=== PATIENT | female | born 1980 | race Caucasian/White ===

== ENCOUNTER 2017-12-06 16:09 | Emergency (ER) | payer MEDICARE, SELFPAY ==
--- NOTE | 2017-12-06 17:34 | XR_ITS ---
XR chest 2V HISTORY: ITS.REASON: COUGH/SOA ORDERING PHYSICIAN: Moisés Mckeon PATIENT AGE: 37 years COMPARISON: 05/30/2013 FINDINGS: The cardiomediastinal silhouette and pulmonary vascularity are within normal limits. The lungs are clear without infiltrates, suspicious nodules, or pleural effusions. No acute bony abnormalities. IMPRESSION: Negative chest, no acute finding
[2017-12-06 17:37] VITALS: BP 143/80; PULSE 116; RESP 20; TEMP 36.6; O2SAT 98; BMI 42.9
--- NOTE | 2017-12-06 18:35 | HMH.EDUTC ---
[facility] [place] Disposition Clinical Impression: Acute bronchitis Qualifiers: Bronchitis organism: unspecified organism Qualified Code(s): J20.9 - Acute bronchitis, unspecified Disposition: Home, Self-Care Condition on Discharge: Good Instructions: DI for Acute Bronchitis Additional Instructions: * STOP SMOKING!!!! * Monitor Temp. Follow up if fever, aches, chills develop * humidifier/vaporizer/hot steamy shower * Rescue Inhaler every 4-6 hours as needed like we discussed. Should help open airways and improve cough, wheezing, shortness of breath. * Mucinex during the day for your cough and cough suppressant only at night. Be sure to drink lots of water. Insurance may not cover a prescription of mucinex. Might be cheaper to get 400mg tablets and take 2 tablets morning, midday and evening all with lots of water. * Start steroid tomorrow. Helps with inflammation therefore, cough and wheezing. Follow directions on package. Rvwd side effects. Pt reports they have taken them before. Prescriptions: guaiFENesin [Mucinex 600mg tablet] 600 mg PO BID #14 tab.er.12h predniSONE [Prednisone 20mg Tab] 20 mg PO BID #10 tab Referrals: Pablo Delgado MD [Primary Care Provider] - (Follow up IMMEDIATELY for new or worsening symptoms AND in 2 days for repeat lung exam. Call them tomorrow and schedule follow up appointment. 911 for difficulty breathing.) Time of Disposition: 20:02 Medical Decision Making Vital Signs: 12/06/17 17:37 12/06/17 19:14 Temperature 98 F Temperature Source Temporal Artery Scan Pulse Rate 113 H Pulse Rate [Right Radial] 116 H Respiratory Rate 20 Blood Pressure [Right Arm] 143/80 Blood Pressure Mean [Right Arm] 101 02 Sat by Pulse Oximetry 98 Oxygen Delivery Method Room Air - Lab Data Lab results reviewed: Yes: I reviewed the patient's lab results. Lab Results 12/06/17 17:34: Strep Scn [facility] Negative 12/06/17 18:38: Influenza Type A Ag Negative, Influenza Type B Ag Negative Orders (Tests/Meds): ED MEDICATIONS Discontinued Medications Generic Name Dose Route Start Last Admin Trade Name Freq PRN Reason Stop Dose Admin Albuterol/Ipratropium 3 ml 12/06/17 18:41 02/21/18 19:12 Duoneb 3ml Neb IH 12/06/17 18:42 3 ml ONCE ONE Administration Methylprednisolone Sodium Succinate 125 mg 12/06/17 18:41 12/06/17 18:53 Solu-Medrol 125mg/2ml Vial IM 12/06/17 18:42 125 mg ONCE ONE Administration ORDERS Category Date Time Status Strep Screen Confirmation Stat Micro 12/06/17 17:34 Received - Radiology Data #1 Image(s): Chest Image Reviewed: Yes I have reviewed radiologist's interpretation Preliminary Findings: Normal/NAD - Torres Inquiry Pt receiving controlled substance: No - Reevaluation(s) Time: 19:55 Reevaluation #1: pt coughing less since neb and steroid. Reports I am already feeling better . RHonchi and wheezing much improved and only minimal at end expiration now. Declines need for cough suppressant at night. Agrees to follow up with PCP in 2 days or for new or worsening symptoms. [facility] [place] HPI - General Stated complaint: sob Time Seen by Provider: 12/06/17 18:35 Mode of Arrival: Family Vehicle Source of Information: Patient Limitations: No Limitations Description of Symptoms (Recalled from Triage Doc. by RN): pt c/o soa, cough, congestion. HEENT Symptoms (Recalled from RN notes): Yes (congestion) Resp Symptoms (Recalled from RN notes): Yes (cough,soa) Skin Symptoms (Recalled from RN notes): No MS Symptoms (Recalled from RN notes): No Functional Status (Recalled from RN notes): na - History of Present Illness Provider Complaint: c/o nonprod cough, SOA, nasal congestion, sore throat for 2-3 days. Hx of bronchial asthma . Uses albuterol inhaler PRN but not typically daily. Using BID right now. Helps but wears off. Son with similar symptoms but not this bad . Denies fever, aches, wheezing. Hx of schizophrenia. Denies hallucinations
--- NOTE | 2017-12-06 18:41 | ED_ITS ---
[facility] [place] Disposition Clinical Impression: Acute bronchitis Qualifiers: Bronchitis organism: unspecified organism Qualified Code(s): J20.9 - Acute bronchitis, unspecified Disposition: Home, Self-Care Condition on Discharge: Good Instructions: DI for Acute Bronchitis Additional Instructions: * STOP SMOKING!!!! * Monitor Temp. Follow up if fever, aches, chills develop * humidifier/vaporizer/hot steamy shower * Rescue Inhaler every 4-6 hours as needed like we discussed. Should help open airways and improve cough, wheezing, shortness of breath. * Mucinex during the day for your cough and cough suppressant only at night. Be sure to drink lots of water. Insurance may not cover a prescription of mucinex. Might be cheaper to get 400mg tablets and take 2 tablets morning, midday and evening all with lots of water. * Start steroid tomorrow. Helps with inflammation therefore, cough and wheezing. Follow directions on package. Rvwd side effects. Pt reports they have taken them before. Prescriptions: guaiFENesin [Mucinex 600mg tablet] 600 mg PO BID #14 tab.er.12h predniSONE [Prednisone 20mg Tab] 20 mg PO BID #10 tab Referrals: Pablo Delgado MD [Primary Care Provider] - (Follow up IMMEDIATELY for new or worsening symptoms AND in 2 days for repeat lung exam. Call them tomorrow and schedule follow up appointment. 911 for difficulty breathing.) Time of Disposition: 20:02 Medical Decision Making Vital Signs: 12/06/17 17:37 12/06/17 19:14 Temperature 98 F Temperature Source Temporal Artery Scan Pulse Rate 113 H Pulse Rate [Right Radial] 116 H Respiratory Rate 20 Blood Pressure [Right Arm] 143/80 Blood Pressure Mean [Right Arm] 101 02 Sat by Pulse Oximetry 98 Oxygen Delivery Method Room Air - Lab Data Lab results reviewed: Yes: I reviewed the patient's lab results. Lab Results 12/06/17 17:34: Strep Scn Rapid [facility] Negative 12/06/17 18:38: Influenza Type A Ag Negative, Influenza Type B Ag Negative Orders (Tests/Meds): ED MEDICATIONS Discontinued Medications Generic Name Dose Route Start Last Admin Trade Name Freq PRN Reason Stop Dose Admin Albuterol/Ipratropium 3 ml 12/06/17 18:41 02/21/18 19:12 Duoneb 3ml Neb IH 12/06/17 18:42 3 ml ONCE ONE Administration Methylprednisolone Sodium Succinate 125 mg 12/06/17 18:41 12/06/17 18:53 Solu-Medrol 125mg/2ml Vial IM 12/06/17 18:42 125 mg ONCE ONE Administration ORDERS Category Date Time Status Strep Screen Confirmation Stat Micro 12/06/17 17:34 Received - Radiology Data #1 Image(s): Chest Image Reviewed: Yes I have reviewed radiologist's interpretation Preliminary Findings: Normal/NAD - Torres Inquiry Pt receiving controlled substance: No - Reevaluation(s) Time: 19:55 Reevaluation #1: pt coughing less since neb and steroid. Reports I am already feeling better . RHonchi and wheezing much improved and only minimal at end expiration now. Declines need for cough suppressant at night. Agrees to follow up with PCP in 2 days or for new or worsening symptoms. [facility] [place] HPI - General Stated complaint: sob Time Seen by Provider: 12/06/17 18:35 Mode of Arrival: Family Vehicle Source of Information: Patient Limitations: No Limitations Description of Symptoms (Recalled from Triage Doc. by RN): pt c/o soa, cough,
[2017-12-06 19:14] VITALS: PULSE 107; PULSE 113
[2017-12-06 19:48] LABS: UTC Influenza A Antigen Negative (Negative); UTC Influenza B Antigen Negative (Negative)
[2017-12-06 19:49] LABS: UTC Strep Screen (Rapid) Negative (Negative)
[2017-12-06 20:04] VITALS: BP 136/77; PULSE 65; RESP 20; TEMP 36.9; O2SAT 99
== END 2017-12-06 20:05 | disposition home or self-care (01) ==
PROVIDERS: Emergency Provider Nurse Practitioner Family; Family Provider Emergency Medicine; PCP Emergency Medicine
DX: J20.9 Acute bronchitis, unspecified (principal); Z88.6 Allergy status to analgesic agent; F17.210 Nicotine dependence, cigarettes, uncomplicated; F20.9 Schizophrenia, unspecified
CPT/HCPCS: G0463; 71046; 87804; 87880; 96372; 99202

== ENCOUNTER → 2017-12-18 14:31 | Outpatient (CLI) | payer MEDICARE, SELFPAY ==
[2017-12-19 14:44] LABS: Free T4 (Free Thyroxine) 0.86 ng/dl (0.76-1.46); Thyroid Stimulating Hormone 3.84 uIU/ml (0.358-3.740)
== END ==
PROVIDERS: PCP Emergency Medicine; Visit Provider Emergency Medicine
DX: R53.83 Other fatigue (principal); R01.1 Cardiac murmur, unspecified
CPT/HCPCS: 84439; 84443; 93225; 93226

== ENCOUNTER → 2018-03-30 15:24 | Outpatient (CLI) | payer MEDICARE, SELFPAY ==
--- NOTE | 2018-03-30 15:27 | CT_ITS ---
CT hip LT wo con HISTORY: Persistent left hip pain, cyst on left hip ITS.REASON: Cystic lesion ORDERING PHYSICIAN: Pablo Delgado MD PATIENT AGE: 38 years COMPARISON: 06/09/2017 FINDINGS: No fracture or dislocation is evident. There is very slight decrease in the superior joint space with minimal osteophyte formation along the femoral head consistent with mild osteoarthritic change. There is a well-circumscribed cystic lesion involving the junction of the right femoral head and neck inferiorly and posteriorly. This measures approximately 7 mm. This is well-circumscribed and has benign features compatible with a fibrous cortical defect or subchondral cyst/small geode. No soft tissue mass or aggressive appearing bony lytic lesion. Minimal degenerative changes are present at the sacroiliac joint on the left. IMPRESSION: 1. 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 Benign-appearing 7 mm cortical cystic lesion of the junction of left femoral head and neck which may represent a fibrous cortical defect or small subarticular cyst.
== END ==
PROVIDERS: Family Provider Emergency Medicine; PCP Emergency Medicine; Visit Provider Emergency Medicine
DX: M25.552 Pain in left hip (principal)
CPT/HCPCS: 73700

== ENCOUNTER → 2018-04-25 09:36 | Outpatient (CLI) | payer MEDICARE, MEDICAID, SELFPAY ==
--- NOTE | 2018-04-25 09:37 | MM_ITS ---
MM Dig screening mamm BI w/CAD CAD Screening COMPARISON: Digital mammograms with CAD 02/13/2013 INDICATION: There is no personal or family history of breast cancer TECHNIQUE: Standard CC and MLO images were obtained. R2 CAD reviewed. FINDINGS: The breasts are composed primarily of fat with minimal scattered fibroglandular densities throughout each breast. There is a mole marker right breast. There are couple benign-appearing calcifications right breast. There is a small asymmetric nodular density just deep to the nipple right breast with benign features but was not deftly seen on the previous mammogram. Recommend the patient return for spot compression views and ultrasound for better evaluation. IMPRESSION: Fibrofatty parenchyma with asymmetric density right breast BI-RADS Category: 0 Need Additional Imaging Evaluation RECOMMENDED FOLLOW-UP: IMM - IMMEDIATE FOLLOW-UP RECOMMENDED (A letter has been sent to the patient regarding results of the study.)
--- NOTE | 2018-04-25 09:37 | US_ITS ---
US transvaginal HISTORY: Pelvic pain, dysfunctional uterine bleeding ITS.REASON: DUB ORDERING PHYSICIAN: Dylan Beckett MD PATIENT AGE: 38 years Comparison: None FINDINGS: Uterus measures 9.4 x 4.2 x 5.8 cm. Combined endometrial thickness is 11 mm. Nabothian cysts are present measuring up to 8 mm. The ovaries were not able to be visualized. Minimal cul-de-sac fluid evident. IMPRESSION: 1. Endometrial thickness upper limits of normal. 2. Ovaries are not visualized.
== END ==
PROVIDERS: Family Provider Emergency Medicine; PCP Emergency Medicine; Visit Provider Obstetrics & Gynecology
DX: Z12.31 Encounter for screening mammogram for malignant neoplasm of breast (principal); N93.8 Other specified abnormal uterine and vaginal bleeding
CPT/HCPCS: 76830; 77067

== ENCOUNTER → 2018-05-02 13:28 | Outpatient (CLI) | payer MEDICARE, MEDICAID, SELFPAY | PROVIDERS: Family Provider Emergency Medicine; PCP Emergency Medicine; Visit Provider Emergency Medicine | DX: M54.9 Dorsalgia, unspecified (principal) ==

== ENCOUNTER → 2018-05-15 13:36 | Outpatient (CLI) | payer MEDICARE, MEDICAID, SELFPAY ==
--- NOTE | 2018-05-15 14:42 | MM_ITS ---
MM Dig mamm DX unilat RT CAD, US breast RT complete INDICATION: Follow-up abnormal mammogram ORDERING PHYSICIAN: Dylan Beckett MD PATIENT AGE: 38 years COMPARISON: 04/25/2018, 02/13/2013 TECHNIQUE: Probable resolving views performed with right breast ultrasound FINDINGS: Right Mammogram: There is a dilated duct in the retroareolar region extending laterally. There is a nodular density in the lateral aspect of the right breast corresponding to the asymmetric density on the mammogram. This measures 8 mm and is best seen on the rolled view and ML view. In addition, there is a bilobular density in the subareolar region at 6 mm. Right breast ultrasound: The dilated duct is noted extending towards the 9:00 region. There is some isoechoic echogenicity in the 9:00 region of the duct possibly due to debris. A granuloma is an additional consideration. MRI suggested for further evaluation. A small cluster of cysts also noted in the subareolar region IMPRESSION: No ductal dilatation in the right subareolar region extending laterally with debris or nodule within the proximal aspect of the duct which may account for the nodular density noted on the mammogram. MRI of the breast suggested for further evaluation for new ductal dilatation BI-RADS Category: 0 Need Additional Imaging Evaluation RECOMMENDED FOLLOW-UP: IMM - IMMEDIATE FOLLOW-UP RECOMMENDED Recommend MRI of the breast for further evaluation for workup of new singular ductal dilatation with possible lesion in the proximal aspect of the duct (A letter has been sent to the patient regarding results of the study.)
== END ==
PROVIDERS: Family Provider Emergency Medicine; PCP Emergency Medicine; Visit Provider Obstetrics & Gynecology
DX: R92.8 Other abnormal and inconclusive findings on diagnostic imaging of breast (principal)
CPT/HCPCS: 76641; 77065

== ENCOUNTER → 2018-05-25 13:15 | Outpatient (CLI) | payer MEDICARE, MEDICAID, SELFPAY ==
[2018-05-25 13:29] LABS: Basophils # 0.2 K/mm3 (0-0.2); Eosinophils # 0.3 K/mm3 (0.0-0.4); Eosinophils % 1.9 % (0.1-12.0); Hemoglobin 13.3 g/dL (12.2-16.2); Lymphocytes % 31.7 K/mm3 (10-50); Mean Corpuscular HGB Conc 32.5 g/dL (31.8-35.4); Mean Corpuscular Hemoglobin 29.3 pg (27.0-31.2); Mean Corpuscular Volume 89.9 fl (81-99); Mean Platelet Volume 8.7 fl (7.4-10.4); Monocytes # 0.6 K/mm3 (0.1-1.0); Monocytes % 3.7 % (1.7-9.3); Neutrophils # 9.8 K/mm3 (1.8-7.8); Neutrophils % 61.7 % (37.0-80.0); Platelet Count 241 K/mm3 (142-424); Red Blood Count 4.56 M/mm3 (4.20-5.40); Red Cell Distribution Width 14.7 % (11.5-17.5); White Blood Count 15.8 K/mm3 (4.8-10.8)
[2018-05-25 13:55] LABS: MANUAL DIFFERENTIAL MANUAL DIFFERENTIAL (MANUAL DIFF)
[2018-05-25 15:33] LABS: Eosinophils % 4 % (0-3); Lymphocytes % 32 % (10-50); Monocytes % 8 % (2-9); Neutrophils % 55 % (42-76); Platelet Estimate Normal; RBC Morphology Normal; Total Cells Counted 100
== END ==
PROVIDERS: Family Provider Emergency Medicine; PCP Emergency Medicine; Visit Provider Obstetrics & Gynecology
DX: Z01.419 Encounter for gynecological examination (general) (routine) without abnormal findings (principal); R60.0 Localized edema
CPT/HCPCS: 36415; 84443; 85007; 85025

== ENCOUNTER → 2018-06-13 14:52 | Outpatient (CLI) | payer MEDICARE, MEDICAID, SELFPAY ==
--- NOTE | 2018-06-13 14:53 | MR_ITS ---
MR lumbar spine wo con, MR 3-d myelogram/MRCP HISTORY: PT states low back pain X 3 Years or longer. Bilateral hip pain, legs numbness and tingling. ITS.REASON: back pain ORDERING PHYSICIAN: Pablo Delgado MD PATIENT AGE: 38 years Comparison: 06/09/17 TECHNIQUE: Standard multiplanar multiecho sequences are performed without contrast. 3-D MIP and myelographic images are also rendered and reviewed FINDINGS: There is normal alignment. The spinal cord ends at the L1 level. No canal stenosis. T11-L4 has an unremarkable appearance. L4-5: There is a mild concentric bulging disc eccentric towards the left with small broad-based left foraminal and lateral disc protrusion causing mild left foraminal narrowing. Facet and ligamentum flavum hypertrophic changes are present with bilateral lateral recess narrowing left greater than right with some mild impingement upon the left L5 nerve root from the lateral recess narrowing. In addition, there is an ovoid so intensity within the anterior and inferior aspect of the foramen on the right at L4-L5 measuring approximately 9 x 4 mm. This is in inferior to the exiting L4 nerve root is could be due to small disc extrusion or a disc osteophyte complex contiguous with the endplate. L5-S1 shows some mild facet and ligamentum flavum hypertrophy. Incidental note is made of a 2.7 x 2.6 cm rounded isointense T1 and slightly hyperintense T2 lesion medial to the inferior aspect of the left kidney. Etiology is indeterminate. Suggest CT scan without and with contrast for further evaluation IMPRESSION: 1. Mild concentric bulging disc eccentric towards the left at L4-L5 with small broad-based left foraminal and lateral disc protrusion causing mild left foraminal narrowing. Facet and ligamentum flavum hypertrophic changes are present with bilateral lateral recess narrowing left greater than right with some mild impingement upon the left L5 nerve root from the lateral recess narrowing. In addition, there is an ovoid isointensity within the anterior and inferior aspect of the foramen on the right at L4-L5 measuring approximately 9 x 4 mm. This is in inferior to the exiting L4 nerve root is could be due to small disc extrusion or a disc osteophyte complex contiguous with the endplate and may be causing some and upon the exiting L4 nerve root 2. 2.7 cm mass in the left para-aortic region medial to the inferior pole left kidney. Recommend CT of the kidneys without and with contrast for further evaluation
== END ==
PROVIDERS: Family Provider Emergency Medicine; PCP Emergency Medicine; Visit Provider Emergency Medicine
DX: M54.9 Dorsalgia, unspecified (principal)
CPT/HCPCS: 72148; 76376

== ENCOUNTER → 2018-07-18 08:59 | Outpatient (CLI) | payer MEDICARE, MEDICAID, SELFPAY ==
--- NOTE | 2018-07-18 09:06 | CT_ITS ---
CT abdomen pelvis wo/w con CLINICAL INDICATION: Follow-up left renal mass seen on recent MRI of the lumbar spine ITS.REASON: left kidney mass ORDERING PHYSICIAN: BARON Tapia PATIENT AGE: 38 years COMPARISON: None TECHNIQUE: Axial images obtained without and with contrast. Multiplanar Sagittal and coronal reformats. All CT scans at the facility use one or more dose reduction, viz: automated exposure control, ma/kV adjustment per patient size (including targeted exams where dose is matched to indication, i.e. head), or iterative reconstruction technique. PROCEDURE: Oral Contrast: None IV Contrast: 75 mL [id number]. FINDINGS: There is a well-circumscribed 2.8 x 3.1 x 2.9 cm solid-appearing soft tissue mass in the retroperitoneum on the left. There is mostly uniform density isodense to muscle on the unenhanced images showing some contrast enhancement with fairly rapid washout. This abuts the medial and superior aspect of the left kidney. The left renal artery extends to the medial margin of this lesion. It is uncertain with the renal artery passes through the lesion or drapes around the lesion. This does appear to be separate from the left adrenal gland. No other significant anomalies are evident. The liver, spleen, adrenal glands, right kidney, and pancreas have an unremarkable appearance. There is a mild amount retained colonic feces. There is a tiny umbilical hernia containing fat. No pelvic mass or abnormal fluid collection. There are bilateral tubal occlusion device is present. There is a small left ovarian cyst at 14 mm. No acute bony anomalies are evident. IMPRESSION: Well-circumscribed 3 cm left retroperitoneal mass as described above along the superior medial aspect of the left kidney and inferior to the left adrenal gland. The left renal artery appears to lead into this lesion. This therefore creates concern for percutaneous biopsy. This could represent an exophytic renal cell carcinoma. Other considerations would include a ganglioneuroma, paraganglioma, schwannoma/neurofibroma or lymphangioma. Pheochromocytoma felt to be less likely. Does the patient have any old CTs at another institution for comparison. Consider urology consult. If percutaneous biopsy is contemplated then CT renal angiogram should be performed.
--- NOTE | 2018-07-18 09:31 | HMH.ITSHM ---
SEE PRIOR LIST
== END ==
PROVIDERS: Family Provider Emergency Medicine; PCP Emergency Medicine; Visit Provider Physician Assistant
DX: N28.89 Other specified disorders of kidney and ureter (principal)
CPT/HCPCS: 74170; Q9967

== ENCOUNTER 2018-08-22 08:21 | Inpatient (IN) ==
--- NOTE | 2018-08-22 08:26 | Emergency Department Note ---
ED Disposition Clinical Impression: Abdominal pain, lower Leukocytosis Qualifiers: Leukocytosis type: unspecified Qualified Code(s): D72.829 - Elevated white blood cell count, unspecified Disposition: Still a Patient Condition on Discharge: Fair Referrals: Provider,Referral, [Primary Care Provider] - - Critical Care Critical Care Time: No Attestation: On , the high probability of a clinically significant, sudden or life threatening deterioration of the following system(s) required my full and direct attention, intervention and personal management. The time I documented below is in addition to time spent performing reported procedures but includes the following listed in this critical care notation. Medical Decision Making - Torres Inquiry Pt receiving controlled substance: Yes Torres was queried for this patient: Yes Reference #:: [id number] Risks and benefits of using a controlled substance: were not discussed with pt by me Comment: 2 rxs for Tylenol #3, last on 04/13/18, 60 tabs Vital Signs: 08/22/18 08:21 08/22/18 08:32 08/22/18 08:51 Temperature 98.6 F 98.6 F Temperature Source Oral Oral Pulse Rate [Right Brachial] 120 H 120 H 112 H Respiratory Rate 18 18 20 Blood Pressure [Right Arm] 170/132 H 170/132 H 165/100 H Blood Pressure Mean [Right Arm] 144 144 121 Blood Pressure Source [Right Arm] Automatic Cuff Automatic Cuff Automatic Cuff Blood Pressure Position [Right Arm] Sitting Sitting Sitting 02 Sat by Pulse Oximetry 97 97 96 Oxygen Delivery Method Room Air Room Air Room Air 08/22/18 09:24 08/22/18 09:34 08/22/18 11:11 Temperature Temperature Source Pulse Rate [Right Brachial] 114 H 107 H 108 H Respiratory Rate 19 19 Blood Pressure [Right Arm] 156/114 H 200/101 H 140/106 H Blood Pressure Mean [Right Arm] 128 134 117 Blood Pressure Source [Right Arm] Manual Cuff/ Auscultation Automatic Cuff Blood Pressure Position [Right Arm] Supine Sitting 02 Sat by Pulse Oximetry 96 96 95 Oxygen Delivery Method 08/22/18 11:41 Temperature Temperature Source Pulse Rate [Right Brachial] 58 L Respiratory Rate 20 Blood Pressure [Right Arm] 155/79 H Blood Pressure Mean [Right Arm] 104 Blood Pressure Source [Right Arm] Automatic Cuff Blood Pressure Position [Right Arm] Sitting 02 Sat by Pulse Oximetry 95 Oxygen Delivery Method Room Air - Lab Data Lab Results 08/22/18 08:30: WBC 19.1 H, RBC 4.91, Hgb 14.9, Hct 46.0, MCV 93.8, MCH 30.4, MCHC 32.4, RDW 15.3, Plt Count 252, MPV 8.3, Neut % (Auto) 61.0, Lymph % (Auto) 31.1, [place] % (Auto) 4.5, Eos % (Auto) 2.0, Baso % (Auto) 1.5, Neut # (Auto) 11.6 H, Lymph # (Auto) 5.9 H, [place] # (Auto) 0.9, Eos # (Auto) 0.4, Baso # (Auto) 0.3 H, Total Counted 100, Neutrophils % (Manual) 65, Lymphocytes % (Manual) 22, Atypical Lymphs % 6.0, Monocytes % (Manual) 4, Eosinophils % (Manual) 3, Platelet Estimate Normal, RBC Morphology Normal 08/22/18 08:30: Sodium 138, Potassium 4.6, Chloride 100, Carbon Dioxide 26, Anion Gap 16.6 H, BUN 23 H, Creatinine 1.22 H, Estimated Creat Clear 48, Estimated GFR 49 L, Est GFR ( Amer) 59, Glucose 126 H, Calcium 9.3, Total Bilirubin 0.3, AST 20, ALT 40, Alkaline Phosphatase 115, Total Protein 8.1, Albumin 3.6, Globulin 4.5 H, Albumin/Globulin Ratio 0.8 L, Lipase 193 08/22/18 08:38: Urine Color Yellow, Urine Appearance Sl cloudy, Urine pH 6.5, Ur Specific [place] 1.025, Urine Protein 2+, Urine Glucose (UA) Negative, Urine Ketones Negative, Urine Blood Trace-i, Urine Nitrate Negative, Urine Bilirubin Negative, Urine Urobilinogen 0.2, Ur Leukocyte Esterase Negative, Urine RBC Occasional, Urine WBC 3-5, Ur Squamous Epith Cells 20-50, Urine Bacteria 1+, Urine Mucus Trace 08/22/18 08:38: Urine HCG, Qual Negative Result diagrams: 08/22/18 08:30 08/22/18 08:30 Orders (Tests/Meds): ED MEDICATIONS Discontinued Medications Generic Name Dose Route Start Last Admin Trade Name Freq PRN Reason Stop Dose Admin Iopamidol 75 ml 08/22/18 09:09 08/22/18 09:10 [id number]; 75ml Vial IV 08/22/18 09:10 75 ml ONCE ONE Administration Protocol Morphine Sulfate 4 mg 08/22/18 08:41 08/22/18 08:53 Morphine 4mg/Ml Syringe IV 08/22/18 08:42 4 mg ONCE ONE Administration Ondansetron HCl 4 mg 08/22/18 08:41 08/22/18 08:53 Zofran 4mg/2ml Vial IV 08/22/18 08:42 4 mg ONCE ONE Administration Sodium Chloride 1,000 ml 08/22/18 08:41 08/22/18 08:53 Sod Chlor 0.9% 1000ml Bag IV 08/22/18 08:42 1,000 ml BOLUS ONE Administration Sodium Chloride 10 ml 08/22/18 09:09 08/22/18 09:10 Rad-Saline Flush 10ml Syringe IV 08/22/18 09:10 10 ml ONCE ONE Administration - CT Data CT Scan: Abdomen, Pelvis Time Received: 09:[address] Reviewed: Yes: I discussed the CT results w/the radiologist Findings Narrative: Small amount of inflammation around the small bowel. Small amount of fluid anterior to the uterus. Findings nonspecific. No diverticulitis. IMPRESSION: 1. There are noncalcified nodules in the left lung base. These are nonspecific. One cannot exclude the possibility of metastasis especially in a patient with a left retroperitoneal mass. 2. 3.3 cm left retroperitoneal mass as previously described not significant change from 07/18/2018. Neoplasm is considered. 3. There is a small amount of fluid anterior to the uterus with some minimal infiltration of the peritoneal fat in this region suggesting underlying inflammation. Etiology of this is however uncertain. This is immediately adjacent to small bowel and colon however negative widely structures show any significant bowel wall thickening. No convincing evidence of diverticulitis. There are some mildly prominent small bowel loops in the lower abdomen/upper pelvic region. Enteritis is a consideration. Dictated By: Timur Thompson MD Signed By: <Electronically signed by Timur Thompson MD in [place]> 08/22/18 1005 - US Data US Images: Pelvis ED US Reviewed: Yes: I have viewed radiologist's interpretation Findings Narrative: IMPRESSION: Limited exam with mild thickening of the endometrium with a small amount of cul-de-sac fluid. No evidence of ovarian torsion. Hyperechogenicity noted in the fundus of the uterus possibly related to the Essure device versus a small amount of gas. Dictated By: Timur Thompson MD Signed By: <Electronically signed by Timur Thompson MD in [place]> 08/22/18 1138 - Physician Consults Physician Consulted: Danny Time: 09:58 Reason -: Pt condition Comment/Response: agrees with pelvic u/s. if no cause for pain found, surgical consult, admit for observation. 12:00 PM - Dr. Delgado present, discussed U/S results. Additional Consult: Gen Time: 12:16 Reason -: Surgical Eval/Care Comment/Response: will consult - Reevaluation(s) Time: 09:47 Reevaluation #1: States currently pain-free. Blood pressure elevated, did not take her lisinopril this morning. General Adult HPI - General Chief complaint: Abdominal Pain Stated complaint: Abd/Back Pain Time Seen by Provider: 08/22/18 08:30 - History of Present Illness HPI narrative: Woke up with severe abdominal pain and low back pain this morning. No prior sim ilar pains. Locates the pain is diffuse, but says it is mostly in the suprapubic/pelvic area and feels like labor pain contractions. Feels distended. No nausea, vomiting, fever, diarrhea, constipation. Last menstrual period about 2 weeks ago. No vaginal discharge. She is not sexually active. Last intercourse 8 months ago. Has only had sex once in 6 years. States that she has been told she has an enlarged uterus by her gold nib grinder, Dr. Beckett, but it has not yet been investigated. 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 Scheduled for surgery on 08/30/18. Urologist Dr. Rapp. PCP Dr. Delgado. - Related Data Home Medications Medication Instructions Recorded Confirmed Budesonide/Formoterol Fumarate 2 puff INHALATION BID 08/22/18 08/22/18 [Symbicort 160-4.5 Mcg Inhaler] Cyclobenzaprine HCl 10 mg PO BID 08/22/18 08/22/18 [Cyclobenzaprine 10mg Tab] Lisinopril/Hydrochlorothiazide 1 tab PO DAILY 08/22/18 08/22/18 [Lisinopril-Hctz 10-12.5 mg Tab] Mupirocin [Centany] 1 applic TOPICAL BID 08/22/18 08/22/18 hydroCHLOROthiazide 12.5 mg PO .QOD 08/22/18 08/22/18 [Hydrochlorothiazide 12.5mg Tab] Previous Rx's Medication Instructions Recorded albuterol sulfate HFA 90 2 puff INHALATION Q4-6H PRN 30 04/19/18 mcg/actuation aerosol inhaler Days #6.7 g aripiprazole 10 mg tablet 10 mg PO QDAY #90 tab 08/16/18 levothyroxine 25 mcg tablet 25 mcg PO DAILY #90 tab 08/16/18 Allergies Allergy/AdvReac Type Severity Reaction Status Date / Time ibuprofen [IBUPROFEN] Allergy Unknown I-HIVES Verified 07/24/18 09:20 naproxen [NAPROXEN] Allergy Unknown I-HIVES Verified 07/24/18 09:20 [facility] History I have reviewed the patient's past medical history: Yes Medical History: Reports:: Hypertension Denies:: Cancer, Diabetes Mellitus Type 1, Diabetes Mellitus Type 2, MRSA Other Medical History: Reports: Other Other Surgeries: Yes: Appendectomy, , Tubal Ligation, Other Amputation: No Fractures: No Comment: 1985- Appy (open). 1996- Primary . 2002- Repeat . 2008-Repeat . 2009- Essure - Social History Smoking Status: Current every day smoker Tobacco Type: cigarettes # Packs/Day (cigarettes): 1 Alcohol Intake: never Substance Use Type: denies use Family Hx:: Cancer ROS Obtained: Yes All systems reviewed & no additional complaints - Constitutional Constitutional: Denies fever(s) - Cardiovascular Cardiovascular: Denies chest pain - Respiratory Respiratory: No cough, No dyspnea - Gastrointestinal Gastrointestingal: Reports: abdominal pain. Denies: constipation, diarrhea, nausea, vomiting - Genitourinary Female Genitourinary: Denies abnormal vaginal bleeding, Denies difficulty voiding, Denies dysuria - Musculoskeletal Musculoskeletal: Reports back pain - Neurologic Neurologic: Denies numbness, Denies weakness Physical Exam - General General appearance: alert, in no apparent distress - Head Head exam: atraumatic, normocephalic, normal inspection - Eye Eye exam: Present: normal appearance, PERRL, EOMI - ENT ENT exam: Present: mucous membranes moist - Neck Neck exam: Present: normal inspection, trachea midline - Chest Chest inspection: Present: normal inspection, symmetric chest wall rise - Respiratory Respiratory exam: Present: normal lung sounds bilaterally. Absent: respiratory distress - Cardiovascular Cardiovascular exam: Present: normal rhythm, tachycardia. Absent: JVD - Abdominal Exam Abdominal exam: Present: soft, tenderness, normal bowel sounds. Absent: distention, guarding Abdominal tenderness: Present: diffuse (but most tender in suprapubic area, not lateralized) - Extremities Exam Extremities exam: Present: normal inspection, full ROM, normal capillary refill - Back Exam Back exam: Present: normal inspection. Absent: tenderness Comment: Chronic hyperpigmentation lower back - Neurological Exam Neurological exam: Present: alert, oriented X3 - Psychiatric Psychiatric exam: Present: anxious - Skin Skin exam: Present: warm, dry, intact, normal color Trauma Alert The Trauma Alert Section documentation for [id number] Zena Rizzo was populated with data that defaulted in from the tank riveter in the Trauma Alert Triage Assessment on f_Reg Service Date] to provide within this report, the status of the patient on arrival to the ED during the Trauma Alert.
[2018-08-22 08:42] LABS: Microscopic, Urine URINE MICROSCOPIC (MICROSCOPIC)
[2018-08-22 08:45] LABS: Appearance,Urine SL CLOUDY (Clear); Bilirubin,Urine Negative (Negative); Blood, Urine TRACE-I (Negative); Color,Urine YELLOW (Yellow); Glucose,Urine (UA) Negative (Negative); Ketones,Urine Negative (Negative); Leukocyte Esterase,Urine Negative (Negative); PH,Urine 6.5 (5.0-8.5); Protein,Urine 2+ (Negative); Specific Gravity, Urine 1.025 (1.005-1.030); Urobilinogen,Urine 0.2 EU/dl (0.2)
[2018-08-22 08:49] LABS: Basophils # 0.3 K/mm3 (0-0.2); Basophils % 1.5 % (0.1-2.0); Eosinophils # 0.4 K/mm3 (0.0-0.4); Hemoglobin 14.9 g/dL (12.2-16.2); Lymphocytes # 5.9 K/mm3 (0.7-4.5); Lymphocytes % 31.1 % (10-50); Mean Corpuscular HGB Conc 32.4 g/dL (31.8-35.4); Mean Corpuscular Hemoglobin 30.4 pg (27.0-31.2); Mean Corpuscular Volume 93.8 fl (81-99); Mean Platelet Volume 8.3 fl (7.4-10.4); Monocytes # 0.9 K/mm3 (0.1-1.0); Monocytes % 4.5 % (1.7-9.3); Neutrophils # 11.6 K/mm3 (1.8-7.8); Platelet Count 252 K/mm3 (142-424); Red Blood Count 4.91 M/mm3 (4.20-5.40); Red Cell Distribution Width 15.3 % (11.5-17.5); White Blood Count 19.1 K/mm3 (4.8-10.8)
[2018-08-22 08:57] LABS: Albumin Level 3.6 gm/dL (3.4-5.0); Albumin/Globulin Ratio 0.8 (1.1-1.8); Anion Gap 16.6 mEq/L (5-15); Bilirubin,Total 0.3 mg/dL (0.2-1.0); Calcium 9.3 mg/dL (8.5-10.1); Globulin 4.5 gm/dl (1.3-3.2); Potassium 4.6 mmoL/L (3.5-5.1); Total Protein,Serum 8.1 gm/dL (6.4-8.2)
[2018-08-22 08:57] LABS: Bacteria,Urine 1+ /lpf; Mucus,Urine Trace /lpf; RBC,Urine Occasional #/hpf (0-3); Squamous Epithelial Cell,Urine 20-50 #/hpf (0-5)
[2018-08-22 09:10] LABS: Eosinophils % 3 % (0-3); Lymphocytes % 22 % (10-50); Monocytes % 4 % (2-9); Neutrophils % 65 % (42-76); Total Cells Counted 100
[2018-08-22 09:11] LABS: RBC Morphology Normal
--- NOTE | 2018-08-22 13:52 | Consult Report ---
*Admission Date: 08/22/18 *Chief complaint: Abdominal pain *History of present illness: Patient is a 38-year-old female. She had been having some low back pain and had an MRI done as an outpatient which revealed a left renal hilar mass. She had been seen by Dr. Rapp and he is planning robotic laparoscopic surgery next week. She had been in her usual state of health and awoke this morning with severe suprapubic and generalized lower abdominal and pelvic pain. She describes this as severe and it "doubled me over". She was in her usual state of health the evening before. She denies any nausea or vomiting. Denies any area. She presented to the emergency department where she was seen and evaluate d. She had a CT scan performed with intravenous contrast which revealed this retroperitoneal mass as previously noted. She also had some nonspecific minor fluid in the pelvis. Minimal prominent bowel loops consistent with possible enteritis. Transvaginal ultrasound was also obtained. She had a white blood cell count of 19,000. She was admitted for inpatient management and surgical consultation was obtained. Patient states that her symptoms have significantly improved and virtually resolved at this time. Review of Systems - Constitutional Denies anorexia - Eyes Denies blind spots - ENT Denies abnormal hearing - *Cardiovascular Denies chest pain - *Gastrointestinal Reports abdominal pain, Reports bloating, Denies change in bowel habits, Denies loose stools - *Genitourinary Denies abnormal periods - *Musculoskeletal Denies abnormal walking - *Neurologic Denies numbness, Denies weakness [facility] History Medical History: Reports:: Hypertension Denies:: Cancer, Diabetes Mellitus Type 1, Diabetes Mellitus Type 2, MRSA Other Medical History: Reports: Thyroid Disease, Other Other Surgeries: Yes: Appendectomy, , Tubal Ligation, Other Amputation: No Fractures: No - *Social History Educational Level: Attended High School Smoking Status: Current every day smoker Tobacco Type: cigarettes # Packs/Day (cigarettes): 1 Alcohol Intake: former Substance Use Type: denies use Occupational Status: disabled Housing: apartment Household Members: children - Psychiatric History Expresses thoughts of harming self/others: None Suicide Plan Description: No Plan *Family Hx:: Cancer Meds Home Medications Medication Instructions Recorded Confirmed Type Budesonide/Formoterol Fumarate 2 puff INHALATION BID 08/22/18 08/22/18 History [Symbicort 160-4.5 Mcg Inhaler] Cyclobenzaprine HCl 10 mg PO BID 08/22/18 08/22/18 History [Cyclobenzaprine 10mg Tab] Lisinopril/Hydrochlorothiazide 1 tab PO DAILY 08/22/18 08/22/18 History [Lisinopril-Hctz 10-12.5 mg Tab] Mupirocin [Centany] 1 applic TOPICAL BID 08/22/18 08/22/18 History hydroCHLOROthiazide 12.5 mg PO DAILY 08/22/18 08/22/18 History [Hydrochlorothiazide 12.5mg Tab] Allergies Allergy/AdvReac Type Severity Reaction Status Date / Time ibuprofen [IBUPROFEN] Allergy Unknown I-HIVES Verified 07/24/18 09:20 naproxen [NAPROXEN] Allergy Unknown I-HIVES Verified 07/24/18 09:20 Exam Vital signs and Labs for Last 24 Hours: Temp Pulse Resp BP Pulse Ox 99.1 F 122 H 18 148/83 H 96 08/22/18 12:57 08/22/18 13:12 08/22/18 13:12 08/22/18 12:57 08/22/18 13:12 Laboratory Results - last 24 hr 08/22/18 08:30: WBC 19.1 H, RBC 4.91, Hgb 14.9, Hct 46.0, MCV 93.8, MCH 30.4, MCHC 32.4, RDW 15.3, Plt Count 252, MPV 8.3, Neut % (Auto) 61.0, Lymph % (Auto) 31.1, [place] % (Auto) 4.5, Eos % (Auto) 2.0, Baso % (Auto) 1.5, Neut # (Auto) 11.6 H, Lymph # (Auto) 5.9 H, [place] # (Auto) 0.9, Eos # (Auto) 0.4, Baso # (Auto) 0.3 H, Total Counted 100, Neutrophils % (Manual) 65, Lymphocytes % (Manual) 22, Atypical Lymphs % 6.0, Monocytes % (Manual) 4, Eosinophils % (Manual) 3, Plate let Estimate Normal, RBC Morphology Normal 08/22/18 08:30: Sodium 138, Potassium 4.6, Chloride 100, Carbon Dioxide 26, Anion Gap 16.6 H, BUN 23 H, Creatinine 1.22 H, Estimated Creat Clear 48, Estimated GFR 49 L, Est GFR ( Amer) 59, Glucose 126 H, Calcium 9.3, Total Bilirubin 0.3, AST 20, ALT 40, Alkaline Phosphatase 115, Total Protein 8.1, A lbumin 3.6, Globulin 4.5 H, Albumin/Globulin Ratio 0.8 L, Lipase 193 08/22/18 08:38: Urine Color Yellow, Urine Appearance Sl cloudy, Urine pH 6.5, Ur Specific [place] 1.025, Urine Protein 2+, Urine Glucose (UA) Negative, Urine Ketones Negative, Urine Blood Trace-i, Urine Nitrate Negative, Urine Bilirubin Negative, Urine Urobilinogen 0.2, Ur Leukocyte Esterase Negative, Urine RBC Occasional, Urine WBC 3-5, Ur Squamous Epith Cells 20-50, Urine Bacteria 1+, Urine Mucus Trace 08/22/18 08:38: Urine HCG, Qual Negative I & O for Last 24 hours: Intake & Output 08/20/18 08/21/18 08/22/18 08/23/18 11:59 11:59 11:59 11:59 Weight 280 lb 238 lb 4 oz - Constitutional no acute distress - *Routine HEENT Exam Head: Present: normocephalic - *Routine Respiratory Exam Present: CTA bilaterally - *Routine Cardiovascular Exam Present: RRR - *Routine Abdominal Exam Present: soft Comments: She has minimal subjective tenderness in the lower abdomen somewhat more towards the right lower quadrant. Results - Labs 08/22/18 08:30 08/22/18 08:30 Laboratory Results - last 24 hr 08/22/18 08:30: WBC 19.1 H, RBC 4.91, Hgb 14.9, Hct 46.0, MCV 93.8, MCH 30.4, MCHC 32.4, RDW 15.3, Plt Count 252, MPV 8.3, Neut % (Auto) 61.0, Lymph % (Auto) 31.1, [place] % (Auto) 4.5, Eos % (Auto) 2.0, Baso % (Auto) 1.5, Neut # (Auto) 11.6 H, Lymph # (Auto) 5.9 H, [place] # (Auto) 0.9, Eos # (Auto) 0.4, Baso # (Auto) 0.3 H, Total Counted 100, Neutrophils % (Manual) 65, Lymphocytes % (Manual) 22, Atypical Lymphs % 6.0, Monocytes % (Manual) 4, Eosinophils % (Manual) 3, Platelet Estimate Normal, RBC Morphology Normal 08/22/18 08:30: Sodium 138, Potassium 4.6, Chloride 100, Carbon Dioxide 26, Anion Gap 16.6 H, BUN 23 H, Creatinine 1.22 H, Estimated Creat Clear 48, Estimated GFR 49 L, Est GFR ( Amer) 59, Glucose 126 H, Calcium 9.3, Total Bilirubin 0.3, AST 20, ALT 40, Alkaline Phosphatase 115, Total Protein 8.1, Albumin 3.6, Globulin 4.5 H, Albumin/Globulin Ratio 0.8 L, Lipase 193 08/22/18 08:38: Urine Color Yellow, Urine Appearance Sl cloudy, Urine pH 6.5, Ur Specific [place] 1.025, Urine Protein 2+, Urine Glucose (UA) Negative, Urine Ketones Negative, Urine Blood Trace-i, Urine Nitrate Negative, Urine Bilirubin Negative, Urine Urobilinogen 0.2, Ur Leukocyte Esterase Negative, Urine RBC Occasional, Urine WBC 3-5, Ur Squamous Epith Cells 20-50, Urine Bacteria 1+, Urine Mucus Trace 08/22/18 08:38: Urine HCG, Qual Negative Assessment and Plan - Assessment and plan all Dx Assessment and Plan for all problems:: Patient presented with abdominal pain and was noted to have leukocytosis. Etiology unclear. His symptoms have already improved. At this point plan for expectant medical management. I will go ahead and start her on a limited diet.
--- NOTE | 2018-08-22 14:29 | Pharmacy Consult Notes ---
[facility] Pharmacy VTE Monitoring - Patient Demographics Admission date: 08/22/18 Report Date: 08/22/18 Time: 14:29 Allergies/Adverse Reactions: Patient Allergies ibuprofen [IBUPROFEN] Allergy (Unknown, Verified 07/24/18 09:20) I-HIVES naproxen [NAPROXEN] Allergy (Unknown, Verified 07/24/18 09:20) I-HIVES Height: 1.63 m Weight: 108.068 kg Patient Problems: Current Active Problems (Last Updated 12/19/17 @ 16:44 by BARON Danielle) Abdominal pain, lower (Acute) Leukocytosis (Acute) - VTE Risk Labs: VTE Related Lab Results Hgb 14.9 g/dL (12.2-16.2) 08/22/18 08:30 Hct 46.0 % (37.0-47.0) 08/22/18 08:30 Plt Count 252 K/mm3 (142-424) 08/22/18 08:30 BUN 23 mg/dL (7-18) H 08/22/18 08:30 Creatinine 1.22 mg/dL (0.55-1.02) H 08/22/18 08:30 Estimated Creat Clear 48 mL/min (0-300) 08/22/18 08:30 Was VTE Risk Assessment Performed: Yes VTE Score: 1 VTE Risk Level: Very Low Risk Clinical Trial Participant: No - Prophylaxis VTE Prophylaxis Ordered?: Yes Types of VTE Prophylaxis: TEDS Knee High Location of Applied Device: Bilateral Lower Extremeties
--- NOTE | 2018-08-22 20:56 | History & Physical Report ---
*Admission Date: 08/22/18 *Chief complaint: abd pain *History of present illness: this wf had severe abd pain and presented to ed for eval -charles up with severe abdominal pain and low back pain this morning. No prior similar pains. Locates the pain is diffuse, but says it is mostly in the suprapubic/pelvic area and feels like labor pain contractions. Feels distended. No nausea, vomiting, fever, diarrhea, constipation. Last menstrual period about 2 weeks ago. No vaginal discharge. She is not sexually active. Last intercourse 8 months ago. Has only had sex once in 6 years. States that she has been told she has an enlarged uterus by her forest pathology professor, Dr. Beckett, but it has not yet been investigated. 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 Scheduled for surgery on 08/30/18. Urologist Dr. Rapp. [facility] History I have reviewed the patient's past medical history: Yes Medical History: Reports:: Hypertension Denies:: Cancer, Diabetes Mellitus Type 1, Diabetes Mellitus Type 2, MRSA Other Medical History: Reports: Thyroid Disease, Other Other Surgeries: Yes: Appendectomy, , Tubal Ligation, Other Amputation: No Fractures: No - *Social History Educational Level: Attended High School Smoking Status: Current every day smoker Tobacco Type: cigarettes # Packs/Day (cigarettes): 1 Alcohol Intake: former Substance Use Type: denies use Occupational Status: disabled Housing: apartment Household Members: children - Psychiatric History Expresses thoughts of harming self/others: None Suicide Plan Description: No Plan *Family Hx:: Cancer Review of Systems - Review of Systems Review of systems:: pertinent systems reviewed and negative unless documented below - Constitutional Denies fever(s) - Eyes Denies change in vision - ENT Denies sore throat - *Cardiovascular Denies chest pain - *Respiratory Denies cough - *Gastrointestinal Reports abdominal pain, Reports nausea, Reports vomiting - *Genitourinary Reports pelvic pain, Denies blood in urine - *Musculoskeletal Denies joint pain - Integumentary/Breasts Denies rash - *Neurologic Denies abnormal walking, Denies abnormal hearing, Denies numbness, Denies weakness - Psychiatric Denies anxiety Meds Home Medications Medication Instructions Recorded Confirmed Type Budesonide/Formoterol Fumarate 2 puff INHALATION BID 08/22/18 08/22/18 History [Symbicort 160-4.5 Mcg Inhaler] Cyclobenzaprine HCl 10 mg PO BID 08/22/18 08/22/18 History [Cyclobenzaprine 10mg Tab] Lisinopril/Hydrochlorothiazide 1 tab PO DAILY 08/22/18 08/22/18 History [Lisinopril-Hctz 10-12.5 mg Tab] Mupirocin [Centany] 1 applic TOPICAL BID 08/22/18 08/22/18 History hydroCHLOROthiazide 12.5 mg PO DAILY 08/22/18 08/22/18 History [Hydrochlorothiazide 12.5mg Tab] Allergies Allergy/AdvReac Type Severity Reaction Status Date / Time ibuprofen [IBUPROFEN] Allergy Unknown I-HIVES Verified 07/24/18 09:20 naproxen [NAPROXEN] Allergy Unknown I-HIVES Verified 07/24/18 09:20 Exam Vital signs and Labs for Last 24 Hours: Temp Pulse Resp BP Pulse Ox 98.0 F 102 H 19 140/88 96 08/22/18 20:00 08/22/18 20:00 08/22/18 20:00 08/22/18 20:00 08/22/18 20:00 Laboratory Results - last 24 hr 08/22/18 08:30: WBC 19.1 H, RBC 4.91, Hgb 14.9, Hct 46.0, MCV 93.8, MCH 30.4, MCHC 32.4, RDW 15.3, Plt Count 252, MPV 8.3, Neut % (Auto) 61.0, Lymph % (Auto) 31.1, [place] % (Auto) 4.5, Eos % (Auto) 2.0, Baso % (Auto) 1.5, Neut # (Auto) 11.6 H, Lymph # (Auto) 5.9 H, [place] # (Auto) 0.9, Eos # (Auto) 0.4, Baso # (Auto) 0.3 H, Total Counted 100, Neutrophils % (Manual) 65, Lymphocytes % (Manual) 22, Atypical Lymphs % 6.0, Monocytes % (Manual) 4, Eosinophils % (Manual) 3, Platelet Estimate Normal, RBC Morphology Normal 08/22/18 08:30: Sodium 138, Potassium 4.6, Chloride 100, Carbon Dioxide 26, Anion Gap 16.6 H, BUN 23 H, Creatinine 1.22 H, Estimated Creat Clear 48, Estimated GFR 49 L, Est GFR ( Amer) 59, Glucose 126 H, Calcium 9.3, Total Bilirubin 0.3, AST 20, ALT 40, Alkaline Phosphatase 115, Total Protein 8.1, Albumin 3.6, Globulin 4.5 H, Albumin/Globulin Ratio 0.8 L, Lipase 193 08/22/18 08:38: Urine Color Yellow, Urine Appearance Sl cloudy, Urine pH 6.5, Ur Specific [place] 1.025, Urine Protein 2+, Urine Glucose (UA) Negative, Urine Ketones Negative, Urine Blood Trace-i, Urine Nitrate Negative, Urine Bilirubin Negative, Urine Urobilinogen 0.2, Ur Leukocyte Esterase Negative, Urine RBC Occasional, Urine WBC 3-5, Ur Squamous Epith Cells 20-50, Urine Bacteria 1+, Urine Mucus Trace 08/22/18 08:38: Urine HCG, Qual Negative I & O for Last 24 hours: Intake & Output 08/20/18 08/21/18 08/22/18 08/23/18 11:59 11:59 11:59 11:59 Intake Total 1360 / 1360 Output Total 1360 / 1360 Balance 0 / 0 Weight 280 lb 238 lb 4 oz - Constitutional no acute distress, obese - *Routine HEENT Exam Head: Present: normocephalic Eye: Present: EOMI, PERRL ENT: Present: mucous membranes dry - *Routine Neck Exam Present: supple - *Routine Respiratory Exam Present: CTA bilaterally - *Routine Cardiovascular Exam Present: RRR. Absent: murmur - *Routine Abdominal Exam Present: soft, tenderness - *Routine Extremities Exam Present: full ROM - Routine Back/Spine/Pelvis Exam Back/Spine: Absent: CVA tenderness - *Routine Skin Exam Present: intact - *Routine Neurological Exam Present: alert, oriented X3, CN II-XII intact - Routine Psychiatric Exam Present: normal affect Assessment and Plan (1) Obesity Current visit: Yes Status: Acute Qualifiers: Obesity type: due to excess calories Obesity classification: adult class 3 (BMI >= 40) Serious obesity comorbidity presence: unspecified whether serious comorbidity present Body mass index: BMI 40.0-44.9 Qualified Code(s): E66.01 - Morbid (severe) obesity due to excess calories; Z68.41 - Body mass index (BMI) 40.0-44.9, adult Category: Medical Code(s): E66.9 - Obesity, unspecified (2) Abdominal pain, lower Current visit: Yes Status: Acute Category: Medical Code(s): R10.30 - Lower abdominal pain, unspecified (3) Hypothyroidism Current visit: No Status: Acute Category: Medical Code(s): E03.9 - Hypothyroidism, unspecified (4) Mass of left kidney Current visit: No Status: Acute Category: Medical Code(s): N28.89 - Other specified disorders of kidney and ureter
[2018-08-23 06:19] LABS: Basophils # 0.2 K/mm3 (0-0.2); Basophils % 1.2 % (0.1-2.0); Eosinophils # 0.4 K/mm3 (0.0-0.4); Eosinophils % 2.6 % (0.1-12.0); Hematocrit 44.5 % (37.0-47.0); Hemoglobin 14.2 g/dL (12.2-16.2); Lymphocytes # 4.4 K/mm3 (0.7-4.5); Lymphocytes % 31.6 % (10-50); Mean Corpuscular Hemoglobin 29.9 pg (27.0-31.2); Mean Corpuscular Volume 93.5 fl (81-99); Mean Platelet Volume 7.9 fl (7.4-10.4); Monocytes # 0.7 K/mm3 (0.1-1.0); Monocytes % 4.8 % (1.7-9.3); Neutrophils # 8.4 K/mm3 (1.8-7.8); Neutrophils % 59.8 % (37.0-80.0); Platelet Count 234 K/mm3 (142-424); Red Blood Count 4.76 M/mm3 (4.20-5.40); Red Cell Distribution Width 15.2 % (11.5-17.5); White Blood Count 14.1 K/mm3 (4.8-10.8)
--- NOTE | 2018-08-23 07:38 | Progress Note ---
Subjective Patient reports: feels better Narrative: Patient states she feels better. Pain has resolved. Tolerating full liquid diet without nausea. States she does feel a bit bloated. Exam Vital signs and Labs for Last 24 Hours: Temp Pulse Resp BP Pulse Ox 98.1 F 99 H 21 173/81 H 97 08/23/18 04:00 08/23/18 04:00 08/23/18 04:00 08/23/18 04:00 08/23/18 04:00 Laboratory Results - last 24 hr 08/22/18 08:30: WBC 19.1 H, RBC 4.91, Hgb 14.9, Hct 46.0, MCV 93.8, MCH 30.4, MCHC 32.4, RDW 15.3, Plt Count 252, MPV 8.3, Neut % (Auto) 61.0, Lymph % (Auto) 31.1, [place] % (Auto) 4.5, Eos % (Auto) 2.0, Baso % (Auto) 1.5, Neut # (Auto) 11.6 H, Lymph # (Auto) 5.9 H, [place] # (Auto) 0.9, Eos # (Auto) 0.4, Baso # (Auto) 0.3 H, Total Counted 100, Neutrophils % (Manual) 65, Lymphocytes % (Manual) 22, Atypical Lymphs % 6.0, Monocytes % (Manual) 4, Eosinophils % (Manual) 3, Platelet Estimate Normal, RBC Morphology Normal 08/22/18 08:30: Sodium 138, Potassium 4.6, Chloride 100, Carbon Dioxide 26, Anion Gap 16.6 H, BUN 23 H, Creatinine 1.22 H, Estimated Creat Clear 48, Estimated GFR 49 L, Est GFR ( Amer) 59, Glucose 126 H, Calcium 9.3, Total Bilirubin 0.3, AST 20, ALT 40, Alkaline Phosphatase 115, Total Protein 8.1, Albumin 3.6, Globulin 4.5 H, Albumin/Globulin Ratio 0.8 L, Lipase 193 08/22/18 08:38: Urine Color Yellow, Urine Appearance Sl cloudy, Urine pH 6.5, Ur Specific [place] 1.025, Urine Protein 2+, Urine Glucose (UA) Negative, Urine Ketones Negative, Urine Blood Trace-i, Urine Nitrate Negative, Urine Bilirubin Negative, Urine Urobilinogen 0.2, Ur Leukocyte Esterase Negative, Urine RBC Occasional, Urine WBC 3-5, Ur Squamous Epith Cells 20-50, Urine Bacteria 1+, Urine Mucus Trace 08/22/18 08:38: Urine HCG, Qual Negative 08/22/18 23:05: ESR 49 H 08/22/18 23:05: C-Reactive Protein 0.8 08/23/18 05:50: WBC 14.1 H D, RBC 4.76, Hgb 14.2, Hct 44.5, MCV 93.5, MCH 29.9, MCHC 32.0, RDW 15.2, Plt Count 234, MPV 7.9, Neut % (Auto) 59.8, Lymph % (Auto) 31.6, [place] % (Auto) 4.8, Eos % (Auto) 2.6, Baso % (Auto) 1.2, Neut # (Auto) 8.4 H, Lymph # (Auto) 4.4, [place] # (Auto) 0.7, Eos # (Auto) 0.4, Baso # (Auto) 0.2 I & O for Last 24 hours: Intake & Output 08/20/18 08/21/18 08/22/18 08/23/18 11:59 11:59 11:59 11:59 Intake Total 2010 Output Total 2059 Balance -49 / -49 Weight 280 lb 238 lb 4 oz - Constitutional Comments: Sitting up eating full liquid breakfast no acute distress. - *Routine Abdominal Exam Present: soft. Absent: tenderness Progress Note: A&P (1) Obesity Status: Acute Current Visit: Yes (2) Abdominal pain, lower Status: Acute Current Visit: Yes (3) Hypothyroidism Status: Acute Current Visit: No (4) Mass of left kidney Status: Acute Current Visit: No Assessment and Plan for All Diagnoses:: No additional surgical recommendations at this time.
[2018-08-23 15:49] VITALS: BP 140/75
--- NOTE | 2018-08-23 16:24 | Consult Report ---
*Admission Date: 08/22/18 *History of present illness: 38 yo presented to ed with abdl pain. she has a known kidney mass and is schedu led for resection at [facility] in [place] next week. here she had ct of chest done demonstrating multiple left sided pulmonary nodules. at least 6 noncalcified. these are nonspecific and measure from 7 to 9 mm. pt denies current chest pain. she is anxious to go home today. [facility] History Medical History: Reports:: Hypertension Denies:: Cancer, Diabetes Mellitus Type 1, Diabetes Mellitus Type 2, MRSA Other Medical History: Reports: Thyroid Disease, Other Other Surgeries: Yes: Appendectomy, , Tubal Ligation, Other Amputation: No Fractures: No - *Social History Educational Level: Attended High School Smoking Status: Current every day smoker Tobacco Type: cigarettes # Packs/Day (cigarettes): 1 Alcohol Intake: former Substance Use Type: denies use Occupational Status: disabled Housing: apartment Household Members: children - Psychiatric History Expresses thoughts of harming self/others: None Suicide Plan Description: No Plan *Family Hx:: Cancer Review of Systems - *Gastrointestinal Reports abdominal pain - *Neurologic Denies abnormal walking, Denies abnormal hearing, Denies numbness, Denies weakness Meds Home Medications Medication Instructions Recorded Confirmed Type Budesonide/Formoterol Fumarate 2 puff INHALATION BID 08/22/18 08/22/18 History [Symbicort 160-4.5 Mcg Inhaler] Cyclobenzaprine HCl 10 mg PO BID 08/22/18 08/22/18 History [Cyclobenzaprine 10mg Tab] Lisinopril/Hydrochlorothiazide 1 tab PO DAILY 08/22/18 08/22/18 History [Lisinopril-Hctz 10-12.5 mg Tab] Mupirocin [Centany] 1 applic TOPICAL BID 08/22/18 08/22/18 History hydroCHLOROthiazide 12.5 mg PO DAILY 08/22/18 08/22/18 History [Hydrochlorothiazide 12.5mg Tab] Allergies Allergy/AdvReac Type Severity Reaction Status Date / Time ibuprofen [IBUPROFEN] Allergy Unknown I-HIVES Verified 07/24/18 09:20 naproxen [NAPROXEN] Allergy Unknown I-HIVES Verified 07/24/18 09:20 Exam Vital signs and Labs for Last 24 Hours: Temp Pulse Resp BP Pulse Ox 98.4 F 95 H 17 140/75 99 08/23/18 15:48 08/23/18 15:48 08/23/18 15:48 08/23/18 15:48 08/23/18 15:48 Laboratory Results - last 24 hr 08/22/18 23:05: ESR 49 H 08/22/18 23:05: C-Reactive Protein 0.8 08/23/18 05:50: WBC 14.1 H D, RBC 4.76, Hgb 14.2, Hct 44.5, MCV 93.5, MCH 29.9, MCHC 32.0, RDW 15.2, Plt Count 234, MPV 7.9, Neut % (Auto) 59.8, Lymph % (Auto) 31.6, [place] % (Auto) 4.8, Eos % (Auto) 2.6, Baso % (Auto) 1.2, Neut # (Auto) 8.4 H, Lymph # (Auto) 4.4, [place] # (Auto) 0.7, Eos # (Auto) 0.4, Baso # (Auto) 0.2 I & O for Last 24 hours: Intake & Output 08/21/18 08/22/18 08/23/18 08/24/18 11:59 11:59 11:59 11:59 Intake Total 2971 / 2971 240 / 240 Output Total 2960 / 2960 500 / 500 Balance -260 / -260 Weight 280 lb 238 lb 4 oz Internal Medicine - CN: Reslt - Labs CBC & Chem 7: 08/23/18 05:50 08/22/18 08:30 Labs: Short CBC 08/23/18 Range/Units 05:50 WBC 14.1 H D (4.8-10.8) K/mm3 Hgb 14.2 (12.2-16.2) g/dL Hct 44.5 (37.0-47.0) % Plt Count 234 (142-424) K/mm3 Assessment and Plan (1) Obesity Current visit: Yes Status: Acute Qualifiers: Obesity type: due to excess calories Obesity classification: adult class 3 (BMI >= 40) Serious obesity comorbidity presence: unspecified whether serious comorbidity present Body mass index: BMI 40.0-44.9 Qualified Code(s): E66.01 - Morbid (severe) obesity due to excess calories; Z68.41 - Body mass index (BMI) 40.0-44.9, adult Category: Medical Code(s): E66.9 - Obesity, unspecified (2) Abdominal pain, lower Current visit: Yes Status: Acute Category: Medical Code(s): R10.30 - Lower abdominal pain, unspecified (3) Hypothyroidism Current visit: No Status: Acute Category: Medical Code(s): E03.9 - Hypothyroidism, unspecified (4) Mass of left kidney Current visit: No Status: Acute Category: Medical Code(s): N28.89 - Other specified disorders of kidney and ureter (5) Pulmonary nodules Current visit: Yes Status: Acute Category: Medical Code(s): R91.8 - Other nonspecific abnormal finding of lung field (6) Pulmonary nodules Current visit: Yes Status: Acute Category: Medical Code(s): R91.8 - Other nonspecific abnormal finding of lung field - Assessment and plan all Dx Assessment and Plan for all problems:: pt with kidney mass with plans for resection next week. pt with ct scan with multiple noncalcified small pulmonary nodules that are nonspecific. of course metastatic disease is a consideration however these nodules are too small to biopsy. I recommend to proceed with planned resection of kidney mass and to monitor these pulmonary nodules considering short term interval f/up with repeat scan in 3 months. d/w pt. thank you for referral. please call with questions. Latia Jacobo MD
--- NOTE | 2018-08-23 17:10 | Discharge Summary ---
General - General Admission date:: 08/22/18 Discharge date: 08/23/18 HPI HPI: this wf had severe abd pain and presented to ed for eval -charles up with severe abdominal pain and low back pain this morning. No prior similar pains. Locates the pain is diffuse, but says it is mostly in the suprapubic/pelvic area and feels like labor pain contractions. Feels distended. No nausea, vomiting, fever, diarrhea, constipation. Last menstrual period about 2 weeks ago. No vaginal discharge. She is not sexually active. Last intercourse 8 months ago. Has only had sex once in 6 years. States that she has been told she has an enlarged uterus by her counselor at law, Dr. Beckett, but it has not yet been investigated. 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 Scheduled for surgery on 08/30/18. Urologist Dr. Rapp. Hospital Course Hospital Course: ct chest:IMPRESSION: 1. There are multiple left-sided pulmonary nodules. At least 6 noncalcified nodules are present on the left. These are nonspecific. Metastatic disease is a consideration. 2. Reticulonodular pattern of the mid and upper lung zones with centrilobular emphysema. This could be infectious or inflammatory. The interstitium is prominent. Metastatic disease is an additional consideration. Follow-up is suggested. ct abd pelvis:IMPRESSION: 1. There are noncalcified nodules in the left lung base. These are nonspecific. One cannot exclude the possibility of metastasis especially in a patient with a left retroperitoneal mass. 2. 3.3 cm left retroperitoneal mass as previously described not significant change from 07/18/2018. Neoplasm is considered. 3. There is a small amount of fluid anterior to the uterus with some minimal infiltration of the peritoneal fat in this region suggesting underlying inflammation. Etiology of this is however uncertain. This is immediately adjacent to small bowel and colon however negative widely structures show any significant bowel wall thickening. No convincing evidence of diverticulitis. There are some mildly prominent small bowel loops in the lower abdomen/upper pelvic region. Enteritis is a consideration. xi consult discussed ct with dr teresa ray home follow up in office in 1 week continue isela with teresa Objective Vital signs: Temp Pulse Resp BP Pulse Ox 98.4 F 95 H 17 140/75 99 08/23/18 15:48 08/23/18 15:48 08/23/18 15:48 08/23/18 15:48 08/23/18 15:48 no acute distress - *Routine HEENT Exam Head: Present: normocephalic Eye: Present: PERRL ENT: Present: mucous membranes moist - *Routine Cardiovascular Exam Present: RRR - *Routine Abdominal Exam Present: soft - *Routine Extremities Exam Present: full ROM - *Routine Skin Exam Present: intact - *Routine Neurological Exam Present: alert, oriented X3 - Routine Psychiatric Exam Present: normal affect Results Labs on day of discharge: Labs from last 24 hours 08/23/18 08/22/18 08/22/18 05:50 23:05 23:05 WBC 14.1 H D RBC 4.76 Hgb 14.2 Hct 44.5 MCV 93.5 MCH 29.9 MCHC 32.0 RDW 15.2 Plt Count 234 MPV 7.9 Neut % (Auto) 59.8 Lymph % (Auto) 31.6 [place] % (Auto) 4.8 Eos % (Auto) 2.6 Baso % (Auto) 1.2 Neut # (Auto) 8.4 H Lymph # (Auto) 4.4 [place] # (Auto) 0.7 Eos # (Auto) 0.4 Baso # (Auto) 0.2 ESR 49 H C-Reactive Protein 0.8 - Additional Comments rounded with petra all orders per petra DS: Diagnosis - Discharge Diagnosis (1) Obesity Status: Acute (2) Abdominal pain, lower Status: Acute (3) Hypothyroidism Status: Acute (4) Mass of left kidney Status: Acute (5) Pulmonary nodules Status: Acute (6) Pulmonary nodules Status: Acute Discharge Plan - Patient Discharge Instructions ACTIVITY: Continue current activity DIET: continue same diet Patient Instructions: DI for Leukocytosis - Follow up Plan Follow up with: Pablo Delgado MD [Staff Physician] - 1 week Disposition: Home, Self-[facility] Medications: Home Medications Medication Instructions Recorded Confirmed Type Budesonide/Formoterol Fumarate 2 puff INHALATION BID 08/22/18 08/22/18 History [Symbicort 160-4.5 Mcg Inhaler] Cyclobenzaprine HCl 10 mg PO BID 08/22/18 08/22/18 History [Cyclobenzaprine 10mg Tab] Lisinopril/Hydrochlorothiazide 1 tab PO DAILY 08/22/18 08/22/18 History [Lisinopril-Hctz 10-12.5 mg Tab] Mupirocin [Centany] 1 applic TOPICAL BID 08/22/18 08/22/18 History hydroCHLOROthiazide 12.5 mg PO DAILY 08/22/18 08/22/18 History [Hydrochlorothiazide 12.5mg Tab] Prescriptions/Medication Reconciliation: Continue albuterol sulfate HFA 90 mcg/actuation aerosol inhaler 2 puff INHALATION Q4- 6H PRN 30 Days #6.7 g PRN Reason: shortness of breath or wheezing aripiprazole 10 mg tablet 10 mg PO QDAY #90 tab levothyroxine 25 mcg tablet 25 mcg PO DAILY #90 tab Mupirocin [Centany] 1 applic TOPICAL BID Lisinopril/Hydrochlorothiazide [Lisinopril-Hctz 10-12.5 mg Tab] 1 tab PO DAILY hydroCHLOROthiazide [Hydrochlorothiazide 12.5mg Tab] 12.5 mg PO DAILY Budesonide/Formoterol Fumarate [Symbicort 160-4.5 Mcg Inhaler] 2 puff INHALATION BID Cyclobenzaprine HCl [Cyclobenzaprine 10mg Tab] 10 mg PO BID
== END 2018-08-23 18:24 | disposition home or self-care (01) ==
LOC: ER 08:21 → 2ND 12:14
PROVIDERS: ADMIT Emergency Medicine; ATTEND Emergency Medicine
CPT/HCPCS: 36415; 71250; 74177; 76830; 80053; 81001; 81025; 83690; 85007; 85025; 85651; 86140; 96365; 96375; 99285; J2405; Q9967

== ENCOUNTER → 2018-10-02 15:19 | Outpatient (CLI) | payer MEDICARE, MEDICAID, SELFPAY ==
--- NOTE | 2018-10-02 15:23 | XR_ITS ---
XR chest 2V HISTORY: Cough. Recent pneumonia. ITS.REASON: Paraganglioma ORDERING PHYSICIAN: Jewel Rapp MD PATIENT AGE: 38 years Technique: PA and lateral chest COMPARISON: CT chest 08/23/2018. FINDINGS: There is coarsening of lung markings throughout most evident towards the lung bases reflecting reflecting chronic interstitial fibrotic changes seen on recent CT. Hyperexpansion is seen at the upper lung carl. Overlying breast density accentuates basilar lung markings.. Subtle hazy increased density throughout the right lung base although this may chronic changes associated with the overlapping breast density, I would raise possibility of subtle early wispy infiltrate at the right base with overall pattern.. Particularly just above the right hemidiaphragm.. The heart is normal in size. The hilar regions appear normal. Chest wall mediastinum unremarkable. The scattered bilateral pulmonary nodular densities reported on recent CT chest not easily identified. On close inspection the May C1 projected over the anterior third rib periphery the lung. There may also be a questionable nodular density projected over the anterior fifth rib. These nodules would be best followed CT. IMPRESSION-------- Underlying chronic lung changes along with overlying breast density,-accentuation markings toward the bases. However on close inspection, with question a subtle superimposed minimal wispy infiltrate at the right lower lobe on today's study. Just above the hemidiaphragm. Correlation required
== END ==
PROVIDERS: PCP Emergency Medicine; Visit Provider Urology
DX: D44.7 Neoplasm of uncertain behavior of aortic body and other paraganglia (principal)
CPT/HCPCS: 71046

== ENCOUNTER → 2018-10-03 19:10 | Outpatient (CLI) | payer MEDICARE, SELFPAY | PROVIDERS: Visit Provider Urology | DX: D44.7 Neoplasm of uncertain behavior of aortic body and other paraganglia (principal) ==

== ENCOUNTER → 2019-07-15 11:00 | Outpatient (CLI) | payer MEDICARE, MEDICAID, SELFPAY ==
[2019-07-19 07:43] LABS: VMA, Urine 2.9 mg/L (Undefined); VMA, Urine, 24hr 3.2 mg/24 hr (0.0-7.5)
[2019-07-20 00:07] LABS: Metanephrine, Ur 112 ug/L (Undefined); Normetanephrine, Ur 514 ug/L (Undefined)
[2019-07-20 12:26] LABS: Metanephrine, U,24hr 123 ug/24 hr (45-290); Normetanephr.,U,24h 565 ug/24 hr (82-500)
== END ==
PROVIDERS: Visit Provider Urology
DX: N95.1 Menopausal and female climacteric states (principal)
CPT/HCPCS: 83835; 84585

== ENCOUNTER → 2019-07-25 08:28 | Outpatient (CLI) | payer MEDICARE, SELFPAY ==
--- NOTE | 2019-07-25 08:41 | CT_ITS ---
PROCEDURE: CT ABDOMEN PELVIS W CON CLINICAL HISTORY: kidney mass Follow-up renal mass the the COMPARISON: ABDPELWW CT abdomen pelvis wo/w con from 07/18/[address] abdomen pelvis w con from 08/22/2018 TECHNIQUE: 75 mL Optiray 350 Axial images obtained with sagittal and coronal reformats. All CT scans at the facility use one or more dose reduction, viz: automated exposure control, ma/kV adjustment per patient size (including targeted exams where dose is matched to indication, i.e. head), or iterative reconstruction technique. FINDINGS: There are scattered noncalcified pulmonary nodules once again noted in the left lung base the largest at approximately 9 mm not significantly changed. There is some patchy density in the lingula. The liver, spleen, adrenal glands, pancreas, and kidneys have an unremarkable appearance. Previously noted left retroperitoneal mass is no longer apparent. There remains some minimal residual soft tissue density medial to the left renal hilum and may be due to partial volume averaging from the adrenal gland and overlying vasculature. No intestinal obstruction or free air. There is a small left paraumbilical abdominal wall hernia which contains fat. There is a 2.7 cm right ovarian cyst. Bilateral Essure devices are present. No acute bony anomaly. IMPRESSION: 1. Status post removal of the left retroperitoneal mass. There is some minimal soft tissue density medial to the left hilum but may be related to partial volume averaging artifact from the adrenal gland and overlying vessels. Continued follow-up suggested. 2. No change in the left basilar pulmonary nodules. 3. Small left paraumbilical hernia containing fat Dictated by: Timur Thompson MD 07/26/2019 06:53 Electronically signed by Timur Thompson MD in [facility] 07/26/2019 06:53
[2019-07-25 08:52] LABS: Basophils # 0.1 K/mm3 (0-0.2); Eosinophils # 0.2 K/mm3 (0.0-0.4); Hematocrit 42.1 % (37.0-47.0); Lymphocytes # 3.5 K/mm3 (0.7-4.5); Lymphocytes % 31.3 % (10-50); Mean Corpuscular HGB Conc 30.9 g/dL (31.8-35.4); Mean Corpuscular Volume 96.9 fl (81-99); Monocytes # 0.7 K/mm3 (0.1-1.0); Neutrophils # 6.7 K/mm3 (1.8-7.8); Neutrophils % 59.7 % (37.0-80.0); Platelet Count 233 K/mm3 (142-424); Red Blood Count 4.35 M/mm3 (4.20-5.40); White Blood Count 11.2 K/mm3 (4.8-10.8)
[2019-07-25 09:08] LABS: Alanine Aminotransferase 34 U/L (12-78); Albumin Level 3.4 gm/dL (3.4-5.0); Albumin/Globulin Ratio 0.9 (1.1-1.8); Alkaline Phosphatase 109 U/L (46-116); Anion Gap 14.2 mEq/L (5-15); Aspartate Amino Transferase 17 U/L (15-37); Bilirubin,Total 0.5 mg/dL (0.2-1.0); Blood Urea Nitrogen 12 mg/dL (7-18); Calcium 8.4 mg/dL (8.5-10.1); Carbon Dioxide 25 mmol/L (21.0-32.0); Chloride 105 mmol/L (98-107); Chol/HDL Ratio 3.9 (1-3.5); Cholesterol 134 mg/dL (140-200); Creatinine,Serum 1.05 mg/dL (0.55-1.02); Estimated Glomerular Filt Rate 58 ml/min (>60); GFR (African American) 70 ML/MIN (>60); Globulin 3.6 gm/dl (1.3-3.2); Glucose 93 mg/dL (74-106); HDL Cholesterol 34 mg/dL (29-89); LDL Cholesterol 66 mg/dL (0-130); Potassium 4.2 mmoL/L (3.5-5.1); Sodium 140 mmol/L (136-145); Triglycerides 171 mg/dL (30-200); VLDL Cholesterol 34 mg/dL (0-40)
[2019-07-26 17:05] LABS: Vitamin D 25 Hydroxy 41.4 ng/mL (30.0-100.0)
== END ==
PROVIDERS: PCP Emergency Medicine; Visit Provider Emergency Medicine
DX: E03.9 Hypothyroidism, unspecified (principal); E66.9 Obesity, unspecified; R53.83 Other fatigue; D44.7 Neoplasm of uncertain behavior of aortic body and other paraganglia; R19.00 Intra-abdominal and pelvic swelling, mass and lump, unspecified site
CPT/HCPCS: 36415; 74177; 80053; 80061; 82652; 84436; 84443; 85025; Q9967

== ENCOUNTER → 2019-08-06 17:48 | Outpatient (CLI) | payer MEDICARE, SELFPAY ==
--- NOTE | 2019-08-06 17:58 | MM_ITS ---
PROCEDURE: MM DIG SCREENING MAMM BI W/CAD CLINICAL INDICATION: screening There is no personal or family history of breast cancer COMPARISON: MM MAMMO DIGITAL DIAGNOSTIC W CAD BILAT from 02/13/2013 [facility] MM Dig screening mamm BI w/CAD from 04/25/2018 [facility] MM Dig mamm DX unilat RT CAD from 05/15/2018 TECHNIQUE: Standard CC and MLO images were obtained. R2 CAD reviewed. FINDINGS: Breasts are composed primarily of fat with scattered fibroglandular densities in each breast. There is a mole marker right breast. There are couple of benign-appearing calcifications in the right breast. There is no suspicious lesion in either breast and no suspicious microcalcifications. IMPRESSION: Fatty type breast parenchyma with no suspicious lesions seen BI-RAD Category: 2 Benign Finding(s) FOLLOW-UP: 1YR 1 Year Follow-up (A letter has been sent to the patient regarding results of the study.) Dictated by: Dr. Eduardo Mcgovern MD 08/09/2019 15:[address] Eduardo Mcgovern MD in [facility] 08/09/2019 15:39
== END ==
PROVIDERS: PCP Emergency Medicine; Visit Provider Obstetrics & Gynecology
DX: Z12.31 Encounter for screening mammogram for malignant neoplasm of breast (principal)
CPT/HCPCS: 77067

== ENCOUNTER → 2019-11-06 14:07 | Outpatient (CLI) | payer MEDICARE, MEDICAID, SELFPAY ==
[2019-11-06 14:28] LABS: Basophils # 0.2 K/mm3 (0-0.2); Basophils % 1.4 % (0.1-2.0); Eosinophils # 0.3 K/mm3 (0.0-0.4); Eosinophils % 2.2 % (0.1-12.0); Hematocrit 46.5 % (37.0-47.0); Hemoglobin 15.2 g/dL (12.2-16.2); Lymphocytes # 3.6 K/mm3 (0.7-4.5); Lymphocytes % 30.4 % (10-50); Mean Corpuscular HGB Conc 32.7 g/dL (31.8-35.4); Mean Corpuscular Hemoglobin 31.2 pg (27.0-31.2); Mean Corpuscular Volume 95.2 fl (81-99); Mean Platelet Volume 9.6 fl (7.4-10.4); Monocytes # 0.8 K/mm3 (0.1-1.0); Monocytes % 6.3 % (1.7-9.3); Neutrophils # 7.2 K/mm3 (1.8-7.8); Neutrophils % 59.8 % (37.0-80.0); Platelet Count 235 K/mm3 (142-424); Red Blood Count 4.88 M/mm3 (4.20-5.40); Red Cell Distribution Width 14.5 % (11.5-17.5)
[2019-11-06 15:00] LABS: Alanine Aminotransferase 32 U/L (12-78); Albumin Level 3.8 gm/dL (3.4-5.0); Albumin/Globulin Ratio 1.1 (1.1-1.8); Alkaline Phosphatase 125 U/L (46-116); Anion Gap 16.1 mEq/L (5-15); Aspartate Amino Transferase 20 U/L (15-37); Bilirubin,Total 0.5 mg/dL (0.2-1.0); Blood Urea Nitrogen 16 mg/dL (7-18); Calcium 9.2 mg/dL (8.5-10.1); Carbon Dioxide 25 mmol/L (21.0-32.0); Chloride 106 mmol/L (98-107); Creatinine,Serum 1.14 mg/dL (0.55-1.02); Estimated Glomerular Filt Rate 53 ml/min (>60); GFR (African American) 64 ML/MIN (>60); Globulin 3.4 gm/dl (1.3-3.2); Glucose 54 mg/dL (74-106); Potassium 4.1 mmoL/L (3.5-5.1); Sodium 143 mmol/L (136-145); Total Protein,Serum 7.2 gm/dL (6.4-8.2)
[2019-11-07 09:43] LABS: Hep A Ab, IgM Negative (Negative); Hep A Ab, Total Negative (Negative); Hep B Core Ab, Total Negative (Negative)
[2019-11-07 12:35] LABS: HIV Screen 4th Generation wRfx Non Reactive (Non Reactive); Hep B Surface Ab, Qual Non Reactive (.)
== END ==
PROVIDERS: Visit Provider Emergency Medicine
DX: B19.20 Unspecified viral hepatitis C without hepatic coma (principal); R10.30 Lower abdominal pain, unspecified; Z11.4 Encounter for screening for human immunodeficiency virus [HIV]
CPT/HCPCS: 80053; 85025; 86703; 86704; 86706; 86708; 87522; G0432

== ENCOUNTER → 2019-11-18 13:31 | Outpatient (CLI) | payer MEDICARE, MEDICAID, SELFPAY ==
[2019-11-22 23:33] LABS: Hepatitis C Genotype 2b (.)
== END ==
PROVIDERS: Visit Provider Emergency Medicine
DX: B17.10 Acute hepatitis C without hepatic coma
CPT/HCPCS: 36415; 87522

== ENCOUNTER → 2019-11-28 11:51 | Outpatient (CLI) | payer MEDICARE, MEDICAID, SELFPAY ==
[2019-11-28 12:35] LABS: INR 0.97 (0.9-1.1); Prothrombin Time 10.1 seconds (9.4-11.8)
== END ==
PROVIDERS: Visit Provider Emergency Medicine
DX: B19.20 Unspecified viral hepatitis C without hepatic coma (principal)
CPT/HCPCS: 36415; 85610

== ENCOUNTER → 2019-12-03 14:02 | Outpatient (POV) | payer MEDICARE, MEDICAID, SELFPAY | PROVIDERS: PCP Dermatology; Visit Provider Dermatology | DX: Z00.00 Encounter for general adult medical examination without abnormal findings (principal) ==

== ENCOUNTER → 2019-12-09 08:40 | Outpatient (CLI) | payer MEDICARE, MEDICAID, SELFPAY ==
[2019-12-09 09:02] LABS: Basophils # 0.1 K/mm3 (0-0.2); Basophils % 0.7 % (0.1-2.0); Eosinophils # 0.2 K/mm3 (0.0-0.4); Eosinophils % 1.8 % (0.1-12.0); Hematocrit 43.9 % (37.0-47.0); Hemoglobin 14.5 g/dL (12.2-16.2); Lymphocytes # 3.5 K/mm3 (0.7-4.5); Lymphocytes % 32.6 % (10-50); Mean Corpuscular HGB Conc 32.9 g/dL (31.8-35.4); Mean Corpuscular Hemoglobin 31.6 pg (27.0-31.2); Mean Platelet Volume 8.5 fl (7.4-10.4); Monocytes # 0.5 K/mm3 (0.1-1.0); Neutrophils # 6.4 K/mm3 (1.8-7.8); Neutrophils % 59.9 % (37.0-80.0); Platelet Count 215 K/mm3 (142-424); Red Blood Count 4.58 M/mm3 (4.20-5.40); Red Cell Distribution Width 14.4 % (11.5-17.5); White Blood Count 10.6 K/mm3 (4.8-10.8)
[2019-12-09 10:11] LABS: Alanine Aminotransferase 23 U/L (12-78); Albumin Level 4.2 g/dl (3.5-5.0); Albumin/Globulin Ratio 1.5 (1.1-1.8); Alkaline Phosphatase 93 U/L (38-126); Anion Gap 11.8 mEq/L (5-15); Aspartate Amino Transferase 23 U/L (14-36); Bilirubin,Total 0.4 mg/dl (0.2-1.3); Blood Urea Nitrogen 14 mg/dl (7-17); Calcium 9.6 mg/dl (8.4-10.2); Carbon Dioxide 27 mmol/L (22.0-30.0); Chloride 104 mmol/L (98-107); Estimated Glomerular Filt Rate 55 ml/min (>60); GFR (African American) 66 ML/MIN (>60); Globulin 2.8 g/dL (1.3-3.2); Glucose 87 mg/dl (74-100); Potassium 4.8 mmoL/L (3.5-5.1); Sodium 138 mmol/L (136-145)
[2019-12-13 19:17] LABS: Miscellaneous Test SEE LABCORP REPORT
[2019-12-16 19:35] LABS: Metanephrine, Ur 67 ug/L (Undefined); Normetanephrine, Ur 162 ug/L (Undefined)
[2019-12-17 11:28] LABS: Metanephrine, U,24hr 121 ug/24 hr (45-290); Normetanephr.,U,24h 292 ug/24 hr (82-500)
== END ==
PROVIDERS: Visit Provider Internal Medicine Medical Oncology
DX: D44.7 Neoplasm of uncertain behavior of aortic body and other paraganglia (principal)
CPT/HCPCS: 80053; 83835; 85025

== ENCOUNTER → 2019-12-25 09:13 | Outpatient (CLI) | payer MEDICARE, MEDICAID, SELFPAY ==
--- NOTE | 2019-12-25 09:25 | CT_ITS ---
PROCEDURE: CT CHEST W CON CLINCAL INDICATION: PARAGANGLIOMA,ELEVATED VMA COMPARISON: CHESTWO CT chest wo con from 08/23/2018 CT ABDOMEN PELVIS W CON from 12/25/2019 TECHNIQUE: IV Contrast: 75ml Optiray 350 Axial images obtained with sagittal and coronal reformats. All CT scans at the facility use one or more dose reduction, viz: automated exposure control, ma/kV adjustment per patient size (including targeted exams where dose is matched to indication, i.e. head), or iterative reconstruction technique. FINDINGS: HEART AND MEDIASTINAL STRUCTURES: No mediastinal or hilar mass or adenopathy. LUNGS AND PLEURAL SPACES: There is diffuse prominence of the interstitium with multiple small reticular opacities. There are scattered noncalcified pulmonary nodules including a 5 mm nodule in the right lower lobe image 47 series 4 not readily apparent on the previous exam. A fissural nodules present on the right inferiorly similar to the previous exam at 5 x 2 mm. There are stable nodules in the left lung base situated along the hemidiaphragm measuring 8 and 6 mm. There are several small nodules in the left lower lobe which appear stable measuring up to 7 mm stable left upper lobe nodules present at 7 mm. No effusions or infiltrates are evident. There are centrilobular emphysematous changes BONY STRUCTURES: No acute bony abnormalities apparent. UPPER ABDOMEN: See abdomen report ADDITIONAL FINDINGS: No other significant abnormalities. IMPRESSION: 1. There are multiple noncalcified bilateral pulmonary nodules most of which are stable. One new nodule is present in the right lower lobe at 5 mm. These nodules are nonspecific and could be inflammatory/infectious or neoplastic. No mediastinal or hilar adenopathy 2. Prominence of the interstitium with reticulonodular pattern and centrilobular emphysema similar to the previous exam Dictated by: Timur Thompson MD 12/26/2019 06:29 Electronically signed by Timur Thompson MD in [place] 12/26/2019 06:29
--- NOTE | 2019-12-25 09:25 | CT_ITS ---
PROCEDURE: CT ABDOMEN PELVIS W CON CLINICAL INDICATION: PARAGANGLIOMA,ELEVATED VMA Palpable knot at the umbilical area COMPARISON: ABDPELWW CT abdomen pelvis wo/w con from 07/18/[address] abdomen pelvis w con from 08/22/2018 CT ABDOMEN PELVIS W CON from 07/25/2019 TECHNIQUE: IV Contrast: 75ML OPTIRAY 350 Oral Contrast 450ml Redicat Axial images obtained with sagittal and coronal reformats. All CT scans at the facility use one or more dose reduction, viz: automated exposure control, ma/kV adjustment per patient size (including targeted exams where dose is matched to indication, i.e. head), or iterative reconstruction technique. FINDINGS: The liver, spleen, adrenal glands, pancreas, and kidneys have an unremarkable appearance. No evidence of recurrence retroperitoneal mass. There is some minimal nodularity medial to the left kidney and inferior to the adrenal gland but not significantly changed. There is a circular appearing soft tissue density along the inferior aspect of the fundus of the gallbladder. This is nonspecific and measures approximately 11 mm and does not appear significantly changed.. This does not appear calcified. No intestinal obstruction or free air. There is a mild amount of retained colonic feces. No evidence of appendicitis or diverticulitis. Bilateral Essure devices are present. The uterus is somewhat canted toward the right. There is a left para ventral hernia of the abdominal wall containing fat just below the level of the umbilicus. Small umbilical hernia containing fat also noted. The No acute bony anomalies IMPRESSION: 1. No evidence of recurrent retroperitoneal mass. There is some minimal nodularity medial to the left kidney not significantly changed. 2. 11 mm nodular soft tissue lesion of the gallbladder having a circular appearance. This is nonspecific. Paraganglioma of the gallbladder is a consideration although extremely rare. Consider ultrasound for further evaluation. Dictated by: Timur Thompson MD 12/26/2019 06:51 Electronically signed by Timur Thompson MD in [place] 12/26/2019 06:51
== END ==
PROVIDERS: PCP Dermatology; Visit Provider Internal Medicine Medical Oncology
DX: D44.7 Neoplasm of uncertain behavior of aortic body and other paraganglia (principal)
CPT/HCPCS: 71260; 74177; Q9967

== ENCOUNTER → 2019-12-27 08:42 | Outpatient (CLI) | payer MEDICARE, MEDICAID, SELFPAY ==
--- NOTE | 2019-12-27 08:47 | US_ITS ---
PROCEDURE: US ABDOMEN LIMITED CLINICAL INDICATION: PARAGANGLIOMA Gallbladder mass COMPARISON: ABDPELWW CT abdomen pelvis wo/w con from 07/18/2018 FINDINGS: PANCREAS: Unremarkable. No obvious mass or abnormal fluid collection. No ductal dilatation LIVER: No focal liver lesions demonstrated. Homogeneous echogenicity. No intrahepatic biliary ductal dilatation evident. There is appropriate direction of blood flow within a non dilated portal vein RIGHT KIDNEY: Unremarkable. Normal size and echogenicity. No hydronephrosis GALLBLADDER: There is focal thickening at the fundus of the gallbladder with a circular appearance. This corresponds to the CT abnormality. There is decreased echogenicity centrally. The peripheral ring-like area is isoechoic to soft tissue. 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 This does not shadow does not appear to represent a stone. Focal gallbladder wall thickening from underlying inflammation is also consideration. IMPRESSION: Focal thickening of the wall of the fundus of the gallbladder. This area measures approximately 2 x 2 cm and has a ring-like appearance with decreased echogenicity centrally. A neoplastic process is a consideration. 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 This could affect the gallbladder as well, although extremely rare. Focal chronic inflammatory changes are also consideration.. Dictated by: Timur Thompson MD 12/27/2019 09:37 Electronically signed by Timur Thompson MD in [place] 12/27/2019 09:37
== END ==
PROVIDERS: PCP Emergency Medicine; Visit Provider Internal Medicine Medical Oncology
DX: D35.02 Benign neoplasm of left adrenal gland (principal)
CPT/HCPCS: 76705

== ENCOUNTER → 2020-03-02 08:54 | Outpatient (CLI) | payer MEDICARE, MEDICAID, SELFPAY ==
[2020-03-02 09:37] LABS: Basophils # 0.1 K/mm3 (0-0.2); Basophils % 0.9 % (0.1-2.0); Eosinophils # 0.2 K/mm3 (0.0-0.4); Eosinophils % 1.8 % (0.1-12.0); Hematocrit 39.5 % (37.0-47.0); Lymphocytes # 3.7 K/mm3 (0.7-4.5); Lymphocytes % 33.9 % (10-50); Mean Corpuscular Hemoglobin 30.9 pg (27.0-31.2); Mean Corpuscular Volume 93.5 fl (81-99); Mean Platelet Volume 7.7 fl (7.4-10.4); Monocytes # 0.6 K/mm3 (0.1-1.0); Monocytes % 5.8 % (1.7-9.3); Neutrophils # 6.3 K/mm3 (1.8-7.8); Neutrophils % 57.6 % (37.0-80.0); Platelet Count 248 K/mm3 (142-424); Red Blood Count 4.22 M/mm3 (4.20-5.40); Red Cell Distribution Width 14.5 % (11.5-17.5)
[2020-03-02 11:07] LABS: HCG Qualitative, Serum Negative (Negative)
[2020-03-02 11:10] LABS: Alanine Aminotransferase 23 U/L (12-78); Albumin/Globulin Ratio 1.5 (1.1-1.8); Alkaline Phosphatase 74 U/L (38-126); Anion Gap 9.9 mEq/L (5-15); Aspartate Amino Transferase 21 U/L (14-36); Bilirubin,Total 0.1 mg/dl (0.2-1.3); Blood Urea Nitrogen 16 mg/dl (7-17); Calcium 9.5 mg/dl (8.4-10.2); Carbon Dioxide 26 mmol/L (22.0-30.0); Chloride 104 mmol/L (98-107); Estimated Glomerular Filt Rate 55 ml/min (>60); GFR (African American) 66 ML/MIN (>60); Globulin 2.7 g/dL (1.3-3.2); Glucose 127 mg/dl (74-100); Potassium 3.9 mmoL/L (3.5-5.1); Sodium 136 mmol/L (136-145); Total Protein,Serum 6.7 g/dl (6.3-8.2)
[2020-03-04 11:01] LABS: Covid-19 Nasal PCR Sendout Lex NOT DETECTED
== END ==
PROVIDERS: Visit Provider Surgery
DX: K82.8 Other specified diseases of gallbladder (principal); Z01.818 Encounter for other preprocedural examination
CPT/HCPCS: 36415; 80053; 84703; 85025; U0004

== ENCOUNTER 2020-03-04 07:48 | Day surgery (SDC) | payer MEDICARE, MEDICAID, SELFPAY ==
[2020-03-03 11:29] VITALS: BMI 41.8
[2020-03-04] VITALS (17 sets, daily range): BP systolic 100–120; BP diastolic 55–77; PULSE 80–105; RESP 13–20; TEMP 36.1–43; O2SAT 92–100
--- NOTE | 2020-03-04 08:28 | HMH.ANESCL ---
[facility] Anesthesia Checklist - Patient Identification Patient Identification: Arm Band, Verbal (Name & ) - Structural Data Admitted From: Home Planned Operative Procedure/s: Laparoscopic cholecystectomy Consent for Planned Operative Procedure(s) Verified: Yes Verified Documents: Surgical Consent, History and Physical - NPO Status Verified Time NPO: 21:00 - Chart Verification Results Verified: CBC, BMP, HCG - Additional verifications Patient : No Anesthesia Reactions: No Hx Blood Transfusions: No Blood Transfusion Reaction: No - Airway Assessment C-Spine Mobility Assessed: Yes TMJ Mobility Assessed: Yes Dentition: Poor Dentition - Neurological Assessment Level of Consciousness: Awake, Alert, Appropriate, Follows Commands Hx Seizures: Yes Numbness or tingling in extremities: No - Anesthesia Plan Anesthesia Risk discussed: Yes Anesthesia Plan: Verified ASA Class: III Anesthesia Type: General [facility] History I have reviewed the patient's past medical history: Yes Medical History: Reports:: Asthma, Hepatitis (Hep C-untreated), Hypertension, Pulmonary Embolism, Seizures Denies:: Cancer, Diabetes Mellitus Type 1, Diabetes Mellitus Type 2, Internal Pacemaker, MRSA *Have you ever received a pneumonia vaccine?: No *Have you received a flu vaccine this season?: No Other Medical History: Reports: Hypothyroidism, Liver Disease, Other. Denies: Blood Transfusion Reaction Comment:: Adrenal mass, morbid obesity, schizoaffective disorder Anesthesia experience/problems:: none Other Surgeries: Yes: Appendectomy, (c/s x3), Tubal Ligation, Other. No: Pacemaker Amputation: No Fractures: No - *Social History Educational Level: Attended High School Smoking Status: Current every day smoker Tobacco Type: cigarettes # Packs/Day (cigarettes): 1 Alcohol Intake: never Alcohol Intake Frequency:: other Substance Use Type: heroin, former substance user *Occupational Status:: disabled Housing: house Household Members: children *Travel in the last 8 weeks: None Family Hx:: Unable to obtain
--- NOTE | 2020-03-04 09:58 | SUR.OPER ---
0950-family updated at this time
--- NOTE | 2020-03-04 10:51 | HMH.OPNOTE ---
Date of procedure: 03/04/20 Pre-op Diagnosis:: Gallbladder disease/gallbladder lesion Post-op Diagnosis:: Same with trocar site hernia Procedure performed:: 1. Laparoscopic cholecystectomy 2. Primary repair of infraumbilical trocar site hernia Surgeon:: Julian Blevins MD XRAY TECH:: Chris Myers Anesthesia: GETA Estimated blood loss (mL): 50 Clinical Note:: Patient is a 39-year-old female referred by Dr. Latia Jacobo for possible cholecystectomy. Patient has reported history of hepatitis C, schizoaffective disorder, and asthma. 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 Jewel Rapp. She has been followed by oncology. She underwent routine imaging which revealed abnormality of the gallbladder. This was followed by ultrasound which reveals a thickened area of the gallbladder consistent with mass. Patient does state that she has symptoms consistent with reflux disease. She also has abdominal bloating. Operative findings:: She had a somewhat distended gallbladder. There were some omental adhesions to the gallbladder. She was noted to have what appeared to be trocar site hernia from her infraumbilical trocar site incision. This contained some omentum Operative note:: Patient was taken to the operating room. She was given preoperative intravenous antibiotic. In the operating room she was placed in a supine position. General anesthesia was induced via endotracheal tube. Abdomen was prepped and draped in the standard surgical fashion. Patient had a prior laparoscopy scar and appreciable distance of several centimeters inferior to the umbilicus. Therefore subumbilical incision was made several centimeters above his previous laparoscopy scar. While performing abdominal wall lift Veress needle was inserted and CO2 pneumoperitoneum was achieved to 15 mmHg. 11 mm optical trocar was inserted at the umbilicus. Intraperitoneal contents were visualized. She was positioned in reverse Trendelenburg left side down. A couple 5 mm trochars were inserted in the right upper abdomen and a 10 mm trocar was inserted in the epigastrium. Gallbladder was identified and grasped and retracted anteriorly and superiorly over the dome of the liver. She had omental adhesions to the gallbladder which were taken down using blunt dissection. Infundibulum/Vizcarra's pouch of the gallbladder was retracted anterior laterally. Blunt dissection was carried out the neck of the gallbladder bluntly incising the visceral peritoneum. The cystic structures including cystic duct and cystic artery were clearly identified. Cystic duct was isolated and multiply clipped and then divided. Cystic artery was coagulated with DOMENIC ultrasonic robotic juanita and divided. The gallbladder was dissected free from the liver in a retrograde fashion using DOMENIC ultrasonic robotic juanita. Gallbladder was placed within an Endo Catch retrieval device and removed from the peritoneal cavity via the umbilical trocar site. Upon removal of the gallbladder at the umbilical trocar site laparoscopic visualization revealed a trocar site hernia immediately inferior to the trocar which contained omentum. Irrigation and suctioning was performed at the gallbladder fossa and perihepatic space. Trochars were removed as CO2 pneumoperitoneum was evacuated. Plan was made for primary closure of this trocar site hernia along with the fascia at the subumbilical trocar site. This required ultimately some extension of the skin incision. Dissection was carried out ultimately dissecting free the peritoneum of the hernia sac to relatively healthy fascia and the omentum was freed. There was initially some minor oozing from the muscle wall. To reduce the omentum this required removal of a portion of the omentum by sequentially clamping it dividing and ligating it with Vicryl ties. The debrided peritoneum was sent off as hernia sac. The fascial defect which incorpora
--- NOTE | 2020-03-04 11:00 | HMH.ANESI ---
[facility] Anesthesia Record Part I Intake, IV Amount: 800 Estimated blood loss (mL): 10 Urine output (mL): 0 Blood Products used (#): none Blood Pressure: 109/67 SaO2: 92 Pulse Rate: 92 Respiratory Rate: 20 Temperature: 97.6 F Patient is:: Drowsy, Stable Stable to PACU at:: 10:56
--- NOTE | 2020-03-04 12:40 | P.PN_ITS ---
[facility] Anesthesia Record Part II Discharge Time: 11:26 Destination: Surgical Day Care (OP Surgery) PACU nurse assessment reviewed?: Yes Patient Condition:: Good Anesthesia Complications:: None Swallowing reflex intact?: Yes Cyanosis?: No Blood Pressure: 114/69 Pulse Rate: 80 Temperature: 97.0 F Mental Status: Alert & Oriented Pain level:: 3 Nausea and/or vomitting:: None Intake, IV Amount: 20
== END 2020-03-04 12:40 | disposition home or self-care (01) ==
LOC: OR 07:51
PROVIDERS: PCP Emergency Medicine; Visit Provider Surgery
PROC: 0FT44ZZ Resection of Gallbladder, Percutaneous Endoscopic Approach (ICD-10-PCS; CPT 47562; principal; 2020-03-04 09:30)
DX: K82.9 Disease of gallbladder, unspecified (principal); K43.2 Incisional hernia without obstruction or gangrene; J45.909 Unspecified asthma, uncomplicated; B19.20 Unspecified viral hepatitis C without hepatic coma; F25.9 Schizoaffective disorder, unspecified; Z79.899 Other long term (current) drug therapy; Z72.0 Tobacco use; E03.9 Hypothyroidism, unspecified; Z88.8 Allergy status to other drugs, medicaments and biological substances; Z79.51 Long term (current) use of inhaled steroids; Z86.018 Personal history of other benign neoplasm
CPT/HCPCS: 47562; 49652; 88302; 88304; 96374; 99281; J2405; J2710

== ENCOUNTER 2020-03-04 17:00 | Emergency (ER) | payer MEDICARE, MEDICAID, SELFPAY ==
[2020-03-04 17:18] VITALS: BP 134/71; PULSE 96; RESP 18; TEMP 36.6; O2SAT 98; BMI 41.8
--- NOTE | 2020-03-04 17:31 | HMH.EDANIB ---
ED Disposition Clinical Impression: Postoperative bleeding from incision Disposition: Home, Self-Care Condition on Discharge: Good Instructions: DI for Laceration Repair Referrals: Pablo Delgado MD [Primary Care Provider] - - Critical Care Critical Care Time: No Attestation: On 03/04/20, the high probability of a clinically significant, sudden or life threatening deterioration of the following system(s) required my full and direct attention, intervention and personal management. The time I documented below is in addition to time spent performing reported procedures but includes the following listed in this critical care notation. Medical Decision Making - Medical Records Medical records reviewed: Yes: I reviewed the patient's medical records. - Torres Inquiry Pt receiving controlled substance: No Vital Signs: 03/04/20 17:18 Temperature 98 F Temperature Source Oral Pulse Rate [Left Radial] 96 H Respiratory Rate 18 Blood Pressure [Right Arm] 134/71 Blood Pressure Mean [Right Arm] 92 Blood Pressure Position [Right Arm] Sitting 02 Sat by Pulse Oximetry 98 Oxygen Delivery Method Room Air - Lab Data Lab results reviewed: Yes: I reviewed the patient's lab results. Orders (Tests/Meds): ED MEDICATIONS Discontinued Medications Generic Name Dose Route Start Last Admin Trade Name Freq PRN Reason Stop Dose Admin Oxycodone/Acetaminophen 1 each 03/04/20 17:27 Percocet 10mg/325mg Tablet PO 03/04/20 17:28 ONCE ONE Medical Decision Narrative: Spoke to the general surgeon Dr. Martinez and he agreed that changing the pad on the umbilicus would be appropriate and obviously if this continues for the next couple of days to be re-seen by Dr. Blevins. Animal Bite HPI - General Chief Complaint: Wound/Laceration Stated Complaint: Surg, Bleeding Time Seen by Provider: 03/04/20 17:31 Mode of Arrival: Ambulatory Source of Information: Patient Limitations: No Limitations Description of Symptoms (Recalled from ER Triage Doc. by RN): to ed per pvt car pt states she had abd surgery today and when she went home umbilical wound started bleeding. pt states she called office and told to come to ed for eval - History of Present Illness HPI narrative: 39-year-old female had a lap corrie done earlier today by Dr. Blevins and she is having some bleeding through the umbilicus and had to change a pad presently here in the ED she is not bleeding and she is not complaining of any excessive pain. Otherwise no other complaints. - Related Data Home Medications Medication Instructions Recorded Confirmed ARIPiprazole [Aripiprazole 10mg See Rx Instructions .ROUTE .COMPLEX 03/03/20 03/04/20 Tablet] Albuterol Sulfate [Ventolin HFA] See Rx Instructions .ROUTE .COMPLEX 03/03/20 03/04/20 Cyclobenzaprine HCl See Rx Instructions .ROUTE .COMPLEX 03/03/20 03/04/20 [Cyclobenzaprine 10mg Tab] Lisinopril/Hydrochlorothiazide See Rx Instructions .ROUTE .COMPLEX 03/03/20 03/04/20 [Lisinopril-Hctz 10-12.5 mg Tab] Nicotine [Nicotine Patch 1 patch TRANSDERMAL DAILY 03/03/20 03/04/20 21mg/24hrs] Phentermine HCl 37.5 mg PO DAILY 03/03/20 03/04/20 Vilazodone HCl [Viibryd] 20 mg PO DAILY 03/03/20 03/04/20 clindamycin HCL [Cleocin HCl] 300 mg PO TID 03/03/20 03/04/20 clonazePAM [Clonazepam] 0.5 mg PO BID 03/03/20 03/04/20 hydroCHLOROthiazide See Rx Instructions .ROUTE .COMPLEX 03/03/20 03/04/20 [Hydrochlorothiazide] Previous Rx's Medication Instructions Recorded budesonide-formoterol HFA 160 2 puff INHALATION BID #10.2 g 01/13/20 mcg-4.5 mcg/actuation aerosol inhaler levothyroxine 25 mcg tablet 25 mcg PO DAILY #90 tab 01/13/20 Allergies Allergy/AdvReac Type Severity Reaction Status Date / Time ibuprofen [IBUPROFEN] Allergy Unknown I-HIVES Verified 03/04/20 08:01 naproxen [NAPROXEN] Allergy Unknown I-HIVES Verified 03/04/20 08:01 [facility] History - Hepatitis A Screen Drug use history?: No H
[2020-03-04 17:37] VITALS: BP 134/71; PULSE 96; RESP 18; TEMP 36.6; O2SAT 98
== END 2020-03-04 17:47 | disposition home or self-care (01) ==
PROVIDERS: Emergency Provider Family Medicine; PCP Emergency Medicine
DX: K91.840 Postprocedural hemorrhage of a digestive system organ or structure following a digestive system procedure (principal); I10 Essential (primary) hypertension; E03.9 Hypothyroidism, unspecified; R56.9 Unspecified convulsions; F17.210 Nicotine dependence, cigarettes, uncomplicated; Z79.899 Other long term (current) drug therapy
CPT/HCPCS: 99281

== ENCOUNTER → 2020-03-23 09:25 | Outpatient (CLI) | payer MEDICARE, MEDICAID, SELFPAY ==
[2020-03-23 10:35] LABS: Prothrombin Time 10.3 seconds (9.4-11.8)
[2020-03-23 11:38] LABS: Chloride 106 mmol/L (98-107); Potassium 4.1 mmoL/L (3.5-5.1); Sodium 139 mmol/L (136-145)
[2020-03-23 11:41] LABS: Alanine Aminotransferase 29 U/L (12-78); Albumin Level 4.1 g/dl (3.5-5.0); Albumin/Globulin Ratio 1.6 (1.1-1.8); Alkaline Phosphatase 93 U/L (38-126); Anion Gap 10.1 mEq/L (5-15); Aspartate Amino Transferase 23 U/L (14-36); Bilirubin,Total 0.5 mg/dl (0.2-1.3); Blood Urea Nitrogen 14 mg/dl (7-17); Calcium 9.3 mg/dl (8.4-10.2); Carbon Dioxide 27 mmol/L (22.0-30.0); Estimated Glomerular Filt Rate 55 ml/min (>60); GFR (African American) 66 ML/MIN (>60); Globulin 2.6 g/dL (1.3-3.2); Glucose 100 mg/dl (74-100); Total Protein,Serum 6.7 g/dl (6.3-8.2)
[2020-03-23 15:59] LABS: Basophils # 0.2 K/mm3 (0-0.2); Basophils % 1.7 % (0.1-2.0); Eosinophils # 0.3 K/mm3 (0.0-0.4); Eosinophils % 3.7 % (0.1-12.0); Hematocrit 41.7 % (37.0-47.0); Hemoglobin 13.7 g/dL (12.2-16.2); Lymphocytes % 32.4 % (10-50); Mean Corpuscular Hemoglobin 32.5 pg (27.0-31.2); Mean Corpuscular Volume 98.7 fl (81-99); Mean Platelet Volume 8.8 fl (7.4-10.4); Monocytes # 0.5 K/mm3 (0.1-1.0); Monocytes % 5.2 % (1.7-9.3); Neutrophils # 5.3 K/mm3 (1.8-7.8); Neutrophils % 57.1 % (37.0-80.0); Platelet Count 270 K/mm3 (142-424); Red Blood Count 4.22 M/mm3 (4.20-5.40); Red Cell Distribution Width 14.4 % (11.5-17.5); White Blood Count 9.3 K/mm3 (4.8-10.8)
[2020-04-03 15:10] LABS: HCV Genotype Charge YES; Hepatitis C Genotype 2b (.)
== END ==
PROVIDERS: Visit Provider Emergency Medicine
DX: B19.20 Unspecified viral hepatitis C without hepatic coma (principal); R10.30 Lower abdominal pain, unspecified
CPT/HCPCS: 36415; 80053; 85025; 85610; 87522; 87902

== ENCOUNTER → 2020-03-30 08:48 | Outpatient (CLI) | payer MEDICARE, MEDICAID, SELFPAY ==
--- NOTE | 2020-03-30 09:06 | CT_ITS ---
PROCEDURE: CT CHEST WO/W CON CLINCAL INDICATION: 6 MONTH F/U Follow-up paraganglioma COMPARISON: CT ABDOMEN PELVIS W CON from 12/25/2019 CT CHEST W CON from 12/25/2019 TECHNIQUE: IV Contrast: 75ml Optiray 350 Axial images obtained with sagittal and coronal reformats. All CT scans at the facility use one or more dose reduction, viz: automated exposure control, ma/kV adjustment per patient size (including targeted exams where dose is matched to indication, i.e. head), or iterative reconstruction technique. FINDINGS: HEART AND MEDIASTINAL STRUCTURES: Unremarkable. LUNGS AND PLEURAL SPACES: COPD with diffuse prominence of the interstitium is once again noted with mild diffuse reticular opacities. There are scattered small bilateral pulmonary nodular opacities that were previously described and do not appear significantly changed.. No new nodules apparent.. No effusions. No lobar consolidation. There is mild bronchial thickening. BONY STRUCTURES: No acute bony abnormalities apparent. UPPER ABDOMEN: Interval cholecystectomy ADDITIONAL FINDINGS: No other significant abnormalities. IMPRESSION: 1. Overall stable CT appearance of the chest. 2. No change COPD with chronic interstitial lung disease and multiple bilateral pulmonary nodules. Recommend 9 month follow-up to confirm 1 year stability Dictated by: Timur Thompson MD 03/31/2020 10:24 Electronically signed by Timur Thompson MD in [place] 03/31/2020 10:24
== END ==
PROVIDERS: PCP Emergency Medicine; Visit Provider Internal Medicine Medical Oncology
DX: D35.02 Benign neoplasm of left adrenal gland (principal)
CPT/HCPCS: 71270; Q9967

== ENCOUNTER → 2020-04-06 08:55 | Outpatient (CLI) | payer MEDICARE, MEDICAID, SELFPAY ==
[2020-04-06 09:29] LABS: Basophils # 0.1 K/mm3 (0-0.2); Basophils % 0.8 % (0.1-2.0); Eosinophils # 0.3 K/mm3 (0.0-0.4); Eosinophils % 2.4 % (0.1-12.0); Hematocrit 39.4 % (37.0-47.0); Hemoglobin 13.5 g/dL (12.2-16.2); Lymphocytes # 3.6 K/mm3 (0.7-4.5); Lymphocytes % 27.6 % (10-50); Mean Corpuscular HGB Conc 34.4 g/dL (31.8-35.4); Mean Corpuscular Volume 95.9 fl (81-99); Mean Platelet Volume 7.8 fl (7.4-10.4); Monocytes # 0.8 K/mm3 (0.1-1.0); Monocytes % 6.3 % (1.7-9.3); Neutrophils # 8.1 K/mm3 (1.8-7.8); Neutrophils % 62.8 % (37.0-80.0); Platelet Count 182 K/mm3 (142-424); Red Blood Count 4.11 M/mm3 (4.20-5.40); Red Cell Distribution Width 14.2 % (11.5-17.5); White Blood Count 12.9 K/mm3 (4.8-10.8)
[2020-04-06 10:37] LABS: INR 0.95 (0.9-1.1); Prothrombin Time 9.8 seconds (9.4-11.8)
[2020-04-06 10:38] LABS: Chloride 104 mmol/L (98-107); Sodium 135 mmol/L (136-145)
[2020-04-06 10:39] LABS: Potassium 3.9 mmoL/L (3.5-5.1)
[2020-04-06 10:41] LABS: Alanine Aminotransferase 28 U/L (12-78); Albumin Level 3.6 g/dl (3.5-5.0); Albumin/Globulin Ratio 1.3 (1.1-1.8); Alkaline Phosphatase 83 U/L (38-126); Anion Gap 10.9 mEq/L (5-15); Aspartate Amino Transferase 21 U/L (14-36); Bilirubin,Total 0.7 mg/dl (0.2-1.3); Blood Urea Nitrogen 9 mg/dl (7-17); Carbon Dioxide 24 mmol/L (22.0-30.0); Estimated Glomerular Filt Rate 69 ml/min (>60); GFR (African American) 83 ML/MIN (>60); Globulin 2.7 g/dL (1.3-3.2); Total Protein,Serum 6.3 g/dl (6.3-8.2)
[2020-04-06 10:42] LABS: Calcium 8.6 mg/dl (8.4-10.2); Glucose 80 mg/dl (74-100)
== END ==
PROVIDERS: Visit Provider Emergency Medicine
DX: B19.20 Unspecified viral hepatitis C without hepatic coma (principal); R10.30 Lower abdominal pain, unspecified
CPT/HCPCS: 36415; 80053; 85025; 85610; 87522; 87902

== ENCOUNTER → 2020-04-20 10:27 | Outpatient (CLI) | payer MEDICARE, MEDICAID, SELFPAY ==
[2020-04-21 08:51] LABS: Basophils # 0.1 K/mm3 (0-0.2); Eosinophils # 0.2 K/mm3 (0.0-0.4); Eosinophils % 1.6 % (0.1-12.0); Hemoglobin 14.7 g/dL (12.2-16.2); Lymphocytes # 3.2 K/mm3 (0.7-4.5); Lymphocytes % 28.5 % (10-50); Mean Corpuscular HGB Conc 33.5 g/dL (31.8-35.4); Mean Corpuscular Hemoglobin 32.9 pg (27.0-31.2); Mean Corpuscular Volume 98.3 fl (81-99); Mean Platelet Volume 9.4 fl (7.4-10.4); Monocytes # 0.6 K/mm3 (0.1-1.0); Monocytes % 5.5 % (1.7-9.3); Neutrophils # 7.1 K/mm3 (1.8-7.8); Neutrophils % 63.5 % (37.0-80.0); Platelet Count 255 K/mm3 (142-424); Red Blood Count 4.47 M/mm3 (4.20-5.40); Red Cell Distribution Width 14.4 % (11.5-17.5); White Blood Count 11.2 K/mm3 (4.8-10.8)
[2020-04-21 10:01] LABS: T4 (Thyroxine) 7.7 ug/dl (5.53-11.0)
[2020-04-21 10:14] LABS: Thyroid Stimulating Hormone 2.18 uIU/mL (0.465-4.68)
== END ==
PROVIDERS: Visit Provider Family Medicine
DX: B18.2 Chronic viral hepatitis C (principal); R53.83 Other fatigue; R60.0 Localized edema
CPT/HCPCS: 84436; 84443; 85025

== ENCOUNTER → 2020-06-15 11:37 | Outpatient (CLI) | payer MEDICARE, MEDICAID, SELFPAY ==
[2020-06-15 12:03] LABS: Basophils # 0.1 K/mm3 (0-0.2); Basophils % 0.8 % (0.1-2.0); Eosinophils # 0.2 K/mm3 (0.0-0.4); Eosinophils % 1.8 % (0.1-12.0); Hematocrit 41.5 % (37.0-47.0); Hemoglobin 14.2 g/dL (12.2-16.2); Lymphocytes # 3.5 K/mm3 (0.7-4.5); Lymphocytes % 34.4 % (10-50); Mean Corpuscular HGB Conc 34.2 g/dL (31.8-35.4); Mean Corpuscular Hemoglobin 32.5 pg (27.0-31.2); Mean Platelet Volume 8.2 fl (7.4-10.4); Monocytes # 0.5 K/mm3 (0.1-1.0); Monocytes % 4.6 % (1.7-9.3); Neutrophils % 58.5 % (37.0-80.0); Platelet Count 237 K/mm3 (142-424); Red Blood Count 4.37 M/mm3 (4.20-5.40); Red Cell Distribution Width 14.1 % (11.5-17.5); White Blood Count 10.2 K/mm3 (4.8-10.8)
[2020-06-15 12:47] LABS: Alanine Aminotransferase 18 U/L (12-78); Albumin Level 4.1 g/dl (3.5-5.0); Albumin/Globulin Ratio 1.6 (1.1-1.8); Alkaline Phosphatase 82 U/L (38-126); Anion Gap 11.6 mEq/L (5-15); Aspartate Amino Transferase 21 U/L (14-36); Bilirubin,Total 0.3 mg/dl (0.2-1.3); Blood Urea Nitrogen 19 mg/dl (7-17); Calcium 9.6 mg/dl (8.4-10.2); Carbon Dioxide 28 mmol/L (22.0-30.0); Chloride 103 mmol/L (98-107); Estimated Glomerular Filt Rate 69 ml/min (>60); GFR (African American) 83 ML/MIN (>60); Globulin 2.6 g/dL (1.3-3.2); Glucose 94 mg/dl (74-100); Potassium 4.6 mmoL/L (3.5-5.1); Sodium 138 mmol/L (136-145); Total Protein,Serum 6.7 g/dl (6.3-8.2)
[2020-06-15 13:34] LABS: INR 1.01 (0.9-1.1); Prothrombin Time 10.4 seconds (9.4-11.8)
== END ==
PROVIDERS: Visit Provider Emergency Medicine
DX: B19.20 Unspecified viral hepatitis C without hepatic coma (principal); R10.30 Lower abdominal pain, unspecified
CPT/HCPCS: 36415; 80053; 85025; 85610; 87522

== ENCOUNTER → 2020-06-25 11:20 | Outpatient (CLI) | payer MEDICARE, MEDICAID, SELFPAY ==
--- NOTE | 2020-06-25 11:24 | CT_ITS ---
PROCEDURE: CT CHEST WO/W CON CLINCAL INDICATION: CA OF ADRENAL GLAND, follow-up pulmonary nodules F/u...hx of adrenal gland ca...tumor removed 2017 COMPARISON: CT CHESTWO CT chest wo con from 08/23/[address] CHEST W CON from 12/25/[address] CHEST WO/W CON from 03/30/2020 TECHNIQUE: IV Contrast: 75ml Optiray 350 Axial images obtained with sagittal and coronal reformats. All CT scans at the facility use one or more dose reduction, viz: automated exposure control, ma/kV adjustment per patient size (including targeted exams where dose is matched to indication, i.e. head), or iterative reconstruction technique. FINDINGS: HEART AND MEDIASTINAL STRUCTURES: Unremarkable. LUNGS AND PLEURAL SPACES: Changes of COPD/centrilobular emphysema with prominence of the interstitium and diffuse reticular nodular pattern. There are multiple small pulmonary nodules once again noted most of which are stable compared to the previous exam. The largest of these nodules is in the left lower lobe measuring approximately 10 mm.. There is a 5 mm nodule in the right lower lobe image number 46 slightly more prominent and a 4 mm nodule in the right upper lobe image 21 also slightly more prominent. The increasing prominence could be related to slice orientation. Continued follow-up is suggested. No effusions or infiltrates. No acute bony findings. BONY STRUCTURES: No acute bony abnormalities apparent. UPPER ABDOMEN: Please see abdomen report ADDITIONAL FINDINGS: No other significant abnormalities. IMPRESSION: 1. Reticular nodular pattern of the lungs with centrilobular emphysema and COPD once again noted. 2. Multiple noncalcified pulmonary nodules most of which are unchanged. These could be inflammatory or neoplastic. Two nodules appear slightly more prominent in the right upper and right lower lobe but could be due to slice orientation artifact. Continued follow-up suggested. Dictated by: Timur Thompson MD 06/26/2020 08:19 Timur Thompson MD in [place] 06/26/2020 08:19
--- NOTE | 2020-06-25 11:24 | CT_ITS ---
PROCEDURE: CT ABDOMEN PELVIS WO/W CON CLINICAL INDICATION: CA OF ADRENAL GLAND f/u...hx of adrenal gland ca...tumor removed 2017 COMPARISON: CT ABDPELWW CT abdomen pelvis wo/w con from 07/18/[address] abdomen pelvis w con from 08/22/[address] ABDOMEN PELVIS W CON from 12/25/2019 TECHNIQUE: IV Contrast: 75ML OPTIRAY 350 Oral Contrast None Axial images obtained with sagittal and coronal reformats. All CT scans at the facility use one or more dose reduction, viz: automated exposure control, ma/kV adjustment per patient size (including targeted exams where dose is matched to indication, i.e. head), or iterative reconstruction technique. FINDINGS: LOWER THORAX: There are 2 nodules in the left lung base which are stable the largest measuring 10 mm. ABDOMEN & PELVIS: There has been an interval cholecystectomy. The liver, spleen, adrenal glands, and kidneys have an unremarkable appearance. No retroperitoneal mass is evident. Minimal nodularity noted medial to the left kidney overall not significantly changed. No intestinal obstruction or free air. There is a small umbilical hernia which contains fat. Bilateral Essure devices are present. No pelvic mass or abnormal fluid collection. No acute bony anomalies. IMPRESSION: 1. No evidence of recurrence retroperitoneal mass. 2. Status post interval cholecystectomy. Dictated by: Timur Thompson MD 06/26/2020 08:07 Timur Thompson MD in [place] 06/26/2020 08:07
== END ==
PROVIDERS: PCP Emergency Medicine; Visit Provider Internal Medicine Medical Oncology
DX: D49.7 Neoplasm of unspecified behavior of endocrine glands and other parts of nervous system (principal)
CPT/HCPCS: 71270; 74178; Q9967

== ENCOUNTER → 2020-08-06 09:46 | Outpatient (CLI) | payer MEDICARE, MEDICAID, SELFPAY ==
--- NOTE | 2020-08-06 09:46 | MM_ITS ---
PROCEDURE: MM DIG SCREENING MAMM BI W/CAD Digital Breast Tomosynthesis Included CLINICAL INDICATION: screening There is no personal or family history of breast cancer. COMPARISON: MG SCBI MM Dig screening mamm BI w/CAD from 04/25/2018 MG DXRT MM Dig mamm DX unilat RT CAD from 05/15/2018 MG MM DIG SCREENING MAMM BI W/CAD from 08/06/2019 TECHNIQUE: Standard CC and MLO images and 3D Tomosynthesis was obtained. R2 CAD reviewed. FINDINGS: Breasts are composed primarily of fat with scattered fibroglandular densities seen throughout both breasts. There are few benign-appearing microcalcifications in the subareolar regions of both breasts. There is a mole marker upper inner quadrant right breast. There is no suspicious lesion and no suspicious microcalcifications. IMPRESSION: Fibrofatty parenchyma with no suspicious lesions seen BI-RAD Category: 2 Benign Finding(s) FOLLOW-UP: 1YR 1 Year Follow-up (A letter has been sent to the patient regarding results of the study.) Dictated by: Dr. Eduardo Mcgovern MD 08/09/2020 17:23 Dr. Eduardo Mcgovern MD in [place] 08/09/2020 17:23
== END ==
PROVIDERS: PCP Emergency Medicine; Visit Provider Emergency Medicine
DX: Z12.31 Encounter for screening mammogram for malignant neoplasm of breast (principal)
CPT/HCPCS: 77063; 77067

== ENCOUNTER → 2020-09-01 08:22 | Outpatient (CLI) | payer MEDICARE, MEDICAID, SELFPAY ==
--- NOTE | 2020-09-01 08:34 | CT_ITS ---
PROCEDURE: CT ABDOMEN PELVIS W CON CLINICAL INDICATION: hx of adrenal cancer follow up, no current symptoms redicat, 75ml iso 370 prior 06/25/20 COMPARISON: CT ABDPELWW CT abdomen pelvis wo/w con from 07/18/[address] ABDOMEN PELVIS W CON from 12/25/[address] ABDOMEN PELVIS WO/W CON from 06/25/2020 TECHNIQUE: IV Contrast: 75ML Isovue 370 Oral Contrast None Axial images obtained with sagittal and coronal reformats. All CT scans at the facility use one or more dose reduction, viz: automated exposure control, ma/kV adjustment per patient size (including targeted exams where dose is matched to indication, i.e. head), or iterative reconstruction technique. FINDINGS: The liver has an unremarkable appearance. There has been a prior cholecystectomy. The spleen is unremarkable. No adrenal mass. There is a small nodule medial to the left adrenal gland which is unchanged. There are few small retroperitoneal lymph nodes which appear stable. No dominant adenopathy is evident. The kidneys have an unremarkable appearance. The pancreas appears unremarkable. No intestinal obstruction or free air. There is a tiny umbilical hernia which contains fat. There has been a prior appendectomy. Bilateral Essure devices are present. There is a small diverticulum along the splenic flexure region of the colon. No evidence of diverticulitis. There is mild lumbar curvature convex left. IMPRESSION: 1. Overall stable CT appearance of the abdomen and pelvis. 2. Small nodes adjacent to the left adrenal gland similar compared to the previous exam. No obvious recurrence retroperitoneal mass evident. Dictated by: Timur Thompson MD 09/02/2020 13:26 Timur Thompson MD in [facility] 09/02/2020 13:26
--- NOTE | 2020-09-01 08:34 | CT_ITS ---
PROCEDURE: CT CHEST W CON CLINCAL INDICATION: NEOPLASM OF ADRENAL GLANDS hx of adrenal cancer follow up, no current symptoms redicat, 75ml iso 370 prior 06/25/20 COMPARISON: CT CT CHEST WO/W CON from 03/30/[address] CHEST WO/W CON from 06/25/2020 TECHNIQUE: IV Contrast: 75ml Isovue 370 Axial images obtained with sagittal and coronal reformats. All CT scans at the facility use one or more dose reduction, viz: automated exposure control, ma/kV adjustment per patient size (including targeted exams where dose is matched to indication, i.e. head), or iterative reconstruction technique. FINDINGS: HEART AND MEDIASTINAL STRUCTURES: No mediastinal or hilar mass or adenopathy. LUNGS AND PLEURAL SPACES: There is diffuse reticular nodular pattern of the lungs with multiple small nodular opacities apparent. This is more prominent in the upper lobes with sparing of the lung bases. There are 2 noncalcified nodules in the left lower lobe along the hemidiaphragm the largest of which is 9 mm. This is not significantly changed from the previous exam. Additional noncalcified nodules are present in the left lower lobe posteriorly and laterally not significantly changed. No effusions or infiltrates. BONY STRUCTURES: No acute bony abnormalities apparent. UPPER ABDOMEN: See abdomen report ADDITIONAL FINDINGS: No other significant abnormalities. IMPRESSION: Overall stable CT appearance of the chest. Numerous noncalcified pulmonary nodules are present which are stable. There is diffuse reticulonodular pattern in the upper lung carl which is stable. Dictated by: Timur Thompson MD 09/02/2020 13:19 Timur Thompson MD in [facility] 09/02/2020 13:19
[2020-09-01 10:31] LABS: Basophils # 0.1 K/mm3 (0-0.2); Basophils % 0.9 % (0.1-2.0); Eosinophils # 0.2 K/mm3 (0.0-0.4); Eosinophils % 1.7 % (0.1-12.0); Hematocrit 43.4 % (37.0-47.0); Hemoglobin 14.8 g/dL (12.2-16.2); Lymphocytes # 3.1 K/mm3 (0.7-4.5); Lymphocytes % 26.9 % (10-50); Mean Corpuscular HGB Conc 34.2 g/dL (31.8-35.4); Mean Corpuscular Hemoglobin 32.8 pg (27.0-31.2); Mean Corpuscular Volume 96.1 fl (81-99); Mean Platelet Volume 7.9 fl (7.4-10.4); Monocytes # 0.7 K/mm3 (0.1-1.0); Monocytes % 5.6 % (1.7-9.3); Neutrophils # 7.5 K/mm3 (1.8-7.8); Neutrophils % 64.9 % (37.0-80.0); Platelet Count 227 K/mm3 (142-424); Red Blood Count 4.52 M/mm3 (4.20-5.40); Red Cell Distribution Width 14.3 % (11.5-17.5); White Blood Count 11.5 K/mm3 (4.8-10.8)
[2020-09-01 11:36] LABS: Alanine Aminotransferase 17 U/L (12-78); Albumin Level 4.1 g/dl (3.5-5.0); Albumin/Globulin Ratio 1.5 (1.1-1.8); Alkaline Phosphatase 105 U/L (38-126); Anion Gap 12.4 mEq/L (5-15); Aspartate Amino Transferase 19 U/L (14-36); Bilirubin,Total 0.8 mg/dl (0.2-1.3); Blood Urea Nitrogen 16 mg/dl (7-17); Calcium 9.9 mg/dl (8.4-10.2); Carbon Dioxide 27 mmol/L (22.0-30.0); Chloride 104 mmol/L (98-107); Estimated Glomerular Filt Rate 61 ml/min (>60); GFR (African American) 74 ML/MIN (>60); Globulin 2.7 g/dL (1.3-3.2); Glucose 83 mg/dl (74-100); Potassium 4.4 mmoL/L (3.5-5.1); Sodium 139 mmol/L (136-145); Total Protein,Serum 6.8 g/dl (6.3-8.2)
== END ==
PROVIDERS: PCP Emergency Medicine; Visit Provider Internal Medicine Medical Oncology
DX: D49.7 Neoplasm of unspecified behavior of endocrine glands and other parts of nervous system (principal); C74.10 Malignant neoplasm of medulla of unspecified adrenal gland
CPT/HCPCS: 36415; 71260; 74177; 80053; 85025; Q9967

== ENCOUNTER → 2020-09-03 08:55 | Outpatient (CLI) | payer MEDICARE, MEDICAID, SELFPAY ==
[2020-09-14 18:08] LABS: Metanephrine, Ur 80 ug/L (Undefined); Normetanephr.,U,24h 634 ug/24 hr (131-612); Normetanephrine, Ur 264 ug/L (Undefined)
[2020-09-15 11:09] LABS: Metanephrine, U,24hr 192 ug/24 hr (36-209)
== END ==
PROVIDERS: Visit Provider Internal Medicine Medical Oncology
DX: D49.7 Neoplasm of unspecified behavior of endocrine glands and other parts of nervous system (principal); C74.10 Malignant neoplasm of medulla of unspecified adrenal gland
CPT/HCPCS: 83835

== ENCOUNTER → 2020-09-07 09:24 | Outpatient (CLI) | payer MEDICARE, MEDICAID, SELFPAY ==
[2020-09-07 10:35] LABS: Basophils # 0.1 K/mm3 (0-0.2); Basophils % 0.6 % (0.1-2.0); Eosinophils # 0.2 K/mm3 (0.0-0.4); Eosinophils % 1.7 % (0.1-12.0); Hematocrit 45.1 % (37.0-47.0); Lymphocytes # 3.2 K/mm3 (0.7-4.5); Lymphocytes % 27.5 % (10-50); Mean Corpuscular HGB Conc 35.5 g/dL (31.8-35.4); Mean Corpuscular Hemoglobin 34.7 pg (27.0-31.2); Mean Corpuscular Volume 97.7 fl (81-99); Mean Platelet Volume 8.5 fl (7.4-10.4); Monocytes # 0.7 K/mm3 (0.1-1.0); Monocytes % 5.8 % (1.7-9.3); Neutrophils # 7.4 K/mm3 (1.8-7.8); Neutrophils % 64.4 % (37.0-80.0); Platelet Count 228 K/mm3 (142-424); Red Blood Count 4.62 M/mm3 (4.20-5.40); Red Cell Distribution Width 13.5 % (11.5-17.5); White Blood Count 11.5 K/mm3 (4.8-10.8)
[2020-09-07 11:17] LABS: Alanine Aminotransferase 21 U/L (12-78); Albumin Level 4.6 g/dl (3.5-5.0); Albumin/Globulin Ratio 1.6 (1.1-1.8); Alkaline Phosphatase 123 U/L (38-126); Anion Gap 13.3 mEq/L (5-15); Aspartate Amino Transferase 22 U/L (14-36); Bilirubin,Total 0.7 mg/dl (0.2-1.3); Blood Urea Nitrogen 15 mg/dl (7-17); Carbon Dioxide 27 mmol/L (22.0-30.0); Chloride 102 mmol/L (98-107); Estimated Glomerular Filt Rate 69 ml/min (>60); GFR (African American) 83 ML/MIN (>60); Globulin 2.9 g/dL (1.3-3.2); Glucose 84 mg/dl (74-100); Potassium 4.3 mmoL/L (3.5-5.1); Sodium 138 mmol/L (136-145); Total Protein,Serum 7.5 g/dl (6.3-8.2)
[2020-09-07 11:28] LABS: INR 0.98 (0.9-1.1); Prothrombin Time 10.9 seconds (9.4-11.8)
[2020-09-07 11:35] LABS: T4 (Thyroxine) 7.6 ug/dl (5.53-11.0)
[2020-09-07 11:48] LABS: Thyroid Stimulating Hormone 1.27 uIU/mL (0.465-4.68)
[2020-09-07 12:06] LABS: Vitamin B12 847 pg/mL (239-931)
[2020-09-08 11:06] LABS: FSH 5.8 mIU/mL (.); LH 6.5 mIU/mL (.)
[2020-09-13 08:56] LABS: Estrogen 488 pg/mL (.)
== END ==
PROVIDERS: Visit Provider Emergency Medicine
DX: R23.2 Flushing (principal); R53.83 Other fatigue; R60.0 Localized edema; B19.20 Unspecified viral hepatitis C without hepatic coma; R10.30 Lower abdominal pain, unspecified
CPT/HCPCS: 36415; 80053; 82607; 82672; 83001; 83002; 84436; 84443; 85025; 85610; 87522

== ENCOUNTER → 2020-10-07 17:05 | Outpatient (CLI) | payer MEDICARE, MEDICAID, SELFPAY ==
[2020-10-07 17:57] LABS: Anion Gap 11.3 mEq/L (5-15); Blood Urea Nitrogen 14 mg/dl (7-17); Calcium 9.9 mg/dl (8.4-10.2); Carbon Dioxide 27 mmol/L (22.0-30.0); Chloride 104 mmol/L (98-107); Estimated Glomerular Filt Rate 61 ml/min (>60); GFR (African American) 74 ML/MIN (>60); Glucose 91 mg/dl (74-100); Potassium 4.3 mmoL/L (3.5-5.1); Sodium 138 mmol/L (136-145)
== END ==
PROVIDERS: Visit Provider Nurse Practitioner Family
DX: R60.0 Localized edema (principal)
CPT/HCPCS: 80048

== ENCOUNTER → 2020-11-06 12:56 | Outpatient (CLI) | payer MEDICARE, SELFPAY ==
--- NOTE | 2020-11-06 13:02 | XR_ITS ---
PROCEDURE: XR CERVICAL SPINE 3V CLINICAL INDICATION: numbness in fingers COMPARISON: No exams were available for comparison FINDINGS: No fracture or dislocation. No lytic or blastic change. There is normal mineralization. There is normal alignment. There is slight reversal of the cervical lordosis with mild degenerative disc disease at C4-C5 with 2-3 mm anterolisthesis of C4. Other findings:No cervical ribs IMPRESSION: Mild degenerative disc disease C4-C5 with minimal anterolisthesis of C4 and mild reversal of the cervical lordosis which could be due to patient positioning or muscle spasm Dictated by: Timur Thompson MD 11/06/2020 13:40 Timur Thompson MD in [facility] 11/06/2020 13:40
--- NOTE | 2020-11-06 13:02 | XR_ITS ---
PROCEDURE: XR WRIST RT MIN 3V CLINICAL INDICATION: RT wrist pain COMPARISON: No exams were available for comparison FINDINGS: No fracture or dislocation. No lytic or blastic change. There is normal mineralization. The joint spaces are well-preserved. No significant degenerative/arthritic changes. No erosive changes evident. Other findings:There is an old 5th metacarpal fracture distally IMPRESSION: No acute findings. Dictated by: Timur Thompson MD 11/06/2020 13:39 Timur Thompson MD in [facility] 11/06/2020 13:39
--- NOTE | 2020-11-06 13:02 | XR_ITS ---
PROCEDURE: XR WRIST LT MIN 3V CLINICAL INDICATION: LT wrist pain COMPARISON: No exams were available for comparison FINDINGS: No fracture or dislocation. No lytic or blastic change. There is normal mineralization. The joint spaces are well-preserved. No significant degenerative/arthritic changes. No erosive changes evident. Other findings:None. IMPRESSION: No acute findings. Dictated by: Timur Thompson MD 11/06/2020 13:38 Timur Thompson MD in [facility] 11/06/2020 13:38
== END ==
PROVIDERS: PCP Emergency Medicine; Visit Provider Orthopaedic Surgery
DX: R20.0 Anesthesia of skin (principal); G56.00 Carpal tunnel syndrome, unspecified upper limb; M25.531 Pain in right wrist; M25.532 Pain in left wrist
CPT/HCPCS: 72040; 73110

== ENCOUNTER 2021-02-24 19:21 | Emergency (ER) | payer MEDICARE, MEDICAID, SELFPAY ==
--- NOTE | 2021-02-24 19:52 | XR_ITS ---
PROCEDURE INFORMATION: Exam: XR Left Hand Exam date and time: 02/24/21 07:52 PM Age: 40 years old Clinical indication: Hand; Left; Patient HX: Pain around pinky, no known injury, popping feeling TECHNIQUE: Imaging protocol: XR Left hand. Views: 3 or more views. COMPARISON: CR XR WRIST LT MIN 3V 11/06/20 01:11 PM FINDINGS: Bones/joints: Normal. Soft tissues: Normal. IMPRESSION: No acute findings.
[2021-02-24 19:57] VITALS: BP 133/76; PULSE 79; RESP 20; TEMP 37.1; O2SAT 99; BMI 42.4
[2021-02-24 20:02] VITALS: BP 133/70; PULSE 79; RESP 20; TEMP 37.1; O2SAT 99
--- NOTE | 2021-02-24 20:13 | HMH.EDUTC ---
[facility] [place] Clinical Impression: De Quervain's tenosynovitis, left Disposition: Home, Self-Care Condition on Discharge: Good Instructions: De Quervain Tenosynovitis Additional Instructions: Rest the extremity, Elevate the extremity as tolerated while you are resting. Take ibuprofen for pain. I sent in a prescription to your pharmacy. Wear the splint that we put on you. Follow up with Dr. Arora (orthopedics). I put in a referral but you need to call her office and schedule an appointment. Follow up with your regular doctor. GO TO THE ER FOR ANY WORSENING SYMPTOMS Referrals: aPblo Delgado MD [Primary Care Provider] - Tina Arora MD [Physician] - Time of Disposition: 20:25 Medical Decision Making - Medical Records Medical records reviewed: No: I reviewed the patient's medical records. - Torres Inquiry Pt receiving controlled substance: No Vital Signs: 02/24/21 19:57 02/24/21 20:02 Temperature 98.8 F 98.8 F Temperature Source Oral Pulse Rate 79 Pulse Rate [Left] 79 Respiratory Rate 20 20 Blood Pressure 133/70 Blood Pressure [Right Arm] 133/76 Blood Pressure Mean [Right Arm] 95 02 Sat by Pulse Oximetry 99 [facility] [place] - General Stated complaint: Left hand pain Time Seen by Provider: 02/24/21 20:17 Mode of Arrival: Ambulatory Source of Information: Patient Limitations: No Limitations Description of Symptoms (Recalled from Triage Doc. by RN): Left hand pain x 5 days HEENT Symptoms (Recalled from RN notes): No Resp Symptoms (Recalled from RN notes): No Skin Symptoms (Recalled from RN notes): No MS Symptoms (Recalled from RN notes): Yes Functional Status (Recalled from RN notes): wnl - History of Present Illness Provider Complaint: She states that she has left hand pain and her 4th and 5th finger sometimes catches when she bends them. She denies any injury. - Related Data Previous Rx's Medication Instructions Recorded albuterol sulfate 90 mcg/actuation See Rx Instructions .ROUTE 07/28/20 aerosol inhaler .COMPLEX #8.5 g bupropion HCl 75 mg tablet 75 mg PO DAILY #90 tab 07/29/20 levothyroxine 25 mcg tablet See Rx Instructions .ROUTE 10/11/20 .COMPLEX #90 tab hydrochlorothiazide 12.5 mg capsule See Rx Instructions .ROUTE 10/12/20 .COMPLEX #90 cap lisinopril 10 See Rx Instructions .ROUTE 10/12/20 mg-hydrochlorothiazide 12.5 mg .COMPLEX #90 tablet tablet budesonide-formoterol HFA 160 See Rx Instructions .ROUTE 11/04/20 mcg-4.5 mcg/actuation aerosol .COMPLEX #10.2 g inhaler cyclobenzaprine 10 mg tablet See Rx Instructions .ROUTE 12/21/20 .COMPLEX #60 tab phentermine 37.5 mg capsule 37.5 mg PO DAILY #30 cap 02/05/21 aripiprazole 10 mg tablet 10 mg PO DAILY #30 tab 02/17/21 vilazodone 10 mg tablet 10 mg PO DAILY #30 tab 02/17/21 Allergies Allergy/AdvReac Type Severity Reaction Status Date / Time ibuprofen [IBUPROFEN] Allergy Unknown I-HIVES Verified 02/24/21 20:02 naproxen [NAPROXEN] Allergy Unknown I-HIVES Verified 02/24/21 20:02 - Worker's Comp Is this a Worker's Comp case?: No [facility] History - Hepatitis A Screen Drug use history?: No High risk sexual behaviors?: No History of sexually transmitted infection?: No Currently employed?: No Childcare worker?: No Do you have indoor plumbing?: Yes Do you have electricity?: Yes Attestation statement:: This patient has been screened for Hepatitis A risk factors. I have reviewed the patient's past medical history: Yes Medical History: Reports:: Asthma, Hepatitis, Hypertension, Pulmonary Embolism, Seizures Denies:: Cancer, Diabetes Mellitus Type 1, Diabetes Mellitus Type 2, Internal Pacemaker, MRSA Other Medical History: Reports: Hypothyroidism, Liver Disease, Thyroid Disease, Other. Denies: Blood Transfusion Reaction Comment: Adrenal mass, morbid obesity, schizoaffective disorder Other Surgeries: Yes: Appendectomy, Cholecystectomy, , Diagnostic Lap, Hernia Repair, Tubal Ligation,
== END 2021-02-24 20:33 | disposition home or self-care (01) ==
PROVIDERS: Emergency Provider Nurse Practitioner Family; PCP Emergency Medicine
DX: M65.4 Radial styloid tenosynovitis [de Quervain] (principal); I10 Essential (primary) hypertension; E03.9 Hypothyroidism, unspecified; J45.909 Unspecified asthma, uncomplicated; Z79.899 Other long term (current) drug therapy
CPT/HCPCS: 29125; G0463; 73130; 99203

== ENCOUNTER → 2021-03-22 10:49 | Outpatient (CLI) | payer MEDICARE, MEDICAID, SELFPAY ==
--- NOTE | 2021-03-22 10:56 | CT_ITS ---
PROCEDURE: CT ABDOMEN PELVIS W CON CLINICAL INDICATION: ANEMIA Follow up Hx of adrenal cancer Prior on pacs COMPARISON: CT CT ABDOMEN PELVIS W CON from 09/01/[address] CHEST W CON from 03/22/2021 TECHNIQUE: IV Contrast: 75ML Isovue 370 Oral Contrast None Axial images obtained with sagittal and coronal reformats. All CT scans at the facility use one or more dose reduction, viz: automated exposure control, ma/kV adjustment per patient size (including targeted exams where dose is matched to indication, i.e. head), or iterative reconstruction technique. FINDINGS: There has been a prior cholecystectomy. The liver, spleen, pancreas, and adrenal glands have an unremarkable appearance. There are few small opacities just adjacent to the left adrenal gland may be due to small nodes or vessels not significantly changed. No renal mass or perinephric fluid collection. No intestinal obstruction or free air. Bilateral Essure devices are present. No obvious pelvic mass or abnormal fluid collection. No acute bony finding. There is an old right 10th rib fracture posteriorly. IMPRESSION: Stable CT appearance of the abdomen and pelvis with no convincing evidence of recurrence adrenal neoplasm or metastatic disease. Dictated by: Timur Thompson MD 03/23/2021 08:58 Timur Thompson MD in [facility] 03/23/2021 08:58
--- NOTE | 2021-03-22 10:56 | CT_ITS ---
PROCEDURE: CT CHEST W CON CLINCAL INDICATION: ANEMIA Follow up Hx of adrenal cancer Prior on pacs COMPARISON: CT CT CHEST WO/W CON from 03/30/[address] CHEST W CON from 09/01/2020 TECHNIQUE: IV Contrast: 75ml Isovue 370 Axial images obtained with sagittal and coronal reformats. All CT scans at the facility use one or more dose reduction, viz: automated exposure control, ma/kV adjustment per patient size (including targeted exams where dose is matched to indication, i.e. head), or iterative reconstruction technique. FINDINGS: HEART AND MEDIASTINAL STRUCTURES: No mediastinal or hilar mass or adenopathy. LUNGS AND PLEURAL SPACES: Reticular nodular pattern once again noted in the upper lung carl. There is a new area atelectasis versus patchy infiltrate along the right minor fissure. There is a stable subpleural nodular opacity in the left upper lobe at 8 mm. There are numerous small nodular opacities in the left lower lobe the largest at 9 mm. Many of these contain calcium. No new nodules are identified. There are stable reticular opacities in the upper lobes. No effusions or infiltrates. BONY STRUCTURES: No acute bony abnormalities apparent. UPPER ABDOMEN: Please see abdomen report ADDITIONAL FINDINGS: No other significant abnormalities. IMPRESSION: Stable CT appearance of the chest. No change in the reticular nodular pattern in the upper lobes. No change in the numerous pulmonary nodules. No new nodules apparent. Dictated by: Timur Thompson MD 03/23/2021 08:51 Timur Thompson MD in [facility] 03/23/2021 08:51
== END ==
PROVIDERS: PCP Emergency Medicine; Visit Provider Internal Medicine Medical Oncology
DX: C74.10 Malignant neoplasm of medulla of unspecified adrenal gland (principal); D35.00 Benign neoplasm of unspecified adrenal gland
CPT/HCPCS: 71260; 74177; Q9967

== ENCOUNTER 2021-03-30 16:05 | Emergency (ER) | payer MEDICARE, MEDICAID, SELFPAY ==
[2021-03-30 16:08] VITALS: BP 131/74; PULSE 103; RESP 19; TEMP 36.8; O2SAT 96; BMI 25.7
--- NOTE | 2021-03-30 16:27 | XR_ITS ---
PROCEDURE: XR HAND RT MIN 3V CLINICAL INDICATION: pain COMPARISON: CR HANDR3 HAND-RT 3 VIEWS from 05/26/2013 CR XR HAND LT MIN 3V from 02/24/2021 FINDINGS: There is mild soft tissue swelling. No acute fracture or dislocation. Joint spaces are normal. IMPRESSION: Mild soft tissue swelling with no definite acute fracture or dislocation. Dictated by: Maurice Escobar MD 03/30/2021 16:50 Maurice Escobar MD in [facility] 03/30/2021 16:50
[2021-03-30 16:30] VITALS: BP 131/74; PULSE 103; RESP 19; TEMP 36.8; O2SAT 96
--- NOTE | 2021-03-30 16:43 | HMH.EDUTC ---
[facility] – [place] Clinical Impression: De Quervain's tenosynovitis, left Disposition: Home, Self-Care Condition on Discharge: Good Instructions: DI for De Quervain's Tenosynovitis Additional Instructions: Rest the extremity, Wear the rashad elastic splint, Elevate the extremity as tolerated while you are resting. Follow up with Dr. Snow (orthopedics). I put in a referral but you need to call his office and schedule an appointment. Follow up with your regular doctor. GO TO THE ER FOR ANY WORSENING SYMPTOMS Referrals: Pablo Delgado MD [Primary Care Provider] - Babak Snow MD [Staff Physician] - Time of Disposition: 16:56 Medical Decision Making - Medical Records Medical records reviewed: No: I reviewed the patient's medical records. - Torres Inquiry Pt receiving controlled substance: No Vital Signs: 03/30/21 16:08 03/30/21 16:30 Temperature 98.2 F 98.2 F Temperature Source Oral Pulse Rate 103 H Pulse Rate [Left] 103 H Respiratory Rate 19 19 Blood Pressure 131/74 Blood Pressure [Right Arm] 131/74 Blood Pressure Mean [Right Arm] 93 02 Sat by Pulse Oximetry 96 - Radiology Data #1 Image(s): Hand Image Reviewed: Yes I reviewed the patient's radiology image, Yes I have reviewed radiologist's interpretation Preliminary Findings: No Fracture Seen PROCEDURE: XR HAND RT MIN 3V CLINICAL INDICATION: pain COMPARISON: CR HANDR3 HAND-RT 3 VIEWS from 05/26/2013 CR XR HAND LT MIN 3V from 02/24/2021 FINDINGS: There is mild soft tissue swelling. No acute fracture or dislocation. Joint spaces are normal. IMPRESSION: Mild soft tissue swelling with no definite acute fracture or dislocation. Dictated by: Maurice Escobar MD 03/30/2021 16:50 Maurice Escobar MD in [facility] 03/30/2021 16:50 [facility] [place] HPI - General Stated complaint: Left wrist pain Time Seen by Provider: 03/30/21 16:15 Mode of Arrival: Ambulatory Source of Information: Patient Limitations: No Limitations Description of Symptoms (Recalled from Triage Doc. by RN): Pt c/o left hand pain HEENT Symptoms (Recalled from RN notes): No Resp Symptoms (Recalled from RN notes): No Skin Symptoms (Recalled from RN notes): No MS Symptoms (Recalled from RN notes): No Functional Status (Recalled from RN notes): WNL - History of Present Illness Provider Complaint: She states that she is back with left hand pain and her 5th finger on her that hand has been catching. She has to manually get it to move again with her other hand. She has not followed up with orthopedics since her last visit here. - Related Data Previous Rx's Medication Instructions Recorded albuterol sulfate 90 mcg/actuation See Rx Instructions .ROUTE 07/28/20 aerosol inhaler .COMPLEX #8.5 g bupropion HCl 75 mg tablet 75 mg PO DAILY #90 tab 07/29/20 hydrochlorothiazide 12.5 mg capsule See Rx Instructions .ROUTE 10/12/20 .COMPLEX #90 cap lisinopril 10 See Rx Instructions .ROUTE 10/12/20 mg-hydrochlorothiazide 12.5 mg .COMPLEX #90 tablet tablet budesonide-formoterol HFA 160 See Rx Instructions .ROUTE 11/04/20 mcg-4.5 mcg/actuation aerosol .COMPLEX #10.2 g inhaler cyclobenzaprine 10 mg tablet See Rx Instructions .ROUTE 12/21/20 .COMPLEX #60 tab aripiprazole 10 mg tablet 10 mg PO DAILY #30 tab 02/17/21 vilazodone 10 mg tablet 10 mg PO DAILY #30 tab 02/17/21 levothyroxine 25 mcg tablet See Rx Instructions .ROUTE 03/05/21 .COMPLEX #90 tab Allergies Allergy/AdvReac Type Severity Reaction Status Date / Time ibuprofen [IBUPROFEN] Allergy Unknown Hives Verified 03/30/21 16:26 naproxen [NAPROXEN] Allergy Unknown Rash Verified 03/30/21 16:26 - Worker's Comp Is this a Worker's Comp case?: No [facility] History - Hepatitis A Screen Drug use history?: No High risk sexual behaviors?: No History of sexually transmitted infection?: No Currently employed?: No Childcare worker?: No Do you have indoor plumbing?: Yes Do
== END 2021-03-30 17:03 | disposition home or self-care (01) ==
PROVIDERS: Emergency Provider Nurse Practitioner Family; PCP Emergency Medicine
DX: M65.4 Radial styloid tenosynovitis [de Quervain] (principal); I10 Essential (primary) hypertension; E03.9 Hypothyroidism, unspecified
CPT/HCPCS: 29125; G0463; 73130; 99203

== ENCOUNTER 2021-04-04 21:01 | Emergency (ER) | payer MEDICARE, MEDICAID, SELFPAY ==
[2021-04-04 21:21] VITALS: BP 145/70; PULSE 111; RESP 16; TEMP 36.9; O2SAT 98; BMI 42.9
--- NOTE | 2021-04-04 22:10 | HMH.EDEYEP ---
ED Disposition Clinical Impression: Conjunctivitis Qualifiers: Conjunctivitis type: acute Acute conjunctivitis type: unspecified Laterality: right Qualified Code(s): H10.31 - Unspecified acute conjunctivitis, right eye Disposition: Home, Self-Care Condition on Discharge: Good Referrals: Pablo Delgado MD [Primary Care Provider] - - Critical Care Critical Care Time: No Attestation: On 04/04/21, the high probability of a clinically significant, sudden or life threatening deterioration of the following system(s) required my full and direct attention, intervention and personal management. The time I documented below is in addition to time spent performing reported procedures but includes the following listed in this critical care notation. Medical Decision Making - Medical Records Medical records reviewed: Yes: I reviewed the patient's medical records. - Torres Inquiry Pt receiving controlled substance: No Vital Signs: 04/04/21 21:21 Temperature 98.4 F Temperature Source Oral Pulse Rate [Left] 111 H Respiratory Rate 16 Blood Pressure [Left Arm] 145/70 H Blood Pressure Mean [Left Arm] 95 Blood Pressure Source [Left Arm] Automatic Cuff Blood Pressure Position [Left Arm] Sitting 02 Sat by Pulse Oximetry 98 Eye Problem HPI - General Chief complaint: Eye Problems Stated complaint: red/irritated R eye Time Seen by Provider: 04/04/21 22:05 Mode of Arrival: Ambulatory Source of Information: Patient Limitations: No Limitations Description of Symptoms (Recalled from ER Triage Doc. by RN): right eye hurting since this am. C/o causing headache - History of Present Illness HPI Narrative: This is a 41-year-old female who presents with right eye redness that began this afternoon. Pain is described as burning and constant. No significant discharge. She denies any trauma or injury to the eye. She has had no upper respiratory symptoms or any fever. No sick contacts with similar symptoms. Symptoms are moderate intensity without modifying measure. - Related Data Previous Rx's Medication Instructions Recorded albuterol sulfate 90 mcg/actuation See Rx Instructions .ROUTE 07/28/20 aerosol inhaler .COMPLEX #8.5 g hydrochlorothiazide 12.5 mg capsule See Rx Instructions .ROUTE 10/12/20 .COMPLEX #90 cap lisinopril 10 See Rx Instructions .ROUTE 10/12/20 mg-hydrochlorothiazide 12.5 mg .COMPLEX #90 tablet tablet budesonide-formoterol HFA 160 See Rx Instructions .ROUTE 11/04/20 mcg-4.5 mcg/actuation aerosol .COMPLEX #10.2 g inhaler cyclobenzaprine 10 mg tablet See Rx Instructions .ROUTE 12/21/20 .COMPLEX #60 tab aripiprazole 10 mg tablet 10 mg PO DAILY #30 tab 02/17/21 vilazodone 10 mg tablet 10 mg PO DAILY #30 tab 02/17/21 levothyroxine 25 mcg tablet See Rx Instructions .ROUTE 03/05/21 .COMPLEX #90 tab Allergies Allergy/AdvReac Type Severity Reaction Status Date / Time ibuprofen [IBUPROFEN] Allergy Unknown Hives Verified 03/30/21 16:26 naproxen [NAPROXEN] Allergy Unknown Rash Verified 03/30/21 16:26 [facility] History - Hepatitis A Screen Drug use history?: No High risk sexual behaviors?: No History of sexually transmitted infection?: No Currently employed?: No Childcare worker?: No Do you have indoor plumbing?: Yes Do you have electricity?: Yes Attestation statement:: This patient has been screened for Hepatitis A risk factors. I have reviewed the patient's past medical history: Yes Medical History: Reports:: Asthma, Hepatitis, Hypertension, Pulmonary Embolism, Seizures Denies:: Cancer, Diabetes Mellitus Type 1, Diabetes Mellitus Type 2, Internal Pacemaker, MRSA Other Medical History: Reports: Hypothyroidism, Liver Disease, Thyroid Disease, Other. Denies: Blood Transfusion Reaction Comment: Adrenal mass, morbid obesity, schizoaffective disorder Other Surgeries: Yes: Appendectomy, Cholecystectomy, , Diagnostic Lap, Hernia Repair, Tubal Ligation, Other. No: Pacemaker A
[2021-04-04 22:15] VITALS: BP 140/78; PULSE 80; RESP 20; TEMP 36.6; O2SAT 98
== END 2021-04-04 22:20 | disposition home or self-care (01) ==
PROVIDERS: Emergency Provider Emergency Medicine; PCP Emergency Medicine
DX: H10.31 Unspecified acute conjunctivitis, right eye (principal); I10 Essential (primary) hypertension; J45.909 Unspecified asthma, uncomplicated; E03.9 Hypothyroidism, unspecified; Z79.899 Other long term (current) drug therapy
CPT/HCPCS: 99281

== ENCOUNTER 2021-04-13 17:25 | Emergency (ER) | payer MEDICARE, MEDICAID, SELFPAY ==
[2021-04-13 17:35] VITALS: BP 148/86; PULSE 115; RESP 16; O2SAT 97; BMI 42.9
[2021-04-13 18:18] LABS: Basophils # 0.1 K/mm3 (0-0.2); Basophils % 0.8 % (0.1-2.0); Eosinophils # 0.2 K/mm3 (0.0-0.4); Eosinophils % 1.4 % (0.1-12.0); Hematocrit 40.1 % (37.0-47.0); Hemoglobin 13.9 g/dL (12.2-16.2); Lymphocytes # 3.7 K/mm3 (0.7-4.5); Lymphocytes % 24.1 % (10-50); Mean Corpuscular HGB Conc 34.7 g/dL (31.8-35.4); Mean Corpuscular Hemoglobin 32.1 pg (27.0-31.2); Mean Corpuscular Volume 92.7 fl (81-99); Monocytes # 0.7 K/mm3 (0.1-1.0); Monocytes % 4.5 % (1.7-9.3); Neutrophils # 10.7 K/mm3 (1.8-7.8); Neutrophils % 69.1 % (37.0-80.0); Platelet Count 204 K/mm3 (142-424); Red Blood Count 4.32 M/mm3 (4.20-5.40); Red Cell Distribution Width 14.3 % (11.5-17.5); White Blood Count 15.5 K/mm3 (4.8-10.8)
[2021-04-13 18:27] LABS: Chloride 108 mmol/L (98-107); Sodium 139 mmol/L (136-145)
[2021-04-13 18:29] LABS: Blood Urea Nitrogen 17 mg/dl (7-17); Creatinine Clearance Estimated 63 mL/min (50-200); Estimated Glomerular Filt Rate 61 ml/min (>60); GFR (African American) 73 ML/MIN (>60); MANUAL DIFFERENTIAL MANUAL DIFFERENTIAL (MANUAL DIFF)
[2021-04-13 18:30] LABS: Alanine Aminotransferase 17 U/L (12-78); Albumin Level 4.4 g/dl (3.5-5.0); Albumin/Globulin Ratio 1.4 (1.1-1.8); Alkaline Phosphatase 110 U/L (38-126); Aspartate Amino Transferase 22 U/L (14-36); Bilirubin,Total 0.7 mg/dl (0.2-1.3); Calcium 9.3 mg/dl (8.4-10.2); Carbon Dioxide 22 mmol/L (22.0-30.0); Globulin 3.2 g/dL (1.3-3.2); Glucose 98 mg/dl (74-100); Total Protein,Serum 7.6 g/dl (6.3-8.2)
[2021-04-13 18:42] VITALS: BP 141/84; O2SAT 96
--- NOTE | 2021-04-13 18:46 | HMH.EDGENADL ---
ED Disposition Clinical Impression: Gastroenteritis Chronic back pain Qualifiers: Back pain location: low back pain Back pain laterality: bilateral Sciatica presence: without sciatica Qualified Code(s): M54.5 - Low back pain; G89.29 - Other chronic pain Disposition: Home, Self-Care Condition on Discharge: Good Instructions: DI for Low Back Pain, DI for Vomiting -- Adult, DI for Diarrhea and Traveler's Diarrhea -- Adult Additional Instructions: Follow-up with your primary care provider, call tomorrow to make appointment. Turn to the emergency department if symptoms worsening. Zofran as needed for nausea and vomiting. Outpatient diarrhea panel and stool for occult blood. Prescriptions: Ondansetron [Zofran 4mg ODT] 4 mg PO TIDP PRN #10 tab.rapdis PRN Reason: Nausea And Vomiting Transmission Status: Pending to [facility] Referrals: Pabol Delgado MD [Primary Care Provider] - - Critical Care Critical Care Time: No Attestation: On 04/13/21, the high probability of a clinically significant, sudden or life threatening deterioration of the following system(s) required my full and direct attention, intervention and personal management. The time I documented below is in addition to time spent performing reported procedures but includes the following listed in this critical care notation. Medical Decision Making - Torres Inquiry Pt receiving controlled substance: No Vital Signs: 04/13/21 17:35 04/13/21 18:42 04/13/21 18:58 Temperature 98.5 F Temperature Source Oral Oral Pulse Rate 76 Pulse Rate [Right] 115 H Respiratory Rate 16 18 Blood Pressure 141/84 H 132/91 H Blood Pressure [Right Arm] 148/86 H Blood Pressure Mean [Right Arm] 106 Blood Pressure Source Automatic Cuff Blood Pressure Position Sitting Blood Pressure Position [Right Arm] Sitting 02 Sat by Pulse Oximetry 97 96 98 Oxygen Delivery Method Room Air Room Air - Lab Data Lab Results 04/13/21 18:00: WBC 15.5 H, RBC 4.32, Hgb 13.9, Hct 40.1, MCV 92.7, MCH 32.1 H, MCHC 34.7, RDW 14.3, Plt Count 204, MPV 8.0, Neut % (Auto) 69.1, Lymph % (Auto) 24.1, [facility] % (Auto) 4.5, Eos % (Auto) 1.4, Baso % (Auto) 0.8, Neut # (Auto) 10.7 H, Lymph # (Auto) 3.7, [facility] # (Auto) 0.7, Eos # (Auto) 0.2, Baso # (Auto) 0.1, Total Counted 100, Neutrophils % (Manual) 68, Lymphocytes % (Manual) 28, Eosinophils % (Manual) 2, Basophils % (Manual) 2.0 H, Platelet Estimate Normal, Stomatocytes 1+ 04/13/21 18:00: Sodium 139, Potassium 4.0, Chloride 108 H, Carbon Dioxide 22, Anion Gap 13.0, BUN 17, Creatinine 1.00, Estimated Creat Clear 63, Estimated GFR 61, Est GFR ( Amer) 73, Glucose 98, Calcium 9.3, Total Bilirubin 0.7, AST 22, ALT 17, Alkaline Phosphatase 110, Total Protein 7.6, Albumin 4.4, Globulin 3.2, Albumin/Globulin Ratio 1.4 04/13/21 18:00: ESR 23 H 04/13/21 18:00: C-Reactive Protein 3.5 04/13/21 18:00: Lipase 402 H Result diagrams: 04/13/21 18:00 04/13/21 18:00 Orders (Tests/Meds): ED MEDICATIONS Discontinued Medications Generic Name Dose Route Start Last Admin Trade Name Trinity PRN Reason Stop Dose Admin Iopamidol 75 ml 04/13/21 19:23 04/13/21 19:24 Iopamidol-370 (76%);100ml Bottle IV 04/13/21 19:24 75 ml ONCE ONE Administration Sodium Chloride 100 ml 04/13/21 19:23 04/13/21 19:24 Rad-Sodium Chloride 0.9% 250ml Bag IV 04/13/21 19:24 100 ml ONCE ONE Administration ORDERS Category Date Time Status Diarrhea 6-11 Panel, Cdiff PCR Stat Lab 04/13/21 18:58 Ordered Occult Blood,Stool Stat Lab 04/13/21 18:59 Ordered - CT Data CT Scan: Abdomen, Pelvis Time Received: 20:[address] Reviewed: Yes: I have viewed the radiologist's interpretation Findings Narrative: PROCEDURE INFORMATION: Exam: CT Abdomen And Pelvis With Contrast Exam date and time: 04/13/2021 6:56 PM Age: 41 years old Clinical indication: Patient HX: Abdominal pain & swelling, diarrhea; Additional info: Abdominal p
--- NOTE | 2021-04-13 18:56 | CT_ITS ---
PROCEDURE INFORMATION: Exam: CT Abdomen And Pelvis With Contrast Exam date and time: 04/13/2021 6:56 PM Age: 41 years old Clinical indication: Patient HX: Abdominal pain & swelling, diarrhea; Additional info: Abdominal pain, blood in stool TECHNIQUE: Imaging protocol: Computed tomography of the abdomen and pelvis with contrast. Radiation optimization: All CT scans at this facility use at least one of these dose optimization techniques: automated exposure control; mA and/or kV adjustment per patient size (includes targeted exams where dose is matched to clinical indication); or iterative reconstruction. Contrast material: ISOVUE; Contrast volume: 75 ml; Contrast route: IV; COMPARISON: CT ABDOMEN PELVIS W CON 03/22/2021 11:06 AM FINDINGS: Liver: Normal. No mass. Gallbladder and bile ducts: Cholecystectomy. Pancreas: Normal. No ductal dilation. Spleen: Normal. No splenomegaly. Adrenal glands: Normal. No mass. Kidneys and ureters: Normal. No hydronephrosis. Stomach and bowel: Ascending colon, transverse colon wall thickening which could reflect chronic colitis. No small bowel obstruction. Appendix: No evidence of appendicitis. Intraperitoneal space: Unremarkable. No free air. No significant fluid collection. Vasculature: Unremarkable. No abdominal aortic aneurysm. Lymph nodes: Unremarkable. No enlarged lymph nodes. Urinary bladder: Unremarkable as visualized. Reproductive: Unremarkable as visualized. Bones/joints: Unremarkable. No acute fracture. Soft tissues: Unremarkable. IMPRESSION: No acute findings.
[2021-04-13 18:58] VITALS: BP 132/91; PULSE 76; RESP 18; TEMP 36.9; O2SAT 98
[2021-04-13 19:15] LABS: C-Reactive Protein 3.5 mg/L (0-4)
[2021-04-13 19:34] LABS: Lipase 402 U/L (23-300)
[2021-04-13 19:44] LABS: Erythrocyte Sedimentation Rate 23 mm/hr (0-20)
[2021-04-13 20:05] LABS: Eosinophils % 2 % (0-3); Lymphocytes % 28 % (10-50); Neutrophils % 68 % (42-76); Platelet Estimate Normal; Stomatocytes 1+; Total Cells Counted 100
[2021-04-13 20:33] VITALS: BP 121/73; PULSE 71; RESP 18; TEMP 36.9; O2SAT 98
== END 2021-04-13 20:35 | disposition home or self-care (01) ==
PROVIDERS: Emergency Provider Emergency Medicine; PCP Emergency Medicine
DX: K52.9 Noninfective gastroenteritis and colitis, unspecified (principal); M54.5 Low back pain; I10 Essential (primary) hypertension; E03.9 Hypothyroidism, unspecified; Z79.899 Other long term (current) drug therapy
CPT/HCPCS: 74177; 80053; 83690; 85007; 85025; 85651; 86140; 99282; Q9967

== ENCOUNTER → 2021-04-14 06:29 | Outpatient (CLI) | payer MEDICARE, MEDICAID, SELFPAY ==
[2021-04-14 08:16] LABS: Adenovirus F 40/41, stool Not Detected (NotDetected); Astrovirus Not Detected (NotDetected); Campylobacter Not Detected (NotDetected); Clostridium Difficile A/B, PCR Not Detected (NotDetected); Cryptosporidium Not Detected (NotDetected); Cyclospora Cayetanesis Not Detected (NotDetected); Entamoeba histolytica Not Detected (NotDetected); Enteroaggregative E coli Not Detected (NotDetected); Enteropathogenic E coli Not Detected (NotDetected); Enterotoxigenic E coli Not Detected (NotDetected); Giardia lamblia Not Detected (NotDetected); Norovirus Not Detected (NotDetected); Plesimonas Shigalloides, PCR Not Detected (NotDetected); Rotavirus A Not Detected (NotDetected); Salmonella, PCR Not Detected (NotDetected); Sapovirus Not Detected (NotDetected); Shiga-like toxin E coli Not Detected (NotDetected); Shigella Enterovasive E coli Not Detected (NotDetected); Vibrio Cholerae Not Detected (NotDetected); Vibrio, PCR Not Detected (NotDetected); Yersinia Entercolitica, PCR Not Detected (NotDetected)
== END ==
PROVIDERS: PCP Emergency Medicine; Visit Provider Emergency Medicine
DX: R19.7 Diarrhea, unspecified (principal)
CPT/HCPCS: 87506

== ENCOUNTER → 2021-06-03 08:08 | Outpatient (CLI) | payer MEDICARE, SELFPAY ==
[2021-06-03 09:24] LABS: Basophils # 0.2 K/mm3 (0-0.2); Basophils % 1.5 % (0.1-2.0); Eosinophils # 0.3 K/mm3 (0.0-0.4); Eosinophils % 2.2 % (0.1-12.0); Hematocrit 42.1 % (37.0-47.0); Hemoglobin 14.2 g/dL (12.2-16.2); Mean Corpuscular HGB Conc 33.7 g/dL (31.8-35.4); Mean Platelet Volume 10.6 fl (7.4-10.4); Monocytes % 7.1 % (1.7-9.3); Neutrophils # 8.3 K/mm3 (1.8-7.8); Neutrophils % 60.2 % (37.0-80.0); Platelet Count 242 K/mm3 (142-424); Red Blood Count 4.43 M/mm3 (4.20-5.40); Red Cell Distribution Width 14.5 % (11.5-17.5); White Blood Count 13.8 K/mm3 (4.8-10.8)
[2021-06-03 10:15] LABS: Alanine Aminotransferase 20 U/L (12-78); Albumin Level 4.2 g/dl (3.5-5.0); Albumin/Globulin Ratio 1.5 (1.1-1.8); Alkaline Phosphatase 113 U/L (38-126); Anion Gap 12.6 mEq/L (5-15); Aspartate Amino Transferase 20 U/L (14-36); Bilirubin,Total 0.4 mg/dl (0.2-1.3); Blood Urea Nitrogen 13 mg/dl (7-17); Calcium 9.4 mg/dl (8.4-10.2); Carbon Dioxide 24 mmol/L (22.0-30.0); Chloride 106 mmol/L (98-107); Chol/HDL Ratio 5.6 (1-3.5); Cholesterol 186 mg/dl (140-200); Estimated Glomerular Filt Rate 61 ml/min (>60); GFR (African American) 73 ML/MIN (>60); Globulin 2.8 g/dL (1.3-3.2); Glucose 96 mg/dl (74-100); HDL Cholesterol 33 mg/dl (40-60); Potassium 4.6 mmoL/L (3.5-5.1); Sodium 138 mmol/L (136-145); Triglycerides 374 mg/dl (30-150); VLDL Cholesterol 75 mg/dL (0-40)
[2021-06-03 10:26] LABS: Direct LDL Cholesterol 99.65 mg/dL (100-129)
[2021-06-03 10:31] LABS: Free T4 (Free Thyroxine) 1.34 ng/dl (0.78-2.19)
[2021-06-03 10:32] LABS: 25-OH Vitamin D, Total 32.4 ng/mL (30-100)
[2021-06-03 10:46] LABS: Thyroid Stimulating Hormone 1.07 uIU/mL (0.465-4.68)
[2021-06-04 09:32] LABS: Hep A Ab, IgM Negative (Negative); Hepatitis B Core Antibody IgM Negative (Negative); Hepatitis B Surface Antigen Negative (Negative); Hepatitis C Antibody >11.0 s/co ratio (0.0-0.9)
== END ==
PROVIDERS: Visit Provider Emergency Medicine
DX: E66.9 Obesity, unspecified (principal); R10.30 Lower abdominal pain, unspecified; R60.0 Localized edema; E55.9 Vitamin D deficiency, unspecified
CPT/HCPCS: 80053; 80061; 80074; 82306; 84439; 84443; 85025; 87522

== ENCOUNTER 2021-06-06 08:43 | Emergency (ER) | payer MEDICARE, SELFPAY ==
[2021-06-06 08:45] VITALS: BP 131/77; PULSE 137; RESP 18; TEMP 37.4; O2SAT 96; BMI 44.6
--- NOTE | 2021-06-06 08:55 | XR_ITS ---
PROCEDURE INFORMATION: Exam: XR Chest Exam date and time: 06/06/2021 8:55 AM Age: 41 years old Clinical indication: Cough TECHNIQUE: Imaging protocol: XR of the chest. Views: 1 view. COMPARISON: CT CHEST W CON 03/22/2021 11:06 AM FINDINGS: Lungs: Hyperinflation , interstitial prominence, chronic granulomatous disease. Pleural spaces: No pleural effusion. Heart/Mediastinum: Normal configuration of the heart. Bones/joints: Mild degenerative change. IMPRESSION: Hyperinflation , interstitial prominence, chronic granulomatous disease.
[2021-06-06 09:19] LABS: Basophils # 0.1 K/mm3 (0-0.2); Basophils % 1.6 % (0.1-2.0); Eosinophils # 0.1 K/mm3 (0.0-0.4); Eosinophils % 0.7 % (0.1-12.0); Hematocrit 38.3 % (37.0-47.0); Hemoglobin 13.3 g/dL (12.2-16.2); Lymphocytes % 12.7 % (10-50); Mean Corpuscular HGB Conc 34.7 g/dL (31.8-35.4); Mean Corpuscular Hemoglobin 32.8 pg (27.0-31.2); Mean Corpuscular Volume 94.6 fl (81-99); Mean Platelet Volume 8.6 fl (7.4-10.4); Monocytes # 0.6 K/mm3 (0.1-1.0); Monocytes % 8.3 % (1.7-9.3); Neutrophils # 5.8 K/mm3 (1.8-7.8); Neutrophils % 76.7 % (37.0-80.0); Platelet Count 171 K/mm3 (142-424); Red Blood Count 4.05 M/mm3 (4.20-5.40); White Blood Count 7.5 K/mm3 (4.8-10.8)
[2021-06-06 09:23] LABS: Chloride 102 mmol/L (98-107); Sodium 135 mmol/L (136-145)
[2021-06-06 09:24] LABS: Potassium 3.6 mmoL/L (3.5-5.1)
[2021-06-06 09:26] LABS: Alanine Aminotransferase 33 U/L (12-78); Alkaline Phosphatase 99 U/L (38-126); Aspartate Amino Transferase 32 U/L (14-36); Bilirubin,Total 0.4 mg/dl (0.2-1.3); Blood Urea Nitrogen 13 mg/dl (7-17); Creatinine Clearance Estimated 52 mL/min (50-200); Estimated Glomerular Filt Rate 49 ml/min (>60); GFR (African American) 59 ML/MIN (>60)
[2021-06-06 09:27] LABS: Albumin/Globulin Ratio 1.4 (1.1-1.8); Anion Gap 13.6 mEq/L (5-15); Calcium 9.1 mg/dl (8.4-10.2); Carbon Dioxide 23 mmol/L (22.0-30.0); Globulin 2.9 g/dL (1.3-3.2); Glucose 140 mg/dl (74-100); Total Protein,Serum 6.9 g/dl (6.3-8.2)
--- NOTE | 2021-06-06 09:40 | HMH.EDGENADL ---
ED Disposition Clinical Impression: Migraine Qualifiers: Migraine type: without aura Status migrainosus presence: without status migrainosus Intractability: not intractable Qualified Code(s): G43.009 - Migraine without aura, not intractable, without status migrainosus URI (upper respiratory infection) Qualifiers: URI type: unspecified viral URI Qualified Code(s): J06.9 - Acute upper respiratory infection, unspecified Disposition: Home, Self-Care Condition on Discharge: Good Instructions: Migraine -- Adult Referrals: Pablo Delgado MD [Primary Care Provider] - - Critical Care Critical Care Time: No Attestation: On 06/06/21, the high probability of a clinically significant, sudden or life threatening deterioration of the following system(s) required my full and direct attention, intervention and personal management. The time I documented below is in addition to time spent performing reported procedures but includes the following listed in this critical care notation. Medical Decision Making - Medical Records Medical records reviewed: Yes: I reviewed the patient's medical records. - Torres Inquiry Pt receiving controlled substance: No Vital Signs: 06/06/21 08:45 Temperature 99.4 F Temperature Source Oral Pulse Rate [Left Radial] 137 H Respiratory Rate 18 Blood Pressure [Right Arm] 131/77 Blood Pressure Mean [Right Arm] 95 Blood Pressure Source [Right Arm] Automatic Cuff Blood Pressure Position [Right Arm] Sitting 02 Sat by Pulse Oximetry 96 Oxygen Delivery Method Room Air - Lab Data Lab Results 06/06/21 09:05: WBC 7.5, RBC 4.05 L, Hgb 13.3, Hct 38.3, MCV 94.6, MCH 32.8 H, MCHC 34.7, RDW 14.0, Plt Count 171 D, MPV 8.6, Neut % (Auto) 76.7, Lymph % (Auto) 12.7, [place] % (Auto) 8.3, Eos % (Auto) 0.7, Baso % (Auto) 1.6, Neut # (Auto) 5.8, Lymph # (Auto) 1.0, [place] # (Auto) 0.6, Eos # (Auto) 0.1, Baso # (Auto) 0.1 06/06/21 09:05: Sodium 135 L, Potassium 3.6, Chloride 102, Carbon Dioxide 23, Anion Gap 13.6, BUN 13, Creatinine 1.20 H, Estimated Creat Clear 52, Estimated GFR 49 L, Est GFR ( Amer) 59, Glucose 140 H, Calcium 9.1, Total Bilirubin 0.4, AST 32, ALT 33, Alkaline Phosphatase 99, Total Protein 6.9, Albumin 4.0, Globulin 2.9, Albumin/Globulin Ratio 1.4 Result diagrams: 06/06/21 09:05 06/06/21 09:05 Orders (Tests/Meds): ED MEDICATIONS Discontinued Medications Generic Name Dose Route Start Last Admin Trade Name Trinity PRN Reason Stop Dose Admin Acetaminophen 500 mg 06/06/21 08:56 06/06/21 09:17 Acetaminophen 500mg Tab PO 06/06/21 08:57 500 mg ONCE ONE Administration Diphenhydramine HCl 25 mg 06/06/21 08:56 06/06/21 09:20 Diphenhydramine 50mg/Ml Vial IV 06/06/21 08:57 25 mg ONCE ONE Administration Sodium Chloride 1,000 mls @ 999 mls/hr 06/06/21 09:00 06/06/21 09:16 Sod Chlor 0.9% 1000ml Bag IV 06/06/21 10:00 999 mls/hr .[id number] SHAYNE Administration - Radiology Data #1 Image(s): Chest Image Reviewed: Yes I reviewed the patient's radiology results, Yes I reviewed the patient's radiology image, Yes I have reviewed radiologist's interpretation IMPRESSION: Hyperinflation , interstitial prominence, chronic granulomatous disease. - Reevaluation(s) Time: 10:11 Reevaluation #1: On reevaluation, the patient is feeling much better. Blood work unremarkable. Patient's symptoms have improved. Repeat neurologic exam is normal. Patient to follow-up with PCP. Strict return precautions. Verbalized understanding. Medical Decision Narrative: 41-year-old female presented to the emergency department with some cough and headache. Patient symptoms consistent with bronchitis. Patient has normal neurologic exam. Work-up initiated. General Adult HPI - General Chief complaint: Headache Stated complaint: cough, dizzy, headache Time Seen by Provider: 06/06/21 08:45 Mode of Arrival: Ambulatory Limitations: No Limitations Description of Symptoms (Re
[2021-06-06 10:07] VITALS: BP 121/71; PULSE 121; O2SAT 95
[2021-06-06 10:15] VITALS: BP 121/71; PULSE 101; RESP 18; TEMP 36.8; O2SAT 97
== END 2021-06-06 10:29 | disposition home or self-care (01) ==
PROVIDERS: Emergency Provider Emergency Medicine; PCP Emergency Medicine
DX: G43.009 Migraine without aura, not intractable, without status migrainosus (principal); J06.9 Acute upper respiratory infection, unspecified; J45.909 Unspecified asthma, uncomplicated; I10 Essential (primary) hypertension; F17.210 Nicotine dependence, cigarettes, uncomplicated; Z79.899 Other long term (current) drug therapy
CPT/HCPCS: 71045; 80053; 85025; 96365; 99282

== ENCOUNTER 2021-06-09 15:50 | Emergency (ER) | payer MEDICARE, SELFPAY ==
[2021-06-09 17:20] VITALS: BP 139/89; PULSE 125; RESP 18; TEMP 36.9; O2SAT 95; BMI 44.6
--- NOTE | 2021-06-09 17:27 | HMH.EDUTC ---
[place] Disposition Clinical Impression: Encounter for laboratory testing for COVID-19 virus Disposition: Home, Self-Care Condition on Discharge: Good Instructions: DI for COVID-19 (Suspected or Confirmed ), Coronavirus Disease 2019, Preventing the Spread of Coronavirus Discharge Instructions Additional Instructions: *Monitor Temp, Over the counter Motrin or Tylenol as directed/as needed Tylenol every 4 hours and Motrin every 6 hours (as long as your family doctor has told you that you can take it) for fever or pain. and straight to ER if unable to lower temp less than 101.0 after medication given Follow up IMMEDIATELY for new or worsening symptoms or no Noticeable improvement over the next 48-72 hours. 911 for difficulty breathing or swallowing You were tested for today for COVID19 your test result should be back in the next 24-48 hours, you may call to the [facility] to see if your test results are back in the next 48 hours [phone] [facility] hours are 9am-9pm You was given a handout with instructions for Self Quarantine and Self isolation for while you wait on test results and what to do if they are positive If you are positive the Health Dept will be contacting you also Make sure to take your Vitamins Vit. C Vit D and Zinc if you can take them Referrals: Pablo Delgado MD [Primary Care Provider] - As needed Forms: Work/School Release Time of Disposition: 17:28 Medical Decision Making - Torres Inquiry Pt receiving controlled substance: No Torres was queried for this patient: No Vital Signs: 06/09/21 17:20 06/09/21 17:35 Temperature 98.4 F 98.2 F Temperature Source Oral Pulse Rate 124 H Pulse Rate [Left] 125 H Respiratory Rate 18 18 Blood Pressure 0/0 L Blood Pressure [Right Arm] 139/89 Blood Pressure Mean [Right Arm] 105 02 Sat by Pulse Oximetry 95 Orders (Tests/Meds): ORDERS Category Date Time Status Covid-19 Nasal PCR ([facility]) Routine Lab 06/09/21 17:10 Received Medical Decision Narrative: Patient states that she is anxious about the COVID test and the results [place] HPI - General Stated complaint: covid test Time Seen by Provider: 06/09/21 17:27 Mode of Arrival: Ambulatory Source of Information: Patient Limitations: No Limitations Description of Symptoms (Recalled from Triage Doc. by RN): pt is asymptomatic and unsure about exposure. she wants a covid test. HEENT Symptoms (Recalled from RN notes): No Resp Symptoms (Recalled from RN notes): No Skin Symptoms (Recalled from RN notes): No MS Symptoms (Recalled from RN notes): No Functional Status (Recalled from RN notes): na - History of Present Illness Provider Complaint: Patient state that she has been feeling a little achy States that she wants to get tested for COVID States that she is unsure if she has been around anyone with COVID or not - Related Data Previous Rx's Medication Instructions Recorded albuterol sulfate 90 mcg/actuation See Rx Instructions .ROUTE 07/28/20 aerosol inhaler .COMPLEX #8.5 g hydrochlorothiazide 12.5 mg capsule See Rx Instructions .ROUTE 10/12/20 .COMPLEX #90 cap lisinopril 10 See Rx Instructions .ROUTE 10/12/20 mg-hydrochlorothiazide 12.5 mg .COMPLEX #90 tablet tablet aripiprazole 10 mg tablet 10 mg PO DAILY #30 tab 02/17/21 vilazodone 10 mg tablet 10 mg PO DAILY #30 tab 02/17/21 levothyroxine 25 mcg tablet See Rx Instructions .ROUTE 03/05/21 .COMPLEX #90 tab budesonide-formoterol HFA 160 See Rx Instructions .ROUTE 04/26/21 mcg-4.5 mcg/actuation aerosol .COMPLEX #10.2 g inhaler cyclobenzaprine 10 mg tablet See Rx Instructions .ROUTE 04/26/21 .COMPLEX #60 tab gabapentin 300 mg capsule 300 mg PO TID #90 cap 06/02/21 hydrocodone 5 mg-acetaminophen 325 1 tab PO BID PRN #60 tab 06/02/21 mg tablet Allergies Allergy/AdvReac Type Severity Reaction Status Date / Time ibuprofen [IBUPROFEN] Allergy Unknown Hives Verified 06/02/21 15:30 naproxen [NAPROXEN] Allergy Unknown Rash Verified
--- NOTE | 2021-06-09 17:30 | PC.NURSE ---
pt appears very anxious. pt states she was very nervous for the covid swab and still is. HR is 125 BPM
[2021-06-09 17:35] VITALS: BP 0/0; PULSE 124; RESP 18; TEMP 36.8
== END 2021-06-09 17:34 | disposition home or self-care (01) ==
PROVIDERS: Emergency Provider Nurse Practitioner; PCP Emergency Medicine
DX: Z20.822 Contact with and (suspected) exposure to COVID-19 (principal); J45.909 Unspecified asthma, uncomplicated; E03.9 Hypothyroidism, unspecified; I10 Essential (primary) hypertension; F17.210 Nicotine dependence, cigarettes, uncomplicated
CPT/HCPCS: G0463; 99202; U0003

== ENCOUNTER → 2021-06-30 17:56 | Outpatient (CLI) | payer MEDICARE, MEDICAID, SELFPAY ==
[2021-06-30 21:21] LABS: Amphetamine/Metha Screen,Urine Negative ng/ml (<1000); Barbiturates Screen,Urine Negative ng/ml (<200)
[2021-06-30 21:22] LABS: Benzodiazepines Screen,Urine Negative ng/ml (<200); Cannabinoid Screen,Urine Negative ng/ml (<50)
[2021-06-30 21:24] LABS: Cocaine Screen,Urine Negative ng/ml (<300); Methadone Screen,Urine Negative ng/ml (<300)
[2021-06-30 21:25] LABS: Opiate Screen,Urine Negative ng/ml (<300)
[2021-06-30 21:26] LABS: Phencyclidine Screen,Urine Negative ng/ml (<25)
== END ==
PROVIDERS: Visit Provider Emergency Medicine
DX: M51.36 Other intervertebral disc degeneration, lumbar region (principal)
CPT/HCPCS: 80305

== ENCOUNTER 2021-07-08 17:31 | Emergency (ER) | payer MEDICARE, MEDICAID, SELFPAY ==
[2021-07-08 17:36] VITALS: BP 136/90; PULSE 82; RESP 18; TEMP 36.8; O2SAT 100; BMI 45.6
--- NOTE | 2021-07-08 17:44 | XR_ITS ---
PROCEDURE INFORMATION: Exam: XR Right Knee Exam date and time: 07/08/2021 5:44 PM Age: 41 years old Clinical indication: Knee; Patient HX: Fall, right patella pain TECHNIQUE: Imaging protocol: XR Right knee. Views: 3 views. COMPARISON: No relevant prior studies available. FINDINGS: Bones/joints: No fracture. No malalignment. Soft tissues: Normal. IMPRESSION: No acute findings.
--- NOTE | 2021-07-08 18:09 | HMH.EDUTC ---
[facility] Disposition Clinical Impression: Knee contusion Qualifiers: Encounter type: initial encounter Laterality: right Qualified Code(s): S80.01XA - Contusion of right knee, initial encounter Disposition: Home, Self-Care Condition on Discharge: Good Instructions: Contusion, DI for Knee Sprain, How To Perform RICE (Rest, Ice, Compress, Elevate) Additional Instructions: *weight bearing as tolerated *RICE, Rest the extremity, Ice 15-20 minutes 3-4 times daily, Compress- wear the evert wrap as discussed as much as possible to help reduce swelling and pain, Elevate the extremity when at rest *Evert wrap is for support and help control swelling, use it except in the shower. Be sure that is not to tight but not to loose either *Elevate when resting *Ibuprofen every 6-8 hours as needed for pain an inflammation. If need something more can take Tylenol in between doses of Ibuprofen to help Immediately follow up with your family doctor for new or worsening of symptoms, or no noticeable improvement over the next 3-5 days Referrals: Pablo Delgado MD [Primary Care Provider] - As needed Time of Disposition: 18:27 Medical Decision Making - Torres Inquiry Pt receiving controlled substance: No Torres was queried for this patient: No Vital Signs: 07/08/21 17:36 Temperature 98.3 F Temperature Source Oral Pulse Rate [Left] 82 Respiratory Rate 18 Blood Pressure [Right Arm] 136/90 Blood Pressure Mean [Right Arm] 105 02 Sat by Pulse Oximetry 100 - Radiology Data #1 Image(s): Knee Image Reviewed: Yes I reviewed the patient's radiology image, Yes I have reviewed radiologist's interpretation Preliminary Findings: No Fracture Seen IMPRESSION: No acute findings. [facility] HPI - General Stated complaint: ao 07/08@1600 INJURED r KNEE Time Seen by Provider: 07/08/21 18:09 Mode of Arrival: Ambulatory Source of Information: Patient Limitations: No Limitations Description of Symptoms (Recalled from Triage Doc. by RN): pt fell injuring her R knee HEENT Symptoms (Recalled from RN notes): No Resp Symptoms (Recalled from RN notes): No Skin Symptoms (Recalled from RN notes): No MS Symptoms (Recalled from RN notes): Yes (R knee pain) Functional Status (Recalled from RN notes): na - History of Present Illness Provider Complaint: Patient states that she was helping someone jump off a car when she slipped and fell and landed on her knees States that since then she has bruising and swelling to her right knee and hurts when she walks on it - Related Data Previous Rx's Medication Instructions Recorded albuterol sulfate 90 mcg/actuation See Rx Instructions .ROUTE 07/28/20 aerosol inhaler .COMPLEX #8.5 g hydrochlorothiazide 12.5 mg capsule See Rx Instructions .ROUTE 10/12/20 .COMPLEX #90 cap lisinopril 10 See Rx Instructions .ROUTE 10/12/20 mg-hydrochlorothiazide 12.5 mg .COMPLEX #90 tablet tablet budesonide-formoterol HFA 160 See Rx Instructions .ROUTE 04/26/21 mcg-4.5 mcg/actuation aerosol .COMPLEX #10.2 g inhaler cyclobenzaprine 10 mg tablet See Rx Instructions .ROUTE 04/26/21 .COMPLEX #60 tab aripiprazole 10 mg tablet 10 mg PO DAILY #30 tab 06/11/21 vilazodone 10 mg tablet 10 mg PO DAILY #30 tab 06/11/21 gabapentin 300 mg capsule 300 mg PO TID #90 cap 06/30/21 hydrocodone 5 mg-acetaminophen 325 1 tab PO BID PRN #60 tab 06/30/21 mg tablet levothyroxine 25 mcg tablet See Rx Instructions .ROUTE 07/05/21 .COMPLEX #90 tab Allergies Allergy/AdvReac Type Severity Reaction Status Date / Time ibuprofen [IBUPROFEN] Allergy Unknown Hives Verified 06/30/21 14:22 naproxen [NAPROXEN] Allergy Unknown Rash Verified 06/30/21 14:22 - Worker's Comp Is this a Worker's Comp case?: No [facility] History - Hepatitis A Screen Drug use history?: No High risk sexual behaviors?: No History of sexually transmitted infection?: No Currently employed?: No Childcare worker?: No Do you have indoor plumbing?: Yes Do you have electricity?: Yes
[2021-07-08 18:40] VITALS: BP 136/90; PULSE 82; RESP 18; TEMP 36.8
== END 2021-07-08 18:40 | disposition home or self-care (01) ==
PROVIDERS: Emergency Provider Nurse Practitioner; PCP Emergency Medicine
DX: S80.01XA Contusion of right knee, initial encounter (principal); W17.89XA Other fall from one level to another, initial encounter
CPT/HCPCS: 73562; 99202; G0463

== ENCOUNTER 2021-07-10 09:28 | Emergency (ER) | payer MEDICARE, MEDICAID, SELFPAY ==
[2021-07-10 09:40] VITALS: BP 133/86; PULSE 110; RESP 20; TEMP 36.6; O2SAT 100; BMI 45.6
--- NOTE | 2021-07-10 10:12 | HMH.EDUTC ---
[facility] Disposition Clinical Impression: Tonsillitis, Thrush Disposition: Home, Self-Care Condition on Discharge: Good Instructions: DI for Thrush Prescriptions: Nystatin [Nystatin Susp 500,000 Units/5mL Udc] 10 ml PO Q6HP 10 Days #400 ml Transmission Status: Pending to [facility] Azithromycin [Z-Keyur 250mg Tab] 250 mg PO DIRECTED #6 tab Transmission Status: Pending to [facility] Referrals: Pablo Delgado MD [Primary Care Provider] - Time of Disposition: 10:21 Medical Decision Making - Torres Inquiry Pt receiving controlled substance: No Vital Signs: 07/10/21 09:40 Temperature 97.9 F Temperature Source Oral Pulse Rate [Left Brachial] 110 H Respiratory Rate 20 Blood Pressure [Left Arm] 133/86 Blood Pressure Mean [Left Arm] 101 Blood Pressure Source [Left Arm] Automatic Cuff Blood Pressure Position [Left Arm] Sitting 02 Sat by Pulse Oximetry 100 Oxygen Delivery Method Room Air - Lab Data Lab results reviewed: Yes: I reviewed the patient's lab results. [facility] HPI - General Stated complaint: sore throat Time Seen by Provider: 07/10/21 10:12 Mode of Arrival: Ambulatory Source of Information: Patient Limitations: No Limitations Description of Symptoms (Recalled from Triage Doc. by RN): PATIENT C/O SORE THROAT THAT STARTED YESTERDAY HEENT Symptoms (Recalled from RN notes): Yes Resp Symptoms (Recalled from RN notes): No Skin Symptoms (Recalled from RN notes): No MS Symptoms (Recalled from RN notes): No Functional Status (Recalled from RN notes): WNL - History of Present Illness Provider Complaint: Patient has had sore throat X 1 day. No fever. Had first COVID vaccine yesterday, but throat hurt prior to that. No ear pain, congestion, cough. No nausea, vomiting, diarrhea. No loss of taste or smell. No known exposure to COVID19. No rash. She recently got dentures and gums are sore. Throat hurts to swallow, feels swollen. Onset (ago): day(s) (1) Relieving factors: none Exacerbating factors: none Associated symptoms: denies other symptoms Treatments prior to arrival: none - Related Data Previous Rx's Medication Instructions Recorded albuterol sulfate 90 mcg/actuation See Rx Instructions .ROUTE 07/28/20 aerosol inhaler .COMPLEX #8.5 g hydrochlorothiazide 12.5 mg capsule See Rx Instructions .ROUTE 10/12/20 .COMPLEX #90 cap lisinopril 10 See Rx Instructions .ROUTE 10/12/20 mg-hydrochlorothiazide 12.5 mg .COMPLEX #90 tablet tablet budesonide-formoterol HFA 160 See Rx Instructions .ROUTE 04/26/21 mcg-4.5 mcg/actuation aerosol .COMPLEX #10.2 g inhaler cyclobenzaprine 10 mg tablet See Rx Instructions .ROUTE 04/26/21 .COMPLEX #60 tab aripiprazole 10 mg tablet 10 mg PO DAILY #30 tab 06/11/21 vilazodone 10 mg tablet 10 mg PO DAILY #30 tab 06/11/21 gabapentin 300 mg capsule 300 mg PO TID #90 cap 06/30/21 hydrocodone 5 mg-acetaminophen 325 1 tab PO BID PRN #60 tab 06/30/21 mg tablet levothyroxine 25 mcg tablet See Rx Instructions .ROUTE 07/05/21 .COMPLEX #90 tab Azithromycin [Z-Keyur 250mg Tab] 250 mg PO DIRECTED #6 tab 07/10/21 Nystatin [Nystatin Susp 500,000 10 ml PO Q6HP 10 Days #400 ml 07/10/21 Units/5mL Udc] Allergies Allergy/AdvReac Type Severity Reaction Status Date / Time ibuprofen [IBUPROFEN] Allergy Unknown Hives Verified 06/30/21 14:22 naproxen [NAPROXEN] Allergy Unknown Rash Verified 06/30/21 14:22 - Worker's Comp Is this a Worker's Comp case?: No [facility] History - Hepatitis A Screen Drug use history?: No High risk sexual behaviors?: No History of sexually transmitted infection?: No Currently employed?: No Childcare worker?: No Do you have indoor plumbing?: Yes Do you have electricity?: Yes Attestation statement:: This patient has been screened for Hepatitis A risk factors. I have reviewed the patient's past medical history: Yes Medical History: Reports:: Asthma, Hepatitis, Hypertension, Pulmonary Embolism, Seizures Denies:
[2021-07-10 10:18] LABS: UTC Strep Screen (Rapid) Positive (Negative)
[2021-07-10 10:23] VITALS: BP 133/86; PULSE 110; RESP 20; TEMP 36.6; O2SAT 100
== END 2021-07-10 10:27 | disposition home or self-care (01) ==
PROVIDERS: Emergency Provider Physician Assistant; PCP Emergency Medicine
DX: J02.0 Streptococcal pharyngitis (principal); B37.0 Candidal stomatitis; J45.909 Unspecified asthma, uncomplicated; I10 Essential (primary) hypertension; E03.9 Hypothyroidism, unspecified; F17.210 Nicotine dependence, cigarettes, uncomplicated
CPT/HCPCS: G0463; 87880; 99202

== ENCOUNTER → 2021-08-03 15:43 | Outpatient (CLI) | payer MEDICARE, MEDICAID, SELFPAY ==
--- NOTE | 2021-08-03 15:43 | MM_ITS ---
PROCEDURE: MM DIG SCREENING MAMM BI W/CAD Digital Breast Tomosynthesis Included CLINICAL INDICATION: screening There is no personal or family history of breast cancer. COMPARISON: MG DXRT MM Dig mamm DX unilat RT CAD from 05/15/2018 MG MM DIG SCREENING MAMM BI W/CAD from 08/06/2019 MG MM DIG SCREENING MAMM BI W/CAD from 08/06/2020 TECHNIQUE: Standard CC and MLO images and 3D Tomosynthesis was obtained. R2 CAD reviewed. FINDINGS: The breasts are composed primarily of fat with minimal scattered fibroglandular densities in each breast. There are no CAD markings. There are few scattered benign-appearing microcalcifications in each breast. There is a mole marker right breast. There is a possible new nodular density upper-outer quadrant left breast and recommend the patient return for spot compression views and ultrasound for additional evaluation. There are no suspicious microcalcifications. IMPRESSION: Fibrofatty parenchyma with possible new density left breast BI-RAD Category: 0 Need Additional Imaging Evaluation FOLLOW-UP: IMM Immediate Follow-up Recommended (A letter has been sent to the patient regarding results of the study.) Dictated by: Dr. Eduardo Mcgovern MD 08/10/2021 13:40 Dr. Eduardo Mcgovern MD in [place] 08/10/2021 13:40
== END ==
PROVIDERS: PCP Emergency Medicine; Visit Provider Emergency Medicine
DX: Z12.31 Encounter for screening mammogram for malignant neoplasm of breast (principal)
CPT/HCPCS: 77063; 77067

== ENCOUNTER → 2021-08-25 17:33 | Outpatient (CLI) | payer MEDICARE, MEDICAID, SELFPAY ==
[2021-08-25 19:44] LABS: Barbiturates Screen,Urine Negative ng/ml (<200)
[2021-08-25 19:45] LABS: Amphetamine/Metha Screen,Urine Negative ng/ml (<1000)
[2021-08-25 19:46] LABS: Benzodiazepines Screen,Urine Negative ng/ml (<200)
[2021-08-25 19:47] LABS: Cannabinoid Screen,Urine Negative ng/ml (<50); Cocaine Screen,Urine Negative ng/ml (<300)
[2021-08-25 19:48] LABS: Methadone Screen,Urine Negative ng/ml (<300)
[2021-08-25 19:49] LABS: Opiate Screen,Urine Positive ng/ml (<300); Phencyclidine Screen,Urine Negative ng/ml (<25)
== END ==
PROVIDERS: Visit Provider Emergency Medicine
DX: M25.78 Osteophyte, vertebrae (principal); M51.36 Other intervertebral disc degeneration, lumbar region; Z79.899 Other long term (current) drug therapy
CPT/HCPCS: 80305

== ENCOUNTER 2021-09-05 10:41 | Emergency (ER) | payer MEDICARE, MEDICAID, SELFPAY ==
[2021-09-05 11:05] VITALS: BP 129/90; PULSE 94; RESP 16; TEMP 36.7; O2SAT 98; BMI 43.7
--- NOTE | 2021-09-05 11:05 | XR_ITS ---
PROCEDURE INFORMATION: Exam: XR Left Foot Exam date and time: 09/05/2021 11:05 AM Age: 41 years old Clinical indication: Pain; Foot; Left TECHNIQUE: Imaging protocol: XR Left foot. Views: 3 or more views. COMPARISON: CR XR ANKLE LT MIN 3V 09/05/2021 12:28 PM FINDINGS: Bones/joints: Hallux valgus deformity of the great toe. There is no evidence of acute fracture.There is no evidence of malalignment or dislocation. Soft tissues: Normal. IMPRESSION: There is no evidence of acute fracture.There is no evidence of malalignment or dislocation.
--- NOTE | 2021-09-05 11:05 | XR_ITS ---
PROCEDURE INFORMATION: Exam: XR Lumbosacral Spine Exam date and time: 09/05/2021 11:05 AM Age: 41 years old Clinical indication: Low back pain TECHNIQUE: Imaging protocol: XR of the lumbosacral spine. Views: 2 or 3 views. COMPARISON: SPLUMBWO MR lumbar spine wo con 06/13/2018 2:59 PM FINDINGS: Bones/joints: There is no evidence of acute fracture.There is no evidence of malalignment or dislocation. Intervertebral disc spaces are maintained. Soft tissues: Unremarkable. Intraperitoneal space: Surgical clips in the right upper quadrant IMPRESSION: 1. There is no evidence of acute fracture.There is no evidence of malalignment or dislocation. 2. Intervertebral disc spaces are maintained.
--- NOTE | 2021-09-05 11:05 | XR_ITS ---
PROCEDURE INFORMATION: Exam: XR Left Ankle Exam date and time: 09/05/2021 11:05 AM Age: 41 years old Clinical indication: Pain; Ankle; Left TECHNIQUE: Imaging protocol: XR Left ankle. Views: 3 or more views. COMPARISON: No relevant prior studies available. FINDINGS: Bones/joints: There is no evidence of acute fracture.There is no evidence of malalignment or dislocation. Soft tissues: Bimalleolar soft tissue swelling IMPRESSION: There is no evidence of acute fracture.There is no evidence of malalignment or dislocation.
[2021-09-05 11:50] LABS: Apearance,Urine Cloudy (Clear); Color,Urine Dark Yellow (Yellow)
[2021-09-05 11:51] LABS: Glucose,Urine (UA) Negative (Negative); Ketones,Urine Negative (Negative); PH,Urine 5.5 (5.0-8.5); Protein,Urine Negative (Negative)
[2021-09-05 11:52] LABS: Bilirubin,Urine Negative (Negative); Blood, Urine Negative (Negative); UTC Leukocyte Esterase,Urine Negative (Negative); UTC Nitrate,Urine Negative (Negative); Urobilinogen,Urine 0.2 EU/dl (0.2)
--- NOTE | 2021-09-05 13:18 | HMH.EDUTC ---
[facility] [place] Clinical Impression: Left foot pain Low back pain Qualifiers: Chronicity: unspecified Back pain laterality: left Sciatica presence: without sciatica Qualified Code(s): M54.50 - Low back pain, unspecified Heel spur Qualifiers: Laterality: left Qualified Code(s): M77.32 - Calcaneal spur, left foot Disposition: Home, Self-Care Condition on Discharge: Good Instructions: DI for Low Back Pain, DI for Foot Pain Additional Instructions: Go home and rest. It would be best if you rested for the next couple of days too. No heavy lifting. No twisting. Take the oral medications as directed. The muscle relaxer (cyclobenzaprine--Flexeril) will make you drowsy, so don't drive or operate heavy machinery after taking it. Follow up with your regular doctor. GO TO THE ER FOR ANY WORSENING SYMPTOMS OR CONCERN, ESPECIALLY BOWEL OR BLADDER ISSUES, SADDLE AREA NUMBNESS, FEVER, ETC Prescriptions: Cyclobenzaprine HCl [Cyclobenzaprine 10mg Tab] 10 mg PO BIDP PRN #20 tab PRN Reason: Muscle Spasm Transmission Status: Received by [facility] methylPREDNISolone [Medrol] 4 mg PO DIRECTED 6 Days #21 packet Transmission Status: Received by [facility] Referrals: Pablo Delgado MD [Primary Care Provider] - Mignon Ramirez DPM [Staff Physician] - Forms: Work/School Release Time of Disposition: 13:36 Medical Decision Making - Medical Records Medical records reviewed: No: I reviewed the patient's medical records. - Torres Inquiry Pt receiving controlled substance: No Vital Signs: 09/05/21 11:05 09/05/21 13:45 Temperature 98.0 F 98.0 F Temperature Source Oral Oral Pulse Rate 91 H Pulse Rate [Right Brachial] 94 H Respiratory Rate 16 18 Blood Pressure 129/90 Blood Pressure [Right Arm] 129/90 Blood Pressure Mean [Right Arm] 103 Blood Pressure Source [Right Arm] Automatic Cuff Blood Pressure Position [Right Arm] Sitting 02 Sat by Pulse Oximetry 98 Oxygen Delivery Method Room Air Room Air - Lab Data Lab Results 09/05/21 11:49: Urine Color Dark yellow, Urine Appearance Cloudy, Urine pH 5.5, Ur Specific [place] 1.020, Urine Protein Negative, Urine Glucose (UA) Negative, Urine Ketones Negative, Urine Blood Negative, Urine Nitrate Negative, Urine Bilirubin Negative, Urine Urobilinogen 0.2, Ur Leukocyte Esterase Negative [facility] [place] - General Stated complaint: back and lt foot pain Time Seen by Provider: 09/05/21 13:18 Mode of Arrival: Ambulatory Source of Information: Patient Limitations: No Limitations Description of Symptoms (Recalled from Triage Doc. by RN): back pain. heel pain. left foot pain HEENT Symptoms (Recalled from RN notes): No Resp Symptoms (Recalled from RN notes): No Skin Symptoms (Recalled from RN notes): No MS Symptoms (Recalled from RN notes): Yes Functional Status (Recalled from RN notes): yes - History of Present Illness Provider Complaint: She c/o left foot and ankle pain that has been ongoing for the past couple of weeks. She denies any injury. She states that she is on her feet a lot and her foot hurts worse after she has worked a shift. She also has been having low back pain for the past several days. She denies any injury to her back too. Her back pain has been a on and off thing for a while now . She denies any radiation of her back pain and she does not think that her foot pain is related to her back pain. - Related Data Previous Rx's Medication Instructions Recorded albuterol sulfate 90 mcg/actuation See Rx Instructions .ROUTE 07/28/20 aerosol inhaler .COMPLEX #8.5 g hydrochlorothiazide 12.5 mg capsule See Rx Instructions .ROUTE 10/12/20 .COMPLEX #90 cap lisinopril 10 See Rx Instructions .ROUTE 10/12/20 mg-hydrochlorothiazide 12.5 mg .COMPLEX #90 tablet tablet budesonide-formoterol HFA 160 See Rx Instructions .ROUTE 04/26/21 mcg-4.5 mcg/actuation aerosol .COMPLEX #10.2 g inhaler cyclobenzaprine 10 mg tablet See Rx Ins
[2021-09-05 13:45] VITALS: BP 129/90; PULSE 91; RESP 18; TEMP 36.7; O2SAT 98
== END 2021-09-05 13:45 | disposition home or self-care (01) ==
PROVIDERS: Emergency Provider Nurse Practitioner Family; PCP Emergency Medicine
DX: M77.32 Calcaneal spur, left foot (principal); M54.50 Low back pain, unspecified; I10 Essential (primary) hypertension; J45.909 Unspecified asthma, uncomplicated; E03.9 Hypothyroidism, unspecified; F20.9 Schizophrenia, unspecified; F17.210 Nicotine dependence, cigarettes, uncomplicated; E66.01 Morbid (severe) obesity due to excess calories; Z68.41 Body mass index [BMI] 40.0-44.9, adult
CPT/HCPCS: G0463; 72100; 73610; 73630; 81003; 99202

== ENCOUNTER → 2021-09-20 14:32 | Outpatient (CLI) | payer MEDICARE, MEDICAID, SELFPAY ==
[2021-09-20 16:36] LABS: Amphetamine/Metha Screen,Urine Negative ng/ml (<1000)
[2021-09-20 16:37] LABS: Barbiturates Screen,Urine Negative ng/ml (<200)
[2021-09-20 16:39] LABS: Benzodiazepines Screen,Urine Negative ng/ml (<200); Cannabinoid Screen,Urine Negative ng/ml (<50)
[2021-09-20 16:40] LABS: Cocaine Screen,Urine Negative ng/ml (<300)
[2021-09-20 16:41] LABS: Methadone Screen,Urine Negative ng/ml (<300); Opiate Screen,Urine Positive ng/ml (<300)
[2021-09-20 16:42] LABS: Phencyclidine Screen,Urine Negative ng/ml (<25)
== END ==
PROVIDERS: Visit Provider Emergency Medicine
DX: M25.78 Osteophyte, vertebrae (principal); M51.36 Other intervertebral disc degeneration, lumbar region
CPT/HCPCS: 80305

== ENCOUNTER → 2021-09-24 08:51 | Outpatient (CLI) | payer MEDICARE, MEDICAID, SELFPAY ==
--- NOTE | 2021-09-24 08:55 | CT_ITS ---
PROCEDURE INFORMATION: Exam: CT Chest With Contrast; Diagnostic Exam date and time: 09/24/2021 8:55 AM Age: 41 years old Clinical indication: Condition or disease; Other: H/o adrenal CA; Prior surgery; Additional info: HX of lt adrenal CA. Tumer removed 3 years ago. F/u. PT does C/O left flank pain TECHNIQUE: Imaging protocol: Diagnostic computed tomography of the chest with contrast. Radiation optimization: All CT scans at this facility use at least one of these dose optimization techniques: automated exposure control; mA and/or kV adjustment per patient size (includes targeted exams where dose is matched to clinical indication); or iterative reconstruction. Contrast material: ISOVUE; Contrast volume: 75 ml; Contrast route: IV; COMPARISON: CT CHEST W CON 03/22/2021 11:06 AM FINDINGS: Lungs: Stable reticulonodular pattern in the upper lung zones. Stable size and appearance of nodules in the left upper and lower lobes. Largest again measures 1 cm at the left base. No new nodule identified. No focal consolidation. Pleural spaces: Unremarkable. No pneumothorax. No pleural effusion. Heart: Unremarkable. No cardiomegaly. No pericardial effusion. Aorta: Unremarkable. No aortic aneurysm. Lymph nodes: Unremarkable. No enlarged lymph nodes. Bones/joints: Unremarkable. No acute fracture. Soft tissues: Unremarkable. IMPRESSION: 1. Stable reticulonodular pattern in the upper lung zones. 2. Stable size and appearance of nodules in the left upper and lower lobes. Largest again measures 1 cm at the left base. No new nodule identified.
--- NOTE | 2021-09-24 08:55 | CT_ITS ---
PROCEDURE INFORMATION: Exam: CT Abdomen And Pelvis With Contrast Exam date and time: 09/24/2021 8:55 AM Age: 41 years old Clinical indication: Abdominal pain; Prior surgery; Additional info: HX of lt adrenal CA. Tumer removed 3 years ago. F/u. PT does C/O left flank pain TECHNIQUE: Imaging protocol: Computed tomography of the abdomen and pelvis with contrast. Radiation optimization: All CT scans at this facility use at least one of these dose optimization techniques: automated exposure control; mA and/or kV adjustment per patient size (includes targeted exams where dose is matched to clinical indication); or iterative reconstruction. Contrast material: ISOVUE; Contrast volume: 75 ml; Contrast route: IV; COMPARISON: CT ABDOMEN PELVIS W CON 04/13/2021 7:16 PM FINDINGS: Lungs: Left pulmonary nodules as detailed on CT chest report same day. Liver: Normal. No mass. Gallbladder and bile ducts: Previous cholecystectomy. Pancreas: Normal. No ductal dilation. Spleen: Normal. No splenomegaly. Adrenal glands: Adrenal glands normal in size and configuration. No nodule identified. Kidneys and ureters: Normal. No hydronephrosis. Stomach and bowel: Unremarkable. No obstruction. No mucosal thickening. Appendix: No evidence of appendicitis. Intraperitoneal space: Unremarkable. No free air. No significant fluid collection. Vasculature: Unremarkable. No abdominal aortic aneurysm. Lymph nodes: Unremarkable. No enlarged lymph nodes. Urinary bladder: Unremarkable as visualized. Reproductive: Right ovarian cyst measures 2.8 x 3.2 cm. Recommend follow-up as indicated. Bones/joints: Unremarkable. No acute fracture. Soft tissues: Unremarkable. IMPRESSION: 1. Adrenal glands normal in size and configuration. No nodule identified. 2. Right ovarian cyst measures 2.8 x 3.2 cm. Recommend follow-up as indicated.
== END ==
PROVIDERS: PCP Emergency Medicine; Visit Provider Internal Medicine Medical Oncology
DX: C74.02 Malignant neoplasm of cortex of left adrenal gland (principal)
CPT/HCPCS: 71260; 74177; Q9967

== ENCOUNTER → 2021-10-05 15:05 | Outpatient (CLI) | payer MEDICARE, MEDICAID, SELFPAY ==
--- NOTE | 2021-10-05 15:05 | MR_ITS ---
PROCEDURE: MR LUMBAR SPINE WO CON CLINICAL INDICATION: back pain COMPARISON: MR SPLUMBWO MR lumbar spine wo con from 06/13/2018 TECHNIQUE: Standard multiplanar multiecho sequences are performed without contrast. 3-D MIP and myelographic images are also rendered and reviewed FINDINGS: There is normal alignment. Spinal cord ends the L1-L2 level. T11-T12: Type 2 endplate changes along the inferior aspect of T11 on the left. T12-L1: Unremarkable. L1-L2: Unremarkable. L2-L3: Unremarkable. L3-L4: Mild facet and ligamentum hypertrophic change with mild bilateral lateral recess narrowing. L4-5: Previously noted area isointensity at the right inferior foraminal region is less apparent. There is mild concentric bulging disc slightly eccentric toward the left with left-sided foraminal narrowing not significantly changed. Facet and ligamentum hypertrophy noted with bilateral lateral recess and foraminal narrowing. L5-S1: Mild facet and ligamentum hypertrophic change. No extruded herniated disc apparent. Previously noted left-sided retroperitoneal mass is not identified. IMPRESSION: 1. L3-L4: Mild facet and ligamentum hypertrophic change with mild bilateral lateral recess narrowing. 2. L4-5: Previously noted area isointensity at the right inferior foraminal region is less apparent. There is mild concentric bulging disc slightly eccentric toward the left with left-sided foraminal narrowing not significantly changed. Facet and ligamentum hypertrophy noted with bilateral lateral recess and foraminal narrowing. 3. L5-S1: Mild facet and ligamentum hypertrophic change. Dictated by: Timur Thompson MD 10/06/2021 10:24 Timur Thompson MD in [place] 10/06/2021 10:24
== END ==
PROVIDERS: PCP Emergency Medicine; Visit Provider Emergency Medicine
DX: M54.16 Radiculopathy, lumbar region (principal)
CPT/HCPCS: 72148; 76376

== ENCOUNTER → 2021-11-15 15:06 | Outpatient (POV) | payer MEDICARE, MEDICAID, SELFPAY ==
--- NOTE | 2021-11-15 15:25 | HMH.PMCON ---
Assessment and Plan (1) Chronic back pain Status: Acute Category: Medical Code(s): M54.9 - Dorsalgia, unspecified; G89.29 - Other chronic pain - Assessment and plan all Dx Assessment and Plan for all problems:: Patient has been having chronic back pain for a long time now. Patient is currently being managed with Auberry 5 mg 3 times a day that is prescribed by Dr. Delgado. I discussed with the patient that our clinic specializes in interventional pain management and we rarely prescribe narcotics. We mainly focused on injective therapy, ablation, nerve blocks, pain pumps, and spinal cord stimulators. At the moment, patient is not interested in getting injective therapy and will have to rethink about us managing her pain. Patient is welcome to call our clinic for follow-up. At the moment, we will see this patient as needed. Patient has been instructed to contact the clinic with any concerns before the next appointment. Dr. Rubalcava has reviewed this note and agrees with this plan of care. This note was dictated using voice recognition software and make contain errors or omissions. HPI - Data of Consult Patient: new to practice Consult date: 11/15/21 Requesting Physician: Bebe Bauer APRN - Consult Narrative Reason for consult: low back pain History of present illness: Ms. Rizzo is a 41 year old female who presents today as a new patient. Patient is referred by Dr. Delgado for worsening back pain. Patient says that she has had back pain for a long time now. Patient denies any recent trauma to the past. She says that she has radicular pain to bilateral lower extremities. Patient also says that she gets neck and mid back pain. Her mid back pain radiates through her left side from time to time which causes her burning sensations. Patient denies any loss of bowel or bladder functions. Currently, patient is taking Auberry 5 mg 3 times a day that is prescribed by Dr. Delgado. I discussed with the patient that our clinic mainly focuses on interventional pain management which means that we specializes in injective therapy, stimulators, and pain pumps. She said that she is not fond of needles and will have to think about having us manage her pain. She rates her pain today as 8/10. CC: Bebe Bauer APRN [facility] History I have reviewed the patient's past medical history: Yes Medical History: Reports:: Asthma, Hepatitis, Hypertension, Pulmonary Embolism, Seizures Denies:: Cancer, Diabetes Mellitus Type 1, Diabetes Mellitus Type 2, Internal Pacemaker, MRSA *Have you ever received a pneumonia vaccine?: No *Have you received a flu vaccine this season?: No Other Medical History: Reports: Hypothyroidism, Liver Disease, Thyroid Disease, Other. Denies: Blood Transfusion Reaction Other Surgeries: Yes: Appendectomy, Cholecystectomy, , Diagnostic Lap, Hernia Repair, Tubal Ligation, Other. No: Pacemaker Amputation: No Fractures: No - *Social History Smoking Status: Current every day smoker Tobacco Type: cigarettes # Packs/Day (cigarettes): 1 Alcohol Intake: never Alcohol Intake Frequency:: other Substance Use Type: heroin, former substance user *Occupational Status:: other Housing: house Household Members: children *Travel in the last 8 weeks: [facility] the [facility] Family Hx:: Cancer Review of Systems - Review of Systems Review of Systems General: No recent weight changes, no fever, no sleep disturbances Respiratory: No cough, no shortness of air, no recurring pulmonary infections Cardiovascular/peripheral vascular: No chest pain, no palpitations, no edema, no shortness of breath Gastrointestinal: No new onset incontinence, normal bowel movements reported Genitourinary: No new onset incontinence Musculoskeletal: Back pain Psychiatric: [Normal mood/affect] Neurological: [Denies weakness in extremities], [denies balance issues] Meds Home Medications Medication Instructions Recorded Confirmed Type
[2021-11-15 15:30] VITALS: BP 145/80; PULSE 115; RESP 18; O2SAT 100; BMI 37.8
== END ==
PROVIDERS: Visit Provider Clinical Nurse Specialist Family Health
DX: M54.9 Dorsalgia, unspecified (principal); G89.29 Other chronic pain
CPT/HCPCS: 99202; G0463

== ENCOUNTER 2021-12-26 07:39 | Emergency (ER) | payer MEDICARE, MEDICAID, SELFPAY ==
[2021-12-26 07:40] VITALS: BP 135/84; PULSE 103; RESP 18; TEMP 36.6; O2SAT 98; BMI 42.9
--- NOTE | 2021-12-26 07:45 | PC.NURSE ---
pt in room, vital signs obtained, nurse is bedside. Call light given to patient.
--- NOTE | 2021-12-26 07:51 | XR_ITS ---
PROCEDURE INFORMATION: Exam: XR Chest Exam date and time: 12/26/2021 7:51 AM Age: 41 years old Clinical indication: Pain; Chest pressure TECHNIQUE: Imaging protocol: XR of the chest. Views: 2 views. COMPARISON: CT CHEST W CON 09/24/2021 9:29 AM FINDINGS: Lungs: Unremarkable. No consolidation. Pleural spaces: Unremarkable. No pleural effusion. No pneumothorax. Heart/Mediastinum: Unremarkable. No cardiomegaly. Bones/joints: Unremarkable. IMPRESSION: No acute findings.
--- NOTE | 2021-12-26 08:14 | HMH.EDGENADL ---
ED Disposition Clinical Impression: Back pain Qualifiers: Chronicity: acute Back pain laterality: right Sciatica presence: without sciatica Disposition: Home, Self-Care Condition on Discharge: Good Instructions: DI for Acute Pain -- Adult Prescriptions: Lidocaine [Lidocaine 5% patch] 1 patch TP Q12H PRN #3 patch PRN Reason: back pain Transmission Status: Pending to [facility] Referrals: Pablo Delgado MD [Primary Care Provider] - - Critical Care Critical Care Time: No Attestation: On 12/26/21, the high probability of a clinically significant, sudden or life threatening deterioration of the following system(s) required my full and direct attention, intervention and personal management. The time I documented below is in addition to time spent performing reported procedures but includes the following listed in this critical care notation. Medical Decision Making - Torres Inquiry Pt receiving controlled substance: No Vital Signs: 12/26/21 07:40 12/26/21 08:57 12/26/21 09:00 Temperature 97.8 F Temperature Source Oral Pulse Rate 82 82 Pulse Rate [Radial] 103 H Respiratory Rate 18 22 16 Blood Pressure 131/81 124/85 Blood Pressure [Right Arm] 135/84 Blood Pressure Mean [Right Arm] 101 Blood Pressure Position [Right Arm] Sitting 02 Sat by Pulse Oximetry 98 100 100 Oxygen Delivery Method Room Air Room Air Room Air - Lab Data Lab Results 12/26/21 08:15: WBC 12.1 H, RBC 4.67, Hgb 15.0, Hct 45.1, MCV 96.5, MCH 32.1 H, MCHC 33.3, RDW 14.7, Plt Count 118 L, MPV 9.7, Neut % (Auto) 64.0, Lymph % (Auto) 26.9, [place] % (Auto) 5.2, Eos % (Auto) 2.6, Baso % (Auto) 1.4, Neut # (Auto) 7.7, Lymph # (Auto) 3.2, [place] # (Auto) 0.6, Eos # (Auto) 0.3, Baso # (Auto) 0.2 12/26/21 08:15: D-Dimer 0.59 H 12/26/21 08:15: Sodium 140, Potassium 4.0, Chloride 106, Carbon Dioxide 27, Anion Gap 11.0, BUN 10, Creatinine 0.80, Estimated Creat Clear 78, Estimated GFR 78, Est GFR ( Amer) 95, Glucose 77, Calcium 9.2, Total Bilirubin 0.5, AST 24, ALT 20, Alkaline Phosphatase 103, Total Protein 7.3, Albumin 4.4, Globulin 2.9, Albumin/Globulin Ratio 1.5 12/26/21 08:15: Serum HCG, Qual Negative Result diagrams: 12/26/21 08:15 12/26/21 08:15 Orders (Tests/Meds): ED MEDICATIONS Discontinued Medications Generic Name Dose Route Start Last Admin Trade Name Trinity PRN Reason Stop Dose Admin Acetaminophen 1,000 mg 12/26/21 08:19 12/26/21 08:48 Acetaminophen 500mg Tab PO 12/26/21 08:20 1,000 mg ONCE ONE Administration Ketorolac Tromethamine 15 mg 12/26/21 08:19 12/26/21 08:53 Ketorolac 30mg/Ml Vial IV 12/26/21 08:20 Not Given ONCE ONE Lidocaine 1 each 12/26/21 09:29 12/26/21 09:31 Lidocaine 5% Transdermal Patch TP 12/26/21 09:30 1 each ONCE ONE Administration Medical Decision Narrative: 41 yo female presents for right upper back pain that was noted to start shortly after a coughing fit and has been persistent for 3 days. she is hds, nad, well appearing, on room air, afebrile. tachycardic 103 bpm on initial vitals however largely within normal range hr during ed course on serial reassessments, and on ekg which showed nsr without acute ischemic changes. no signs of dvt, hx of hormone use or hx vte, recent surgery, recent immobilization, only one episode of tachycardia in ed with largely normal rate hr and no hypoxia, and no reported soa or chest pain and with back pain specifically started after coughing fit, so less likely acute pe but still on differential. patient without back pain red flags such as ivdu, older age, immunosuppression, recent trauma, incontinence or neurological deficits or symptoms, steroid use, fever. on differential dx is muscular strain, pneumonia, acute pe, myalgia from viral illness, bony lesion, ptx. patient with cbc, cmp, test not acutely actionable. d dimer 0.59, which per years criteria, makes risk of symptomatic acute pe in this case less like
--- NOTE | 2021-12-26 08:19 | XR_ITS ---
PROCEDURE INFORMATION: Exam: XR Right Scapula Exam date and time: 12/26/2021 8:19 AM Age: 41 years old Clinical indication: Pain; Other: Upper back and scapula area; Additional info: Right upper back pain behind scapula x 3 days TECHNIQUE: Imaging protocol: XR Right scapula, complete. COMPARISON: CR XR CHEST 2V 12/26/2021 7:49 AM FINDINGS: Bones/joints: Normal. No evidence of an acute fracture or dislocation. Soft tissues: Normal. IMPRESSION: No acute findings.
[2021-12-26 08:29] LABS: Basophils # 0.2 K/mm3 (0-0.2); Basophils % 1.4 % (0.1-2.0); Eosinophils # 0.3 K/mm3 (0.0-0.4); Eosinophils % 2.6 % (0.1-12.0); Hematocrit 45.1 % (37.0-47.0); Lymphocytes # 3.2 K/mm3 (0.7-4.5); Lymphocytes % 26.9 % (10-50); Mean Corpuscular HGB Conc 33.3 g/dL (31.8-35.4); Mean Corpuscular Hemoglobin 32.1 pg (27.0-31.2); Mean Corpuscular Volume 96.5 fl (81-99); Mean Platelet Volume 9.7 fl (7.4-10.4); Monocytes # 0.6 K/mm3 (0.1-1.0); Monocytes % 5.2 % (1.7-9.3); Neutrophils # 7.7 K/mm3 (1.8-7.8); Platelet Count 118 K/mm3 (142-424); Red Blood Count 4.67 M/mm3 (4.20-5.40); Red Cell Distribution Width 14.7 % (11.5-17.5); White Blood Count 12.1 K/mm3 (4.8-10.8)
--- NOTE | 2021-12-26 08:31 | PC.NURSE ---
pt over to radiology
--- NOTE | 2021-12-26 08:34 | PC.NURSE ---
Patient back from radiology.
[2021-12-26 08:36] LABS: Alanine Aminotransferase 20 U/L (12-78); Albumin Level 4.4 g/dl (3.5-5.0); Albumin/Globulin Ratio 1.5 (1.1-1.8); Alkaline Phosphatase 103 U/L (38-126); Aspartate Amino Transferase 24 U/L (14-36); Bilirubin,Total 0.5 mg/dl (0.2-1.3); Blood Urea Nitrogen 10 mg/dl (7-17); Calcium 9.2 mg/dl (8.4-10.2); Carbon Dioxide 27 mmol/L (22.0-30.0); Chloride 106 mmol/L (98-107); Creatinine Clearance Estimated 78 mL/min (50-200); Estimated Glomerular Filt Rate 78 ml/min (>60); GFR (African American) 95 ML/MIN (>60); Globulin 2.9 g/dL (1.3-3.2); Glucose 77 mg/dl (74-100); Sodium 140 mmol/L (136-145); Total Protein,Serum 7.3 g/dl (6.3-8.2)
--- NOTE | 2021-12-26 08:38 | ECG_ITS ---
APPROVED REPORT Exam: Resting ECG HR:83 bpm ECG Measurements Heart Rate 83 AXES ID 190 P 71 QRSd 85 QRS 101 QT 334 T 47 QTc 373 Conclusion SINUS RHYTHM RIGHT AXIS DEVIATION [QRS AXIS > 100] LOW QRS VOLTAGE IN PRECORDIAL LEADS [QRS DEFLECTION < 1.0 mV IN CHEST LEADS] ABNORMAL ECG UNCONFIRMED REPORT Electronically signed by : Chris Abebe MD 12/26/2021 13:46:25
[2021-12-26 08:41] LABS: D-Dimer 0.59 ug/mL (0.0-0.5)
--- NOTE | 2021-12-26 08:41 | PC.NURSE ---
EKG Done and given to DR. Rico. Patient hooked up to cardiac monitoring and vital signs. Call Light was given to patient. Offered warm blanket but patient refused. Nothing needed at this time.
[2021-12-26 08:46] LABS: HCG Qualitative, Serum Negative (Negative)
--- NOTE | 2021-12-26 08:46 | PC.NURSE ---
REVIEWED PT'S ALLERGIES WITH MD. HE IS AWARE OF ALLERGIES, STATES PT HAS HAD IT BEFORE WITH NO COMPLICATIONS
--- NOTE | 2021-12-26 08:51 | PC.NURSE ---
PT STATES I THINK I'VE HAD TORADOL BEFORE PT UNSURE. PT STATES IBUPROFEN AND NAPROXEN CAUSES HER FACE TO SWELL. REVIEWED TORADOL IS IN THE SAME FAMILY PT REFUSED TORADOL
[2021-12-26 08:57] VITALS: BP 131/81; PULSE 82; RESP 22; O2SAT 100
[2021-12-26 09:00] VITALS: BP 124/85; PULSE 82; RESP 16; O2SAT 100
--- NOTE | 2021-12-26 09:22 | PC.NURSE ---
Pt in room
[2021-12-26 09:48] VITALS: BP 143/74; PULSE 78; RESP 16; TEMP 36.6; O2SAT 98
== END 2021-12-26 09:50 | disposition home or self-care (01) ==
PROVIDERS: Emergency Provider Student in an Organized Health Care Education/Training Program; PCP Emergency Medicine
DX: M54.6 Pain in thoracic spine (principal); J45.909 Unspecified asthma, uncomplicated; I10 Essential (primary) hypertension; F20.9 Schizophrenia, unspecified; F17.210 Nicotine dependence, cigarettes, uncomplicated; E66.01 Morbid (severe) obesity due to excess calories; Z68.41 Body mass index [BMI] 40.0-44.9, adult; Z79.899 Other long term (current) drug therapy
CPT/HCPCS: 71046; 73010; 80053; 84703; 85025; 85378; 93005; 99284

== ENCOUNTER → 2022-01-05 18:29 | Outpatient (CLI) | payer MEDICARE, MEDICAID, SELFPAY ==
[2022-01-05 14:20] LABS: Amphetamine/Metha Screen,Urine Negative ng/ml (<1000); Benzodiazepines Screen,Urine Negative ng/ml (<200)
[2022-01-05 14:21] LABS: Cannabinoid Screen,Urine Negative ng/ml (<50)
[2022-01-05 14:22] LABS: Barbiturates Screen,Urine Negative ng/ml (<200); Cocaine Screen,Urine Negative ng/ml (<300)
[2022-01-05 14:23] LABS: Methadone Screen,Urine Negative ng/ml (<300); Opiate Screen,Urine Negative ng/ml (<300)
[2022-01-05 14:25] LABS: Phencyclidine Screen,Urine Negative ng/ml (<25)
== END ==
PROVIDERS: Visit Provider Emergency Medicine
DX: M25.78 Osteophyte, vertebrae (principal); M51.36 Other intervertebral disc degeneration, lumbar region
CPT/HCPCS: 80305

== ENCOUNTER 2022-01-21 08:59 | Emergency (ER) | payer MEDICARE, MEDICAID, SELFPAY ==
[2022-01-21 09:14] VITALS: BP 133/70; PULSE 89; RESP 16; TEMP 36.6; O2SAT 99; BMI 42.4
--- NOTE | 2022-01-21 09:19 | HMH.EDUTC ---
[facility] [place] Disposition Clinical Impression: Otitis media Qualifiers: Otitis media type: unspecified Laterality: right Qualified Code(s): H66.91 - Otitis media, unspecified, right ear Disposition: Home, Self-Care Condition on Discharge: Good Instructions: Sore Throat, Middle Ear Infection, Cefdinir Additional Instructions: *Monitor Temp, Over the counter Motrin or Tylenol as directed/as needed Tylenol every 4 hours and Motrin every 6 hours (as long as your family doctor has told you that you can take it) for fever or pain. and straight to ER if unable to lower temp less than 101.0 after medication given *Warm salt water gargles may help to soothe the throat and help with irritation on tongue and gums Peroxil mouth wash may help also *Throat Lozenges *Warm fluids like tea with honey may help to soothe the throat *Sleep elevated *Humidifier/Vaporizer Your throat swab was sent for culture. Those results are typically sent to your primary care. Be sure to follow up in 2-3 days with your family doctor/primary care physician if no improvement so they can review those result and treat if necessary. If you don?t have a primary care doctor, I recommend you get one but in the mean time, you will have to return to a walk in clinic Follow up IMMEDIATELY for new or worsening symptoms or no Noticeable improvement over the next 48-72 hours. 911 for difficulty breathing or swallowing Prescriptions: Cefdinir [Omnicef 300mg Capsule] 300 mg PO BID #20 cap Transmission Status: Received by [facility] Referrals: Pablo Delgado MD [Primary Care Provider] - As needed Time of Disposition: 10:15 Medical Decision Making - Torres Inquiry Pt receiving controlled substance: No Torres was queried for this patient: No Vital Signs: 01/21/22 09:14 01/21/22 10:36 Temperature 98 F 98 F Temperature Source Oral Pulse Rate 89 Pulse Rate [Left] 89 Respiratory Rate 16 16 Blood Pressure 133/70 Blood Pressure [Right Arm] 133/70 Blood Pressure Mean [Right Arm] 91 02 Sat by Pulse Oximetry 99 - Lab Data Lab Results 01/21/22 09:15: Group A Strep Rapid Negative Orders (Tests/Meds): ED MEDICATIONS Discontinued Medications Generic Name Dose Route Start Last Admin Trade Name Freq PRN Reason Stop Dose Admin Methylprednisolone Sodium Succinate 125 mg 01/21/22 10:12 01/21/22 10:20 Methylprednisolone Sod Succ 125mg Vial IM 01/21/22 10:13 125 mg ONCE ONE Administration ORDERS Category Date Time Status Strep Screen Confirmation Stat Micro 01/21/22 09:15 Received [facility] [place] HPI - General Stated complaint: swollen tongue, sore knot on neck, ear pain Time Seen by Provider: 01/21/22 09:19 Mode of Arrival: Ambulatory Source of Information: Patient Limitations: No Limitations Description of Symptoms (Recalled from Triage Doc. by RN): pt c/o swelling in her tongue that started yesterday. pt also c/o a sore throat and bilateral ear aches x6 mo. HEENT Symptoms (Recalled from RN notes): Yes Resp Symptoms (Recalled from RN notes): No Skin Symptoms (Recalled from RN notes): No MS Symptoms (Recalled from RN notes): No Functional Status (Recalled from RN notes): wnl - History of Present Illness Provider Complaint: Patient states that she has been trying to quit smoking and trying lots of food and stuff she doesnt normally eat State she has been having sore throat and pain in both ears on and off for about 6mths States that yesterday her tongue felt swollen and then it went down and now feels irritated and scratched States that this morning she came in to get checked out - Related Data Previous Rx's Medication Instructions Recorded lisinopril 10 See Rx Instructions .ROUTE 10/12/20 mg-hydrochlorothiazide 12.5 mg .COMPLEX #90 tablet tablet levothyroxine 25 mcg tablet See Rx Instructions .ROUTE 07/05/21 .COMPLEX #90 tab lidocaine 5 % topical patch 1 patch TOPICAL DAILY #30 each 09/20/21 albuterol sulfate
[2022-01-21 10:06] LABS: Strep Scrn Group A (Rapid) Negative (Negative)
[2022-01-21 10:36] VITALS: BP 133/70; PULSE 89; RESP 16; TEMP 36.6
== END 2022-01-21 10:37 | disposition home or self-care (01) ==
PROVIDERS: Emergency Provider Nurse Practitioner; PCP Emergency Medicine
DX: H66.91 Otitis media, unspecified, right ear (principal); I10 Essential (primary) hypertension; E03.9 Hypothyroidism, unspecified; J45.909 Unspecified asthma, uncomplicated; F17.210 Nicotine dependence, cigarettes, uncomplicated; Z79.899 Other long term (current) drug therapy
CPT/HCPCS: 87430; 96372; 99212; G0463

== ENCOUNTER 2022-01-21 23:35 | Emergency (ER) | payer MEDICARE, MEDICAID, SELFPAY ==
[2022-01-21 23:37] VITALS: BP 144/87; PULSE 109; RESP 18; TEMP 37.1; O2SAT 98; BMI 42.4
--- NOTE | 2022-01-21 23:43 | HMH.EDGENADL ---
ED Disposition Clinical Impression: Benign skin lesion of cheek Disposition: Home, Self-Care Condition on Discharge: Good Referrals: Pablo Delgado MD [Primary Care Provider] - - Critical Care Critical Care Time: No Attestation: On , the high probability of a clinically significant, sudden or life threatening deterioration of the following system(s) required my full and direct attention, intervention and personal management. The time I documented below is in addition to time spent performing reported procedures but includes the following listed in this critical care notation. Medical Decision Making - Medical Records Medical records reviewed: Yes: I reviewed the patient's medical records. - Torres Inquiry Pt receiving controlled substance: No Vital Signs: 01/21/22 23:37 Temperature 98.8 F Temperature Source Oral Pulse Rate [Right] 109 H Respiratory Rate 18 Blood Pressure [Right Arm] 144/87 H Blood Pressure Mean [Right Arm] 106 02 Sat by Pulse Oximetry 98 Medical Decision Narrative: She is a 41-year-old female presenting with a chief complaint of 2 lesions on her left cheek. On initial exam, she is hemodynamically stable and nontoxic-appearing. Physical exam reveals 2 small approximately 2 mm hemorrhagic blisters, likely due to trauma secondary to cheek/tongue biting. Given that symptoms have been ongoing for only 1 day without other infectious symptoms or B symptoms, patient was counseled that her symptoms are likely due to malignancy. She was counseled to prevent further trauma to her cheek to be conscious of tongue/cheek biting. Patient felt reassured and was discharged in stable condition. She was advised to follow-up with her primary care physician if she has further concerns. General Adult HPI - General Stated complaint: Spot on inside left jaw Time Seen by Provider: 01/21/22 23:40 - History of Present Illness HPI narrative: Zena is a 41yo female with past medical history significant for hypertension and hypothyroidism is presenting for chief complaint of lesion on her left cheek that she noticed today. Patient denies fever, upper respiratory symptoms, shortness of breath, chest pain or other. Lesions are small and dark in appearance. Patient is concerned about throat cancer given that her sister of head and neck cancer 10 years ago. She denies any B symptoms. - Related Data Previous Rx's Medication Instructions Recorded lisinopril 10 See Rx Instructions .ROUTE 10/12/20 mg-hydrochlorothiazide 12.5 mg .COMPLEX #90 tablet tablet levothyroxine 25 mcg tablet See Rx Instructions .ROUTE 07/05/21 .COMPLEX #90 tab lidocaine 5 % topical patch 1 patch TOPICAL DAILY #30 each 09/20/21 albuterol sulfate 90 mcg/actuation See Rx Instructions .ROUTE 12/24/21 aerosol inhaler .COMPLEX #8.5 g budesonide-formoterol HFA 160 See Rx Instructions .ROUTE 12/24/21 mcg-4.5 mcg/actuation aerosol .COMPLEX #10.2 g inhaler Lidocaine [Lidocaine 5% patch] 1 patch TP Q12H PRN #3 patch 12/26/21 gabapentin 400 mg capsule 400 mg PO TID #90 cap 01/05/22 hydrocodone 5 mg-acetaminophen 325 1 tab PO TID PRN #90 tab 01/05/22 mg tablet nicotine 21 mg/24 hr daily 1 patch TRANSDERMA Q24H #28 each 01/06/22 transdermal patch diclofenac sodium 1 % topical gel 4 g TOPICAL QID 30 Days #100 g 01/10/22 methylprednisolone 4 mg tablets in 4 mg PO PER PKG DIR #21 tab 01/10/22 a dose pack hydrochlorothiazide 12.5 mg capsule 12.5 mg PO Q OTHER DAY #90 cap 01/13/22 aripiprazole 10 mg tablet 10 mg PO DAILY #30 tab 01/18/22 vilazodone 10 mg tablet 10 mg PO DAILY #30 tab 01/18/22 Cefdinir [Omnicef 300mg Capsule] 300 mg PO BID #20 cap 01/21/22 Allergies Allergy/AdvReac Type Severity Reaction Status Date / Time ibuprofen [IBUPROFEN] Allergy Unknown Hives Verified 01/21/22 09:18 naproxen [NAPROXEN] Allergy Unknown Rash Verified 01/21/22 09:18 [facility] History - Hepatitis A Screen Attestation statement:: This
[2022-01-22 00:34] VITALS: BP 144/87; PULSE 98; RESP 14; TEMP 37.1; O2SAT 98
== END 2022-01-22 00:47 | disposition home or self-care (01) ==
PROVIDERS: Emergency Provider Emergency Medicine; PCP Emergency Medicine
DX: D37.09 Neoplasm of uncertain behavior of other specified sites of the oral cavity (principal); I10 Essential (primary) hypertension; E03.9 Hypothyroidism, unspecified; F17.210 Nicotine dependence, cigarettes, uncomplicated; Z80.0 Family history of malignant neoplasm of digestive organs
CPT/HCPCS: 99282

== ENCOUNTER 2022-02-10 09:17 | Emergency (ER) | payer MEDICARE, MEDICAID, SELFPAY ==
[2022-02-10 09:34] VITALS: BP 168/81; PULSE 90; RESP 18; TEMP 36.9; O2SAT 100; BMI 41.1
[2022-02-10 09:50] LABS: UTC Influenza A Antigen Negative (Negative)
[2022-02-10 09:51] LABS: UTC Influenza B Antigen Negative (Negative)
--- NOTE | 2022-02-10 10:24 | HMH.EDUTC ---
[facility] [place] Disposition Clinical Impression: Anxiousness Disposition: Home, Self-Care Condition on Discharge: Good Instructions: DI for Anxiety -- Adult Additional Instructions: Drink plenty of fluids. Take the medications as directed. Follow up with your regular doctor. GO TO THE ER FOR ANY WORSENING SYMPTOMS Prescriptions: hydrOXYzine pamoate [Vistaril] 25 mg PO Q6HP PRN #20 cap PRN Reason: Anxiety Transmission Status: Received by [facility] Referrals: Pablo Delgado MD [Primary Care Provider] - Time of Disposition: 10:28 Medical Decision Making - Medical Records Medical records reviewed: No: I reviewed the patient's medical records. - Torres Inquiry Pt receiving controlled substance: No Vital Signs: 02/10/22 09:34 02/10/22 10:49 Temperature 98.4 F 98.4 F Temperature Source Oral Pulse Rate 90 Pulse Rate [Left] 90 Respiratory Rate 18 18 Blood Pressure 168/81 H Blood Pressure [Right Arm] 168/81 H Blood Pressure Mean [Right Arm] 110 02 Sat by Pulse Oximetry 100 - Lab Data Lab Results 02/10/22 09:39: Influenza Type A Ag Negative, Influenza Type B Ag Negative [facility] [place] HPI - General Stated complaint: fatigue, nervous Time Seen by Provider: 02/10/22 09:35 Mode of Arrival: Ambulatory Source of Information: Patient Limitations: No Limitations Description of Symptoms (Recalled from Triage Doc. by RN): pt states that she started using a nicotine patch and she has felt nervous since then. HEENT Symptoms (Recalled from RN notes): No Resp Symptoms (Recalled from RN notes): Yes Skin Symptoms (Recalled from RN notes): No MS Symptoms (Recalled from RN notes): No Functional Status (Recalled from RN notes): wnl - History of Present Illness Provider Complaint: pt states that she started using a nicotine patch. after she placed the third patch she noticed that she began feeling nervous, having chills, shaking, nausea and just not feeling well. patch was removed in office this am. - Related Data Previous Rx's Medication Instructions Recorded lisinopril 10 See Rx Instructions .ROUTE 10/12/20 mg-hydrochlorothiazide 12.5 mg .COMPLEX #90 tablet tablet lidocaine 5 % topical patch 1 patch TOPICAL DAILY #30 each 09/20/21 albuterol sulfate 90 mcg/actuation See Rx Instructions .ROUTE 12/24/21 aerosol inhaler .COMPLEX #8.5 g budesonide-formoterol HFA 160 See Rx Instructions .ROUTE 12/24/21 mcg-4.5 mcg/actuation aerosol .COMPLEX #10.2 g inhaler Lidocaine [Lidocaine 5% patch] 1 patch TP Q12H PRN #3 patch 12/26/21 gabapentin 400 mg capsule 400 mg PO TID #90 cap 01/05/22 hydrocodone 5 mg-acetaminophen 325 1 tab PO TID PRN #90 tab 01/05/22 mg tablet nicotine 21 mg/24 hr daily 1 patch TRANSDERMA Q24H #28 each 01/06/22 transdermal patch diclofenac sodium 1 % topical gel 4 g TOPICAL QID 30 Days #100 g 01/10/22 hydrochlorothiazide 12.5 mg capsule 12.5 mg PO Q OTHER DAY #90 cap 01/13/22 Cefdinir [Omnicef 300mg Capsule] 300 mg PO BID #20 cap 01/21/22 levothyroxine 25 mcg tablet See Rx Instructions .ROUTE 01/24/22 .COMPLEX #90 tab aripiprazole 10 mg tablet 10 mg PO DAILY #30 tab 01/25/22 vilazodone 10 mg tablet 10 mg PO DAILY #30 tab 01/25/22 hydrOXYzine pamoate [Vistaril] 25 mg PO Q6HP PRN #20 cap 02/10/22 Allergies Allergy/AdvReac Type Severity Reaction Status Date / Time ibuprofen [IBUPROFEN] Allergy Unknown Hives Verified 02/10/22 09:41 naproxen [NAPROXEN] Allergy Unknown Rash Verified 02/10/22 09:41 - Worker's Comp Is this a Worker's Comp case?: No Is this an [facility] Worker's Comp?: No Is this a [place] Worker's Comp?: No H History - Hepatitis A Screen Attestation statement:: This patient has been screened for Hepatitis A risk factors. I have reviewed the patient's past medical history: Yes Medical History: Reports:: Asthma, Hepatitis, Hypertension, Pulmonary Embolism, Seizures Denies:: Cancer, Diabetes Mellitus Type 1, Diabetes Mellitus Type 2, Internal P
[2022-02-10 10:49] VITALS: BP 168/81; PULSE 90; RESP 18; TEMP 36.9
== END 2022-02-10 10:50 | disposition home or self-care (01) ==
PROVIDERS: Emergency Provider Nurse Practitioner Family; PCP Emergency Medicine
DX: F41.9 Anxiety disorder, unspecified (principal); R53.82 Chronic fatigue, unspecified; I10 Essential (primary) hypertension; E03.9 Hypothyroidism, unspecified; G40.909 Epilepsy, unspecified, not intractable, without status epilepticus; J45.909 Unspecified asthma, uncomplicated; E27.9 Disorder of adrenal gland, unspecified; E66.01 Morbid (severe) obesity due to excess calories; F20.9 Schizophrenia, unspecified; F17.210 Nicotine dependence, cigarettes, uncomplicated; Z79.52 Long term (current) use of systemic steroids; Z79.51 Long term (current) use of inhaled steroids; Z79.899 Other long term (current) drug therapy; Z88.6 Allergy status to analgesic agent; Z88.8 Allergy status to other drugs, medicaments and biological substances; Z68.41 Body mass index [BMI] 40.0-44.9, adult; Z86.711 Personal history of pulmonary embolism
CPT/HCPCS: 87804; 99213; G0463

== ENCOUNTER → 2022-02-18 10:31 | Outpatient (CLI) | payer MEDICARE, MEDICAID, SELFPAY | PROVIDERS: PCP Emergency Medicine; Visit Provider Emergency Medicine | DX: J02.9 Acute pharyngitis, unspecified (principal) | CPT/HCPCS: 87070 ==

== ENCOUNTER → 2022-04-26 13:01 | Outpatient (CLI) | payer MEDICARE, MEDICAID, SELFPAY ==
--- NOTE | 2022-04-26 13:07 | US_ITS ---
FINAL REPORT CLINICAL HISTORY: pelvic pain FINDINGS: Pelvic Ultrasound Technique: Transvaginal and transabdominal sonographic images of the pelvis were obtained. Findings: The uterus measures 8.8 x 5.1 x 4.2 cm. There is a 3.7 x 2.6 cm uterine fibroid. The endometrium measures 7 mm. The right ovary is not identified. The left ovary measures up to 3.9 cm. There is a 2.6 x 1.7 cm hypoechoic area in the left ovary that could represent a mass versus complex cyst. There is no significant free fluid. IMPRESSION: 2.6 cm solid mass versus complex cyst in the left ovary. 3.7 cm uterine fibroid. Right ovary not visualized. Reviewed, Interpreted and Dictated by Gael Ascencio MD Transcribed by Wayne Mccartney Authenticated and [facility]
== END ==
PROVIDERS: PCP Emergency Medicine; Visit Provider Obstetrics & Gynecology
DX: R10.2 Pelvic and perineal pain (principal)
CPT/HCPCS: 76830

== ENCOUNTER → 2022-05-03 06:36 | Outpatient (CLI) | payer MEDICARE, MEDICAID, SELFPAY ==
[2022-05-02 19:20] LABS: Amphetamine/Metha Screen,Urine Negative ng/ml (<1000)
[2022-05-02 19:21] LABS: Barbiturates Screen,Urine Negative ng/ml (<200)
[2022-05-02 19:22] LABS: Benzodiazepines Screen,Urine Negative ng/ml (<200); Cannabinoid Screen,Urine Negative ng/ml (<50)
[2022-05-02 19:23] LABS: Cocaine Screen,Urine Negative ng/ml (<300)
[2022-05-02 19:24] LABS: Methadone Screen,Urine Negative ng/ml (<300); Opiate Screen,Urine Positive ng/ml (<300)
[2022-05-02 19:25] LABS: Phencyclidine Screen,Urine Negative ng/ml (<25)
== END ==
PROVIDERS: PCP Family Medicine; Visit Provider Family Medicine
DX: M25.78 Osteophyte, vertebrae (principal); M51.36 Other intervertebral disc degeneration, lumbar region
CPT/HCPCS: 80305

== ENCOUNTER → 2022-05-04 09:56 | Outpatient (CLI) | payer MEDICARE, MEDICAID, SELFPAY ==
--- NOTE | 2022-05-04 10:02 | XR_ITS ---
FINAL REPORT CLINICAL HISTORY: pain at base of right thumb, no trauma FINDINGS: RIGHT HAND Three views demonstrate no acute fracture. There is no dislocation. There is a chronic fracture of the distal 5th metacarpal. There are mild degenerative changes at the 1st CMC joint. The soft tissues are unremarkable. IMPRESSION: Mild degenerative change of the 1st CMC joint. Reviewed, Interpreted and Dictated by Julian Rico III, MD Transcribed by Kandis García Authenticated and [facility]
== END ==
PROVIDERS: PCP Family Medicine; Visit Provider Family Medicine
DX: M25.541 Pain in joints of right hand; R22.31 Localized swelling, mass and lump, right upper limb
CPT/HCPCS: 73130

== ENCOUNTER → 2022-05-11 08:43 | Outpatient (CLI) | payer MEDICARE, MEDICAID, SELFPAY ==
[2022-05-11 09:48] LABS: Basophils # 0.1 K/mm3 (0-0.2); Basophils % 1.4 % (0.1-2.0); Eosinophils # 0.2 K/mm3 (0.0-0.4); Eosinophils % 1.7 % (0.1-12.0); Hematocrit 38.7 % (37.0-47.0); Hemoglobin 12.8 g/dL (12.2-16.2); Lymphocytes % 29.2 % (10-50); Mean Corpuscular Hemoglobin 32.1 pg (27.0-31.2); Mean Corpuscular Volume 97.2 fl (81-99); Mean Platelet Volume 8.5 fl (7.4-10.4); Monocytes # 0.7 K/mm3 (0.1-1.0); Monocytes % 6.4 % (1.7-9.3); Neutrophils # 6.2 K/mm3 (1.8-7.8); Neutrophils % 61.4 % (37.0-80.0); Platelet Count 212 K/mm3 (142-424); Red Blood Count 3.98 M/mm3 (4.20-5.40); Red Cell Distribution Width 13.6 % (11.5-17.5); White Blood Count 10.2 K/mm3 (4.8-10.8)
[2022-05-11 09:59] LABS: Alanine Aminotransferase 24 U/L (12-78); Albumin Level 3.8 g/dl (3.5-5.0); Albumin/Globulin Ratio 1.5 (1.1-1.8); Alkaline Phosphatase 109 U/L (38-126); Anion Gap 8.1 mEq/L (5-15); Aspartate Amino Transferase 19 U/L (14-36); Bilirubin,Total < 0.1 mg/dl (0.2-1.3); Blood Urea Nitrogen 13 mg/dl (7-17); Calcium 9.3 mg/dl (8.4-10.2); Carbon Dioxide 31 mmol/L (22.0-30.0); Chloride 105 mmol/L (98-107); Chol/HDL Ratio 4.4 (1-3.5); Cholesterol 146 mg/dl (140-200); Estimated Glomerular Filt Rate 60 ml/min (>60); GFR (African American) 73 ML/MIN (>60); Globulin 2.6 g/dL (1.3-3.2); Glucose 82 mg/dl (74-100); HDL Cholesterol 33 mg/dl (40-60); Potassium 4.1 mmoL/L (3.5-5.1); Sodium 140 mmol/L (136-145); Total Protein,Serum 6.4 g/dl (6.3-8.2); Triglycerides 146 mg/dl (30-150); VLDL Cholesterol 29 mg/dL (0-40)
[2022-05-11 10:10] LABS: Direct LDL Cholesterol 84.18 mg/dL (100-129)
[2022-05-11 10:14] LABS: 25-OH Vitamin D, Total 52.7 ng/mL (30-100); Free T4 (Free Thyroxine) 0.98 ng/dl (0.78-2.19)
[2022-05-11 10:15] LABS: T4 (Thyroxine) 6.9 ug/dl (5.53-11.0)
[2022-05-11 10:29] LABS: Thyroid Stimulating Hormone 1.63 uIU/mL (0.465-4.68)
== END ==
PROVIDERS: PCP Emergency Medicine; Visit Provider Family Medicine
DX: D72.829 Elevated white blood cell count, unspecified (principal); F41.9 Anxiety disorder, unspecified; R10.30 Lower abdominal pain, unspecified; E55.9 Vitamin D deficiency, unspecified; E66.9 Obesity, unspecified
CPT/HCPCS: 36415; 80053; 80061; 82306; 84436; 84439; 84443; 85025

== ENCOUNTER 2022-05-27 14:28 | Emergency (ER) | payer MEDICARE, MEDICAID, SELFPAY ==
--- NOTE | 2022-05-27 14:46 | HMH.EDUTC ---
[facility] [place] Disposition Clinical Impression: Viral syndrome Acute bronchitis Qualifiers: Bronchitis organism: other organism Qualified Code(s): J20.8 - Acute bronchitis due to other specified organisms Sinusitis Qualifiers: Sinusitis location: unspecified location Chronicity: acute Recurrence: non-recurrent Qualified Code(s): J01.90 - Acute sinusitis, unspecified Disposition: Home, Self-Care Condition on Discharge: Good Instructions: DI for Sinusitis, DI for Acute Bronchitis Additional Instructions: Drink plenty of fluids. Take tylenol or ibuprofen for pain or fever. Take the medications as directed. Follow up with your regular doctor. GO TO THE ER FOR ANY WORSENING SYMPTOMS Quarantine until you know the results of your covid-19 test. Notify your school or workplace of your results and follow their instructions regarding return to work/school. Prescriptions: Benzonatate [Benzonatate 100mg cap] 100 mg PO TIDP PRN #30 cap PRN Reason: Cough Transmission Status: Received by [facility] Azithromycin [Z-Keyur 250mg Tab*] 250 mg PO UD DOSE PK #6 tab Transmission Status: Received by [facility] Referrals: Pablo Delgado MD [Primary Care Provider] - Forms: Work/School Release Time of Disposition: 16:02 Medical Decision Making - Medical Records Medical records reviewed: No: I reviewed the patient's medical records. - Torres Inquiry Pt receiving controlled substance: No Vital Signs: 05/27/22 14:49 05/27/22 16:08 Temperature 98.4 F 98.4 F Temperature Source Oral Pulse Rate 86 Pulse Rate [Left] 86 Respiratory Rate 16 16 Blood Pressure 103/48 L Blood Pressure [Right Arm] 103/48 L Blood Pressure Mean [Right Arm] 66 02 Sat by Pulse Oximetry 96 - Lab Data Lab results reviewed: Yes: I reviewed the patient's lab results. Lab Results 05/27/22 15:08: Strep Scn Rapid Clinic Negative [facility] [place] HPI - General Stated complaint: Swollen legs with rash, lightheaded Time Seen by Provider: 05/27/22 14:46 - History of Present Illness Provider Complaint: She states that for the past 2 days she has had sinus congestion, chest congestion, productive cough with greenish sputum, sore throat, and she has had periods of being light headed and she has had trouble remembering things at times. Both her legs have been swollen more than normal too. She has a history of leg swelling and she takes a diuretic for it. - Related Data Previous Rx's Medication Instructions Recorded Lidocaine [Lidocaine 5% patch] 1 patch TP Q12H PRN #3 patch 12/26/21 diclofenac sodium 1 % topical gel 4 g TOPICAL QID 30 Days #100 g 01/10/22 hydrochlorothiazide 12.5 mg capsule 12.5 mg PO Q OTHER DAY #90 cap 01/13/22 aripiprazole 10 mg tablet 10 mg PO DAILY #30 tab 01/25/22 hydrOXYzine pamoate [Vistaril] 25 mg PO Q6HP PRN #20 cap 02/10/22 albuterol sulfate 90 mcg/actuation See Rx Instructions .ROUTE 04/04/22 aerosol inhaler .COMPLEX #8.5 g budesonide-formoterol HFA 160 See Rx Instructions .ROUTE 04/04/22 mcg-4.5 mcg/actuation aerosol .COMPLEX #10.2 g inhaler furosemide 20 mg tablet 20 mg PO DAILY PRN #30 tab 04/04/22 levothyroxine 25 mcg tablet See Rx Instructions .ROUTE 04/19/22 .COMPLEX #90 tab gabapentin 400 mg capsule 400 mg PO TID #90 cap 04/25/22 hydrocodone 5 mg-acetaminophen 325 1 tab PO TID PRN #90 tab 04/25/22 mg tablet vilazodone 10 mg tablet See Rx Instructions .ROUTE 04/29/22 .COMPLEX #30 tab lisinopril 10 See Rx Instructions .ROUTE 05/02/22 mg-hydrochlorothiazide 12.5 mg .COMPLEX #90 tablet tablet potassium chloride 10 mEq 10 meq PO DAILY #30 cap 05/12/22 capsule,extended release Azithromycin [Z-Keyur 250mg Tab*] 250 mg PO UD DOSE PK #6 tab 05/27/22 Benzonatate [Benzonatate 100mg 100 mg PO TIDP PRN #30 cap 05/27/22 cap] Allergies Allergy/AdvReac Type Severity Reaction Status Date / Time ibuprofen [IBUPROFEN] Allergy Unknown Hives Verified 05/27/22 14:53 naproxen
[2022-05-27 14:49] VITALS: BP 103/48; PULSE 86; RESP 16; TEMP 36.9; O2SAT 96; BMI 44.6
--- NOTE | 2022-05-27 14:59 | XR_ITS ---
FINAL REPORT CLINICAL HISTORY: cough, congestion COMPARISON: December 26, 2021 FINDINGS: Two views of the chest were obtained. The heart size and pulmonary vascularity are within normal limits. The mediastinum is normal. No acute pulmonary abnormality is identified. There is no pneumothorax. The bony thorax is intact. IMPRESSION: No active cardiopulmonary disease. Reviewed, Interpreted and Dictated by Julian Rico III, MD Transcribed by Kandis García Authenticated and [facility]
[2022-05-27 15:09] LABS: UTC Strep Screen (Rapid) Negative (Negative)
[2022-05-27 16:08] VITALS: BP 103/48; PULSE 86; RESP 16; TEMP 36.9
== END 2022-05-27 16:09 | disposition home or self-care (01) ==
PROVIDERS: Emergency Provider Nurse Practitioner Family; PCP Emergency Medicine
DX: J02.8 Acute pharyngitis due to other specified organisms (principal); J01.90 Acute sinusitis, unspecified; J02.9 Acute pharyngitis, unspecified; R42 Dizziness and giddiness; R21 Rash and other nonspecific skin eruption; I10 Essential (primary) hypertension; K75.9 Inflammatory liver disease, unspecified; E03.9 Hypothyroidism, unspecified; J98.4 Other disorders of lung; D35.00 Benign neoplasm of unspecified adrenal gland; G40.909 Epilepsy, unspecified, not intractable, without status epilepticus; E66.01 Morbid (severe) obesity due to excess calories; F20.9 Schizophrenia, unspecified; F19.11 Other psychoactive substance abuse, in remission; F17.290 Nicotine dependence, other tobacco product, uncomplicated; Z79.51 Long term (current) use of inhaled steroids; Z79.899 Other long term (current) drug therapy; Z88.6 Allergy status to analgesic agent; Z86.711 Personal history of pulmonary embolism; Z68.41 Body mass index [BMI] 40.0-44.9, adult; Z80.9 Family history of malignant neoplasm, unspecified
CPT/HCPCS: 71046; 87880; 99213; G0463

== ENCOUNTER 2022-06-11 08:36 | Emergency (ER) | payer MEDICARE, MEDICAID, SELFPAY ==
--- NOTE | 2022-06-11 08:36 | ECG_ITS ---
APPROVED REPORT Exam: Resting ECG HR:70 bpm ECG Measurements Heart Rate 70 AXES NM 213 P 59 QRSd 78 QRS 50 QT 349 T 52 QTc 370 Conclusion SINUS RHYTHM WITH FIRST DEGREE AV BLOCK LOW QRS VOLTAGE IN PRECORDIAL LEADS [QRS DEFLECTION < 1.0 mV IN CHEST LEADS] ABNORMAL ECG UNCONFIRMED REPORT Electronically signed by : Chris Abebe MD 06/13/2022 20:13:33
[2022-06-11 08:41] VITALS: BP 94/52; PULSE 71; RESP 16; TEMP 36.6; O2SAT 94; BMI 42.9
[2022-06-11 08:42] VITALS: BMI 42.9
--- NOTE | 2022-06-11 08:43 | XR_ITS ---
PROCEDURE INFORMATION: Exam: XR Chest Exam date and time: 06/11/2022 9:10 AM Age: 42 years old Clinical indication: Chest wall pain; Additional info: Epigastric /chest pain TECHNIQUE: Imaging protocol: Radiologic exam of the chest. Views: 1 view. COMPARISON: CR XR CHEST 2V 05/27/2022 3:00 PM FINDINGS: Lungs: No focal airspace disease. Pleural spaces: Unremarkable. No pleural effusion. No pneumothorax. Heart/Mediastinum: Cardiomediastinal silhouette is within normal limits. Bones/joints: Unremarkable. IMPRESSION: No acute cardiopulmonary abnormality.
--- NOTE | 2022-06-11 08:52 | HMH.EDCP ---
Discharge Plan Disposition Patient Disposition: Home, Self-Care Condition: Good Chief Complaint: Chest Pain Prescriptions Prescriptions: No Action aripiprazole 10 mg tablet 10 mg PO DAILY Qty: 30 1RF Rx Instructions: 10 mg PO daily; albuterol sulfate 90 mcg/actuation HFA aerosol inhaler See Rx Instructions .ROUTE .COMPLEX Qty: 8.5 10RF Dose Instruction: INHALE 2 PUFFS BY MOUTH EVERY 4-6 HOURS NEEDED * SHAKE WELL BEFORE USE * Rx Instructions: INHALE 2 PUFFS BY MOUTH EVERY 4-6 HOURS NEEDED * SHAKE WELL BEFORE USE * budesonide-formoterol [Symbicort] 160-4.5 mcg/actuation HFA aerosol inhaler See Rx Instructions .ROUTE .COMPLEX Qty: 10.2 10RF Dose Instruction: INHALE 2 puffs BY MOUTH TWICE DAILY FOR ASTHMA --RINSE MOUTH AFTER USE-- Rx Instructions: INHALE 2 puffs BY MOUTH TWICE DAILY FOR ASTHMA --RINSE MOUTH AFTER USE-- furosemide [Lasix] 20 mg tablet 20 mg PO DAILY PRN (Reason: edema) Qty: 30 2RF Rx Instructions: use when needed for swelling hydrocodone-acetaminophen 5-325 mg tablet 1 tab PO TID PRN (Reason: pain) Qty: 90 0RF gabapentin 400 mg capsule 400 mg PO TID Qty: 90 1RF diclofenac sodium 1 % gel 4 g TOPICAL QID 30 Days Qty: 100 0RF Rx Instructions: apply to single elbow, wrist or hand; for hand includes palm/fingers/back of hand lisinopril-hydrochlorothiazide 10-12.5 mg tablet See Rx Instructions .ROUTE .COMPLEX Qty: 90 3RF Dose Instruction: TAKE ONE TABLET BY MOUTH EVERY DAY FOR high blood pressure Rx Instructions: TAKE ONE TABLET BY MOUTH EVERY DAY FOR high blood pressure hydrochlorothiazide 12.5 mg capsule 12.5 mg PO Q OTHER DAY Qty: 90 2RF levothyroxine 25 mcg tablet See Rx Instructions .ROUTE .COMPLEX Qty: 90 0RF Dose Instruction: TAKE ONE TABLET BY MOUTH EVERY DAY Rx Instructions: TAKE ONE TABLET BY MOUTH EVERY DAY vilazodone 10 mg tablet See Rx Instructions .ROUTE .COMPLEX Qty: 30 1RF Dose Instruction: TAKE ONE TABLET BY MOUTH EVERY DAY --take with a meal/food-- Rx Instructions: TAKE ONE TABLET BY MOUTH EVERY DAY --take with a meal/food-- potassium chloride 10 mEq capsule, extended release 10 meq PO DAILY Qty: 30 3RF hydroxyzine pamoate 25 MG capsule 25 mg PO Q6HP PRN (Reason: Anxiety) Qty: 20 0RF lidocaine 0.05 MG/MG adhesive patch,medicated 1 patch TP Q12H PRN (Reason: back pain) Qty: 3 0RF Rx Instructions: apply one patch at a time, do not place multiple patches at same time azithromycin 250 MG tablet 250 mg PO UD DOSE PK Qty: 6 0RF Rx Instructions: Take two (2) tablets today, then one (1) tablet days #2 thru #5 benzonatate 100 MG capsule 100 mg PO TIDP PRN (Reason: Cough) Qty: 30 0RF Referrals Follow up/Referrals: Pablo Delgado MD [Primary Care Provider] - 3 days Activity Restrictions/Add. Instructions Additional Instructions/Restrictions: follow up PCP in next 3-5 days, return for worse Clinical Impressions Clinical Impression: Acute pancreatitis, Atypical chest pain Stand Alone Forms Stand Alone Forms: Work/School Release Instructions Patient Instructions: DI for Atypical Chest Pain, Acute Pancreatitis Discharge ED Provider: Jorge Thomason Chest Pain HPI General Chief Complaint: Chest Pain Stated Complaint: CHEST PAIN Time Seen by Provider: 06/11/22 08:52 Mode of Arrival: Ambulatory Source of Information: Patient Limitations: No Limitations Description of Symptoms (Recalled from ER Triage Doc. by RN): to ed per pvt car with c/o intermittent pressure type chest pain radiating into back with sob starting at 7:30 this am. states episodes last approx a few minutes and subsides. c/o nausea. pt points to epigastric area and radiates up into chest. History of Present Illness HPI narrative: chest pressure brief, intermittent, assoc with soa, this am, resolved now, recent abx for throat/chest
[2022-06-11 08:55] LABS: Basophils # 0.2 K/mm3 (0-0.2); Basophils % 1.8 % (0.1-2.0); Eosinophils # 0.2 K/mm3 (0.0-0.4); Eosinophils % 1.7 % (0.1-12.0); Hematocrit 38.4 % (37.0-47.0); Hemoglobin 12.7 g/dL (12.2-16.2); Lymphocytes % 33.3 % (10-50); Mean Corpuscular Hemoglobin 31.5 pg (27.0-31.2); Mean Corpuscular Volume 95.4 fl (81-99); Mean Platelet Volume 8.8 fl (7.4-10.4); Monocytes # 0.6 K/mm3 (0.1-1.0); Monocytes % 6.4 % (1.7-9.3); Neutrophils # 5.2 K/mm3 (1.8-7.8); Neutrophils % 56.9 % (37.0-80.0); Platelet Count 237 K/mm3 (142-424); Red Blood Count 4.03 M/mm3 (4.20-5.40); Red Cell Distribution Width 13.5 % (11.5-17.5); White Blood Count 9.1 K/mm3 (4.8-10.8)
[2022-06-11 09:00] VITALS: BP 109/78; PULSE 67; RESP 15; O2SAT 100
[2022-06-11 09:06] LABS: Lipase 434 U/L (23-300)
[2022-06-11 09:11] LABS: Alanine Aminotransferase 39 U/L (12-78); Albumin Level 3.9 g/dl (3.5-5.0); Alkaline Phosphatase 92 U/L (38-126); Aspartate Amino Transferase 54 U/L (14-36); Bilirubin,Direct 0.6 mg/dl (0.0-0.4); Bilirubin,Indirect 0.3 mg/dL (0.0-0.9); Bilirubin,Total 0.9 mg/dl (0.2-1.3); Bilirubin,Unconjugated 0.3 mg/dL (0.0-1.1); Total Protein,Serum 7.1 g/dl (6.3-8.2)
[2022-06-11 09:13] LABS: Anion Gap 10.6 mEq/L (5-15); Blood Urea Nitrogen 11 mg/dl (7-17); Carbon Dioxide 28 mmol/L (22.0-30.0); Chloride 102 mmol/L (98-107); Creatinine Clearance Estimated 69 mL/min (50-200); Estimated Glomerular Filt Rate 68 ml/min (>60); GFR (African American) 82 ML/MIN (>60); Glucose 94 mg/dl (74-100); Potassium 4.6 mmoL/L (3.5-5.1); Sodium 136 mmol/L (136-145)
[2022-06-11 09:25] LABS: Troponin I < 0.01 ng/ml (0.00-0.034)
--- NOTE | 2022-06-11 09:46 | CT_ITS ---
PROCEDURE INFORMATION: Exam: CT Abdomen And Pelvis With Contrast Exam date and time: 06/11/2022 10:07 AM Age: 42 years old Clinical indication: Abdominal pain; Epigastric; Additional info: Abd pain, pancreatitis TECHNIQUE: Imaging protocol: Computed tomography of the abdomen and pelvis with contrast. Radiation optimization: All CT scans at this facility use at least one of these dose optimization techniques: automated exposure control; mA and/or kV adjustment per patient size (includes targeted exams where dose is matched to clinical indication); or iterative reconstruction. Contrast material: ISOVUE; Contrast volume: 75 ml; Contrast route: IV; COMPARISON: CT ABDOMEN PELVIS W CON 09/24/2021 9:29 AM FINDINGS: Tubes, catheters and devices: Fallopian tube occlusion devices are seen. Lungs: Two nodules are seen in the left lower lobe measuring up to 8 mm, unchanged from 2018. Liver: Hepatic steatosis. Gallbladder and bile ducts: Cholecystectomy. Pancreas: Normal. No ductal dilation. Spleen: Normal. No splenomegaly. Adrenal glands: Normal. No mass. Kidneys and ureters: Normal. No hydronephrosis. Stomach and bowel: Unremarkable. No obstruction. No mucosal thickening. Appendix: No evidence of appendicitis. Intraperitoneal space: Unremarkable. No free air. No significant fluid collection. Vasculature: Unremarkable. No abdominal aortic aneurysm. Lymph nodes: Unremarkable. No enlarged lymph nodes. Urinary bladder: Unremarkable as visualized. Reproductive: Unremarkable as visualized. Bones/joints: Remote right rib fracture. Soft tissues: Unremarkable. IMPRESSION: No acute findings. The pancreas appears unremarkable.
[2022-06-11 10:00] VITALS: BP 110/61; PULSE 71; RESP 16; O2SAT 99
[2022-06-11 10:30] VITALS: BP 109/69; PULSE 72; RESP 17; O2SAT 99
--- NOTE | 2022-06-11 10:49 | PC.NURSE ---
2ND TROP SENT TO LAB , DR IRVING SAID GO AHEAD AND RUN EARLY
[2022-06-11 11:00] VITALS: BP 113/64; PULSE 67; RESP 17; O2SAT 100
[2022-06-11 11:21] LABS: Troponin I < 0.01 ng/ml (0.00-0.034)
[2022-06-11 12:01] VITALS: BP 135/74; PULSE 78; RESP 16; TEMP 36.6; O2SAT 98
== END 2022-06-11 12:03 | disposition home or self-care (01) ==
PROVIDERS: Emergency Provider Emergency Medicine; PCP Emergency Medicine
DX: K85.90 Acute pancreatitis without necrosis or infection, unspecified (principal); R07.9 Chest pain, unspecified; Z79.899 Other long term (current) drug therapy; Z88.6 Allergy status to analgesic agent; Z72.0 Tobacco use; F11.11 Opioid abuse, in remission; G43.909 Migraine, unspecified, not intractable, without status migrainosus; B19.20 Unspecified viral hepatitis C without hepatic coma; F20.9 Schizophrenia, unspecified; J45.909 Unspecified asthma, uncomplicated; E03.9 Hypothyroidism, unspecified
CPT/HCPCS: 71045; 74177; 80048; 80076; 83690; 84484; 85025; 85378; 93005; 96365; 96375; 99285; J2405; Q9967

== ENCOUNTER → 2022-06-27 10:19 | Outpatient (CLI) | payer MEDICARE, MEDICAID, SELFPAY ==
--- NOTE | 2022-06-27 10:20 | CA_ITS ---
APPROVED REPORT EXAM: Comprehensive 2D, Doppler, and color-flow Echocardiogram Landscape Crew Leader: Kalina Burgos CRT Ht: 5 ft 4 in Wt: 263lbs BSA: 2.20 BP: 104/66 mmHg Indications: Obesity, Peripheral Edema, smoker 2D Dimensions LVOT 2.03 cm (M/F) 1.5-2.5 LA Volume 26.50 mL LA Volume Index 12.00 mL/m2 (M/F) 16-34 M-Mode Dimensions RVDd 2.52 cm (0.9-2.6) LA Diam 3.34 cm (1.9-4.0) LVDd 4.49 cm (3.5-5.7) Ao Diam 3.37 cm (2.0-3.7) LVDs 2.65 cm (3.5-5.7) IVSd 1.17 cm (0.6-1.1) PWd 0.80 cm (0.6-1.1) EF (Teich) 72.00% FS 41.00% EDV (Teich) 92.00 mL TAPSE 1.97 (<1.7) ESV (Teich) 25.80 mL LV Diastology E Decel Time 207.00 (160-240 msec) E/A Ratio 1.19 MED E' 6.00 (< 7 cm/sec) MED A' 8.40 cm/s E'/MED E' Ratio 18.05 (>14) LAT E' 12.30 (<10 cm/sec) LAT A' 13.60 cm/s E/LAT E' Ratio 8.80 (>14) Aortic Valve AO Peak GR. 6.60 mmHg Mitral Valve MV E Max Cricket. 108.00 (40-130 cm/s) MV A Velocity 91.00 (40-130 cm/s) E/A Ratio 1.19 MV Decel. Time 207.00 (160-240 ms) MV PHT 61.00 ms Pulmonary Valve PV Peak Velocity 105.00 (50-150 cm/s) Tricuspid Valve TR P. Velocity 258.00 cm/s RAP Estimate 10.00 mmHg RVSP 36.60 mmHg Left Ventricle Technically difficult study because of the patient factors and poor acoustic windows. Left atrium is mildly enlarged, left ventricle is normal size mild concentric left ventricular hypertrophy, estimated ejection fraction 55% with no regional wall motion abnormality, diastolic parameters are inconclusive. Right Ventricle Right atrium and right ventricle are mildly enlarged with normal contractility. Aortic Valve Aortic valve is minimally thickened and fibrosed there is no aortic stenosis or aortic insufficiency. Mitral Valve Mitral valve leaflets are minimally thickened, there is mild mitral regurgitation. Tricuspid Valve Tricuspid valve grossly normal, there is mild tricuspid regurgitation, calculated right ventricular systolic pressure 37 mmHg. Pulmonic Valve Pulmonic valve is poorly visualized. Great Vessels Aortic root is normal size. Inferior vena cava is poorly visualized. Pericardium No significant pericardial effusion noted. Conclusion 1. Biatrial enlargement, normal left ventricular size, mild concentric left ventricular hypertrophy, estimated ejection fraction 55% with no regional wall motion abnormality, diastolic parameters are inconclusive. 2. Mildly enlarged right ventricle with normal contractility. 3. Mild mitral and tricuspid regurgitation, calculated right ventricular systolic pressure 37 mmHg. 4. No significant pericardial effusion noted. 5. Inferior vena cava is poorly visualized. Electronically signed by : Jersey Cooley MD 06/27/2022 21:29:39
== END ==
PROVIDERS: PCP Emergency Medicine; Visit Provider Family Medicine
DX: I11.9 Hypertensive heart disease without heart failure (principal); R60.0 Localized edema
CPT/HCPCS: 93306

== ENCOUNTER → 2022-07-30 09:48 | Outpatient (CLI) | payer MEDICARE, MEDICAID, SELFPAY ==
--- NOTE | 2022-07-30 09:58 | XR_ITS ---
PROCEDURE INFORMATION: Exam: XR Left Foot Exam date and time: 07/30/2022 10:00 AM Age: 42 years old Clinical indication: Pain; Foot; Left TECHNIQUE: Imaging protocol: Radiologic exam of the Left foot. Views: 1 or 2 views. COMPARISON: CR XR FOOT LT MIN 3V 09/05/2021 12:29 PM FINDINGS: Bones/joints: Hallux valgus deformity of the great toe. There is no evidence of acute fracture.There is no evidence of malalignment or dislocation. Calcaneal spur.. Soft tissues: Normal. IMPRESSION: 1. Hallux valgus deformity of the great toe. 2. There is no evidence of acute fracture.There is no evidence of malalignment or dislocation. 3. Calcaneal spur..
== END ==
PROVIDERS: PCP Family Medicine; Visit Provider Family Medicine
DX: M79.672 Pain in left foot; R60.0 Localized edema
CPT/HCPCS: 73620

== ENCOUNTER → 2022-08-03 09:51 | Outpatient (CLI) | payer MEDICARE, MEDICAID, SELFPAY ==
[2022-08-03 10:29] LABS: Basophils # 0.2 K/mm3 (0-0.2); Basophils % 1.7 % (0.1-2.0); Eosinophils # 0.1 K/mm3 (0.0-0.4); Eosinophils % 1.2 % (0.1-12.0); Hematocrit 38.5 % (37.0-47.0); Hemoglobin 12.5 g/dL (12.2-16.2); Lymphocytes # 3.1 K/mm3 (0.7-4.5); Lymphocytes % 28.9 % (10-50); Mean Corpuscular HGB Conc 32.6 g/dL (31.8-35.4); Mean Corpuscular Hemoglobin 31.4 pg (27.0-31.2); Mean Corpuscular Volume 96.2 fl (81-99); Mean Platelet Volume 8.9 fl (7.4-10.4); Monocytes # 0.5 K/mm3 (0.1-1.0); Monocytes % 4.4 % (1.7-9.3); Neutrophils # 6.7 K/mm3 (1.8-7.8); Neutrophils % 63.9 % (37.0-80.0); Platelet Count 188 K/mm3 (142-424); White Blood Count 10.5 K/mm3 (4.8-10.8)
[2022-08-03 10:54] LABS: Chloride 100 mmol/L (98-107); Potassium 3.9 mmoL/L (3.5-5.1); Sodium 141 mmol/L (136-145)
[2022-08-03 10:56] LABS: Blood Urea Nitrogen 19 mg/dl (7-17)
[2022-08-03 10:57] LABS: Alanine Aminotransferase 23 U/L (12-78); Albumin Level 4.1 g/dl (3.5-5.0); Albumin/Globulin Ratio 1.5 (1.1-1.8); Alkaline Phosphatase 105 U/L (38-126); Anion Gap 13.9 mEq/L (5-15); Aspartate Amino Transferase 21 U/L (14-36); Bilirubin,Total 0.2 mg/dl (0.2-1.3); Carbon Dioxide 31 mmol/L (22.0-30.0); Estimated Glomerular Filt Rate 54 ml/min (>60); GFR (African American) 65 ML/MIN (>60); Globulin 2.7 g/dL (1.3-3.2); Total Protein,Serum 6.8 g/dl (6.3-8.2)
[2022-08-03 10:58] LABS: Calcium 8.8 mg/dl (8.4-10.2); Glucose 79 mg/dl (74-100)
[2022-08-03 11:37] LABS: HCG,Quantitative < 2 mIU/ml (0-5.42)
== END ==
PROVIDERS: PCP Family Medicine; Visit Provider Obstetrics & Gynecology
DX: N92.0 Excessive and frequent menstruation with regular cycle (principal); R10.2 Pelvic and perineal pain
CPT/HCPCS: 36415; 80053; 84702; 85025

== ENCOUNTER 2022-08-05 05:37 | Day surgery (SDC) | payer MEDICARE, MEDICAID, SELFPAY ==
[2022-08-03 15:19] VITALS: BMI 42.9
[2022-08-05] VITALS (16 sets, daily range): BP systolic 116–139; BP diastolic 62–95; PULSE 76–90; RESP 12–20; TEMP 36.1–43; O2SAT 94–100
--- NOTE | 2022-08-05 07:56 | EXP.ANES.CKL ---
PFSH PFS Medical History Acute bronchitis Allergies Asthma Bipolar 1 disorder Cancer of kidney Carpal tunnel syndrome Depression Dysphagia Enlarged tonsils Hepatitis C History of COVID-19 History of gastroesophageal reflux (GERD) History of syncope Hypertension Hypothyroid Migraine Rash Schizophrenia Seizure disorder Sleep apnea Urinary tract infection Surgical History History of History of hernia repair History of tubal ligation Hx of appendectomy Family History Grandmother Stomach cancer Mother Brain cancer Sister Throat cancer Father Family history of hyperlipidemia Social History Smoking Status: Current some day smoker tobacco type: e-cigarettes second hand exposure: No alcohol intake: never substance use type: former substance user and heroin current occupational status: retired Travel in the last 8 weeks: None adopted: Yes household members: children housing: house number of children: 3 current occupational exposures/hazards: No caffeine: Yes [facility] Anesthesia Checklist Patient Identification Patient Identification: Arm Band and Verbal (Name & ) Structural Data Admitted From: Home Planned Operative Procedure/s: D&C Consent for Planned Operative Procedure(s) Verified: Yes Verified Documents: Surgical Consent NPO Status Verified Time NPO: 00:00 Chart Verification Results Verified: CBC, BMP and HCG Additional verifications Anesthesia Reactions: No Hx Blood Transfusions: No Blood Transfusion Reaction: No Airway Assessment C-Spine Mobility Assessed: Yes Dentition: Edentulous Neurological Assessment Level of Consciousness: Awake, Alert and Appropriate Anesthesia Plan Anesthesia Risk discussed: Yes ASA Class: III Anesthesia Type: General
--- NOTE | 2022-08-05 08:25 | EXP.ANES.I ---
[facility] Anesthesia Record Part I Anesthesia Record I Intake, IV Amount: 300 Estimated blood loss (mL): 2 Urine output (mL): 0 Blood Pressure: 136/88 SaO2: 95 Pulse Rate: 79 Respiratory Rate: 12 Temperature: 97.0 F Patient is:: Drowsy Stable to PACU at:: 08:23
--- NOTE | 2022-08-05 09:15 | SUR.PHASEI ---
09- detailed report called to bernice yan in post op 0904- pt ransported to post op with bed in lowest position, side rails up and left in stable condition with bernice yan.
--- NOTE | 2022-08-05 10:32 | P.OP_ITS ---
Date of procedure: 08/05/22 Pre-op Diagnosis:: 1. Heavy Menstrual Bleeding 2. Severe Dysmenorrhea 3. Uterine Fibroid 4. Previous tubal ligation Post-op Diagnosis:: Same Procedure performed:: 1. D&C Hysteroscopy with submucosal fibroid resection via Myosure 2. Novasure Endometrial Ablation Surgeon:: Lamar Knox MD [employer] CONSULTANT:: Odilon Castano Anesthesia: GETA Estimated blood loss (mL): 5 Operative findings:: Diffusely proliferative endometrium Anterior cavity lesion c/w submucodal fibroid Operative note:: The patient was taken to the operating room and general anesthesia was administered. She was prepped/draped in lithotomy position. The anterior lip of the cervix was grasped with a single tooth tenaculum and the cervix was dilated with Sarmiento dilators of serially increasing size until the external os was able to accomodate the hysteroscope. The hysteroscope was advanced through the cervix and into the uterine cavity, which was distended with LR. Once the uterus was sufficiently distended, the cavity was evaluated and revealed diffusely proliferative endometrium throughout the cavity, and a lesion on anterior cavity wall consisent with a submucosal fibroid. The Myosure was inserted into the hysteroscope and the fibroid was resected. The remainder of the cavity was sampled for tissue diagnosis. This was performed without complication or significant fluid deficit. After the conclusion of this proce dure, the Myosure and hysteroscope were removed from the uterus. The uterine cavity sounded to a length of 6cm, excluding the cervix. The Novasure was inserted through the cervix and expanded to fit the width of the uterus, with a width of 4.2cm. After a successful cavity assessment, the device was deployed and the endometrial ablation was completed in 84 seconds. Once the device had turned off, the Novasure was removed from the uterus and the hysteroscope was reinserted into the uterine cavity. The cavity appeared diffusely cauterized. The hysteroscope was removed from the uterus and all instruments removed from the vagina. The tenaculum site was hemostatic. All sponge/lap/needle/instrument counts correct x2. Total EBL: 5 cc. The patient was taken out of lithotomy position, extubated and taken to the PACU in stable condition. Condition: stable Disposition: PACU Specimens:: Endometrial Complications:: None
== END 2022-08-05 09:36 | disposition home or self-care (01) ==
PROVIDERS: PCP Family Medicine; Visit Provider Obstetrics & Gynecology
DX: N92.0 Excessive and frequent menstruation with regular cycle (principal); N94.6 Dysmenorrhea, unspecified; D25.9 Leiomyoma of uterus, unspecified; Z98.51 Tubal ligation status; Z72.0 Tobacco use; Z79.899 Other long term (current) drug therapy
CPT/HCPCS: 58561; 58563; 96374; J2405

== ENCOUNTER → 2022-08-22 09:48 | Outpatient (CLI) | payer MEDICARE, MEDICAID, SELFPAY ==
[2022-08-22 09:55] LABS: MANUAL DIFFERENTIAL MANUAL DIFFERENTIAL (MANUAL DIFF)
[2022-08-22 10:51] LABS: Urine Pregnancy, HCG Qual. Negative (Negative)
[2022-08-22 11:13] LABS: Eosinophils % 1 % (0-3); Lymphocytes % 33 % (10-50); Monocytes % 7 % (2-9); Neutrophils % 59 % (42-76); Total Cells Counted 100
[2022-08-22 11:14] LABS: Alanine Aminotransferase 18 U/L (12-78); Albumin/Globulin Ratio 1.5 (1.1-1.8); Alkaline Phosphatase 146 U/L (38-126); Anion Gap 13.7 mEq/L (5-15); Aspartate Amino Transferase 18 U/L (14-36); Bilirubin,Total 0.5 mg/dl (0.2-1.3); Blood Urea Nitrogen 15 mg/dl (7-17); Calcium 9.8 mg/dl (8.4-10.2); Carbon Dioxide 30 mmol/L (22.0-30.0); Chloride 102 mmol/L (98-107); Estimated Glomerular Filt Rate 60 ml/min (>60); GFR (African American) 73 ML/MIN (>60); Globulin 2.7 g/dL (1.3-3.2); Glucose 85 mg/dl (74-100); Platelet Estimate Normal; Potassium 4.7 mmoL/L (3.5-5.1); RBC Morphology KN; Sodium 141 mmol/L (136-145); Total Protein,Serum 6.7 g/dl (6.3-8.2)
[2022-08-22 11:15] LABS: Basophils # 0.2 K/mm3 (0-0.2); Basophils % 1.5 % (0.1-2.0); Eosinophils # 0.2 K/mm3 (0.0-0.4); Eosinophils % 1.9 % (0.1-12.0); Hematocrit 38.2 % (37.0-47.0); Hemoglobin 12.5 g/dL (12.2-16.2); Lymphocytes # 3.3 K/mm3 (0.7-4.5); Lymphocytes % 32.7 % (10-50); Mean Corpuscular HGB Conc 32.8 g/dL (31.8-35.4); Mean Corpuscular Volume 94.6 fl (81-99); Mean Platelet Volume 8.5 fl (7.4-10.4); Monocytes # 0.4 K/mm3 (0.1-1.0); Monocytes % 4.3 % (1.7-9.3); Neutrophils % 59.6 % (37.0-80.0); Platelet Count 215 K/mm3 (142-424); Red Blood Count 4.04 M/mm3 (4.20-5.40); White Blood Count 10.1 K/mm3 (4.8-10.8)
== END ==
PROVIDERS: PCP Family Medicine; Visit Provider Otolaryngology
DX: J35.1 Hypertrophy of tonsils (principal); R13.10 Dysphagia, unspecified
CPT/HCPCS: 36415; 80053; 81025; 85007; 85014; 85018; 85048; 85049

== ENCOUNTER → 2022-10-13 06:08 | Outpatient (CLI) | payer MEDICARE, MEDICAID, SELFPAY ==
[2022-10-13 07:47] LABS: Blood Urea Nitrogen 18 mg/dl (7-17); Estimated Glomerular Filt Rate 49 ml/min (>60); GFR (African American) 59 ML/MIN (>60)
--- NOTE | 2022-10-13 09:30 | CT_ITS ---
FINAL REPORT CLINICAL HISTORY: ANEMIA,LUNG NODULES PATIENT STATES THAT SHE HAD A LEFT RETROPERITONEAL MASS OF LT. ADRENAL GLAD COMPARISON: May 2022 FINDINGS: Technique: The patient was injected with intravenous contrast. Oral contrast was administered. Axial images through the abdomen and pelvis were performed. This study was performed with techniques to keep radiation doses as low as reasonably achievable (ALARA). Individualized dose reduction techniques using automated exposure control or adjustment of mA and/or kV according to the patient's size were employed. Abdomen: The liver is normal in size and attenuation. The gallbladder is surgically absent. The spleen is unremarkable. The adrenals are normal. The pancreas is unremarkable. The kidneys enhance appropriately. The aorta is normal in caliber. There is no free fluid or adenopathy. There is a small umbilical hernia containing fat. Pelvis: The appendix is not identified. The urinary bladder is unremarkable. There is no free fluid or adenopathy. There is a 26 mm probable cyst in the left ovary. IMPRESSION: 26 mm left ovarian cyst. Small umbilical hernia containing fat. Reviewed, Interpreted and Dictated by Julian Rico III, MD Transcribed by Wayne Mccartney Authenticated and [facility]
--- NOTE | 2022-10-13 09:30 | CT_ITS ---
FINAL REPORT TECHNIQUE: After the administration of intravenous contrast, axial images through the chest were performed by computed tomography.This study was performed with techniques to keep radiation doses as low as reasonably achievable, (ALARA). Individualized dose reduction techniques using automated exposure control or adjustment of mA and/or kV according to the patient''s size were employed. CLINICAL HISTORY: ANEMIA,LUNG NODULES PATIENT STATES THAT SHE HAD A LEFT RETROPERITONEAL MASS OF LT. ADRENAL GLAD COMPARISON: September 2021 FINDINGS: There is no axillary adenopathy. There are multiple borderline size mediastinal and hilar lymph nodes. The heart size is normal. There is no pericardial or pleural effusion. There is mild atelectasis. There are numerous small nodules throughout both lungs most of which measure less than 5 mm. Largest nodule is in the left lung base with a central calcification. Other nodules also have central calcifications. All nodules are stable as compared to prior. There is no new mass or pulmonary nodule. IMPRESSION: Multiple stable pulmonary nodules many of which have central calcification. Reviewed, Interpreted and Dictated by Julian Rico III, MD Transcribed by Wayne Mccartney Authenticated and [facility]
== END ==
PROVIDERS: PCP Family Medicine; Visit Provider Internal Medicine Medical Oncology
DX: R91.8 Other nonspecific abnormal finding of lung field (principal); D64.9 Anemia, unspecified
CPT/HCPCS: 36415; 71260; 74177; 82565; 84520; Q9967

== ENCOUNTER → 2022-10-31 10:20 | Outpatient (CLI) | payer MEDICARE, MEDICAID, SELFPAY ==
[2022-10-31 16:46] LABS: Amphetamine/Metha Screen,Urine Negative ng/ml (<1000)
[2022-10-31 16:47] LABS: Barbiturates Screen,Urine Negative ng/ml (<200)
[2022-10-31 16:48] LABS: Benzodiazepines Screen,Urine Negative ng/ml (<200)
[2022-10-31 16:50] LABS: Cannabinoid Screen,Urine Negative ng/ml (<50)
[2022-10-31 16:51] LABS: Cocaine Screen,Urine Negative ng/ml (<300); Methadone Screen,Urine Negative ng/ml (<300)
[2022-10-31 16:53] LABS: Opiate Screen,Urine Negative ng/ml (<300)
[2022-10-31 16:54] LABS: Phencyclidine Screen,Urine Negative ng/ml (<25)
== END ==
PROVIDERS: PCP Family Medicine; Visit Provider Family Medicine
DX: M25.78 Osteophyte, vertebrae (principal); M51.36 Other intervertebral disc degeneration, lumbar region
CPT/HCPCS: 80305

== ENCOUNTER 2022-11-12 14:10 | Emergency (ER) | payer MEDICARE, MEDICAID, SELFPAY ==
[2022-11-12 15:30] VITALS: BP 121/88; PULSE 107; RESP 20; TEMP 36.7; O2SAT 99; BMI 44.6
--- NOTE | 2022-11-12 15:37 | EXP.UTC ---
Discharge Plan Disposition Patient Disposition: Home, Self-Care Condition: Good Prescriptions Prescriptions: New amoxicillin [amoxicillin] 875 mg tablet 875 mg PO Q12H Qty: 20 0RF benzonatate [benzonatate] 100 mg capsule 100 mg PO TIDP PRN (Reason: Cough) Qty: 30 0RF methylprednisolone 4 mg Tablets,Dose Pack 4 mg PO DIRECTED Qty: 21 0RF No Action phentermine [Adipex-P] 37.5 mg tablet 37.5 mg PO DAILY Qty: 30 0RF Rx Instructions: must administer 30 minutes before or 1-2 hours after breakfast aripiprazole 10 mg tablet 10 mg PO DAILY Qty: 30 10RF Rx Instructions: 10 mg PO daily; potassium chloride 10 mEq capsule, extended release See Rx Instructions .ROUTE .COMPLEX Qty: 30 3RF Dose Instruction: TAKE ONE CAPSULE BY MOUTH EVERY DAY Rx Instructions: TAKE ONE CAPSULE BY MOUTH EVERY DAY torsemide 20 mg tablet See Rx Instructions .ROUTE .COMPLEX Qty: 30 3RF Dose Instruction: TAKE ONE TABLET BY MOUTH EVERY DAY NEEDED FOR EDEMA Rx Instructions: TAKE ONE TABLET BY MOUTH EVERY DAY NEEDED FOR EDEMA levothyroxine 25 mcg tablet See Rx Instructions .ROUTE .COMPLEX Qty: 90 0RF Dose Instruction: TAKE ONE TABLET BY MOUTH EVERY DAY Rx Instructions: TAKE ONE TABLET BY MOUTH EVERY DAY gabapentin 400 mg capsule 400 mg PO TID hydrochlorothiazide 12.5 mg capsule 12.5 mg PO Q OTHER DAY lisinopril-hydrochlorothiazide 10-12.5 mg tablet See Rx Instructions .ROUTE .COMPLEX Rx Instructions: TAKE ONE TABLET BY MOUTH EVERY DAY FOR high blood pressure albuterol sulfate 90 mcg/actuation HFA aerosol inhaler See Rx Instructions .ROUTE .COMPLEX Rx Instructions: INHALE 2 PUFFS BY MOUTH EVERY 4-6 HOURS NEEDED * SHAKE WELL BEFORE USE * budesonide-formoterol [Symbicort] 160-4.5 mcg/actuation HFA aerosol inhaler See Rx Instructions .ROUTE .COMPLEX Rx Instructions: INHALE 2 puffs BY MOUTH TWICE DAILY FOR ASTHMA --RINSE MOUTH AFTER USE-- diclofenac sodium 1 % gel 4 g TOPICAL QID Rx Instructions: apply to single elbow, wrist or hand; for hand includes palm/fingers/back of hand vilazodone [Viibryd] 10 mg tablet 10 mg PO DAILY Rx Instructions: must administer with a meal/food lidocaine 0.05 MG/MG adhesive patch,medicated 1 patch TP Q12H PRN (Reason: back pain) Qty: 3 0RF Rx Instructions: apply one patch at a time, do not place multiple patches at same time Referrals Follow up/Referrals: Emerson Wang MD [Primary Care Provider] - See instructions Activity Restrictions/Add. Instructions Additional Instructions/Restrictions: Drink plenty of fluids. Take tylenol or ibuprofen for pain or fever. Take the medications as directed. Follow up with your regular doctor. GO TO THE ER FOR ANY WORSENING SYMPTOMS Clinical Impressions Clinical Impression: Sinusitis, Otitis media Instructions Patient Instructions: Middle Ear Infection, DI for Sinusitis Discharge ED Provider: Maurice Davis [facility] HPI General Stated complaint: Congestion;headaches Time Seen by Provider: 11/12/22 15:37 History of Present Illness Provider Complaint: She states that for the past 4 days she has had worsening sinus congestion, bilateral ear pain, dizzy at times, and she has felt fatigued. She denies any fever. Related Data Home Medications Medication Instructions Recorded Confirmed albuterol sulfate 90 mcg/actuation See Rx Instructions .Route 08/03/22 10/31/22 aerosol inhaler .COMPLEX Asthma budesonide-formoterol HFA 160 See Rx Instructions .Route 08/03/22 10/31/22 mcg-4.5 mcg/actuation aerosol .COMPLEX Asthma inhaler (Symbicort) diclofenac sodium 1 % topical gel 4 g topical QID Pain 08/03/22 10/31/22 gabapentin 400 mg capsule 400 mg PO TID Pain 08/03/22 10/31/22 hydrochlorothiazide 12.5 mg capsule 12.5 mg PO Q OTHER DAY High blood 08/03/22 10/31/22 pressure l
[2022-11-12 16:07] VITALS: BP 121/88; PULSE 107; RESP 20; TEMP 36.7; O2SAT 99
== END 2022-11-12 16:06 | disposition home or self-care (01) ==
PROVIDERS: Emergency Provider Nurse Practitioner Family; PCP Family Medicine
DX: J32.9 Chronic sinusitis, unspecified (principal); H66.90 Otitis media, unspecified, unspecified ear
CPT/HCPCS: 99212; 99213; G0463

== ENCOUNTER 2023-01-18 22:19 | Emergency (ER) | payer MEDICARE, MEDICAID, SELFPAY ==
[2023-01-18 22:37] VITALS: BP 107/46; PULSE 107; RESP 18; TEMP 36.6; O2SAT 100; BMI 42.9
--- NOTE | 2023-01-18 22:44 | ECG_ITS ---
APPROVED REPORT Exam: Resting ECG HR:96 bpm ECG Measurements Heart Rate 96 AXES AL 211 P 58 QRSd 76 QRS 62 QT 307 T 56 QTc 361 Conclusion SINUS RHYTHM WITH FIRST DEGREE AV BLOCK LOW QRS VOLTAGE IN PRECORDIAL LEADS [QRS DEFLECTION < 1.0 mV IN CHEST LEADS] SEPTAL MYOCARDIAL INFARCTION , PROBABLY OLD [40+ ms Q WAVE IN V1/V2] ABNORMAL ECG UNCONFIRMED REPORT Electronically signed by : Chris Abebe MD 01/20/2023 17:04:00
[2023-01-18 23:00] VITALS: BP 112/67; PULSE 92; O2SAT 100
--- NOTE | 2023-01-18 23:29 | XR_ITS ---
PROCEDURE INFORMATION: Exam: XR Chest Exam date and time: 01/18/2023 11:30 PM Age: 42 years old Clinical indication: Pain; Chest pressure; Additional info: C/O intermittent chest heaviness TECHNIQUE: Imaging protocol: Radiologic exam of the chest. Views: 2 views. COMPARISON: CT CHEST W CON 10/13/2022 9:43 AM FINDINGS: Lungs: No focal consolidation. Pleural spaces: No pleural effusion. No pneumothorax. Heart/Mediastinum: Unremarkable cardiomediastinal silhouette. Bones/joints: No acute osseous findings. IMPRESSION: No focal consolidation. Previously seen pulmonary nodules are not conspicuous on radiograph.Further evaluation as clinically indicated.
[2023-01-18 23:30] VITALS: BP 124/70; PULSE 97; O2SAT 100
[2023-01-18 23:36] LABS: Basophils # 0.2 K/mm3 (0-0.2); Basophils % 1.8 % (0.1-2.0); Eosinophils # 0.2 K/mm3 (0.0-0.4); Eosinophils % 1.8 % (0.1-12.0); Hematocrit 39.2 % (37.0-47.0); Lymphocytes # 3.8 K/mm3 (0.7-4.5); Mean Corpuscular HGB Conc 33.1 g/dL (31.8-35.4); Mean Corpuscular Hemoglobin 30.8 pg (27.0-31.2); Mean Corpuscular Volume 92.9 fl (81-99); Mean Platelet Volume 8.4 fl (7.4-10.4); Monocytes # 0.6 K/mm3 (0.1-1.0); Neutrophils # 7.3 K/mm3 (1.8-7.8); Neutrophils % 60.4 % (37.0-80.0); Platelet Count 199 K/mm3 (142-424); Red Blood Count 4.22 M/mm3 (4.20-5.40); Red Cell Distribution Width 13.6 % (11.5-17.5); White Blood Count 12.1 K/mm3 (4.8-10.8)
[2023-01-18 23:46] LABS: Alanine Aminotransferase 22 U/L (12-78); Albumin/Globulin Ratio 1.4 (1.1-1.8); Alkaline Phosphatase 127 U/L (38-126); Anion Gap 9.7 mEq/L (5-15); Aspartate Amino Transferase 22 U/L (14-36); Bilirubin,Total 0.4 mg/dl (0.2-1.3); Blood Urea Nitrogen 18 mg/dl (7-17); Calcium 8.4 mg/dl (8.4-10.2); Carbon Dioxide 31 mmol/L (22.0-30.0); Chloride 99 mmol/L (98-107); Creatinine Clearance Estimated 56 mL/min (50-200); Estimated Glomerular Filt Rate 54 ml/min (>60); GFR (African American) 65 ML/MIN (>60); Globulin 2.9 g/dL (1.3-3.2); Glucose 95 mg/dl (74-100); Potassium 3.7 mmoL/L (3.5-5.1); Sodium 136 mmol/L (136-145); Total Protein,Serum 6.9 g/dl (6.3-8.2)
[2023-01-18 23:58] LABS: Troponin I < 0.01 ng/ml (0.00-0.034)
[2023-01-19 00:01] VITALS: BP 110/57; PULSE 94; O2SAT 100
[2023-01-19 00:02] LABS: T4 (Thyroxine) 9.8 ug/dl (5.53-11.0)
--- NOTE | 2023-01-19 00:15 | HMH.EDARPALP ---
Discharge Plan Disposition Patient Disposition: Home, Self-Care Chief Complaint: Arrhythmia/Palpitations Prescriptions Prescriptions: No Action aripiprazole 10 mg tablet 10 mg PO DAILY Qty: 30 10RF Rx Instructions: 10 mg PO daily; furosemide 20 mg tablet 20 mg PO DAILY PRN Label Comments: TAKE ONE TABLET BY MOUTH EVERY DAY NEEDED FOR swelling phentermine [Adipex-P] 37.5 mg tablet 37.5 mg PO DAILY Qty: 30 0RF Rx Instructions: must administer 30 minutes before or 1-2 hours after breakfast potassium chloride 10 mEq capsule, extended release See Rx Instructions .ROUTE .COMPLEX Qty: 30 3RF Dose Instruction: TAKE ONE CAPSULE BY MOUTH EVERY DAY Rx Instructions: TAKE ONE CAPSULE BY MOUTH EVERY DAY torsemide 20 mg tablet See Rx Instructions .ROUTE .COMPLEX Qty: 30 3RF Dose Instruction: TAKE ONE TABLET BY MOUTH EVERY DAY NEEDED FOR EDEMA Rx Instructions: TAKE ONE TABLET BY MOUTH EVERY DAY NEEDED FOR EDEMA levothyroxine 25 mcg tablet See Rx Instructions .ROUTE .COMPLEX Qty: 90 0RF Dose Instruction: TAKE ONE TABLET BY MOUTH EVERY DAY Rx Instructions: TAKE ONE TABLET BY MOUTH EVERY DAY lisinopril-hydrochlorothiazide 10-12.5 mg tablet See Rx Instructions .ROUTE .COMPLEX Rx Instructions: TAKE ONE TABLET BY MOUTH EVERY DAY FOR high blood pressure albuterol sulfate 90 mcg/actuation HFA aerosol inhaler See Rx Instructions .ROUTE .COMPLEX Rx Instructions: INHALE 2 PUFFS BY MOUTH EVERY 4-6 HOURS NEEDED * SHAKE WELL BEFORE USE * budesonide-formoterol [Symbicort] 160-4.5 mcg/actuation HFA aerosol inhaler See Rx Instructions .ROUTE .COMPLEX Rx Instructions: INHALE 2 puffs BY MOUTH TWICE DAILY FOR ASTHMA --RINSE MOUTH AFTER USE-- diclofenac sodium 1 % gel 4 g TOPICAL QID Rx Instructions: apply to single elbow, wrist or hand; for hand includes palm/fingers/back of hand vilazodone [Viibryd] 10 mg tablet 10 mg PO DAILY Rx Instructions: must administer with a meal/food lidocaine 0.05 MG/MG adhesive patch,medicated 1 patch TP Q12H PRN (Reason: back pain) Qty: 3 0RF Rx Instructions: apply one patch at a time, do not place multiple patches at same time Referrals Follow up/Referrals: Emerson Wang MD [Primary Care Provider] - See instructions Clinical Impressions Clinical Impression: Distal paresthesia Instructions Patient Instructions: DI for Numbness/Tingling Discharge ED Provider: Danny (ED)Pablo Arrhythmia/Palpitations HPI General Chief Complaint: Arrhythmia/Palpitations Stated Complaint: hand go numb,wants to be checked Time Seen by Provider: 01/18/23 23:15 Mode of Arrival: Ambulatory Source of Information: Patient and Medical Record Limitations: No Limitations History of Present Illness HPI narrative: pt with numbness to hands and feet over the last few weeks - intermittent - no syncope MD complaint: palpitations Onset (ago): day(s) Duration: intermittent Severity: mild Context: occurred during rest Associated symptoms: denies other symptoms Related Data Home Medications Medication Instructions Recorded Confirmed albuterol sulfate 90 mcg/actuation See Rx Instructions .Route 08/03/22 01/10/23 aerosol inhaler .COMPLEX Asthma budesonide-formoterol HFA 160 See Rx Instructions .Route 08/03/22 01/10/23 mcg-4.5 mcg/actuation aerosol .COMPLEX Asthma inhaler (Symbicort) diclofenac sodium 1 % topical gel 4 g topical QID Pain 08/03/22 01/10/23 lisinopril 10 See Rx Instructions .Route 08/03/22 01/10/23 mg-hydrochlorothiazide 12.5 mg .COMPLEX High blood pressure tablet vilazodone 10 mg tablet (Viibryd) 10 mg PO DAILY Depression 08/03/22 01/10/23 furosemide 20 mg tablet 20 mg PO DAILY PRN 11/24/22 01/10/23 Previous Rx's Medication Instructions Recorded lidocaine 5 % topical patch 1 patch topical Q12H PRN back pain 12/26/21 #3
[2023-01-19 00:16] LABS: Thyroid Stimulating Hormone 2.02 uIU/mL (0.465-4.68)
[2023-01-19 00:23] VITALS: BP 110/62; PULSE 98; RESP 18; TEMP 36.6; O2SAT 99
[2023-01-19 00:28] LABS: Magnesium 1.9 mg/dl (1.6-2.3)
== END 2023-01-19 01:03 | disposition home or self-care (01) ==
PROVIDERS: Emergency Provider Emergency Medicine; PCP Family Medicine
DX: R00.2 Palpitations (principal); R20.0 Anesthesia of skin
CPT/HCPCS: 71046; 80053; 83735; 84436; 84443; 84484; 85025; 93005; 99285

== ENCOUNTER → 2023-01-30 09:17 | Outpatient (CLI) | payer MEDICARE, MEDICAID, SELFPAY | PROVIDERS: PCP Family Medicine; Visit Provider Family Medicine | DX: I42.9 Cardiomyopathy, unspecified (principal); I51.81 Takotsubo syndrome | CPT/HCPCS: 93306 ==

== ENCOUNTER 2023-02-05 18:45 | Emergency (ER) | payer MEDICARE, MEDICAID, SELFPAY ==
[2023-02-05 18:45] VITALS: BP 152/85; PULSE 102; RESP 17; TEMP 36.4; O2SAT 100; BMI 42.9
--- NOTE | 2023-02-05 18:47 | HMH.EDCP ---
Discharge Plan Disposition Patient Disposition: Home, Self-Care Chief Complaint: Chest Pain Prescriptions Prescriptions: No Action aripiprazole 10 mg tablet 10 mg PO DAILY Qty: 30 10RF Rx Instructions: 10 mg PO daily; furosemide 20 mg tablet 20 mg PO DAILY PRN Label Comments: TAKE ONE TABLET BY MOUTH EVERY DAY NEEDED FOR swelling phentermine [Adipex-P] 37.5 mg tablet 37.5 mg PO DAILY Qty: 30 0RF Rx Instructions: must administer 30 minutes before or 1-2 hours after breakfast potassium chloride 10 mEq capsule, extended release See Rx Instructions .ROUTE .COMPLEX Qty: 30 3RF Dose Instruction: TAKE ONE CAPSULE BY MOUTH EVERY DAY Rx Instructions: TAKE ONE CAPSULE BY MOUTH EVERY DAY torsemide 20 mg tablet See Rx Instructions .ROUTE .COMPLEX Qty: 30 3RF Dose Instruction: TAKE ONE TABLET BY MOUTH EVERY DAY NEEDED FOR EDEMA Rx Instructions: TAKE ONE TABLET BY MOUTH EVERY DAY NEEDED FOR EDEMA levothyroxine 25 mcg tablet See Rx Instructions .ROUTE .COMPLEX Qty: 90 0RF Dose Instruction: TAKE ONE TABLET BY MOUTH EVERY DAY Rx Instructions: TAKE ONE TABLET BY MOUTH EVERY DAY lisinopril-hydrochlorothiazide 10-12.5 mg tablet See Rx Instructions .ROUTE .COMPLEX Rx Instructions: TAKE ONE TABLET BY MOUTH EVERY DAY FOR high blood pressure albuterol sulfate 90 mcg/actuation HFA aerosol inhaler See Rx Instructions .ROUTE .COMPLEX Rx Instructions: INHALE 2 PUFFS BY MOUTH EVERY 4-6 HOURS NEEDED * SHAKE WELL BEFORE USE * budesonide-formoterol [Symbicort] 160-4.5 mcg/actuation HFA aerosol inhaler See Rx Instructions .ROUTE .COMPLEX Rx Instructions: INHALE 2 puffs BY MOUTH TWICE DAILY FOR ASTHMA --RINSE MOUTH AFTER USE-- diclofenac sodium 1 % gel 4 g TOPICAL QID Rx Instructions: apply to single elbow, wrist or hand; for hand includes palm/fingers/back of hand vilazodone [Viibryd] 10 mg tablet 10 mg PO DAILY Rx Instructions: must administer with a meal/food lidocaine 0.05 MG/MG adhesive patch,medicated 1 patch TP Q12H PRN (Reason: back pain) Qty: 3 0RF Rx Instructions: apply one patch at a time, do not place multiple patches at same time Referrals Follow up/Referrals: Provider,Referral, MD [Referring] - See instructions Activity Restrictions/Add. Instructions Additional Instructions/Restrictions: Follow-up with your primary care doctor in about 2 to 3 days if not better. Keep all follow-up appointments as scheduled. Return to the emergency department immediately if you feel worse in any way. Your blood tests and EKG today did not show any evidence of heart attack. Your chest x-ray was normal. One of your liver function tests (alkaline phosphatase) was mildly elevated at 130. The remainder of your liver function tests were normal. I highly recommend that you follow-up with your primary care doctor within a few weeks to have that checked again. Clinical Impressions Clinical Impression: Atypical chest pain Instructions Patient Instructions: DI for Atypical Chest Pain Discharge ED Provider: Vanessa Chin Chest Pain HPI General Chief Complaint: Chest Pain Stated Complaint: CHEST PAIN Time Seen by Provider: 02/05/23 18:47 Mode of Arrival: Family Vehicle Source of Information: Patient History of Present Illness HPI narrative: The patient presents to the emergency department complaining of chest pain that has been ongoing since this morning. She states that she recently had an echocardiogram. This was done about 2 days ago. The patient smokes half a pack a day. Her daughter recently (in the last few months). The patient denies a history of coronary artery disease or myocardial infarction. She also denies a history of blood clots. Patient has been nauseous. She describes the pain as being in the epigastric area. AILYN Score for Non-Stemi Age of P
--- NOTE | 2023-02-05 18:52 | ECG_ITS ---
APPROVED REPORT Exam: Resting ECG HR:107 bpm ECG Measurements Heart Rate 107 AXES CO 176 P 58 QRSd 85 QRS 69 QT 308 T 38 QTc 371 Conclusion SINUS TACHYCARDIA LOW QRS VOLTAGE IN PRECORDIAL LEADS [QRS DEFLECTION < 1.0 mV IN CHEST LEADS] NONSPECIFIC T-WAVE ABNORMALITY ABNORMAL RHYTHM ECG UNCONFIRMED REPORT Electronically signed by : Chris Abebe MD 02/06/2023 19:44:08
--- NOTE | 2023-02-05 18:52 | XR_ITS ---
PROCEDURE INFORMATION: Exam: XR Chest Exam date and time: 02/05/2023 7:12 PM Age: 42 years old Clinical indication: Pain; Chest pressure; Additional info: Cp TECHNIQUE: Imaging protocol: Radiologic exam of the chest. Views: 1 view. COMPARISON: CR XR CHEST 2V 01/18/2023 11:30 PM FINDINGS: Lungs: Clear lungs. Pleural spaces: No pneumothorax. No sizable pleural effusion. Heart/Mediastinum: No cardiomegaly. Bones/joints: Unremarkable. IMPRESSION: Clear lungs.
[2023-02-05 19:01] VITALS: BP 128/66; PULSE 102; RESP 16; O2SAT 100
[2023-02-05 19:01] LABS: Basophils # 0.2 K/mm3 (0-0.2); Basophils % 1.2 % (0.1-2.0); Eosinophils # 0.3 K/mm3 (0.0-0.4); Eosinophils % 1.8 % (0.1-12.0); Hematocrit 41.3 % (37.0-47.0); Hemoglobin 13.8 g/dL (12.2-16.2); Lymphocytes # 5.7 K/mm3 (0.7-4.5); Lymphocytes % 37.6 % (10-50); Mean Corpuscular HGB Conc 33.5 g/dL (31.8-35.4); Mean Corpuscular Hemoglobin 30.5 pg (27.0-31.2); Mean Platelet Volume 8.7 fl (7.4-10.4); Monocytes # 0.7 K/mm3 (0.1-1.0); Monocytes % 4.6 % (1.7-9.3); Neutrophils # 8.4 K/mm3 (1.8-7.8); Neutrophils % 54.8 % (37.0-80.0); Platelet Count 173 K/mm3 (142-424); Red Blood Count 4.54 M/mm3 (4.20-5.40); Red Cell Distribution Width 13.9 % (11.5-17.5); White Blood Count 15.3 K/mm3 (4.8-10.8)
[2023-02-05 19:02] LABS: Chloride 99 mmol/L (98-107); Sodium 139 mmol/L (136-145)
[2023-02-05 19:03] LABS: MANUAL DIFFERENTIAL MANUAL DIFFERENTIAL (MANUAL DIFF); Potassium 3.4 mmoL/L (3.5-5.1)
[2023-02-05 19:05] LABS: Alanine Aminotransferase 24 U/L (12-78); Alkaline Phosphatase 130 U/L (38-126); Anion Gap 10.4 mEq/L (5-15); Aspartate Amino Transferase 26 U/L (14-36); Bilirubin,Total 0.5 mg/dl (0.2-1.3); Blood Urea Nitrogen 14 mg/dl (7-17); Carbon Dioxide 33 mmol/L (22.0-30.0); Creatinine Clearance Estimated 62 mL/min (50-200); Estimated Glomerular Filt Rate 60 ml/min (>60); GFR (African American) 73 ML/MIN (>60); Lipase 140 U/L (23-300)
[2023-02-05 19:06] LABS: Albumin Level 4.4 g/dl (3.5-5.0); Albumin/Globulin Ratio 1.3 (1.1-1.8); Calcium 9.2 mg/dl (8.4-10.2); Globulin 3.3 g/dL (1.3-3.2); Glucose 103 mg/dl (74-100); Total Protein,Serum 7.7 g/dl (6.3-8.2)
[2023-02-05 19:19] LABS: Troponin I < 0.01 ng/ml (0.00-0.034)
[2023-02-05 19:31] LABS: Eosinophils % 1 % (0-3); Lymphocytes % 37 % (10-50); Monocytes % 4 % (2-9); Neutrophils % 58 % (42-76); Platelet Estimate Normal; RBC Morphology Normal; Total Cells Counted 100
[2023-02-05 19:35] VITALS: BP 155/85; PULSE 100; RESP 17; TEMP 36.6; O2SAT 100
== END 2023-02-05 19:39 | disposition home or self-care (01) ==
PROVIDERS: Emergency Provider Emergency Medicine; PCP Family Medicine
DX: R07.9 Chest pain, unspecified (principal); F17.210 Nicotine dependence, cigarettes, uncomplicated
CPT/HCPCS: 71045; 80053; 83690; 84484; 85007; 85025; 93005; 99285

== ENCOUNTER → 2023-02-22 07:04 | Outpatient (CLI) | payer MEDICARE, MEDICAID, SELFPAY ==
--- NOTE | 2023-02-22 07:06 | CA_ITS ---
APPROVED REPORT Exam: Pharmacologic Technologist: Day Newman, Ht: 5 ft 4 in Wt: 270 lbs BSA: 2.22 m2 HR: 89 bpm BP: 119/68 mmHg Medical History Medications: Levothyroxine,,,,, Potassium Chloride,,,,, SyMBICORT,,,,, Albuterol,,,,, Aripirazole,,,,, Lisinopril HCTZ,,,,, Furosemide,,,,, Viibryd,,,,, Toresmide,,,,, Cardiac Risk Factors: HTN Stress Test Details Test: LEXISCAN HR Resting HR: 86 bpm Max Heart Rate (APMHR): 176.097343 bpm Max HR Achieved: 119 bpm Target HR (85% APMHR): 149.874794 bpm % of APMHR: 67.61 Recovery HR: 109 bpm BP Resting BP: 119/68 mmHg Max BP: 126/68 mmHg Recovery BP: 118.0/56.0 mmHg ECG Resting ECG: NSR, low voltage QRS Clinical Exercise duration: 04:00 min Highest Stage Achieved: Stress ECG Conclusion During lexiscan pt experinced head discomfort, mild SOA, and chest discomfort. Rare PAC noted, not captured. Nonspecific ST-T changes. Non diagnostic lexiscan stress. Myoview images reported separately. Test Summary REST . . . . . . . Sitting REST 03:11 . . 86 . 119/ 68 . . Stage 1 01:00 . . 108 . . . . Stage 2 01:00 . . 109 . 126/ 68 . . Stage 3 01:00 . . 105 . 120/ 63 . . Stage 4 01:00 . . 105 . 106/ 67 . Stop exercise at 04:00 RECOVERY 01:00 . . 106 . . . . RECOVERY 02:00 . . 101 . 118/ 56 . . RECOVERY 03:00 . . 102 . 118/ 56 . . RECOVERY 04:00 . . 96 . 118/ 56 . . RECOVERY 04:56 . . 101 . 118/ 52 . . Electronically signed by : Orville Franklin MD 02/22/2023 14:57:32
--- NOTE | 2023-02-22 07:06 | NM_ITS ---
APPROVED REPORT Exam: Nuclear Stress Test Indication: chest pain Patient Location: Outpatient Stress Tech: Day Newman MAMADOU Tech:SONIYA Gaitan RT(R)(N) Ht: 5 ft 4 in Wt: 250 lbs Bra Size: 40dd HR: 86 bpm BP: 119/68 mmHg BSA: 2.15 m2 TID: 1.54 BMI: 42.9 History: chest pain Procedure: Patient received 0.4 mg of intravenous Lexiscan, resting heart rate 86 bpm, resting blood pressure 119/68 mmHg, with Lexiscan maximum heart rate achieved was 119 bpm which is 85 % of the maximum predicted heart rate and blood pressure was 126/68 mmHg. With Lexiscan, patient denied any complaint of chest pain. Cardiac Stress and Resting SPECT Images: Cardiac Stress and Resting SPECT images were obtained using technetium 99m Myoview 32.9 mCi stress and 10.62 mCi at rest. Stress images reveal mildly decreased myocardial activity in the anterior wall while rest images reveal moderate to severe dilatation with activity anterior wall . 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
== END ==
PROVIDERS: PCP Family Medicine; Visit Provider Physician Assistant
DX: R00.2 Palpitations (principal); R06.09 Other forms of dyspnea; R07.89 Other chest pain; R60.9 Edema, unspecified; Z86.19 Personal history of other infectious and parasitic diseases; Z87.19 Personal history of other diseases of the digestive system
CPT/HCPCS: 78452; 93017; A9502; J2785

== ENCOUNTER 2023-03-20 07:51 | Day surgery (SDC) | payer MEDICARE, MEDICAID, SELFPAY ==
[2023-03-20] VITALS (13 sets, daily range): BP systolic 84–141; BP diastolic 56–88; PULSE 67–98; RESP 17–20; TEMP 36.9; O2SAT 95–100; BMI 44.6
--- NOTE | 2023-03-20 07:07 | IR_ITS ---
APPROVED REPORT Patient Location: Outpatient Cad Engineer: SONIYA Prater RT (R) PROCEDURES Left heart catheterization Left ventriculogram Selective coronary angiogram INDICATION High risk abnormal Myoview, Angina pectoris Informed consent was obtained prior to the procedure. COMPLICATIONS None Estimated Blood Loss: Less than 10 mls TECHNIQUE One percent lidocaine used to anesthetize the right anterior aspect of the wrist. The right radial artery was accessed via the Seldinger technique. A 6 Malian sheath was placed in the right radial artery. 150 mg magnesium sulfate, 800 mcg of nitroglycerin, 1mg Lidocaine and 5000 U Heparin were given through the arterial sheath. The papa catheter was also used to perform left heart catheterization, left ventriculogram and selective coronary angiogram. At the end of the procedure the sheath was removed good hemostasis was achieved using Traclet band, patient was transferred to the postop holding area in stable condition. ANGIOGRAPHIC RESULTS The left main artery Normal The left anterior descending artery Normal The circumflex artery Normal The right coronary artery Dominant normal The CAMACHO ventriculogram reveals Normal 65% The left ventricular end-diastolic pressure 20 mmHg IMPRESSION Normal coronary arteries Normal ejection fraction Elevated LVEDP consistent with diastolic dysfunction PLAN 1. Treatment of diastolic dysfunction 2. Recommend sleep study Electronically signed by : Orville Franklin MD 03/20/2023 10:14:01
[2023-03-20 08:50] LABS: Chloride 101 mmol/L (98-107)
[2023-03-20 08:51] LABS: Potassium 3.4 mmoL/L (3.5-5.1); Sodium 140 mmol/L (136-145)
[2023-03-20 08:53] LABS: Blood Urea Nitrogen 15 mg/dl (7-17); Creatinine Clearance Estimated 62 mL/min (50-200); Estimated Glomerular Filt Rate 60 ml/min (>60); GFR (African American) 73 ML/MIN (>60)
[2023-03-20 08:54] LABS: Anion Gap 10.4 mEq/L (5-15); Calcium 9.2 mg/dl (8.4-10.2); Carbon Dioxide 32 mmol/L (22.0-30.0); Glucose 89 mg/dl (74-100)
[2023-03-20 09:03] LABS: Basophils # 0.1 K/mm3 (0-0.2); Eosinophils # 0.3 K/mm3 (0.0-0.4); Eosinophils % 2.8 % (0.1-12.0); Hematocrit 41.2 % (37.0-47.0); Hemoglobin 13.6 g/dL (12.2-16.2); Lymphocytes # 3.6 K/mm3 (0.7-4.5); Lymphocytes % 32.2 % (10-50); Mean Corpuscular HGB Conc 33.1 g/dL (31.8-35.4); Mean Corpuscular Hemoglobin 29.9 pg (27.0-31.2); Mean Corpuscular Volume 90.4 fl (81-99); Mean Platelet Volume 9.1 fl (7.4-10.4); Monocytes # 0.7 K/mm3 (0.1-1.0); Monocytes % 6.2 % (1.7-9.3); Neutrophils # 6.4 K/mm3 (1.8-7.8); Neutrophils % 57.8 % (37.0-80.0); Platelet Count 178 K/mm3 (142-424); Red Blood Count 4.56 M/mm3 (4.20-5.40); Red Cell Distribution Width 14.4 % (11.5-17.5)
== END 2023-03-20 13:06 | disposition home or self-care (01) ==
PROVIDERS: PCP Family Medicine; Visit Provider Internal Medicine
DX: E66.01 Morbid (severe) obesity due to excess calories (principal); I20.8 Other forms of angina pectoris; R00.2 Palpitations; R06.09 Other forms of dyspnea; R60.9 Edema, unspecified; R94.39 Abnormal result of other cardiovascular function study; Z68.41 Body mass index [BMI] 40.0-44.9, adult; F17.210 Nicotine dependence, cigarettes, uncomplicated; Z86.16 Personal history of COVID-19; R07.9 Chest pain, unspecified; E03.9 Hypothyroidism, unspecified; I10 Essential (primary) hypertension; I25.2 Old myocardial infarction; Z79.899 Other long term (current) drug therapy
CPT/HCPCS: 80048; 85025; 93458; 99152; C1725; C1769; J1644; Q9967

== ENCOUNTER → 2023-03-23 17:06 | Outpatient (CLI) | payer MEDICARE, MEDICAID, SELFPAY ==
[2023-03-23 17:35] LABS: MANUAL DIFFERENTIAL MANUAL DIFFERENTIAL (MANUAL DIFF)
[2023-03-23 18:05] LABS: Urine Pregnancy, HCG Qual. Negative (Negative)
[2023-03-23 18:06] LABS: Alanine Aminotransferase 24 U/L (12-78); Albumin Level 4.1 g/dl (3.5-5.0); Albumin/Globulin Ratio 1.3 (1.1-1.8); Alkaline Phosphatase 129 U/L (38-126); Anion Gap 11.9 mEq/L (5-15); Aspartate Amino Transferase 29 U/L (14-36); Bilirubin,Total 0.3 mg/dl (0.2-1.3); Blood Urea Nitrogen 15 mg/dl (7-17); Carbon Dioxide 28 mmol/L (22.0-30.0); Chloride 100 mmol/L (98-107); Estimated Glomerular Filt Rate 60 ml/min (>60); GFR (African American) 73 ML/MIN (>60); Globulin 3.2 g/dL (1.3-3.2); Potassium 3.9 mmoL/L (3.5-5.1); Sodium 136 mmol/L (136-145); Total Protein,Serum 7.3 g/dl (6.3-8.2)
[2023-03-23 18:07] LABS: Calcium 9.3 mg/dl (8.4-10.2); Glucose 99 mg/dl (74-100)
[2023-03-23 18:14] LABS: Basophils # 0.1 K/mm3 (0-0.2); Basophils % 0.8 % (0.1-2.0); Eosinophils # 0.2 K/mm3 (0.0-0.4); Eosinophils % 1.6 % (0.1-12.0); Hematocrit 40.9 % (37.0-47.0); Hemoglobin 13.6 g/dL (12.2-16.2); Lymphocytes # 3.7 K/mm3 (0.7-4.5); Lymphocytes % 28.2 % (10-50); Mean Corpuscular HGB Conc 33.3 g/dL (31.8-35.4); Mean Corpuscular Hemoglobin 30.3 pg (27.0-31.2); Mean Corpuscular Volume 91.2 fl (81-99); Mean Platelet Volume 9.4 fl (7.4-10.4); Monocytes # 0.6 K/mm3 (0.1-1.0); Monocytes % 4.7 % (1.7-9.3); Neutrophils # 8.5 K/mm3 (1.8-7.8); Neutrophils % 64.8 % (37.0-80.0); Platelet Count 156 K/mm3 (142-424); Red Blood Count 4.49 M/mm3 (4.20-5.40); Red Cell Distribution Width 14.2 % (11.5-17.5); White Blood Count 13.2 K/mm3 (4.8-10.8)
[2023-03-23 18:22] LABS: Lymphocytes % 20 % (10-50); Monocytes % 3 % (2-9); Neutrophils % 76 % (42-76); Platelet Estimate Slight Decrease; Total Cells Counted 100
[2023-03-23 18:23] LABS: Anisocytosis 1+; RBC Morphology Normal
== END ==
PROVIDERS: PCP Family Medicine; Visit Provider Otolaryngology
DX: E03.9 Hypothyroidism, unspecified (principal); H66.91 Otitis media, unspecified, right ear; Z01.812 Encounter for preprocedural laboratory examination
CPT/HCPCS: 36415; 80053; 81025; 85007; 85014; 85018; 85048; 85049

== ENCOUNTER 2023-03-29 06:40 | Day surgery (SDC) | payer MEDICARE, MEDICAID, SELFPAY ==
[2023-03-27 12:02] VITALS: BMI 42.9
[2023-03-29] VITALS (10 sets, daily range): BP systolic 110–144; BP diastolic 58–85; PULSE 84–104; RESP 16–24; TEMP 36.1–36.6; O2SAT 92–100
--- NOTE | 2023-03-29 07:28 | EXP.ANES.CKL ---
[facility] Disclaimer: The information contained in this section may have been updated after the patient was seen, as this information can be updated by other users. Medical History Acute bronchitis Allergies Asthma Bipolar 1 disorder Cancer of kidney Carpal tunnel syndrome Depression Dysphagia Enlarged tonsils Hepatitis C History of COVID-19 History of gastroesophageal reflux (GERD) History of syncope Hypertension Hypothyroid Migraine Other specified diseases of gallbladder Rash Schizophrenia Seizure disorder Sleep apnea Urinary tract infection Surgical History History of History of hernia repair History of tubal ligation Hx of appendectomy Family History Grandmother Stomach cancer Mother Brain cancer Sister Throat cancer Father Family history of hyperlipidemia Social History Smoking Status: Never smoker second hand exposure: No alcohol intake: never substance use type: former substance user and heroin current occupational status: retired Travel in the last 8 weeks: None adopted: Yes household members: children housing: house number of children: 3 current occupational exposures/hazards: No caffeine: Yes [facility] Anesthesia Checklist Patient Identification Patient Identification: Arm Band Structural Data Admitted From: Home Planned Operative Procedure/s: Tonsillectomy and Adenoidectomy Consent for Planned Operative Procedure(s) Verified: Yes Verified Documents: Surgical Consent and History and Physical NPO Status Verified Time NPO: 00:00 Additional verifications Anesthesia Reactions: No Hx Blood Transfusions: No Blood Transfusion Reaction: No Airway Assessment C-Spine Mobility Assessed: Yes TMJ Mobility Assessed: Yes Dentition: Poor Dentition Neurological Assessment Level of Consciousness: Awake and Alert Anesthesia Plan Anesthesia Risk discussed: Yes Anesthesia Plan: Verified ASA Class: II Anesthesia Type: General
--- NOTE | 2023-03-29 09:57 | EXP.OP.NOTE ---
Date of procedure: 03/29/23 Pre-op Diagnosis:: Chronic tonsillitis, tonsillar hypertrophy Post-op Diagnosis:: Chronic tonsillitis, tonsillar hypertrophy Procedure performed:: Tonsillectomy Surgeon:: Henry Conti MD DIRECTOR OF SLOT OPERATIONS:: Isreal Long Anesthesia: GETA Estimated blood loss (mL): 0 Operative findings:: 3+ enlarged inflamed cryptic tonsils bilaterally Operative note:: The patient was brought to the operating room and after adequate general anesthesia the mouth was draped in the usual sterile fashion and a McIvor mouthgag placed. Tonsillectomy was then performed in the plane defined by the tonsil capsule and superior constrictor muscle and this was done with electrocautery to simultaneously dissected and cauterized and this was done bilaterally. The tonsillar fossa's were then infiltrated with half percent Marcaine with epinephrine and the procedure concluded. All counts correct and blood loss was minimal and patient was sent to recovery in stable condition. Condition: stable Disposition: PACU Complications:: None
--- NOTE | 2023-03-29 10:12 | P.PNANES_ITS ---
[facility] Anesthesia Record Part I Anesthesia Record I Intake, IV Amount: 900 Estimated blood loss (mL): 48 Urine output (mL): 0 Blood Products used (#): none Blood Pressure: 144/85 SaO2: 92 Pulse Rate: 104 Respiratory Rate: 24 Temperature: 97.5 F Patient is:: Drowsy and Stable Stable to PACU at:: 10:05
--- NOTE | 2023-03-29 13:32 | EXP.ANES.II ---
[facility] Anesthesia Record Part II Anesthesia Record Part II Discharge Time: 10:35 Destination: Surgical Day Care (OP Surgery) PACU nurse assessment reviewed?: Yes Patient Condition:: Good Anesthesia Complications:: None Swallowing reflex intact?: Yes Cyanosis?: No Blood Pressure: 113/58 Pulse Rate: 86 Temperature: 97.9 F Mental Status: Alert & Oriented Pain level:: 3 Nausea and/or vomitting:: None Intake, IV Amount: 0
== END 2023-03-29 11:20 | disposition home or self-care (01) ==
PROVIDERS: PCP Family Medicine; Visit Provider Otolaryngology
DX: J35.1 Hypertrophy of tonsils (principal)
CPT/HCPCS: 42826; 88304; J2405

== ENCOUNTER → 2023-04-12 14:31 | Outpatient (CLI) | payer MEDICARE, MEDICAID, SELFPAY ==
[2023-04-12 14:40] LABS: Microscopic, Urine URINE MICROSCOPIC (MICROSCOPIC)
[2023-04-12 14:48] LABS: Appearance,Urine CLEAR (Clear); Bilirubin,Urine Negative (Negative); Blood, Urine Negative (Negative); Color,Urine YELLOW (Yellow); Glucose,Urine (UA) Negative (Negative); Ketones,Urine Negative (Negative); Leukocyte Esterase,Urine Negative (Negative); Nitrate,Urine Negative (Negative); Protein,Urine Negative (Negative); Urobilinogen,Urine 0.2 EU/dl (0.2)
[2023-04-12 14:53] LABS: WBC,Urine Occasional #/hpf (0-3)
--- NOTE | 2023-04-26 12:17 | PC.NURSE ---
Spoke with patient about a HST and she refused at this time.
== END ==
PROVIDERS: PCP Family Medicine; Visit Provider Family Medicine
DX: N39.0 Urinary tract infection, site not specified (principal)
CPT/HCPCS: 81001

== ENCOUNTER 2023-06-09 15:33 | Emergency (ER) | payer MEDICARE, MEDICAID, SELFPAY ==
[2023-06-09 15:34] VITALS: BP 120/88; PULSE 101; RESP 18; TEMP 36.7; O2SAT 100; BMI 44.1
--- NOTE | 2023-06-09 16:05 | XR_ITS ---
PROCEDURE INFORMATION: Exam: XR Thoracic Spine Exam date and time: 06/09/2023 4:34 PM Age: 43 years old Clinical indication: Pain in thoracic spine TECHNIQUE: Imaging protocol: Radiologic exam of the thoracic spine. Views: 2 views. COMPARISON: CR Lumbar spine 06/09/2023 4:33 PM FINDINGS: Bones/joints: There is multilevel degenerative change with loss of intervertebral disc space and anterior osteophyte formation. There is a stable small wedge deformity of the lower thoracic spine. No acute fracture or dislocation is identified. Soft tissues: Unremarkable. Intraperitoneal space: There are right upper quadrant surgical clips suggesting prior cholecystectomy. IMPRESSION: Degenerative disease without acute injury identified.
--- NOTE | 2023-06-09 16:05 | XR_ITS ---
PROCEDURE INFORMATION: Exam: XR Lumbosacral Spine Exam date and time: 06/09/2023 4:33 PM Age: 43 years old Clinical indication: Low back pain TECHNIQUE: Imaging protocol: Radiologic exam of the lumbosacral spine. Views: 2 or 3 views. COMPARISON: MR LUMBAR SPINE WO CON 10/05/2021 3:19 PM FINDINGS: Bones/joints: There is mild lower lumbar degenerative disease with facet arthropathy and intervertebral disc space narrowing. No acute fracture or dislocation is identified. Soft tissues: Unremarkable. Organs: There are Essure devices in place. IMPRESSION: Degenerative disease without acute injury identified.
--- NOTE | 2023-06-09 16:09 | EXP.UTC ---
Discharge Plan Disposition Patient Disposition: Home, Self-Care Condition: Good Prescriptions Prescriptions: New cyclobenzaprine 10 mg Tablet 10 mg PO BID PRN (Reason: Muscle Spasm) Qty: 20 0RF methylprednisolone 4 mg Tablets,Dose Pack 4 mg PO DIRECTED Qty: 21 0RF No Action amoxicillin 400 mg/5 mL suspension for reconstitution 800 mg PO DAILY 10 Days Qty: 100 0RF hydrocodone-acetaminophen 7.5-325 mg tablet 1 tab PO Q6H PRN (Reason: pain) 7 Days Qty: 30 0RF levothyroxine 25 mcg tablet See Rx Instructions .ROUTE .COMPLEX Qty: 90 0RF Dose Instruction: TAKE ONE TABLET BY MOUTH EVERY DAY Rx Instructions: TAKE ONE TABLET BY MOUTH EVERY DAY lisinopril-hydrochlorothiazide 10-12.5 mg tablet See Rx Instructions .ROUTE .COMPLEX Qty: 30 1RF Rx Instructions: TAKE ONE TABLET BY MOUTH EVERY DAY FOR high blood pressure aripiprazole 10 mg tablet See Rx Instructions .ROUTE .COMPLEX Qty: 30 10RF Dose Instruction: TAKE ONE TABLET BY MOUTH EVERY DAY FOR mood Rx Instructions: TAKE ONE TABLET BY MOUTH EVERY DAY FOR mood albuterol sulfate 90 mcg/actuation HFA aerosol inhaler See Rx Instructions .ROUTE .COMPLEX Qty: 8.5 10RF Dose Instruction: INHALE TWO PUFFS BY MOUTH EVERY 4 TO 6 HOURS NEEDED --SHAKE WELL BEFORE USE-- Rx Instructions: INHALE TWO PUFFS BY MOUTH EVERY 4 TO 6 HOURS NEEDED --SHAKE WELL BEFORE USE-- budesonide-formoterol [Symbicort] 160-4.5 mcg/actuation HFA aerosol inhaler See Rx Instructions .ROUTE .COMPLEX Qty: 10.2 10RF Dose Instruction: INHALE TWO PUFFS BY MOUTH TWICE DAILY FOR asthma --RINSE MOUTH AFTER USE-- Rx Instructions: INHALE TWO PUFFS BY MOUTH TWICE DAILY FOR asthma --RINSE MOUTH AFTER USE-- diclofenac sodium 1 % gel 4 g TOPICAL QID Rx Instructions: apply to single elbow, wrist or hand; for hand includes palm/fingers/back of hand vilazodone [Viibryd] 10 mg tablet 10 mg PO DAILY Rx Instructions: must administer with a meal/food lidocaine 0.05 MG/MG adhesive patch,medicated 1 patch TP Q12H PRN (Reason: back pain) Qty: 3 0RF Rx Instructions: apply one patch at a time, do not place multiple patches at same time torsemide 20 mg tablet See Rx Instructions .ROUTE .COMPLEX Rx Instructions: TAKE ONE TABLET BY MOUTH EVERY DAY NEEDED FOR EDEMA ondansetron 4 mg tablet,disintegrating 4 mg PO Q6H PRN (Reason: nausea and vomiting) 5 Days Qty: 20 0RF prednisolone 15 mg/5 mL solution 15 mg PO DAILY 5 Days Qty: 25 0RF potassium chloride 10 mEq capsule, extended release See Rx Instructions .ROUTE .COMPLEX Rx Instructions: TAKE ONE CAPSULE BY MOUTH EVERY DAY hydrochlorothiazide 12.5 mg tablet 12.5 mg PO DAILY Referrals Follow up/Referrals: Emerson Wang MD [Primary Care Provider] - See instructions Activity Restrictions/Add. Instructions Additional Instructions/Restrictions: Go home and rest. It would be best if you rested tomorrow too. No heavy lifting. No twisting. Take the oral medications as directed. The muscle relaxer (cyclobenzaprine--Flexeril) will make you drowsy, so don't drive or operate heavy machinery after taking it. Follow up with your regular doctor. GO TO THE ER FOR ANY WORSENING SYMPTOMS OR CONCERN, ESPECIALLY BOWEL OR BLADDER ISSUES, SADDLE AREA NUMBNESS, FEVER, ETC Clinical Impressions Clinical Impression: Low back pain, Low back strain Instructions Patient Instructions: Low Back Pain, DI for Low Back Pain, Cyclobenzaprine, Methylprednisolone Discharge ED Provider: Maurice Davis [facility] General Stated complaint: back pain, no accident Time Seen by Provider: 06/09/23 16:09 History of Present Illness Provider Complaint: She states that for the past 2 days she has had worsening low back pain. She denies any injury or falls. She denies any bowel or bladder issues. Related Data Home Medica
[2023-06-09 17:07] VITALS: BP 120/88; PULSE 101; RESP 18; TEMP 36.7; O2SAT 100
== END 2023-06-09 17:08 | disposition home or self-care (01) ==
PROVIDERS: Emergency Provider Nurse Practitioner Family; PCP Family Medicine
DX: M54.50 Low back pain, unspecified; J45.909 Unspecified asthma, uncomplicated; G47.30 Sleep apnea, unspecified; E03.9 Hypothyroidism, unspecified; I10 Essential (primary) hypertension; K21.9 Gastro-esophageal reflux disease without esophagitis; F31.9 Bipolar disorder, unspecified
CPT/HCPCS: 72070; 72100; 99212; 99214; G0463

== ENCOUNTER → 2023-06-28 12:56 | Outpatient (CLI) | payer MEDICARE, MEDICAID, SELFPAY ==
--- NOTE | 2023-06-28 13:05 | US_ITS ---
PROCEDURE: US TRANSVAGINAL CLINICAL INDICATION: abnormal uterine bleeding COMPARISON: No exams were available for comparison FINDINGS: Transvaginal and transabdominal sonographic images of the pelvis were obtained. UTERUS: 8.8 cm x 5.2 cmx 3.7 cm with a combined endometrial thickness of 6.3mm. The uterus is anteverted. Post ablation changes within the myometrium are seen. scar is seen. Nabothian cyst in the cervix measuring 9.5 mm. LEFT OVARY: 2.5 cmx1.2 cmx1.2cm with a volume of 1.8ml.Atrophic appearing. RIGHT OVARY: Not visualized. Left ovary is seen and appears normal. Doppler flow to left ovary is seen. There is no fluid in the cul-de-sac. IMPRESSION: 1. Anteverted uterus normal in shape and size. A 9.5 mm nabothian cyst is present. 2. There appears to be endometrium within the uterine cavity. 3. Post ablation changes within the myometrium noted. 4. Ovaries were difficult to visualize but left ovary appears normal. Right ovary was not visualized. 5. No fluid in the cul-de-sac. Dictated by: William Villalobos MD 06/29/2023 09:50 William Villalobos MD in OV 06/29/2023 09:50
== END ==
PROVIDERS: PCP Emergency Medicine; Visit Provider Obstetrics & Gynecology
DX: N93.9 Abnormal uterine and vaginal bleeding, unspecified (principal)
CPT/HCPCS: 76830

== ENCOUNTER → 2023-06-29 16:37 | Outpatient (CLI) | payer MEDICARE, MEDICAID, SELFPAY ==
--- NOTE | 2023-06-29 16:37 | MR_ITS ---
PROCEDURE INFORMATION: Exam: MR Lumbar Spine Without Contrast Exam date and time: 06/29/2023 5:04 PM Age: 43 years old Clinical indication: Other: Low back pain; Additional info: Back pain. Burning sensation lower back TECHNIQUE: Imaging protocol: Magnetic resonance imaging of the lumbar spine without contrast. COMPARISON: MR LUMBAR SPINE WO CON 10/05/2021 3:19 PM FINDINGS: Vertebral body height and AP alignment is preserved. Disc desiccation greatest at L4-L5. Negative for discitis/osteomyelitis. No epidural fluid collection. Conus medullaris terminates at L1. L1-L2: No significant central or foraminal stenosis. L2-L3: No significant central or foraminal stenosis. L3-L4: Minimal disc bulge and mild bilateral facet joint arthropathy. No significant central or foraminal stenosis. L4-L5: Mild disc bulge, mild facet joint arthropathy and [id number]-right facet joint effusions. No significant central or foraminal stenosis. L5-S1: Mild bilateral facet joint arthropathy without significant central or foraminal stenosis. IMPRESSION: 1. No acute abnormality involving the lumbar spine. 2. No significant central canal compromise throughout.
== END ==
LOC: RAD 16:37
PROVIDERS: PCP Emergency Medicine; Visit Provider Emergency Medicine
DX: M54.50 Low back pain, unspecified (principal)
CPT/HCPCS: 72148; 76376

== ENCOUNTER → 2023-09-05 13:53 | Outpatient (CLI) | payer MEDICARE, MEDICAID, SELFPAY ==
[2023-09-05 14:42] LABS: Basophils # 0.2 K/mm3 (0-0.2); Basophils % 1.3 % (0.1-2.0); Eosinophils # 0.3 K/mm3 (0.0-0.4); Eosinophils % 2.3 % (0.1-12.0); Hematocrit 43.6 % (37.0-47.0); Hemoglobin 15.2 g/dL (12.2-16.2); Lymphocytes # 3.4 K/mm3 (0.7-4.5); Lymphocytes % 23.6 % (10-50); Mean Corpuscular HGB Conc 34.9 g/dL (31.8-35.4); Mean Corpuscular Hemoglobin 32.9 pg (27.0-31.2); Mean Corpuscular Volume 94.1 fl (81-99); Mean Platelet Volume 9.5 fl (7.4-10.4); Monocytes # 0.9 K/mm3 (0.1-1.0); Neutrophils # 9.6 K/mm3 (1.8-7.8); Neutrophils % 66.9 % (37.0-80.0); Platelet Count 157 K/mm3 (142-424); Red Blood Count 4.63 M/mm3 (4.20-5.40); White Blood Count 14.4 K/mm3 (4.8-10.8)
[2023-09-05 16:51] LABS: Alanine Aminotransferase 28 U/L (12-78); Albumin Level 4.4 g/dl (3.5-5.0); Alkaline Phosphatase 130 U/L (38-126); Aspartate Amino Transferase 29 U/L (14-36); Bilirubin,Direct 0.1 mg/dl (0.0-0.4); Bilirubin,Indirect 0.4 mg/dL (0.0-0.9); Bilirubin,Total 0.5 mg/dl (0.2-1.3); Bilirubin,Unconjugated 0.4 mg/dL (0.0-1.1); Blood Urea Nitrogen 30 mg/dl (7-17); Calcium 9.1 mg/dl (8.4-10.2); Carbon Dioxide 30 mmol/L (22.0-30.0); Chloride 95 mmol/L (98-107); Cholesterol 163 mg/dl (140-200); Estimated Glomerular Filt Rate 49 ml/min (>60); GFR (African American) 59 ML/MIN (>60); Glucose 97 mg/dl (74-100); Magnesium 1.7 mg/dl (1.6-2.3); Total Protein,Serum 7.3 g/dl (6.3-8.2); Triglycerides 281 mg/dl (30-150); VLDL Cholesterol 56 mg/dL (0-40)
[2023-09-05 16:54] LABS: Anion Gap 11.4 mEq/L (5-15); HDL Cholesterol 27 mg/dl (40-60); Potassium 3.4 mmoL/L (3.5-5.1); Sodium 133 mmol/L (136-145)
[2023-09-05 17:02] LABS: Direct LDL Cholesterol 92.46 mg/dL (100-129)
[2023-09-05 17:05] LABS: Free T4 (Free Thyroxine) 1.17 ng/dl (0.78-2.19)
[2023-09-05 17:19] LABS: Thyroid Stimulating Hormone 1.63 uIU/mL (0.465-4.68)
[2023-09-05 19:12] LABS: D-Dimer 0.82 ug/mL (0.0-0.5)
== END ==
LOC: LAB 13:55
PROVIDERS: Nurse Practitioner; PCP Emergency Medicine; Visit Provider Physician Assistant
DX: E66.9 Obesity, unspecified (principal); I10 Essential (primary) hypertension; R00.0 Tachycardia, unspecified; R00.2 Palpitations; R06.83 Snoring; R40.0 Somnolence; R60.9 Edema, unspecified; R94.31 Abnormal electrocardiogram [ECG] [EKG]; Z72.0 Tobacco use; Z86.19 Personal history of other infectious and parasitic diseases; Z87.19 Personal history of other diseases of the digestive system; R06.02 Shortness of breath; I20.89 Other forms of angina pectoris; Z68.41 Body mass index [BMI] 40.0-44.9, adult
CPT/HCPCS: 36415; 80048; 80061; 80076; 83735; 84439; 84443; 85025; 85378; 93225

== ENCOUNTER → 2023-09-13 09:51 | Outpatient (CLI) | payer MEDICARE, MEDICAID, SELFPAY ==
--- NOTE | 2023-09-13 09:51 | CT_ITS ---
FINAL REPORT TECHNIQUE: The patient was injected with IV contrast. Axial images were obtained through the chest in a PE protocol. 3-D reconstruction images were also performed. Individualized dose reduction techniques using automated exposure control or adjustment of the MA and/or KV according to patient's size were employed. CLINICAL HISTORY: elevated d dimer/dyspnea COMPARISON: CT chest 10/13/2022 FINDINGS: Mediastinal vasculature is adequately opacified. No pulmonary artery filling defects are identified to suggest PE. There is no aortic dissection. There is no axillary adenopathy. There is no hilar or mediastinal adenopathy. The heart size is normal. There is no pericardial or pleural effusion. Multiple bilateral pulmonary nodules are again seen. Nodules at the left base are stable. Ill-defined noncalcified nodules in the upper lobes are believed to be inflammatory and may be due to acute pneumonitis. Limited images of the upper abdomen demonstrate no acute findings. Gallbladder is absent. IMPRESSION: Stable lower lobe nodules. Ill-defined upper lobe nodules favored to be inflammatory. Follow-up CT chest in 1 month to confirm. No pulmonary embolism. Reviewed, Interpreted and Dictated by Gael Ascencio MD Transcribed by Kinza Mckoy Authenticated and [facility]
== END ==
PROVIDERS: PCP Emergency Medicine; Visit Provider Nurse Practitioner
DX: R06.02 Shortness of breath (principal); R79.89 Other specified abnormal findings of blood chemistry; Z82.41 Family history of sudden cardiac death
CPT/HCPCS: 71275; Q9967

== ENCOUNTER 2023-11-02 12:29 | Outpatient (CLI) | payer MEDICARE, MEDICAID, SELFPAY ==
[2023-11-02 12:54] LABS: Basophils # 0.1 K/mm3 (0-0.2); Basophils % 1.1 % (0.1-2.0); Eosinophils # 0.2 K/mm3 (0.0-0.4); Eosinophils % 1.7 % (0.1-12.0); Hematocrit 39.3 % (37.0-47.0); Hemoglobin 13.8 g/dL (12.2-16.2); Lymphocytes # 3.7 K/mm3 (0.7-4.5); Lymphocytes % 28.8 % (10-50); Mean Corpuscular HGB Conc 35.1 g/dL (31.8-35.4); Mean Corpuscular Hemoglobin 33.4 pg (27.0-31.2); Mean Platelet Volume 9.9 fl (7.4-10.4); Monocytes # 0.6 K/mm3 (0.1-1.0); Neutrophils # 8.1 K/mm3 (1.8-7.8); Neutrophils % 63.5 % (37.0-80.0); Platelet Count 134 K/mm3 (142-424); Red Blood Count 4.13 M/mm3 (4.20-5.40); White Blood Count 12.8 K/mm3 (4.8-10.8)
[2023-11-02 12:57] LABS: Chloride 106 mmol/L (98-107); Potassium 4.1 mmoL/L (3.5-5.1); Sodium 139 mmol/L (136-145)
[2023-11-02 12:59] LABS: Alanine Aminotransferase 22 U/L (12-78); Aspartate Amino Transferase 22 U/L (14-36); Blood Urea Nitrogen 18 mg/dl (7-17); Estimated Glomerular Filt Rate 54 ml/min (>60); GFR (African American) 65 ML/MIN (>60)
[2023-11-02 13:00] LABS: Albumin Level 3.9 g/dl (3.5-5.0); Albumin/Globulin Ratio 1.4 (1.1-1.8); Alkaline Phosphatase 130 U/L (38-126); Anion Gap 8.1 mEq/L (5-15); Bilirubin,Total 0.8 mg/dl (0.2-1.3); Calcium 8.4 mg/dl (8.4-10.2); Carbon Dioxide 29 mmol/L (22.0-30.0); Globulin 2.7 g/dL (1.3-3.2); Glucose 100 mg/dl (74-100); Total Protein,Serum 6.6 g/dl (6.3-8.2)
== END 2023-11-02 23:59 ==
LOC: LAB.DROPOF 12:30
PROVIDERS: PCP Family Medicine; Visit Provider Family Medicine
DX: D72.829 Elevated white blood cell count, unspecified (principal); I10 Essential (primary) hypertension; F17.210 Nicotine dependence, cigarettes, uncomplicated
CPT/HCPCS: 80053; 85025

== ENCOUNTER 2023-11-08 09:13 | Emergency (ER) | payer MEDICARE, MEDICAID, SELFPAY ==
[2023-11-08 09:50] VITALS: BP 113/58; PULSE 89; RESP 22; TEMP 36.8; O2SAT 97; BMI 45.6
--- NOTE | 2023-11-08 10:02 | EXP.UTC ---
Discharge Plan Disposition Patient Disposition: Home, Self-Care Condition: Good Prescriptions Prescriptions: New benzonatate 100 mg capsule 100 mg PO TID PRN (Reason: cough) Qty: 30 0RF methylprednisolone [Medrol (Keyur)] 4 mg tablets,dose pack See Rx Instructions .Route .COMPLEX 6 Days Qty: 21 0RF Rx Instructions: taper pack; guaifenesin [Mucinex] 600 mg tablet extended release 12hr 1,200 mg PO BID PRN (Reason: cough) Qty: 20 0RF amoxicillin-pot clavulanate 875-125 mg Tablet 1 tab PO Q12H Qty: 20 0RF No Action diclofenac sodium 1 % gel 2 g topical ONCE azelastine 137 mcg (0.1 %) aerosol,spray 2 spray intranasal BID Qty: 30 2RF Rx Instructions: administer into each nostril torsemide 20 mg tablet See Rx Instructions .ROUTE .COMPLEX Qty: 30 3RF Dose Instruction: TAKE ONE TABLET BY MOUTH EVERY DAY NEEDED FOR EDEMA Rx Instructions: TAKE ONE TABLET BY MOUTH EVERY DAY NEEDED FOR EDEMA potassium chloride 10 mEq capsule, extended release See Rx Instructions .ROUTE .COMPLEX Qty: 30 5RF Rx Instructions: TAKE ONE CAPSULE BY MOUTH EVERY DAY lisinopril-hydrochlorothiazide 10-12.5 mg tablet See Rx Instructions .ROUTE .COMPLEX Qty: 30 1RF Dose Instruction: TAKE ONE TABLET BY MOUTH EVERY DAY FOR BLOOD PRESSURE Rx Instructions: TAKE ONE TABLET BY MOUTH EVERY DAY FOR BLOOD PRESSURE levothyroxine 25 mcg tablet See Rx Instructions .ROUTE .COMPLEX Qty: 90 0RF Dose Instruction: TAKE ONE TABLET BY MOUTH EVERY DAY Rx Instructions: TAKE ONE TABLET BY MOUTH EVERY DAY levocetirizine 5 mg tablet 5 mg PO DAILY Qty: 120 4RF bisoprolol fumarate 5 mg tablet 5 mg PO QDAY Qty: 30 5RF aripiprazole 10 mg tablet 10 mg PO DAILY Qty: 30 3RF albuterol sulfate 90 mcg/actuation HFA aerosol inhaler See Rx Instructions .ROUTE .COMPLEX Qty: 8.5 10RF Dose Instruction: INHALE TWO PUFFS BY MOUTH EVERY 4 TO 6 HOURS NEEDED --SHAKE WELL BEFORE USE-- Rx Instructions: INHALE TWO PUFFS BY MOUTH EVERY 4 TO 6 HOURS NEEDED --SHAKE WELL BEFORE USE-- budesonide-formoterol [Symbicort] 160-4.5 mcg/actuation HFA aerosol inhaler See Rx Instructions .ROUTE .COMPLEX Qty: 10.2 10RF Dose Instruction: INHALE TWO PUFFS BY MOUTH TWICE DAILY FOR asthma --RINSE MOUTH AFTER USE-- Rx Instructions: INHALE TWO PUFFS BY MOUTH TWICE DAILY FOR asthma --RINSE MOUTH AFTER USE-- vilazodone 10 mg tablet See Rx Instructions .ROUTE .COMPLEX Qty: 90 1RF Dose Instruction: TAKE ONE TABLET BY MOUTH EVERY DAY --TAKE WITH FOOD-- Rx Instructions: TAKE ONE TABLET BY MOUTH EVERY DAY --TAKE WITH FOOD-- Referrals Follow up/Referrals: Venessa Sellers PA [Primary Care Provider] - See instructions Activity Restrictions/Add. Instructions Additional Instructions/Restrictions: Start antibiotic today. Be sure to complete entire prescription even if feeling better Monitor temp. Tylenol every 4 hours as needed and / or ibuprofen every 6 hours as needed ( As long as your primary care physician has told you that it ok to take both. For fever/aches/pains ER if no less than 101 despite Tylenol or Motrin Humidifier/vaporizer or hot steamy shower Inhaler every 4-6 hours as needed like we discussed. Should help open airways and improve cough, wheezing, and shortness of breath Mucinex during the day for your cough and cough suppressant only at night. Be sure to drink lots of water. *Tessalon Perles will not cause drowsiness but use at bedtime to help stop cough so that you may get some rest. *Start steroid today. Helps with inflammation therefore, cough and wheezing. Follow directions on the package. Reviewed side effects. Patient reports taking them before. Follow up IMMEDIATELY for new or worsening of symptoms OR no noticeable improvement over the next 48-72 hours. 911 immediately for any life threatening symptoms such as chest pain or difficulty breathing You were tested for today for COVID19 your test result should be back in the next 24hours, you may check your results on the [facility] if your COVID is positive you must Quarantine for 5 days Clinical Impressions Clinical Impression: Bronchitis Sinusitis Qualifiers: Sinusitis location: unspecified location Chronicity: unspecified Qualified Code(s): J32.9 - Chronic sinusitis, unspecified Instructions Patient Instructions: Acute Bronchitis, DI for Sinusitis Discharge ED Provider: Arleen Ayers [facility] HPI General Stated complaint: soa and wants covid test Mode of Arrival: Ambulatory Source of Information: Patient Limitations: No Limitations Time Seen by Provider: 11/08/23 10:19 Description of Symptoms (Recalled from Triage Doc. by RN): PATIENT C/O COUGH, SOA, CHEST CONGESTION, FEVER AND BODY ACHES X 2 DAYS HEENT Symptoms (Recalled from RN notes): No Resp Symptoms (Recalled from RN notes): Yes Skin Symptoms (Recalled from RN notes): No MS Symptoms (Recalled from RN notes): No Functional Status (Recalled from RN notes): WNL History of Present Illness Provider Complaint: Patient states she has not been feeling well for several days States that she has been having chills, body aches, cough, chest congestion but not coughing anything up and feeling a little SOA at times but she has COPD and not sure if it may have been from that States that also she has been having sinus pain and pressure with drainage in the back of her throat feels like she has a bad sinus infection States that today she was not feeling any better so she came in to get checked Denies chest pain wants a COVID test denies known exposure Related Data Home Medications Medication Instructions Recorded Confirmed diclofenac sodium 1 % topical gel 2 g topical ONCE 09/05/23 11/02/23 Previous Rx's Medication Instructions Recorded albuterol sulfate 90 mcg/actuation See Rx Instructions .Route 05/30/23 aerosol inhaler .COMPLEX #8.5 grams budesonide-formoterol HFA 160 See Rx Instructions .Route 05/30/23 mcg-4.5 mcg/actuation aerosol .COMPLEX #10.2 grams inhaler (Symbicort) vilazodone 10 mg tablet See Rx Instructions .Route 10/13/23 .COMPLEX #90 tabs azelastine 137 mcg (0.1 %) nasal 2 spray intranasal BID #30 mL 10/17/23 spray aerosol aripiprazole 10 mg tablet 10 mg PO DAILY #30 tabs 11/02/23 bisoprolol fumarate 5 mg tablet 5 mg PO QDAY #30 tabs 11/02/23 levocetirizine 5 mg tablet 5 mg PO DAILY #120 tabs 11/02/23 levothyroxine 25 mcg tablet See Rx Instructions .Route 11/02/23 .COMPLEX #90 tabs lisinopril 10 See Rx Instructions .Route 11/02/23 mg-hydrochlorothiazide 12.5 mg .COMPLEX #30 tabs tablet potassium chloride 10 mEq See Rx Instructions .Route 11/02/23 capsule,extended release .COMPLEX Supplement #30 caps torsemide 20 mg tablet See Rx Instructions .Route 11/02/23 .COMPLEX #30 tabs amoxicillin 875 mg-potassium 1 tab PO Q12H #20 tabs 11/08/23 clavulanate 125 mg tablet benzonatate 100 mg capsule 100 mg PO TID PRN cough #30 caps 11/08/23 guaifenesin 600 mg tablet, 1,200 mg PO BID PRN cough #20 tabs 11/08/23 extended release 12 hr (Mucinex) methylprednisolone 4 mg tablets in See Rx Instructions .Route 11/08/23 a dose pack (Medrol (Keyur)) .COMPLEX 6 days #21 tabs Allergies Allergy/AdvReac Type Severity Reaction Status Date / Time ibuprofen [IBUPROFEN] Allergy Unknown Hives Verified 11/02/23 08:56 naproxen [NAPROXEN] Allergy Unknown Rash Verified 11/02/23 08:56 Worker's Comp Is this a Worker's Comp case?: No [facility] Disclaimer: The information contained in this section may have been updated after the patient was seen, as this information can be updated by other users. Medical History Abnormal electrocardiogram [ECG] [EKG] Acute bronchitis Allergies Asthma Bipolar 1 disorder Cancer of kidney Carpal tunnel syndrome Daytime somnolence Depression Diastolic dysfunction Dysphagia Enlarged tonsils Family history of sudden cardiac in daughter Hepatitis C History of COVID-19 History of gastroesophageal reflux (GERD) History of syncope HTN (hypertension) Hypertension Hypothyroid Migraine Other specified diseases of gallbladder Rash Referred otalgia of both ears Schizophrenia Seizure disorder Sleep apnea Snoring Swollen uvula Tachycardia Throat pain Urinary tract infection Uvulitis Surgical History History of History of endometrial ablation History of hernia repair History of tubal ligation Hx of appendectomy Status post tonsillectomy Family History Grandmother Stomach cancer Mother Brain cancer Sister Throat cancer Father Family history of hyperlipidemia Social History Smoking Status: Current every day smoker tobacco type: cigarettes packs per day: 1 second hand exposure: No alcohol intake: never substance use type: former substance user and heroin current occupational status: retired Travel in the last 8 weeks: None adopted: Yes household members: children housing: house number of children: 3 current occupational exposures/hazards: No caffeine: Yes ROS Obtained: Yes All systems reviewed & no additional complaints except as documented and Yes Systems reviewed as appropriate & no additional complaints except as documented Constitutional Constitutional: Reports system reviewed and no additional complaints, except as documented, Reports as per HPI, Reports body ache, Reports chills and Reports headache(s) ENT Ears, Nose, Mouth, and Throat: Reports system reviewed and no additional complaints, except as documented, Reports as per HPI, Reports headache(s), Reports sinus pain and Reports sinus pressure Cardiovascular Cardiovascular: Reports system reviewed and no additional complaints, except as documented and Reports as per HPI Respiratory Respiratory: Reports system reviewed and no additional complaints, except as documented, Reports as per HPI, Reports shortness of breath, Reports chest congestion, Reports cough and Reports non-productive cough Gastrointestinal Gastrointestingal: Reports system reviewed and no additional complaints, except as documented and as per HPI Neurologic Neurologic: Reports headache(s) Physical Exam General General appearance: alert and in no apparent distress ENT ENT exam: Present mucous membranes moist Expanded ENT Exam Nose exam: Present sinus tenderness Throat exam: Present other (Pharyngeal erythema noted with PND) Respiratory Respiratory exam: Present normal lung sounds bilaterally; Absent respiratory distress or wheezes Cardiovascular Cardiovascular exam: Present regular rate, normal rhythm and normal heart sounds Neurological Exam Neurological exam: Present alert, oriented X3 and motor sensory deficit Medical Decision Making Torres Inquiry Pt receiving controlled substance: No Torres was queried for this patient: No Vital Signs: 11/08/23 09:50 Temperature 98.3 F Temperature Source Oral Pulse Rate [Left Brachial] 89 Respiratory Rate 22 Blood Pressure [Left Arm] 113/58 L Blood Pressure Mean [Left Arm] 76 Blood Pressure Source [Left Arm] Automatic Cuff Blood Pressure Position [Left Arm] Sitting 02 Sat by Pulse Oximetry 97 Oxygen Delivery Method Room Air Orders (Tests/Meds): ORDERS Category Date Time Status Covid-19 Nasal PCR ([facility]) Routine Lab 11/08/23 09:43 Received Medical Decision Narrative: discussed CXR patient declined at this time Patient states that she has take augmentin and medrol in the past without complications or reactions
[2023-11-08 10:08] LABS: UTC Influenza A Antigen Negative (Negative)
[2023-11-08 10:09] LABS: UTC Influenza B Antigen Negative (Negative)
[2023-11-08 10:33] VITALS: BP 113/58; PULSE 89; RESP 22; TEMP 36.8; O2SAT 97
[2023-11-09 15:13] LABS: Coronavirus 19, PCR Not Detected (NotDetected); Influenza A, PCR Not Detected (NotDetected)
[2023-11-09 17:01] LABS: Influenza B, PCR Detected (NotDetected)
== END 2023-11-08 10:39 | disposition home or self-care (01) ==
PROVIDERS: Emergency Provider Nurse Practitioner; PCP Physician Assistant
DX: J10.1 Influenza due to other identified influenza virus with other respiratory manifestations (principal); R06.02 Shortness of breath; J20.9 Acute bronchitis, unspecified; J01.90 Acute sinusitis, unspecified; R05.9 Cough, unspecified; R09.89 Other specified symptoms and signs involving the circulatory and respiratory systems; R09.81 Nasal congestion; R09.82 Postnasal drip; F17.210 Nicotine dependence, cigarettes, uncomplicated; J44.9 Chronic obstructive pulmonary disease, unspecified; R50.9 Fever, unspecified; I10 Essential (primary) hypertension; E03.9 Hypothyroidism, unspecified
CPT/HCPCS: 87635; 87636; 87804; 99212; 99214; G0463

== ENCOUNTER 2023-11-16 14:53 | Outpatient (CLI) | payer MEDICARE, MEDICAID, SELFPAY ==
--- NOTE | 2023-11-16 14:56 | MM_ITS ---
PROCEDURE INFORMATION: Exam: MG Bilateral Screening 3D Mammography Exam date and time: 11/16/2023 2:49 PM Age: 43 years old Clinical indication: Screening examination TECHNIQUE: Imaging protocol: Bilateral Screening tomosynthesis and 2D mammography including computer-aided detection (CAD) when performed. COMPARISON: 1. MG MM DIG SCREENING MAMM BI W/CAD 08/03/2021 3:57 PM 2. MG MM DIG SCREENING MAMM BI W/CAD 08/06/2020 9:56 AM FINDINGS: MAMMOGRAPHY: Breast composition: The breasts are almost entirely fatty. Mass: None. Architectural distortion: None. Calcifications: No suspicious calcifications. Asymmetric density: None. Skin thickening: None. Axillary adenopathy: None. IMPRESSION: No mammographic evidence of malignancy. Annual screening is recommended unless otherwise clinically indicated. ASSESSMENT: BI-RADS Category 1: Negative
== END 2023-11-16 23:59 ==
PROVIDERS: PCP Physician Assistant; Visit Provider Family Medicine
DX: Z12.31 Encounter for screening mammogram for malignant neoplasm of breast (principal)
CPT/HCPCS: 77063; 77067

== ENCOUNTER 2023-11-22 11:30 | Emergency (ER) | payer MEDICARE, MEDICAID, SELFPAY ==
[2023-11-22 12:18] VITALS: BP 121/81; PULSE 79; RESP 17; TEMP 36.8; O2SAT 99; BMI 45.8
--- NOTE | 2023-11-22 12:27 | XR_ITS ---
FINAL REPORT CLINICAL HISTORY: cough/pain with cough COMPARISON: 02/05/2023 FINDINGS: Two views of the chest were obtained. The heart size and pulmonary vascularity are within normal limits. The mediastinum is normal. No acute pulmonary abnormality is identified. There is no pneumothorax. The bony thorax is intact. IMPRESSION: No active cardiopulmonary disease. Reviewed, Interpreted and Dictated by Julian Rico III, MD Transcribed by Kinza Mckoy Authenticated and [facility]
--- NOTE | 2023-11-22 12:28 | ED_ITS ---
Discharge Plan Disposition Patient Disposition: Home, Self-Care Condition: Good Prescriptions Prescriptions: New methocarbamol 500 mg tablet 500 mg PO TID PRN (Reason: muscle spasm) Qty: 12 0RF No Action diclofenac sodium 1 % gel 2 g topical ONCE azelastine 137 mcg (0.1 %) aerosol,spray 2 spray intranasal BID Qty: 30 2RF Rx Instructions: administer into each nostril torsemide 20 mg tablet See Rx Instructions .ROUTE .COMPLEX Qty: 30 3RF Dose Instruction: TAKE ONE TABLET BY MOUTH EVERY DAY NEEDED FOR EDEMA Rx Instructions: TAKE ONE TABLET BY MOUTH EVERY DAY NEEDED FOR EDEMA potassium chloride 10 mEq capsule, extended release See Rx Instructions .ROUTE .COMPLEX Qty: 30 5RF Rx Instructions: TAKE ONE CAPSULE BY MOUTH EVERY DAY lisinopril-hydrochlorothiazide 10-12.5 mg tablet See Rx Instructions .ROUTE .COMPLEX Qty: 30 1RF Dose Instruction: TAKE ONE TABLET BY MOUTH EVERY DAY FOR BLOOD PRESSURE Rx Instructions: TAKE ONE TABLET BY MOUTH EVERY DAY FOR BLOOD PRESSURE levothyroxine 25 mcg tablet See Rx Instructions .ROUTE .COMPLEX Qty: 90 0RF Dose Instruction: TAKE ONE TABLET BY MOUTH EVERY DAY Rx Instructions: TAKE ONE TABLET BY MOUTH EVERY DAY levocetirizine 5 mg tablet 5 mg PO DAILY Qty: 120 4RF bisoprolol fumarate 5 mg tablet 5 mg PO QDAY Qty: 30 5RF aripiprazole 10 mg tablet 10 mg PO DAILY Qty: 30 3RF albuterol sulfate 90 mcg/actuation HFA aerosol inhaler See Rx Instructions .ROUTE .COMPLEX Qty: 8.5 10RF Dose Instruction: INHALE TWO PUFFS BY MOUTH EVERY 4 TO 6 HOURS NEEDED --SHAKE WELL BEFORE USE-- Rx Instructions: INHALE TWO PUFFS BY MOUTH EVERY 4 TO 6 HOURS NEEDED --SHAKE WELL BEFORE USE-- budesonide-formoterol [Symbicort] 160-4.5 mcg/actuation HFA aerosol inhaler See Rx Instructions .ROUTE .COMPLEX Qty: 10.2 10RF Dose Instruction: INHALE TWO PUFFS BY MOUTH TWICE DAILY FOR asthma --RINSE MOUTH AFTER USE-- Rx Instructions: INHALE TWO PUFFS BY MOUTH TWICE DAILY FOR asthma --RINSE MOUTH AFTER USE-- benzonatate 100 mg capsule 100 mg PO TID PRN (Reason: cough) Qty: 30 0RF methylprednisolone [Medrol (Keyur)] 4 mg tablets,dose pack See Rx Instructions .Route .COMPLEX 6 Days Qty: 21 0RF Rx Instructions: taper pack; guaifenesin [Mucinex] 600 mg tablet extended release 12hr 1,200 mg PO BID PRN (Reason: cough) Qty: 20 0RF amoxicillin-pot clavulanate 875-125 mg Tablet 1 tab PO Q12H Qty: 20 0RF Referrals Follow up/Referrals: Venessa Sellers PA [Primary Care Provider] - See instructions Activity Restrictions/Add. Instructions Additional Instructions/Restrictions: Tylenol every 4 hours as needed for pain if you can take it *moist heat every 20 minutes 3-4 times a day to affected area *Muscle relaxer every 8 hours as needed for muscle spasms but remember, it WILL cause drowsiness You cannot take it and drive, operate machinery or care for small children. *Keep this area active, no movement leads to more stiffness, However take it easy and avoid heavy lifting pushing or pulling *Follow up with you family doctor if no improvement for further treatment ? Clinical Impressions Clinical Impression: Muscle spasm Instructions Patient Instructions: DI for Muscle Spasm, Methocarbamol Discharge ED Provider: Arleen Ayers [facility] General Stated complaint: cough, back pain Mode of Arrival: Ambulatory Source of Information: Patient Limitations: No Limitations Time Seen by Provider: 11/22/23 12:28 Description of Symptoms (Recalled from Triage Doc. by RN): Patient reports dificulty breathing, cough and pain right shoulder for 2 weeks. HEENT Symptoms (Recalled from RN notes): No Resp Symptoms (Recalled from RN notes): Yes Skin Symptoms (Recalled from RN notes): No MS Symptoms (Recalled from RN notes): No Functional Status (Recalled from RN notes): wnl History of Present Illness Provider Complaint: Patient states that she has been having pain in her right shoulder with movement, cough, deep breath for about 2 weeks States that she has been having a bad cough not sure if she may have pulled something or what so today she came in to get it checked Related Data Home Medications Medication Instructions Recorded Confirmed diclofenac sodium 1 % topical gel 2 g topical ONCE 09/05/23 11/16/23 Previous Rx's Medication Instructions Recorded albuterol sulfate 90 mcg/actuation See Rx Instructions .Route 05/30/23 aerosol inhaler .COMPLEX #8.5 grams budesonide-formoterol HFA 160 See Rx Instructions .Route 05/30/23 mcg-4.5 mcg/actuation aerosol .COMPLEX #10.2 grams inhaler (Symbicort) azelastine 137 mcg (0.1 %) nasal 2 spray intranasal BID #30 mL 10/17/23 spray aerosol aripiprazole 10 mg tablet 10 mg PO DAILY #30 tabs 11/02/23 bisoprolol fumarate 5 mg tablet 5 mg PO QDAY #30 tabs 11/02/23 levocetirizine 5 mg tablet 5 mg PO DAILY #120 tabs 11/02/23 levothyroxine 25 mcg tablet See Rx Instructions .Route 11/02/23 .COMPLEX #90 tabs lisinopril 10 See Rx Instructions .Route 11/02/23 mg-hydrochlorothiazide 12.5 mg .COMPLEX #30 tabs tablet potassium chloride 10 mEq See Rx Instructions .Route 11/02/23 capsule,extended release .COMPLEX Supplement #30 caps torsemide 20 mg tablet See Rx Instructions .Route 11/02/23 .COMPLEX #30 tabs amoxicillin 875 mg-potassium 1 tab PO Q12H #20 tabs 11/08/23 clavulanate 125 mg tablet benzonatate 100 mg capsule 100 mg PO TID PRN cough #30 caps 11/08/23 guaifenesin 600 mg tablet, 1,200 mg PO BID PRN cough #20 tabs 11/08/23 extended release 12 hr (Mucinex) methylprednisolone 4 mg tablets in See Rx Instructions .Route 11/08/23 a dose pack (Medrol (Keyur)) .COMPLEX 6 days #21 tabs methocarbamol 500 mg tablet 500 mg PO TID PRN muscle spasm #12 11/22/23 tabs Allergies Allergy/AdvReac Type Severity Reaction Status Date / Time ibuprofen [IBUPROFEN] Allergy Unknown Hives Verified 11/16/23 10:30 naproxen [NAPROXEN] Allergy Unknown Rash Verified 11/16/23 10:30 Worker's Comp Is this a Worker's Comp case?: No [facility] Disclaimer: The information contained in this section may have been updated after the patient was seen, as this information can be updated by other users. Medical History Abnormal electrocardiogram [ECG] [EKG] Acute bronchitis Allergies Asthma Bipolar 1 disorder Cancer of kidney Carpal tunnel syndrome Daytime somnolence Depression Diastolic dysfunction Dysphagia Enlarged tonsils Family history of sudden cardiac in daughter Hepatitis C History of COVID-19 History of gastroesophageal reflux (GERD) History of syncope HTN (hypertension) Hypertension Hypothyroid Migraine Other specified diseases of gallbladder Rash Referred otalgia of both ears Schizophrenia Seizure disorder Sleep apnea Snoring Swollen uvula Tachycardia Throat pain Urinary tract infection Uvulitis Surgical History History of History of endometrial ablation History of hernia repair History of tubal ligation Hx of appendectomy Status post tonsillectomy Family History Grandmother Stomach cancer Mother Brain cancer Sister Throat cancer Father Family history of hyperlipidemia Social History Smoking Status: Current every day smoker tobacco type: cigarettes packs per day: 1 second hand exposure: No alcohol intake: never substance use type: former substance user and heroin current occupational status: retired Travel in the last 8 weeks: None adopted: Yes household members: children housing: house number of children: 3 current occupational exposures/hazards: No caffeine: Yes ROS Obtained: Yes All systems reviewed & no additional complaints except as documented and Yes Systems reviewed as appropriate & no additional complaints except as documented Constitutional Constitutional: Reports system reviewed and no additional complaints, except as documented, Reports as per HPI, Denies body ache, Denies chills, Denies fever(s) and Denies headache(s) ENT Ears, Nose, Mouth, and Throat: Reports system reviewed and no additional complaints, except as documented, Reports as per HPI and Denies headache(s) Cardiovascular Cardiovascular: Reports system reviewed and no additional complaints, except as documented and Reports as per HPI Respiratory Respiratory: Reports system reviewed and no additional complaints, except as documented, Reports as per HPI, Denies shortness of breath, Reports cough, Reports pain on inspiration, Reports pain with cough and Reports other Comments: Pain in right shoulder area worse with movement, cough, and deep breath Gastrointestinal Gastrointestingal: Reports system reviewed and no additional complaints, except as documented and as per HPI Neurologic Neurologic: Denies headache(s) Physical Exam General General appearance: alert and in no apparent distress ENT ENT exam: Present mucous membranes moist Respiratory Respiratory exam: Present normal lung sounds bilaterally; Absent respiratory distress or wheezes Cardiovascular Cardiovascular exam: Present regular rate, normal rhythm and normal heart sounds Abdominal Exam Abdominal exam: Present soft and normal bowel sounds; Absent distention or tenderness Back Exam Back 1 view image: 1. reports pain with movement, palpation, and deep breath and raising her arm Denies known injury Neurological Exam Neurological exam: Present alert and normal gait Medical Decision Making Torres Inquiry Pt receiving controlled substance: No Torres was queried for this patient: No Vital Signs: 11/22/23 12:18 Temperature 98.3 F Temperature Source Oral Pulse Rate [Radial] 79 Respiratory Rate 17 Blood Pressure [Right Arm] 121/81 Blood Pressure Mean [Right Arm] 94 Blood Pressure Source [Right Arm] Automatic Cuff Blood Pressure Position [Right Arm] Sitting 02 Sat by Pulse Oximetry 99 Oxygen Delivery Method Room Air Orders (Tests/Meds): ORDERS Category Date Time Status Chest XR 2 view (NOT portable) [XR chest 2V] Stat Exams 11/22/23 12:27 Ordered Radiology Data #1: Image(s): Chest Image Reviewed: Yes I have reviewed radiologist's interpretation no acute pulmonary abnormality is identified no active cardiopulmonary disease
[2023-11-22 14:34] VITALS: BP 121/81; PULSE 79; RESP 17; TEMP 36.8; O2SAT 99
== END 2023-11-22 14:35 | disposition home or self-care (01) ==
PROVIDERS: Emergency Provider Nurse Practitioner; PCP Physician Assistant
DX: M25.511 Pain in right shoulder (principal); R05.9 Cough, unspecified; R07.1 Chest pain on breathing
CPT/HCPCS: 71046; 99212; 99214; G0463

== ENCOUNTER 2023-12-05 09:13 | Outpatient (CLI) | payer MEDICARE, MEDICAID, SELFPAY ==
[2023-12-05 10:11] LABS: Blood Urea Nitrogen 12 mg/dl (7-17); Estimated Glomerular Filt Rate 54 ml/min (>60); GFR (African American) 65 ML/MIN (>60)
--- NOTE | 2023-12-05 11:24 | CT_ITS ---
FINAL REPORT TECHNIQUE: Routine axial images were obtained from the lung apices to below the diaphragm following IV contrast administration. Individualized dose reduction techniques using automated exposure control or adjustment of the mA and/or kV according to the patient size were employed. CLINICAL HISTORY: SWELLING-MASS/LUMP COMPARISON: 09/13/2023 FINDINGS: There are a few small scattered mediastinal nodes, nonspecific. There are multiple nodules identified in the left lung base, measuring up to 1.2 cm in size, which are stable since the prior CT of August. There is a nodule in the periphery of the left upper lobe measuring 6 mm in size, also stable. There are tiny nodules in the peripheral upper lobes bilaterally, stable. There is a new nodule in the right lower lobe measuring 0.8 cm in size best seen on image #188 of series 2. Moderate changes of centrilobular emphysema are present. No pleural effusion or pericardial effusion is present. IMPRESSION: Multiple scattered nodules as described, mostly stable since the prior CT of August 2023. There is a new nodule in the right lower lobe measuring 8 mm in size as described. Would recommend follow-up CT in 3 months for follow-up, or consider bronchoscopy. Reviewed, Interpreted and Dictated by Gael Ascencio MD Transcribed by Ro Zavala Authenticated and [facility]
--- NOTE | 2023-12-05 11:24 | CT_ITS ---
FINAL REPORT TECHNIQUE: After the administration of oral and intravenous contrast, axial images were obtained through the abdomen and pelvis by computed tomography. The study was performed with techniques to keep radiation dose as low as reasonably achievable, (ALARA). Individual dose reduction techniques using automated exposure control or adjustment of mA and/or kV according to the patient's size were employed. CLINICAL HISTORY: SWELLING-MASS/LUMP COMPARISON: 10/13/2022 FINDINGS: Abdomen: The lung bases are clear. The liver parenchyma is homogeneous. The gallbladder is surgically absent. The spleen, pancreas, adrenals and kidneys appear unremarkable. The aorta is normal in caliber. There is no free fluid or adenopathy. Pelvis: The appendix is not identified. The urinary bladder is unremarkable. There is no free fluid or adenopathy. The uterus is anteverted, and there are Essure coils present bilaterally. The bladder is incompletely distended. IMPRESSION: No acute intra-abdominal process. Reviewed, Interpreted and Dictated by Gael Ascencio MD Transcribed by Ro Zavala Authenticated and [facility]
[2023-12-05] MEDS: IOPAMIDOL-370 (76%);100ML BOTTLE 75 ML IV (11:57)
[2023-12-05] MEDS: SODIUM CHLORIDE 0.9% 10ML SYR (RAD ONLY) 10 ML IV (11:57)
[2023-12-05] MEDS: DIATRIZOATE MEGLUMINE(GASTROGRAFIN) 66%-10% 120ML 30 ML PO (13:50)
== END 2023-12-05 23:59 ==
LOC: RAD 09:14
PROVIDERS: PCP Physician Assistant; Visit Provider Internal Medicine Medical Oncology
DX: R19.00 Intra-abdominal and pelvic swelling, mass and lump, unspecified site (principal)
CPT/HCPCS: 36415; 71260; 74177; 82565; 84520; Q9967

== ENCOUNTER 2023-12-15 13:33 | Outpatient (CLI) | payer MEDICARE, MEDICAID, SELFPAY ==
[2023-12-20 14:43] LABS: Dopamine, Ur, 24hr 308 ug/24 hr (0-510); Dopamine, Urine 308 ug/L (Undefined); Epinephrine, U, 24hr 3 ug/24 hr (0-20); Epinephrine, Urine 3 ug/L (Undefined); Norepinephrine, Ur 34 ug/L (Undefined); Norepinephrine,U,24h 34 ug/24 hr (0-135)
[2023-12-21 23:08] LABS: Metanephrine, U,24hr 111 ug/24 hr (36-209); Metanephrine, Ur 111 ug/L (Undefined); Normetanephr.,U,24h 297 ug/24 hr (131-612); Normetanephrine, Ur 297 ug/L (Undefined)
== END 2023-12-15 23:59 ==
LOC: LAB.DROPOF 13:35
PROVIDERS: PCP Physician Assistant; Visit Provider Internal Medicine Medical Oncology
DX: R06.02 Shortness of breath (principal); D49.512 Neoplasm of unspecified behavior of left kidney
CPT/HCPCS: 82384; 83835

== ENCOUNTER 2023-12-22 07:34 | Day surgery (SDC) | payer MEDICARE, SELFPAY ==
[2023-12-22] MEDS: LACTATED RINGERS 1000ML 1,000 ML 25 ML IV (07:53)
[2023-12-22 07:56] VITALS: BP 121/89; PULSE 87; RESP 18; TEMP 36.3; O2SAT 98; BMI 44.6
[2023-12-22 08:46] LABS: HCG Qualitative, Serum Negative (Negative)
--- NOTE | 2023-12-22 09:20 | P.PNANES_ITS ---
[facility] Disclaimer: The information contained in this section may have been updated after the patient was seen, as this information can be updated by other users. Medical History Uvulitis Referred otalgia of both ears Family history of sudden cardiac in daughter Abnormal electrocardiogram [ECG] [EKG] Tachycardia Swollen uvula Throat pain Diastolic dysfunction HTN (hypertension) Daytime somnolence Snoring Other specified diseases of gallbladder Hepatitis C Urinary tract infection History of COVID-19 Sleep apnea History of syncope Seizure disorder Migraine Bipolar 1 disorder Schizophrenia Depression Carpal tunnel syndrome History of gastroesophageal reflux (GERD) Hypothyroid Allergies Hypertension Cancer of kidney Enlarged tonsils Dysphagia Rash Asthma Acute bronchitis Surgical History History of endometrial ablation Status post tonsillectomy History of hernia repair Hx of appendectomy History of History of tubal ligation Family History Grandmother Stomach cancer Mother Brain cancer Sister Throat cancer Father Family history of hyperlipidemia Social History Smoking Status: Current every day smoker tobacco type: cigarettes packs per day: 1 second hand exposure: No alcohol intake: never substance use type: former substance user and heroin current occupational status: disabled Travel in the last 8 weeks: None adopted: Yes household members: children housing: house number of children: 3 current occupational exposures/hazards: No caffeine: Yes [facility] Anesthesia Checklist Patient Identification Patient Identification: Arm Band and Verbal (Name & ) Structural Data Admitted From: Home Planned Operative Procedure/s: Colonoscopy Consent for Planned Operative Procedure(s) Verified: Yes NPO Status Verified Time NPO: 00:00 Chart Verification Results Verified: HCG Additional verifications Anesthesia Reactions: No Hx Blood Transfusions: No Blood Transfusion Reaction: No Airway Assessment Mallampati Score:: Class III C-Spine Mobility Assessed: Yes TMJ Mobility Assessed: Yes Dentition: Dentures-poor fitting Neurological Assessment Level of Consciousness: Awake Hx Seizures: No Numbness or tingling in extremities: No Anesthesia Plan Anesthesia Risk discussed: Yes Anesthesia Plan: Verified ASA Class: III Anesthesia Type: MAC
[2023-12-22 09:34] VITALS: O2SAT 96
[2023-12-22 11:00] VITALS: BP 111/64; PULSE 79; RESP 12; TEMP 36.2; O2SAT 98
--- NOTE | 2023-12-22 11:04 | HMH.SCOPE ---
Procedure: Date: 12/22/23 Patient Date of :: 1980 Procedure Performed:: Total colonoscopy to cecum with numerous polypectomy Indications:: Patient is a 43-year-old female with history of extra-adrenal paraganglioma, reported prior drug use, history of hepatitis C, chronic back pain, hypertension, GERD, hypothyroidism, tobacco abuse, referred for initial screening colonoscopy. Patient is asymptomatic. Performing Provider:: Julian Blevins MD Referring Provider:: Venessa Sellers Sedation:: MAC sedation Procedure:: Patient history was obtained and appropriate physical examination was performed. Patient's medications and allergies were reviewed. Informed consent was obtained after explaining the benefits, alternatives, and risks of the procedure including, but not limited to, bleeding, perforation, missed lesions, and adverse reaction to anesthesia medications. Patient was transported to endoscopy procedure room. Patient was connected to monitoring devices. Throughout the procedure the patient's blood pressure, pulse, and oxygen saturations were monitored continuously. Patient identification and planned procedure were verified by the staff. Patient was positioned in lateral decubitus position. Digital anorectal exam was performed. Variable stiffness Olympus colonoscope was inserted and advanced under direct visualization to the cecum. Adequacy of the colonic preparation was noted. The colonoscope was then slowly withdrawn while carefully examining the color, texture, anatomy, and integrity of the mucosoa circumferentially. Within the rectum retroflexion was performed. Colonoscope was then withdrawn. . Colonic preparation was fair as there was particulate liquid stool throughout the colon. High-volume irrigation in the ascending colon just distal to the ileocecal valve there was a large elongated polyp which was removed with hot snare. It was quite firm. Attempt was made to macerate this with [place]ton net for retrieval and this was ultimately done although the polyp was rather firm. In the distal transverse colon there was a moderately large adenomatous polyp removed with hot snare. In the descending colon there was of rather large polyp which required ultimately read injection of Ronit view to raise the polyp and then removal using the large 30 mm hot snare. Residual tissue was excised with the cold cutting snare. Casi ink was injected submucosally at the completion to frances the area. In the proximal sigmoid colon there was a polyp removed with cold snare. Mid sigmoid there were a couple of complex adenomatous appearing polyps removed with 13 mm hot snare. In the rectosigmoid region there were a couple of adenomatous appearing polyps removed with 13 mm hot snare and a couple smaller polyps removed with cold cutting 9 mm snare. In the distal rectum there was an adenomatous appearing polyp removed with hot snare. . Findings:: Fair colonic preparation Numerous complex polyps as noted above. She had a total of at least 11 polyps. Several of these were quite large and complex. Recommendations:: Repeat colonoscopy 6 to 12 months pending pathology. Likely would benefit from multiday alternate prep. Complications:: None immediately apparent Estimated blood obtained (mL): 2 Colonoscopy Component Colonoscopy Component Was a colonoscopy performed during today's procedure?: Yes Recommended follow up colonoscopy of at least 10 years?: No If no, follow up colonoscopy recommended in ___ years?: 1 Reason for not recommending >/= 10 yr follow-up interval?: See above
[2023-12-22 11:10] VITALS: BP 127/65; PULSE 74; RESP 14; O2SAT 97
[2023-12-22 11:20] VITALS: BP 109/67; PULSE 70; RESP 16; O2SAT 99
== END 2023-12-22 11:30 | disposition home or self-care (01) ==
PROVIDERS: Visit Provider Surgery
PROC: 0DJD8ZZ Inspection of Lower Intestinal Tract, Via Natural or Artificial Opening Endoscopic (ICD-10-PCS; CPT 45385; principal; 2023-12-22 09:30)
DX: Z12.11 Encounter for screening for malignant neoplasm of colon (principal); D12.2 Benign neoplasm of ascending colon; D12.3 Benign neoplasm of transverse colon; D12.4 Benign neoplasm of descending colon; K63.5 Polyp of colon
CPT/HCPCS: 45385; 84703; 88305; J2704

== ENCOUNTER 2024-01-02 08:35 | Emergency (ER) | payer MEDICARE, SELFPAY ==
--- NOTE | 2024-01-02 08:52 | ED_ITS ---
Discharge Plan Disposition Patient Disposition: Home, Self-Care Condition: Good Prescriptions Prescriptions: New cyclobenzaprine 10 mg Tablet 10 mg PO BID PRN (Reason: Muscle Spasm) Qty: 20 0RF methylprednisolone 4 mg Tablets,Dose Pack 4 mg PO DIRECTED 6 Days Qty: 21 0RF Rx Instructions: Take 1 pack as directed for 6 days No Action azelastine 137 mcg (0.1 %) aerosol,spray 2 spray intranasal BID Qty: 30 2RF Rx Instructions: administer into each nostril aripiprazole 10 mg tablet 10 mg PO DAILY Qty: 30 3RF bisoprolol fumarate 5 mg tablet 5 mg PO QDAY Qty: 30 5RF lisinopril-hydrochlorothiazide 10-12.5 mg tablet See Rx Instructions .ROUTE .COMPLEX Qty: 30 1RF Dose Instruction: TAKE ONE TABLET BY MOUTH EVERY DAY FOR BLOOD PRESSURE Rx Instructions: TAKE ONE TABLET BY MOUTH EVERY DAY FOR BLOOD PRESSURE torsemide 20 mg tablet See Rx Instructions .ROUTE .COMPLEX Qty: 30 3RF Dose Instruction: TAKE ONE TABLET BY MOUTH EVERY DAY NEEDED FOR EDEMA Rx Instructions: TAKE ONE TABLET BY MOUTH EVERY DAY NEEDED FOR EDEMA albuterol sulfate 90 mcg/actuation HFA aerosol inhaler See Rx Instructions .ROUTE .COMPLEX Qty: 8.5 10RF Dose Instruction: INHALE TWO PUFFS BY MOUTH EVERY 4 TO 6 HOURS NEEDED --SHAKE WELL BEFORE USE-- Rx Instructions: INHALE TWO PUFFS BY MOUTH EVERY 4 TO 6 HOURS NEEDED --SHAKE WELL BEFORE USE-- budesonide-formoterol [Symbicort] 160-4.5 mcg/actuation HFA aerosol inhaler See Rx Instructions .ROUTE .COMPLEX Qty: 10.2 10RF Dose Instruction: INHALE TWO PUFFS BY MOUTH TWICE DAILY FOR asthma --RINSE MOUTH AFTER USE-- Rx Instructions: INHALE TWO PUFFS BY MOUTH TWICE DAILY FOR asthma --RINSE MOUTH AFTER USE-- budesonide-formoterol [Symbicort] 160-4.5 mcg/actuation HFA aerosol inhaler 2 inh INHALATION DAILY potassium chloride 10 mEq capsule, extended release 10 meq PO DAILY Rx Instructions: TAKE ONE CAPSULE BY MOUTH EVERY DAY levothyroxine 25 mcg tablet 25 mcg PO DAILY Rx Instructions: TAKE ONE TABLET BY MOUTH EVERY DAY Referrals Follow up/Referrals: Venessa Sellers PA [Primary Care Provider] - See instructions Activity Restrictions/Add. Instructions Additional Instructions/Restrictions: Go home and rest. It would be best if you rested tomorrow too. No heavy lifting. No twisting. Take the oral medications as directed. The muscle relaxer (cyclobenzaprine--Flexeril) will make you drowsy, so don't drive or operate heavy machinery after taking it. Don't start the oral steroids (medrol dose pack) until tomorrow, since you had the shots in here today. Follow up with your regular doctor within the next 48 to 72 hours for recheck. GO TO THE ER FOR ANY WORSENING SYMPTOMS OR CONCERN, ESPECIALLY BOWEL OR BLADDER ISSUES, SADDLE AREA NUMBNESS, FEVER, ETC Clinical Impressions Clinical Impression: Fall, Lumbar back pain, Back pain, thoracic Instructions Patient Instructions: DI for Low Back Pain, Cyclobenzaprine, Methylprednisolone, DI for Thoracic Back Pain Discharge ED Provider: Maurice Davis [facility] General Stated complaint: AO12/27@home, lower back pain Time Seen by Provider: 01/02/24 08:52 History of Present Illness Provider Complaint: She states that she fell (slipped in mud and fell backwards) on 12/27. Since then she has had low back pain and middle back pain. She has been taking tylenol but it has not been completely helping. She denies any numbness or weakness of her extremities. Related Data Home Medications Medication Instructions Recorded Confirmed budesonide-formoterol HFA 160 2 inh inhalation DAILY 12/20/23 12/25/23 mcg-4.5 mcg/actuation aerosol inhaler (Symbicort) levothyroxine 25 mcg tablet 25 mcg PO DAILY 12/20/23 12/25/23 potassium chloride 10 mEq 10 meq PO DAILY Supplement 12/20/23 12/25/23 capsule,extended release Previous Rx's Medication Instructions Recorded albuterol sulfate 90 mcg/actuation See Rx Instructions .Route 05/30/23 aerosol inhaler .COMPLEX #8.5 grams budesonide-formoterol HFA 160 See Rx Instructions .Route 05/30/23 mcg-4.5 mcg/actuation aerosol .COMPLEX #10.2 grams inhaler (Symbicort) azelastine 137 mcg (0.1 %) nasal 2 spray intranasal BID #30 mL 01/02/24 spray aerosol aripiprazole 10 mg tablet 10 mg PO DAILY #30 tabs 12/25/23 bisoprolol fumarate 5 mg tablet 5 mg PO QDAY #30 tabs 12/25/23 lisinopril 10 See Rx Instructions .Route 12/25/23 mg-hydrochlorothiazide 12.5 mg .COMPLEX #30 tabs tablet torsemide 20 mg tablet See Rx Instructions .Route 12/25/23 .COMPLEX #30 tabs cyclobenzaprine 10 mg tablet 10 mg PO BID PRN Muscle Spasm #20 01/02/24 tabs methylprednisolone 4 mg tablets in 4 mg PO DIRECTED 6 days #21 tabs 01/02/24 a dose pack Allergies Allergy/AdvReac Type Severity Reaction Status Date / Time ibuprofen [IBUPROFEN] Allergy Unknown Hives Verified 01/02/24 09:17 naproxen [NAPROXEN] Allergy Unknown Rash Verified 01/02/24 09:17 [facility] Disclaimer: The information contained in this section may have been updated after the patient was seen, as this information can be updated by other users. Medical History (Updated 01/02/24 @ 10:22 by Maurice Davis APRN) Viral syndrome Sinusitis Otitis media Thrush Encounter for laboratory testing for COVID-19 virus Knee contusion Tonsillitis Otitis media Bronchitis Sinusitis Bronchitis Colonoscopy planned Pharyngitis Uvulitis Referred otalgia of both ears Family history of sudden cardiac in daughter Abnormal electrocardiogram [ECG] [EKG] Tachycardia Swollen uvula Throat pain Diastolic dysfunction HTN (hypertension) Daytime somnolence Snoring Other specified diseases of gallbladder Hepatitis C Urinary tract infection History of COVID-19 Sleep apnea History of syncope Seizure disorder Migraine Bipolar 1 disorder Schizophrenia Depression Carpal tunnel syndrome History of gastroesophageal reflux (GERD) Hypothyroid Allergies Hypertension Cancer of kidney Enlarged tonsils Dysphagia Rash Asthma Acute bronchitis Surgical History History of endometrial ablation Status post tonsillectomy History of hernia repair Hx of appendectomy History of History of tubal ligation Family History Grandmother Stomach cancer Mother Brain cancer Sister Throat cancer Father Family history of hyperlipidemia Social History Smoking Status: Current every day smoker tobacco type: cigarettes packs per day: 1 second hand exposure: No alcohol intake: never substance use type: former substance user and heroin current occupational status: disabled Travel in the last 8 weeks: None adopted: Yes household members: children housing: house number of children: 3 current occupational exposures/hazards: No caffeine: Yes ROS Obtained: Yes All systems reviewed & no additional complaints except as documented Constitutional Constitutional: Denies chills, Denies fever(s), Denies headache(s) and Denies weakness Eyes Eyes: Denies eye discharge ENT Ears, Nose, Mouth, and Throat: Denies disequilibrium, Denies dizziness, Denies otalgia, Denies headache(s) and Denies sore throat Cardiovascular Cardiovascular: Denies chest pain Respiratory Respiratory: Denies shortness of breath, Denies chest congestion, Denies cough, Denies stridor and Denies wheezing Gastrointestinal Gastrointestingal: Denies nausea or vomiting Musculoskeletal Musculoskeletal: Reports system reviewed and no additional complaints, except as documented, Denies abnormal gait, Denies arthralgias and Denies numbness Integumentary/Breasts Skin/Breast: Denies rash Neurologic Neurologic: Denies abnormal gait, Denies disequilibrium, Denies dizziness, Denies headache(s), Denies numbness, Denies paresthesias, Denies radicular pain, Denies sensory deficit, Denies tremor(s) and Denies weakness Allergic/Immunologic Allergic/Immunologic: Denies wheezing Physical Exam General General appearance: alert and in no apparent distress Head Head exam: atraumatic, normocephalic and normal inspection Eye Eye exam: Present normal appearance, PERRL and EOMI ENT ENT exam: Present normal exam, normal oropharynx, mucous membranes moist, TM's normal bilaterally and normal external ear exam Neck Neck exam: Present normal inspection, full ROM and trachea midline; Absent meningismus or lymphadenopathy Chest Chest inspection: Present normal inspection and symmetric chest wall rise; Absent tenderness Respiratory Respiratory exam: Present normal lung sounds bilaterally; Absent respiratory distress Cardiovascular Cardiovascular exam: Present regular rate and normal rhythm; Absent JVD Abdominal Exam Abdominal exam: Present soft and normal bowel sounds; Absent distention, tenderness or guarding Extremities Exam Extremities exam: Present normal inspection, full ROM and normal capillary refill; Absent calf tenderness Back Exam Back exam: Present normal inspection; Absent tenderness Neurological Exam Neurological exam: Present alert, oriented X3, CN II-XII intact, normal gait and reflexes normal; Absent motor sensory deficit Expanded Neurological Exam Cranial nerves: Normal: EOM function (II, III, IV, ), facial sensation (V), facial palsy (VII), gag reflex (IX), spinal accessory function (XI) and tongue deviation (XII) Cerebellar function: normal gait Motor strength - LUE: 5/5 Motor strength - RUE: 5/5 Motor strength - LLE: 5/5 Motor strength - RLE: 5/5 Sensory exam upper extremity: Normal: light touch and 2 point discrimination Sensory exam lower extremity: Normal: light touch and 2 point discrimination DTR: 2+: biceps (L), biceps (R), patellar (L), patellar (R), Achilles tendon (L) and Achilles tendon (R) Spinal cord function: Absent saddle anesthesia Psychiatric Psychiatric exam: Present normal affect and normal mood Skin Skin exam: Present warm, dry, intact and normal color Lymphatic Lymphatic Findings: no adenopathy Medical Decision Making Medical Records Medical records reviewed: No I reviewed the patient's medical records. Torres Inquiry Pt receiving controlled substance: No Radiology Data #1: Image(s): T-Spine Image Reviewed: Yes I reviewed the patient's radiology image and Yes I have reviewed radiologist's interpretation #2: Image(s): L-Spine Image Reviewed: Yes I reviewed the patient's radiology image and Yes I have reviewed radiologist's interpretation
--- NOTE | 2024-01-02 08:53 | XR_ITS ---
FINAL REPORT CLINICAL HISTORY: pain COMPARISON: 06/09/2023 FINDINGS: LUMBAR SPINE Five views demonstrate no acute fracture. There are mild and moderate degenerative changes. There is mild anterolisthesis of L4 on 5. IMPRESSION: Degenerative changes without acute process. Reviewed, Interpreted and Dictated by Julian Rico III, MD Transcribed by Ariela Peñaloza Authenticated and [facility]
--- NOTE | 2024-01-02 08:55 | XR_ITS ---
FINAL REPORT CLINICAL HISTORY: pain COMPARISON: 06/09/2023 FINDINGS: THORACIC SPINE Three views demonstrate no acute fracture. There are mild and moderate degenerative changes with osteophytes. There is no malalignment. IMPRESSION: Degenerative changes as above. Reviewed, Interpreted and Dictated by Julian Rico III, MD Transcribed by Ariela Peñaloza Authenticated and [facility]
[2024-01-02 09:00] VITALS: BP 104/59; PULSE 76; RESP 18; TEMP 36.9; O2SAT 100; BMI 45.3
[2024-01-02 10:42] VITALS: BP 104/59; PULSE 76; RESP 18; TEMP 36.9; O2SAT 100
== END 2024-01-02 10:42 | disposition home or self-care (01) ==
PROVIDERS: Emergency Provider Nurse Practitioner Family; PCP Physician Assistant
DX: M54.6 Pain in thoracic spine (principal); M54.50 Low back pain, unspecified; W01.0XXA Fall on same level from slipping, tripping and stumbling without subsequent striking against object, initial encounter; I11.9 Hypertensive heart disease without heart failure; G47.30 Sleep apnea, unspecified; G40.909 Epilepsy, unspecified, not intractable, without status epilepticus; F25.0 Schizoaffective disorder, bipolar type; E03.9 Hypothyroidism, unspecified; J45.909 Unspecified asthma, uncomplicated; F17.210 Nicotine dependence, cigarettes, uncomplicated; Z85.528 Personal history of other malignant neoplasm of kidney
CPT/HCPCS: 72072; 72110; 99212; 99214; G0463

== ENCOUNTER → 2024-01-10 19:58 | Outpatient (CLI) | payer MEDICARE, SELFPAY | LOC: SL 20:00 | PROVIDERS: PCP Family Medicine; Visit Provider Nurse Practitioner Family | DX: G47.33 Obstructive sleep apnea (adult) (pediatric) (principal); G47.36 Sleep related hypoventilation in conditions classified elsewhere; R06.83 Snoring; R53.83 Other fatigue; F19.91 Other psychoactive substance use, unspecified, in remission; F20.89 Other schizophrenia; E66.01 Morbid (severe) obesity due to excess calories; Z68.43 Body mass index [BMI] 50.0-59.9, adult; Z72.0 Tobacco use | CPT/HCPCS: 95810 ==

== ENCOUNTER 2024-01-17 09:52 | Outpatient (POV) | payer MEDICARE, SELFPAY | END 2024-01-17 23:59 | disposition home or self-care (01) | LOC: SC 09:52 | PROVIDERS: Visit Provider Specialist/Technologist | DX: Z00.00 Encounter for general adult medical examination without abnormal findings (principal) ==

== ENCOUNTER 2024-01-24 09:40 | Outpatient (CLI) | payer MEDICARE, SELFPAY ==
--- NOTE | 2024-01-24 09:41 | US_ITS ---
PROCEDURE INFORMATION: Exam: US Left Breast Limited Exam date and time: 01/24/2024 9:59 AM Age: 43 years old Clinical indication: Breast pain; Left; Additional info: Painful lump TECHNIQUE: Imaging protocol: Limited ultrasound of left breast with image documentation, including axilla when performed. Exam focused on the search and evaluation for mass. COMPARISON: MG MM DIG SCREENING MAMM BI W/CAD 11/16/2023 2:49 PM FINDINGS: ULTRASOUND: Breast ultrasound findings: No mass is identified. Other findings: Lymph node in the left axilla measures 2.8; 1.27; 1.46; 1.44 cm IMPRESSION: No sonographic evidence of malignancy. Annual mammographic screening is recommended unless otherwise clinically indicated. ASSESSMENT: No mass identified
== END 2024-01-24 23:59 | disposition home or self-care (01) ==
LOC: RAD 09:41
PROVIDERS: PCP Family Medicine; Visit Provider Family Medicine
DX: N64.4 Mastodynia; N63.20 Unspecified lump in the left breast, unspecified quadrant
CPT/HCPCS: 76642

== ENCOUNTER 2024-01-24 11:00 | Outpatient (RCR) | payer MEDICARE, SELFPAY ==
--- NOTE | 2024-01-18 07:41 | HMH.PTOPEV ---
PT Outpatient Evaluation Rehab PT Outpatient Evaluation Start: 01/18/24 07:18 Freq: Status: Active Protocol: Document 01/18/24 07:18 HOME (Rec: 01/18/24 07:40 HOME [id number]) E-signed By Mitch Fuller, PT Outpatient Therapy Subjective History Subjective History Patient is a 43 year old female presenting to outpatient PT with reports of sub-acute LS/TS pain. No reports of radicular symptoms. Symptoms of insidious onset starting approx 2 months ago. SI special tests negative. Most recent imaging indicates TS/LS degenerative changes. No other comorbidities to report. New diagnosis of cancer in past 12 No months? Chief Complaint Pain,Stiff Symptom Type Ache,Sharp Symptoms Relieved By Rest/Positioning Symptoms Aggravated By Standing,Bending/Stooping, Physical Activity,Walking, Lifting Prior Functional Limitations None Current Functional Limitations Lifting,Housework,Standing, Walking,Bending/Stooping Symptom Description Constant but Variable Level of pain today (0-10) 0 Pain scale - at its best (0-10) 0 Pain scale - at its worst (0-10) 8 Lumbopelvic Eval Posture Thoracic Spine Posture Standing Position Increased Kyphosis Lumbar Spine Posture Standing Position Increased Lordosis Assistive device Assistive Devices None / NA Palapation tenderness bilateral lumbar spinal tenderness Yes: L3-S1 3/4 paraspinal tenderness Yes: Lumbar/Sacral Palpation Findings Tenderness Lumbar/Sacral Palpation Overall Comment Upper gluteal mm 3/4 Accessory Movement L3 bilateral L4 bilateral L5 bilateral S1 bilateral Range of Motion Lumbar Spine Active Flexion Range of 72 Motion (degrees) Lumbar Spine Active Extension Range of WNL Motion (degrees) Left Lumbar Spine Lateral Flexion Active 18 Range of Motion (degrees) Right Lumbar Spine Lateral Flexion 14 Active Range of Motion (degrees) Manual Muscle Test Bilateral Knee Extension Strength Grade 5 Normal Knee Flexion Strength Grade 5 Normal Hip Flexion Strength Grade 5 Normal Extensor Hallucis Longus Strength Grade 5 Normal Ankle Dorsiflexion Strength Grade 5 Normal Gastronemius/Soleus Strength Grade 5 Normal Special Tests Lumbar Spine Screen Positive Hip Hazel Test Positive Left,Positive Right Hip Piriformis Test Positive Left,Positive Right Hip Bowstring (Cram) Test Positive Left,Positive Right Sciatic Nerve Tension Test Negative Left,Positive Right Sacroiliac Joint Distraction Test Negative Left,Negative Right Lumbar Spine Jc Test Negative Left,Negative Right Lumbar Long Sargeant Distraction Test/Manual Positive Traction Oswestry Index Section 1 Pain Intensity The pain comes and goes and is moderate Section 2 Personal Care (Washing,Dresing) my way of washing or dressing even though it causes some pain Section 3 Lifting lifting heavy weights off the floor, but I can manage light to medium Section 4 Walking I cannot walk more than 1/4 mile without increasing pain Section 5 Sitting Pain prevents me from sitting for more than one hour Section 6 Standing I cannot stand more than 1/2 hour without increasing pain Section 7 Sleeping Because of my pain, my normal night's sleep is less than 4 hours Section 8 Social Life My social life is normal but increases the degree of pain Section 9 Traveling I get some pain when traveling , but none of my usual forms of travel m Section 10 Changing Degreee of Pain My pain is neither getting better or worse Score and Risk Level Oswestry Sc 24 Oswestry Risk Level Moderate Disability Outpatient Therapy Assessment Impairments Problems/Impairmments Palpation Tenderness,Impaired Range of Motion,Impaired Strength,Impaired Walking, Impaired Standing,Impaired Lifting,Impaired Household Care,Impaired Bending, Subjective C/O Pain Prognosis Rehab Potential Good Clinical Impression Consistent with Diagnosis Yes Short Term Goals Number of Weeks 2 Decrease Subjective C/O Pain Yes: 5/10 at worst Patient to be Ind w/ HEP Yes 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 Goals Number of Weeks 4-6 Decreased Palpation Tenderness Yes: 1/4 Increase Strength Yes: BLE 5/5 Increase Ability to Walk Yes: 30 min without difficulty Improve Ability For Household Care Yes Improve Oswestry Score Yes: mild diabiliy Outpatient Therapy Plan of Care Treatment Plan May Include Therapeutic Exercise Including Home Yes Exercise Program Manual Therapy Techniques Yes Neuromuscular Re-education Yes Therapeutic Activities to Return to Yes Previous Functional/Work Level Gait Training Yes ADL/Self Care Education Yes Mechanical Traction Yes Dry Needling Yes Thermal Modalities Yes Electrical Stimulation Yes Ultrasound/Phonophoresis Yes Iontophoresis Yes Orthotics/Bracing/Splinting Yes Massage Yes Eval/Re-Eval Yes Frequency Times per week 2 Duration Number of Weeks 4-6 Addendums This patient is a candidate for social No or vocational rehab? Patient/Guardian verbally acknowledges Yes understanding of treatment program and consents to further treatment? Patient/Guardian verbally acknowledges Yes understanding of diagnosis, prognosis and goals for treatment? Eval Complexity PT Charges 26208 - Moderate Complexity Shoulder/Elbow Eval Shoulder Objective Measurements Elbow Objective Measurements PHYSICIAN CERTIFICATION: I certify the specified therapy services for Zena Millern So are required, authorized, and reviewed every 30 days.
== END 2024-01-24 12:00 | disposition home or self-care (01) ==
LOC: PT 11:00
PROVIDERS: Visit Provider Family Medicine
DX: M54.6 Pain in thoracic spine (principal)
CPT/HCPCS: 97014; 97110; 97163; 97530; G0283

== ENCOUNTER 2024-03-21 16:12 | Outpatient (CLI) | payer MEDICARE, SELFPAY ==
[2024-03-21 16:38] LABS: Blood Urea Nitrogen 18 mg/dl (7-17); Estimated Glomerular Filt Rate 49 ml/min (>60); GFR (African American) 59 ML/MIN (>60)
[2024-03-21 17:04] LABS: C-Reactive Protein 5.1 mg/L (0-4)
[2024-03-28 05:11] LABS: D001-IgE D pteronyssinus <0.10 kU/L (Class 0); D002-IgE D farinae <0.10 kU/L (Class 0); E001-IgE Cat Dander <0.10 kU/L (Class 0); E005-IgE Dog Dander <0.10 kU/L (Class 0); E072-IgE Mouse Urine <0.10 kU/L (Class 0); G002-IgE Bermuda Grass <0.10 kU/L (Class 0); G006-IgE Timothy Grass <0.10 kU/L (Class 0); I006-IgE Cockroach, German <0.10 kU/L (Class 0); Immunoglobulin E, Total 17 IU/mL (6-495); M001-IgE Penicillium chrysogen <0.10 kU/L (Class 0); M002-IgE Cladosporium herbarum <0.10 kU/L (Class 0); M003-IgE Aspergillus fumigatus <0.10 kU/L (Class 0); M006-IgE Alternaria alternata <0.10 kU/L (Class 0); T001-IgE Maple/Box Elder <0.10 kU/L (Class 0); T003-IgE Common Silver Birch <0.10 kU/L (Class 0); T006-IgE Cedar, Mountain <0.10 kU/L (Class 0); T007-IgE Oak, White <0.10 kU/L (Class 0); T008-IgE Elm, American <0.10 kU/L (Class 0); T010-IgE Walnut <0.10 kU/L (Class 0); T011-IgE Maple Leaf Sycamore <0.10 kU/L (Class 0); T014-IgE Cottonwood <0.10 kU/L (Class 0); T015-IgE Ash, White <0.10 kU/L (Class 0); T022-IgE Pecan, Hickory <0.10 kU/L (Class 0); T070-IgE White Mulberry <0.10 kU/L (Class 0); W001-IgE Ragweed, Short <0.10 kU/L (Class 0); W011-IgE Thistle, Russian <0.10 kU/L (Class 0); W014-IgE Pigweed, Common <0.10 kU/L (Class 0); W018-IgE Sheep Sorrel <0.10 kU/L (Class 0)
[2024-03-30 10:39] LABS: Antinuclear Antibodies (ANA) Negative
== END 2024-03-21 23:59 | disposition home or self-care (01) ==
LOC: LAB 16:15
PROVIDERS: Internal Medicine Medical Oncology; PCP Family Medicine; Visit Provider Internal Medicine Pulmonary Disease
DX: J30.9 Allergic rhinitis, unspecified (principal); J84.9 Interstitial pulmonary disease, unspecified; R06.09 Other forms of dyspnea; F17.210 Nicotine dependence, cigarettes, uncomplicated
CPT/HCPCS: 36415; 82565; 82785; 84520; 86003; 86038; 86140; 86225; 86235

== ENCOUNTER 2024-03-22 12:40 | Outpatient (CLI) | payer MEDICARE, SELFPAY ==
--- NOTE | 2024-03-22 12:45 | CT_ITS ---
FINAL REPORT TECHNIQUE: After the administration of intravenous contrast, axial images through the chest were performed by computed tomography.This study was performed with techniques to keep radiation doses as low as reasonably achievable, (ALARA). Individualized dose reduction techniques using automated exposure control or adjustment of mA and/or kV according to the patient''s size were employed. CLINICAL HISTORY: KIDNEY MASS; SHORTNESS OF AIR COMPARISON: 12/05/2023 FINDINGS: There is no axillary adenopathy. There are borderline sized mediastinal and hilar nodes which are nonspecific, favor reactive. The heart size is normal. There is no pericardial or pleural effusion. Calcified granulomas are identified. There are numerous, less than 5 mm pulmonary nodules. There is a ground-glass nodule in the superior segment of the left lower lobe measuring 9 mm, new since prior. Multiple other new small nodules are identified. Some other nodules are improved including an anterolateral right lower lobe nodule which has improved or resolved. Patient is status post cholecystectomy. IMPRESSION: Multiple pulmonary nodules some are better and some are new. These are most likely inflammatory, may represent mycobacterial/fungal disease. Follow-up in 6 months may be helpful. Reviewed, Interpreted and Dictated by Julian Rico III, MD Transcribed by Ariela Peñaloza Authenticated and [facility]
[2024-03-22] MEDS: IOPAMIDOL-370 (76%);100ML BOTTLE 75 ML IV (13:02)
[2024-03-22] MEDS: SODIUM CHLORIDE 0.9% 10ML SYR (RAD ONLY) 10 ML IV (13:02)
== END 2024-03-22 23:59 | disposition home or self-care (01) ==
LOC: RAD 12:41
PROVIDERS: PCP Family Medicine; Visit Provider Internal Medicine Medical Oncology
DX: D41.02 Neoplasm of uncertain behavior of left kidney (principal); R06.02 Shortness of breath
CPT/HCPCS: 71260; Q9967

== ENCOUNTER 2024-05-06 11:32 | Outpatient (CLI) | payer MEDICARE, MEDICAID, SELFPAY ==
[2024-05-06 11:39] LABS: Alanine Aminotransferase 28 U/L (12-78); Albumin Level 3.9 g/dl (3.5-5.0); Albumin/Globulin Ratio 1.4 (1.1-1.8); Alkaline Phosphatase 124 U/L (38-126); Aspartate Amino Transferase 26 U/L (14-36); Bilirubin,Total 0.8 mg/dl (0.2-1.3); Blood Urea Nitrogen 19 mg/dl (7-17); Calcium 9.5 mg/dl (8.4-10.2); Carbon Dioxide 28 mmol/L (22.0-30.0); Chloride 105 mmol/L (98-107); Estimated Glomerular Filt Rate 67 ml/min (>60); GFR (African American) 82 ML/MIN (>60); Globulin 2.8 g/dL (1.3-3.2); Glucose 91 mg/dl (74-100); Sodium 139 mmol/L (136-145); Total Protein,Serum 6.7 g/dl (6.3-8.2)
[2024-05-06 11:42] LABS: Basophils # 0.2 K/mm3 (0-0.2); Basophils % 1.4 % (0.1-2.0); Eosinophils # 0.2 K/mm3 (0.0-0.4); Hematocrit 37.9 % (37.0-47.0); Hemoglobin 14.5 g/dL (12.2-16.2); Lymphocytes # 3.4 K/mm3 (0.7-4.5); Lymphocytes % 33.1 % (10-50); Mean Corpuscular HGB Conc 38.2 g/dL (31.8-35.4); Mean Corpuscular Hemoglobin 37.6 pg (27.0-31.2); Mean Corpuscular Volume 98.4 fl (81-99); Mean Platelet Volume 10.5 fl (7.4-10.4); Monocytes # 0.6 K/mm3 (0.1-1.0); Monocytes % 5.4 % (1.7-9.3); Neutrophils % 58.1 % (37.0-80.0); Platelet Count 82 K/mm3 (142-424); Red Blood Count 3.85 M/mm3 (4.20-5.40); Red Cell Distribution Width 14.3 % (11.5-17.5); White Blood Count 10.3 K/mm3 (4.8-10.8)
[2024-05-06 17:14] LABS: HIV (1&2) Antibody Rapid NONREACTIVE (NONREACTIVE)
[2024-05-09 16:56] LABS: HCV Ab Reactive (Non Reactive)
== END 2024-05-06 23:59 | disposition home or self-care (01) ==
LOC: LAB.DROPOF 11:33
PROVIDERS: PCP Family Medicine; Visit Provider Family Medicine
DX: M79.10 Myalgia, unspecified site (principal); M54.6 Pain in thoracic spine; M54.50 Low back pain, unspecified; J20.9 Acute bronchitis, unspecified
CPT/HCPCS: 80053; 85025

== ENCOUNTER 2024-05-21 14:24 | Outpatient (CLI) | payer MEDICARE, MEDICAID, SELFPAY ==
--- NOTE | 2024-05-21 14:27 | XR_ITS ---
FINAL REPORT CLINICAL HISTORY: Knee Pain FINDINGS: Right knee Three views were obtained. There is no acute fracture or dislocation. The joint spaces appear normal. No soft tissue abnormality is identified. IMPRESSION: No acute process. Reviewed, Interpreted and Dictated by Julian Rico III, MD Transcribed by Ariela Peñaloza Authenticated and [facility]
--- NOTE | 2024-05-21 14:27 | XR_ITS ---
FINAL REPORT CLINICAL HISTORY: knee pain FINDINGS: Left knee Three views were obtained. There is no acute fracture or dislocation. The joint spaces appear normal. No soft tissue abnormality is identified. IMPRESSION: No acute process. Reviewed, Interpreted and Dictated by Julian Rico III, MD Transcribed by Ariela Peñaloza Authenticated and [facility]
== END 2024-05-21 23:59 | disposition home or self-care (01) ==
LOC: RAD 14:24
PROVIDERS: PCP Family Medicine; Visit Provider Physician Assistant
DX: M25.561 Pain in right knee (principal); M25.562 Pain in left knee
CPT/HCPCS: 73562

== ENCOUNTER 2024-05-28 13:22 | Outpatient (CLI) | payer MEDICARE, MEDICAID, SELFPAY ==
--- NOTE | 2024-05-28 13:23 | XR_ITS ---
FINAL REPORT CLINICAL HISTORY: right knee pain COMPARISON: 05/21/2024 FINDINGS: Three views of the right knee reveal no evidence of fracture or dislocation. The bony alignment is normal. The joint spaces are preserved. There is no evidence of joint effusion. No localized soft tissue abnormality is identified. IMPRESSION: No acute abnormality identified. Reviewed, Interpreted and Dictated by Julian Rico III, MD Transcribed by Kinza Mckoy Authenticated and [facility]
--- NOTE | 2024-05-28 13:23 | CT_ITS ---
FINAL REPORT TECHNIQUE: Axial CT images were performed from the lung apices through the upper abdomen. Coronal reformats were submitted. High-resolution technique was utilized. CLINICAL HISTORY: .SOA COMPARISON: 03/22/2024 FINDINGS: There is no axillary adenopathy. There is no hilar or mediastinal mass or adenopathy. Heart size is normal. There is no pericardial or pleural effusion. There is a nodule in the superior segment of the left lower lobe measuring 11 mm, previously measured 9 mm. This now appears less solid. Numerous other small nodules are stable, greatest in the upper lobes. There are several calcified granulomas. There is no evidence of bronchiectasis or emphysema. No significant interstitial lung disease is identified. The patient is status post cholecystectomy. IMPRESSION: Dominant left lower lobe nodule is larger than previous but appears less solid, likely inflammatory. Stable numerous small nodules, most likely infectious/inflammatory. Reviewed, Interpreted and Dictated by Julian Rico III, MD Transcribed by Ariela Peñaloza Authenticated and . [facility]
--- NOTE | 2024-05-28 13:23 | XR_ITS ---
FINAL REPORT CLINICAL HISTORY: left knee pain COMPARISON: 05/21/2024 FINDINGS: Three views of the left knee reveal no evidence of fracture or dislocation. The bony alignment is normal. The joint spaces are preserved. There is no evidence of joint effusion. No localized soft tissue abnormality is seen. IMPRESSION: No acute abnormality identified. Reviewed, Interpreted and Dictated by Julian Rico III, MD Transcribed by Kinza Mckoy Authenticated and [facility]
[2024-05-28 14:35] VITALS: PULSE 73; PULSE 79
[2024-05-28] MEDS: ALBUTEROL 0.083% 2.5 MG/3 ML NEB IH (14:35)
== END 2024-05-28 23:59 | disposition home or self-care (01) ==
LOC: RAD 13:23
PROVIDERS: PCP Family Medicine; Visit Provider Internal Medicine Pulmonary Disease
DX: R91.1 Solitary pulmonary nodule (principal); R06.02 Shortness of breath; J84.9 Interstitial pulmonary disease, unspecified; M25.561 Pain in right knee; M25.562 Pain in left knee; F17.210 Nicotine dependence, cigarettes, uncomplicated
CPT/HCPCS: 71250; 73562; 94010; 94060; 94618; 94640; 94727; 94729; J7613

== ENCOUNTER 2024-06-23 23:54 | Emergency (ER) | payer MEDICARE, MEDICAID, SELFPAY ==
[2024-06-23 23:56] VITALS: BP 116/39; PULSE 84; RESP 18; TEMP 36.4; O2SAT 96; BMI 45.6
--- NOTE | 2024-06-24 00:10 | PC.NURSE ---
sent stool and urine specimen to lab at this time
--- NOTE | 2024-06-24 00:12 | CT_ITS ---
PROCEDURE INFORMATION: Exam: CTA Abdomen and Pelvis With Contrast Exam date and time: 06/24/2024 12:45 AM Age: 44 years old Clinical indication: Other: Maroon stool today; Abdominal pain; Acute; Additional info: Low abd/back pain with maroon stool today TECHNIQUE: Imaging protocol: Computed tomographic angiography of the abdomen and pelvis with contrast. Exam focused on the arteries. 3D rendering (Not supervised by radiologist): MIP and/or 3D reconstructed images were created by the technologist. Radiation optimization: All CT scans at this facility use at least one of these dose optimization techniques: automated exposure control; mA and/or kV adjustment per patient size (includes targeted exams where dose is matched to clinical indication); or iterative reconstruction. Contrast material: ISOUVE 370; Contrast volume: 80 ml; Contrast route: INTRAVENOUS (IV); COMPARISON: CT ABDOMEN PELVIS W CON 12/05/2023 11:42 AM FINDINGS: Lungs: Calcified granulomata, otherwise clear basilar lung parenchyma. Stable noncalcified triangular 4 mm nodule at the left lung base. Mild basilar bronchial wall thickening. Pleural spaces: No pleural fluid. No pneumothorax. No pleural fluid or pneumothorax. Heart: Normal heart size. Heart size is normal. Aorta: No aortic aneurysm. No aortic dissection. Celiac trunk and mesenteric arteries: No occlusion or significant stenosis. Renal arteries: No occlusion or significant stenosis. Right iliac arteries: No occlusion or significant stenosis. Left iliac arteries: No occlusion or significant stenosis. Liver: No mass. Gallbladder and biliary ducts: Prior cholecystectomy. No biliary tree dilation or high-density retained stones appreciated. Pancreas: Unremarkable. No mass. No ductal dilation. Spleen: Unremarkable. No splenomegaly. Adrenal glands: Unremarkable. No mass. Kidneys and ureters: Kidneys enhance symmetrically and demonstrate no evidence of mass, calculus, obstruction, or inflammation. Stomach and bowel: Postprandial stomach. Normal caliber small bowel. There is liquid fecal debris throughout the colon. No abnormal colonic mural thickening. There is fatty stratification in the ascending and proximal transverse colon. Delayed images were not obtained. Appendix: No evidence of appendicitis. Intraperitoneal space: Unremarkable. No free air. No significant fluid collection. Lymph nodes: Unremarkable. No enlarged lymph nodes. Urinary bladder: Unremarkable. No mass. Reproductive: Unremarkable as visualized. Bones/joints: No acute fracture. Soft tissues: Unremarkable. IMPRESSION: No contrast extravasation into the bowel lumen. No abnormal bowel mucosal enhancement. There is liquid fecal debris throughout the colon which may reflect an acute diarrheal illness or recent laxative use.
--- NOTE | 2024-06-24 00:15 | ED_ITS ---
Discharge Plan Disposition Patient Disposition: Home, Self-Care Condition: Good Prescriptions Prescriptions: New dicyclomine 10 mg capsule 10 mg PO BID PRN (Reason: abdominal cramping) Qty: 6 0RF azithromycin 500 mg tablet 500 mg PO DAILY 5 Days Qty: 5 0RF No Action levocetirizine 5 mg tablet 5 mg PO DAILY fluticasone propionate [Flonase Allergy Relief] 50 mcg/actuation spray,suspension 2 spray intranasal DAILY 90 Days Qty: 16 2RF Rx Instructions: administer into each nostril azelastine 137 mcg (0.1 %) spray,non-aerosol 2 spray intranasal HS 90 Days Qty: 30 2RF Rx Instructions: administer into each nostril albuterol sulfate 90 mcg/actuation HFA aerosol inhaler 2 inh inhalation Q6H PRN (Reason: shortness of breath or wheezing) 90 Days Qty: 8.5 3RF celecoxib [Celebrex] 200 mg capsule 200 mg PO DAILY Qty: 30 2RF budesonide-formoterol [Symbicort] 160-4.5 mcg/actuation HFA aerosol inhaler 2 puff inhalation BID 90 Days Qty: 10.2 2RF aripiprazole 10 mg tablet 10 mg PO DAILY Qty: 30 3RF bisoprolol fumarate 5 mg tablet 5 mg PO QDAY Qty: 30 5RF torsemide 20 mg tablet See Rx Instructions .ROUTE .COMPLEX Qty: 30 3RF Dose Instruction: TAKE ONE TABLET BY MOUTH EVERY DAY NEEDED FOR EDEMA Rx Instructions: TAKE ONE TABLET BY MOUTH EVERY DAY NEEDED FOR EDEMA docusate sodium [Colace] 100 mg capsule 100 mg PO DAILY Qty: 30 0RF lisinopril-hydrochlorothiazide 10-12.5 mg tablet See Rx Instructions .ROUTE .COMPLEX Qty: 90 1RF Dose Instruction: TAKE ONE TABLET BY MOUTH EVERY DAY FOR BLOOD PRESSURE Rx Instructions: TAKE ONE TABLET BY MOUTH EVERY DAY FOR BLOOD PRESSURE levothyroxine 25 mcg tablet See Rx Instructions .ROUTE .COMPLEX Qty: 90 0RF Dose Instruction: TAKE ONE TABLET BY MOUTH EVERY DAY Rx Instructions: TAKE ONE TABLET BY MOUTH EVERY DAY varenicline 1 mg tablet See Rx Instructions .ROUTE .COMPLEX Qty: 56 0RF Dose Instruction: TAKE ONE TABLET BY MOUTH TWICE DAILY Rx Instructions: TAKE ONE TABLET BY MOUTH TWICE DAILY polyethylene glycol 3350 [Miralax] 17 gram/dose powder 17 g PO DAILY Qty: 110 0RF potassium chloride 10 mEq capsule, extended release 10 meq PO DAILY Rx Instructions: TAKE ONE CAPSULE BY MOUTH EVERY DAY Referrals Follow up/Referrals: Nickie Brown APRN [Primary Care Provider] - See instructions Activity Restrictions/Add. Instructions Additional Instructions/Restrictions: You were evaluated in the ER and are appropriate for discharge at this time. You will receive a phone call if your diarrhea panel is positive for something that requires antibiotics. Drink plenty of water. Continue taking home medications as prescribed including the newly prescribed Bentyl for cramping. Make an appointment with your primary care doctor and follow-up with all scheduled appointments including with GI. Return to the ER with new, worsening, or otherwise concerning symptoms. Clinical Impressions Clinical Impression: Diarrhea Instructions Patient Instructions: DI for Diarrhea and Traveler's Diarrhea -- Adult, DI for Diarrhea and Traveler's Diarrhea -- Child, DI for Nausea -- Adult, DI for Nausea -- Child Print Language Print Language: Lithuanian Discharge ED Provider: Jaun Juarez General Adult HPI General Chief complaint: Nausea/Vomiting/Diarrhea Stated complaint: Blood in stool, back pain, abd pain, diarrhea Time Seen by Provider: 06/23/24 23:58 History of Present Illness HPI narrative: 44-year-old female presents to the ER with complaints of mild generalized abdominal pain, but her primary concern is diarrhea for the last week that tonight became muddy red in color. She is concerned it is bloody. Patient states for the last 15 years she has had alternating diarrhea and constipation. She has a history of recent colonoscopy with multiple polyps removed but no diagnosis of colon cancer. Patient states she follows with GI and is scheduled for a CT abdomen pelvis this coming week as well as for follow-up with GI in less than 1 month. Patient states with the onset of her abnormal color diarrhea today she is also having worsening lower back pain. She denies nausea or vomiting, no fevers, chest pain, shortness of breath, cough, congestion, dysuria, hematuria, or other associated symptoms. Related Data Home Medications ?Medication ?Instructions ?Recorded ?Confirmed potassium chloride 10 mEq 10 meq PO DAILY Supplement 12/20/23 06/11/24 capsule,extended release levocetirizine 5 mg tablet 5 mg PO DAILY 02/22/24 06/11/24 Previous Rx's ?Medication ?Instructions ?Recorded aripiprazole 10 mg tablet 10 mg PO DAILY #30 tabs 12/25/23 bisoprolol fumarate 5 mg tablet 5 mg PO QDAY #30 tabs 12/25/23 torsemide 20 mg tablet See Rx Instructions .Route 12/25/23 .COMPLEX #30 tabs lisinopril 10 See Rx Instructions .Route 03/13/24 mg-hydrochlorothiazide 12.5 mg .COMPLEX #90 tabs tablet budesonide-formoterol HFA 160 2 puff inhalation BID 90 days 03/21/24 mcg-4.5 mcg/actuation aerosol #10.2 grams inhaler (Symbicort) levothyroxine 25 mcg tablet See Rx Instructions .Route 04/11/24 .COMPLEX #90 tabs varenicline 1 mg tablet See Rx Instructions .Route 04/24/24 .COMPLEX #56 tabs celecoxib 200 mg capsule (Celebrex) 200 mg PO DAILY #30 caps 05/22/24 docusate sodium 100 mg capsule 100 mg PO DAILY #30 caps 06/06/24 (Colace) polyethylene glycol 3350 17 17 g PO DAILY #110 grams 06/07/24 gram/dose oral powder (Miralax) albuterol sulfate 90 mcg/actuation 2 inh inhalation Q6H PRN shortness 06/11/24 aerosol inhaler of breath or wheezing 90 days #8.5 grams azelastine 137 mcg (0.1 %) nasal 2 spray intranasal HS 90 days #30 06/11/24 spray mL fluticasone propionate 50 2 spray intranasal DAILY 90 days 06/11/24 mcg/actuation nasal #16 grams spray,suspension (Flonase Allergy Relief) azithromycin 500 mg tablet 500 mg PO DAILY 5 days #5 tabs 06/24/24 dicyclomine 10 mg capsule 10 mg PO BID PRN abdominal 06/24/24 cramping #6 caps Allergies Allergy/AdvReac Type Severity Reaction Status Date / Time ibuprofen [IBUPROFEN] Allergy Unknown Hives Verified 06/11/24 13:56 naproxen [NAPROXEN] Allergy Unknown Rash Verified 06/11/24 13:56 [facility] Disclaimer: The information contained in this section may have been updated after the patient was seen, as this information can be updated by other users. Medical History (Updated 06/24/24 @ 02:13 by Jaun Juarez MD) Atypical pneumonia Sinusitis Fall Muscle spasm Witnessed apneic spells Bronchitis Elevated d-dimer Tachycardia ASCUS favoring benign Atypical chest pain Other specified diseases of gallbladder Mass of left kidney Conjunctivitis Gastroenteritis Atypical chest pain Acute bronchitis Rash Left foot pain Heel spur Benign skin lesion of cheek Postoperative bleeding from incision URI (upper respiratory infection) Pulmonary nodules Retroperitoneal mass Abdominal pain, lower Snoring Atypical angina Abnormal nuclear stress test Elevated liver enzymes History of hepatitis C Daytime somnolence Asymmetric SNHL (sensorineural hearing loss) Viral syndrome Otitis media Thrush Encounter for laboratory testing for COVID-19 virus Knee contusion Tonsillitis Otitis media Bronchitis Sinusitis Bronchitis Colonoscopy planned Pharyngitis Uvulitis Referred otalgia of both ears Family history of sudden cardiac in daughter Abnormal electrocardiogram [ECG] [EKG] Tachycardia Swollen uvula Throat pain Diastolic dysfunction HTN (hypertension) Hepatitis C Urinary tract infection History of COVID-19 Sleep apnea History of syncope Seizure disorder Migraine Bipolar 1 disorder Schizophrenia Depression Carpal tunnel syndrome History of gastroesophageal reflux (GERD) Hypothyroid Allergies Hypertension Cancer of kidney Enlarged tonsils Dysphagia Asthma Surgical History Status post tonsillectomy History of endometrial ablation History of hernia repair Hx of appendectomy History of History of tubal ligation Family History Grandmother Stomach cancer Mother Brain cancer Sister Throat cancer Father Family history of hyperlipidemia Social History Smoking Status: Current every day smoker tobacco type: cigarettes packs per day: 1 second hand exposure: No alcohol intake: never substance use type: former substance user and heroin current occupational status: disabled Travel in the last 8 weeks: None adopted: Yes household members: children housing: house number of children: 3 current occupational exposures/hazards: No caffeine: Yes ROS Obtained: Yes All systems reviewed & no additional complaints except as documented Positive ROS per HPI Physical Exam General General appearance: alert, in no apparent distress and obese Head Head exam: atraumatic and normocephalic Eye Eye exam: Present PERRL and EOMI ENT ENT exam: Present mucous membranes moist Neck Neck exam: Present normal inspection and full ROM Chest Chest inspection: Present symmetric chest wall rise Respiratory Respiratory exam: Present normal lung sounds bilaterally; Absent respiratory distress, wheezes or stridor Cardiovascular Cardiovascular exam: Present regular rate and normal rhythm Abdominal Exam Abdominal exam: Present soft; Absent distention, tenderness, guarding or rebound Extremities Exam Extremities exam: Present full ROM Back Exam Back exam: Present paraspinal tenderness (Mild lower lumbar bilateral paraspinal muscle tenderness); Absent CVA tenderness (R), CVA tenderness (L) or vertebral tenderness Neurological Exam Neurological exam: Present alert and oriented X3; Absent motor sensory deficit Psychiatric Psychiatric exam: Present normal affect and normal mood Skin Skin exam: Present warm and dry Medical Decision Making Medical Records Medical records reviewed: Yes I reviewed the patient's medical records. MR Comment: , And since patient has review of colonoscopy note demonstrates patient had numerous complex polyps. Patient's polyps on pathology were not identified to have findings of cytologic dysplasia or malignancy. 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 At the time of her most recent visit with oncology in November [address] scan for lung nodule follow-up. She has followed with Dr. Berrios with pulmonology since that time Torres Inquiry Pt receiving controlled substance: No Vital Signs: 06/23/24 23:56 06/24/24 01:31 06/24/24 02:00 Temperature 97.5 F L Temperature Source Oral Pulse Rate 72 63 Pulse Rate [Right Brachial] 84 Respiratory Rate 18 Blood Pressure 113/76 101/60 L Blood Pressure [Right Arm] 116/39 L Blood Pressure Mean [Right Arm] 64 02 Sat by Pulse Oximetry 96 98 95 Oxygen Delivery Method Room Air 06/24/24 02:37 Temperature 97.9 F Temperature Source Oral Pulse Rate 72 Pulse Rate [Right Brachial] Respiratory Rate 18 Blood Pressure 101/60 L Blood Pressure [Right Arm] Blood Pressure Mean [Right Arm] 02 Sat by Pulse Oximetry Oxygen Delivery Method Room Air Lab Data Lab Results 06/24/24 00:12: Urine Color Yellow, Urine Appearance Clear, Urine pH 6.0, Ur Specific [place] 1.010, Urine Protein Negative, Urine Glucose (UA) Negative, Urine Ketones Negative, Urine Blood Negative, Urine Nitrate Negative, Urine Bilirubin Negative, Urine Urobilinogen 0.2, Ur Leukocyte Esterase Negative, Urine RBC None, Urine WBC None, Ur Squamous Epith Cells 5-10, Urine Bacteria None, Stool Occult Blood Negative, Stl Aeromonas (PCR) Not detected, Stl C. cayetanensis PCR Not detected, Stool Rotavirus (PCR) Not detected, Stl Adenov F 40/41 PCR Not detected, Stool Astrovirus (PCR) Not detected, Stool Campylobacter PCR Not detected, Stl C.difficile Tox PCR Not detected, Stool Cryptosporidium PCR Not detected, Stl E.coli Shiga Tox PCR Not detected, Stool E coli O157 PCR Not detected, Stl Enterotoxigenic E PCR Not detected, Stool EPEC (PCR) Detected A, Stool EAEC (PCR) Not detected, Stl E. histolytica PCR Not detected, Stool Giardia Lamblia PCR Not detected, Stool Salmonella PCR Not detected, Stool Sapovirus (PCR) Not detected, Stl P. shigelloides PCR Not detected, Stl Shigella/EIEC PCR Not detected, St Y.enterocolitica PCR Not detected, Stool Vibrio (PCR) Not detected, Stl Vibrio cholerae PCR Not detected, Stl Norovirus GI/GII PCR Detected A 06/24/24 00:25: WBC 14.3 H, RBC 4.28, Hgb 13.6, Hct 41.7, MCV 97.4, MCH 31.8 H, MCHC 32.6, RDW 14.3, Plt Count 111 L, MPV 9.0, Neut % (Auto) 55.2, Lymph % (Auto) 35.4, [place] % (Auto) 4.8, Eos % (Auto) 2.9, Baso % (Auto) 1.8, Neut # (Auto) 7.9 H, Lymph # (Auto) 5.1 H, [place] # (Auto) 0.7, Eos # (Auto) 0.4, Baso # (Auto) 0.3 H, Sodium 141, Potassium 4.2, Chloride 108 H, Carbon Dioxide 30, Anion Gap 7.2, BUN 10, Creatinine 1.00, Estimated Creat Clear 61, Estimated GFR 60, Est GFR ( Amer) 72, Glucose 89, Lactate 1.2, Calcium 9.2, Total Bilirubin 0.5, AST 22, ALT 25, Alkaline Phosphatase 118, Total Protein 7.3, Albumin 4.2, Globulin 3.1, Albumin/Globulin Ratio 1.4 06/24/24 00:25 06/24/24 00:25 Orders (Tests/Meds): ED MEDICATIONS Discontinued Medications Generic Name Dose Route Start Last Admin Trade Name Freq PRN Reason Stop Dose Admin Dicyclomine HCl 10 mg 06/24/24 00:12 06/24/24 00:43 Dicyclomine 10mg Capsule PO 06/24/24 00:13 10 mg ONCE ONE Administration Lactated Ringer's 1,000 mls @ 999 mls/hr 06/24/24 00:12 06/24/24 00:43 Lactated Ringer's 1000 Ml Bag IV 06/24/24 01:12 999 mls/hr .Q1H1M ONE Administration Iopamidol 80 ml 06/24/24 00:57 06/24/24 00:58 Iopamidol-370 (76%);100ml Bottle IV 06/24/24 00:58 80 ml ONCE ONE Administration Sodium Chloride 50 ml 06/24/24 00:57 06/24/24 00:58 0.9 % Sodium Chloride 50 Ml Vial IV 06/24/24 00:58 50 ml ONCE ONE Administration Sodium Chloride 10 ml 06/24/24 00:57 06/24/24 00:58 Sodium Chloride 0.9% 10ml Syr (Rad Only) IV 07/24/24 00:56 10 ml NEEDED PRN Administration Maintain IV Site ORDERS Category Date Time Status CT angio abdomen pelvis Stat Cat Scan 06/24/24 00:12 Completed CBC w/Auto Diff [Complete Blood Count Auto Diff] Stat Lab 06/24/24 00:25 Completed CMP [Comprehensive Metabolic Panel] Stat Lab 06/24/24 00:25 Completed Diarrhea 23 Panel, PCR Stat Lab 06/24/24 00:12 Completed Lactic Acid Stat Lab 06/24/24 00:25 Completed Occult Blood,Stool Stat Lab 06/24/24 00:12 Completed Urinalysis and Microscopic Stat Lab 06/24/24 00:12 Completed Medical Decision Narrative: In summary, this 44-year-old female presents to the emergency department today with mild abdominal pain, muddy red diarrhea. On initial evaluation patient is hemodynamically stable, afebrile, no tenderness to palpation of the abdomen, mild paraspinal tenderness in the low back without CVA tenderness, patient is not ill-appearing, not in extremis. Differential diagnosis includes but is not limited to viral syndrome, muscle spasm, appendicitis, malignancy, lower GI bleed, anemia, kidney dysfunction, infectious diarrhea. Based on these concerns, I ordered serum labs, urinalysis, CT abdomen pelvis, diarrhea panel. Patient received IV fluids, Bentyl for treatment. Labs personally reviewed demonstrate mild leukocytosis with WBC 14.3, no anemia, mild thrombocytopenia but this is improved from prior based off my review of previous labs, CMP nonactionable UA negative for findings of infection. CT imaging personally interpreted demonstrate liquid stool in the colon, no findings of obvious bleeding, see radiology read for final interpretation. On reassessment patient is resting more comfortably and does states she feels improved. Diarrhea panel pending at this time. Occult blood negative. Since patient is anemic and has negative stool occult, I am reassured against bloody diarrhea. Diarrhea panel will take more time to result, since patient is hemodynamically stable and appropriate for discharge since she does not have any severe findings on labs or imaging at this time, I prescribed a few as needed dicyclomine for cramping and discharge the patient with the instructions that I would call her if her diarrhea panel was positive for infectious diarrhea requiring antibiotic treatment. Patient was given instructions on symptomatic management, follow up instructions, and return precautions for the emergency department. Patient indicated understanding and was discharged in stable condition. After patient's discharge I was updated by lab that patient's diarrhea panel was positive for enteropathogenic E. coli and norovirus. EPEC can be treated with azithromycin which was prescribed to the patient. I called the patient and updated her on the lab findings. We discussed her results over the phone including how contagious norovirus is, I encouraged her to increase her water intake to avoid dehydration, to take the prescribed azithromycin as directed, take the dicyclomine if absolutely necessary for cramping but to otherwise avoid taking this so as to not slow down stool motility and worsen her illness, I also encouraged her to wash her hands frequently and sanitize her house to avoid spread to other people. Patient was given the opportunity to ask questions which were answered to her satisfaction. Patient understood all instructions and is going to coal picker her medications at the pharmacy in the morning. Critical Care Critical Care Time Critical Care Time: No
[2024-06-24 00:33] LABS: Adenovirus F 40/41, stool Not Detected (NotDetected); Astrovirus Not Detected (NotDetected); Campylobacter Not Detected (NotDetected); Clostridium Difficile A/B, PCR Not Detected (NotDetected); Cryptosporidium Not Detected (NotDetected); Cyclospora Cayetanesis Not Detected (NotDetected); Entamoeba histolytica Not Detected (NotDetected); Enteroaggregative E coli Not Detected (NotDetected); Enterotoxigenic E coli Not Detected (NotDetected); Giardia lamblia Not Detected (NotDetected); Microscopic, Urine URINE MICROSCOPIC (MICROSCOPIC); Plesimonas Shigalloides, PCR Not Detected (NotDetected); Rotavirus A Not Detected (NotDetected); Salmonella, PCR Not Detected (NotDetected); Sapovirus Not Detected (NotDetected); Shiga-like toxin E coli Not Detected (NotDetected); Shigella Enterovasive E coli Not Detected (NotDetected); Vibrio Cholerae Not Detected (NotDetected); Vibrio, PCR Not Detected (NotDetected); Yersinia Entercolitica, PCR Not Detected (NotDetected)
[2024-06-24 00:33] LABS: Basophils # 0.3 K/mm3 (0-0.2); Basophils % 1.8 % (0.1-2.0); Eosinophils # 0.4 K/mm3 (0.0-0.4); Eosinophils % 2.9 % (0.1-12.0); Hematocrit 41.7 % (37.0-47.0); Hemoglobin 13.6 g/dL (12.2-16.2); Lymphocytes # 5.1 K/mm3 (0.7-4.5); Lymphocytes % 35.4 % (10-50); Mean Corpuscular HGB Conc 32.6 g/dL (31.8-35.4); Mean Corpuscular Hemoglobin 31.8 pg (27.0-31.2); Mean Corpuscular Volume 97.4 fl (81-99); Monocytes # 0.7 K/mm3 (0.1-1.0); Monocytes % 4.8 % (1.7-9.3); Neutrophils # 7.9 K/mm3 (1.8-7.8); Neutrophils % 55.2 % (37.0-80.0); Platelet Count 111 K/mm3 (142-424); Red Blood Count 4.28 M/mm3 (4.20-5.40); Red Cell Distribution Width 14.3 % (11.5-17.5); White Blood Count 14.3 K/mm3 (4.8-10.8)
[2024-06-24 00:34] LABS: Appearance,Urine CLEAR (Clear); Bilirubin,Urine Negative (Negative); Blood, Urine Negative (Negative); Color,Urine YELLOW (Yellow); Glucose,Urine (UA) Negative (Negative); Ketones,Urine Negative (Negative); Leukocyte Esterase,Urine Negative (Negative); Nitrate,Urine Negative (Negative); Protein,Urine Negative (Negative); Urobilinogen,Urine 0.2 EU/dl (0.2)
[2024-06-24 00:35] LABS: Chloride 108 mmol/L (98-107)
[2024-06-24 00:36] LABS: Albumin Level 4.2 g/dl (3.5-5.0); Potassium 4.2 mmoL/L (3.5-5.1); Sodium 141 mmol/L (136-145)
[2024-06-24 00:38] LABS: Blood Urea Nitrogen 10 mg/dl (7-17); Creatinine Clearance Estimated 61 mL/min (50-200); Estimated Glomerular Filt Rate 60 ml/min (>60); GFR (African American) 72 ML/MIN (>60)
[2024-06-24 00:39] LABS: Alanine Aminotransferase 25 U/L (12-78); Albumin/Globulin Ratio 1.4 (1.1-1.8); Alkaline Phosphatase 118 U/L (38-126); Anion Gap 7.2 mEq/L (5-15); Aspartate Amino Transferase 22 U/L (14-36); Bilirubin,Total 0.5 mg/dl (0.2-1.3); Calcium 9.2 mg/dl (8.4-10.2); Carbon Dioxide 30 mmol/L (22.0-30.0); Globulin 3.1 g/dL (1.3-3.2); Glucose 89 mg/dl (74-100); Lactic Acid 1.2 mmol/L (0.7-2.1); Total Protein,Serum 7.3 g/dl (6.3-8.2)
[2024-06-24] MEDS: DICYCLOMINE 10MG CAPSULE 10 MG PO (00:43)
[2024-06-24] MEDS: LACTATED RINGERS 1000ML 1,000 ML 999 ML IV (00:43)
[2024-06-24] MEDS: SODIUM CHLORIDE 0.9% 10ML SYR (RAD ONLY) 10 ML IV (00:58)
[2024-06-24] MEDS: 0.9 % SODIUM CHLORIDE 50 ML VIAL IV (00:58)
[2024-06-24] MEDS: IOPAMIDOL-370 (76%);100ML BOTTLE 80 ML IV (00:58)
[2024-06-24 01:31] VITALS: BP 113/76; PULSE 72; O2SAT 98
[2024-06-24 02:00] VITALS: BP 101/60; PULSE 63; O2SAT 95
[2024-06-24 02:00] LABS: Occult Blood,Stool Negative (Negative)
[2024-06-24 02:37] VITALS: BP 101/60; PULSE 72; RESP 18; TEMP 36.6; O2SAT 96
[2024-06-24 03:24] LABS: Norovirus Detected (NotDetected)
[2024-06-24 03:25] LABS: Enteropathogenic E coli Detected (NotDetected)
== END 2024-06-24 02:39 | disposition home or self-care (01) ==
PROVIDERS: Emergency Provider Emergency Medicine; PCP Family Medicine
DX: A08.11 Acute gastroenteropathy due to Norwalk agent (principal); A04.0 Enteropathogenic Escherichia coli infection; R19.7 Diarrhea, unspecified; R10.817 Generalized abdominal tenderness
CPT/HCPCS: 74174; 80053; 81001; 82272; 83605; 85025; 87507; 96360; 99284; G0328; J7120; Q9967

== ENCOUNTER → 2024-07-15 20:03 | Outpatient (CLI) | payer MEDICARE, MEDICAID, SELFPAY | LOC: SL 20:05 | PROVIDERS: PCP Family Medicine; Visit Provider Family Medicine | DX: G47.33 Obstructive sleep apnea (adult) (pediatric) (principal) | CPT/HCPCS: 95811 ==

== ENCOUNTER 2024-07-16 10:42 | Outpatient (CLI) | payer MEDICARE, MEDICAID, SELFPAY ==
--- NOTE | 2024-07-16 10:42 | CT_ITS ---
FINAL REPORT CLINICAL HISTORY: stool incont. abd distension COMPARISON: CTA abdomen 06/24/2024 FINDINGS: The pre infusion images demonstrate no evidence of kidney stones. On the post infusion images, the liver is homogeneous. The gallbladder is surgically absent. The spleen, pancreas, adrenal glands, and kidneys are unremarkable. The uterus is anteverted. Bilateral Essure coils are present. The urinary bladder is incompletely distended. The appendix is not clearly seen. IMPRESSION: No acute process identified. Reviewed, Interpreted and Dictated by Gael Ascencio MD Transcribed by Kinza Mckoy Authenticated and . [facility]
--- NOTE | 2024-07-16 10:53 | MR_ITS ---
FINAL REPORT CLINICAL HISTORY: stool incont/back pain right leg pain COMPARISON: 06/29/2023 FINDINGS: Multiplanar MR imaging of the lumbar spine was performed without and with contrast. On the sagittal T2-weighted images, disc degeneration is seen at the L4-5 level. The vertebral alignment is normal. There is no evidence of fracture. The conus is seen at approximately the L1 level and has an unremarkable appearance. L1-2: No significant canal stenosis or neuroforaminal narrowing is seen. L2-3: No significant canal stenosis or neuroforaminal narrowing is seen. L3-4: Mild facet arthropathy is present. No significant canal stenosis or neuroforaminal narrowing is seen. L4-5: A mild annular bulge is present with mild facet arthropathy, and mild to moderate bilateral neural foraminal narrowing. These findings are slightly more evident than seen on the prior MRI of 2022. L5-S1: No significant canal stenosis or neuroforaminal narrowing is seen. No abnormal contrast enhancement is identified. IMPRESSION: Mild degenerative change at the L4-5 level as described above. These findings are slightly more prominent than seen on the prior MRI of 2022. Reviewed, Interpreted and Dictated by Gael Ascencio MD Transcribed by Ro Zavala Authenticated and [facility]
[2024-07-16] MEDS: SODIUM CHLORIDE 0.9% 10ML SYR (RAD ONLY) 10 ML IV ×2 (11:20→12:24)
[2024-07-16] MEDS: IOPAMIDOL-370 (76%);100ML BOTTLE 75 ML IV (11:20)
[2024-07-16] MEDS: BARIUM SULFATE(READI-CAT2);450ML BOTTLE 450 ML PO (11:23)
[2024-07-16] MEDS: GADOTERIDOL INJ 20ML SYRINGE 20 ML IV (12:24)
[2024-07-16] MEDS: GADOTERIDOL INJ 10ML SYRINGE 4 ML IV (12:24)
== END 2024-07-16 23:59 | disposition home or self-care (01) ==
LOC: RAD 10:42
PROVIDERS: PCP Family Medicine; Visit Provider Family Medicine
DX: K63.9 Disease of intestine, unspecified (principal); K59.09 Other constipation; R19.8 Other specified symptoms and signs involving the digestive system and abdomen; M54.50 Low back pain, unspecified
CPT/HCPCS: 72158; 74178; A9576; Q9967

== ENCOUNTER 2024-09-09 16:03 | Emergency (ER) | payer MEDICARE, MEDICAID, SELFPAY ==
[2024-09-09 16:10] VITALS: BP 167/103; PULSE 96; RESP 18; TEMP 36.7; O2SAT 100; BMI 47.2
--- NOTE | 2024-09-09 16:18 | ED_ITS ---
<Statement entered by Rachael Hernandez DO - 09/09/24 20:10> I was consulted by the JOSUÉ, and we discussed the complexity of the problems being addressed. I approved the treatment and management plan for this patient's care in the emergency department, thus performing a substantive portion of the medical decision making. Rachael Hernandez DO Discharge Plan Prescriptions Prescriptions: New doxycycline hyclate 100 mg capsule 100 mg PO BID 10 Days Qty: 20 0RF No Action levocetirizine 5 mg tablet 5 mg PO DAILY fluticasone propionate [Flonase Allergy Relief] 50 mcg/actuation spray,suspension 2 spray intranasal DAILY 90 Days Qty: 16 2RF Rx Instructions: administer into each nostril albuterol sulfate 90 mcg/actuation HFA aerosol inhaler 2 inh inhalation Q6H PRN (Reason: shortness of breath or wheezing) 90 Days Qty: 8.5 3RF celecoxib [Celebrex] 200 mg capsule 200 mg PO DAILY Qty: 30 2RF pregabalin [Lyrica] 75 mg capsule 75 mg PO BID Qty: 60 0RF varenicline 1 mg tablet See Rx Instructions .ROUTE .COMPLEX Qty: 56 0RF Dose Instruction: TAKE ONE TABLET BY MOUTH TWICE DAILY Rx Instructions: TAKE ONE TABLET BY MOUTH TWICE DAILY aripiprazole 10 mg tablet 10 mg PO DAILY Qty: 90 3RF bisoprolol fumarate 5 mg tablet 5 mg PO QDAY Qty: 30 5RF docusate sodium [Colace] 100 mg capsule 100 mg PO DAILY Qty: 30 0RF lisinopril-hydrochlorothiazide 10-12.5 mg tablet See Rx Instructions .ROUTE .COMPLEX Qty: 90 1RF Dose Instruction: TAKE ONE TABLET BY MOUTH EVERY DAY FOR BLOOD PRESSURE Rx Instructions: TAKE ONE TABLET BY MOUTH EVERY DAY FOR BLOOD PRESSURE levothyroxine 25 mcg tablet See Rx Instructions .ROUTE .COMPLEX Qty: 90 0RF Dose Instruction: TAKE ONE TABLET BY MOUTH EVERY DAY Rx Instructions: TAKE ONE TABLET BY MOUTH EVERY DAY torsemide 20 mg tablet See Rx Instructions .ROUTE .COMPLEX Qty: 30 3RF Dose Instruction: TAKE ONE TABLET BY MOUTH EVERY DAY NEEDED FOR EDEMA Rx Instructions: TAKE ONE TABLET BY MOUTH EVERY DAY NEEDED FOR EDEMA budesonide-formoterol [Symbicort] 160-4.5 mcg/actuation HFA aerosol inhaler See Rx Instructions .ROUTE .COMPLEX Qty: 10.2 2RF Dose Instruction: INHALE TWO PUFFS BY MOUTH TWICE DAILY Rx Instructions: INHALE TWO PUFFS BY MOUTH TWICE DAILY potassium chloride 10 mEq capsule, extended release 10 meq PO DAILY Rx Instructions: TAKE ONE CAPSULE BY MOUTH EVERY DAY Referrals Follow up/Referrals: Provider,Racheal, [Referring] - See instructions Annia Berrios MD [Physician] - See instructions Christiano Benjamin MD [Staff Physician] - See instructions Clinical Impressions Clinical Impression: Lung nodule, Bronchiolitis Syncope Qualifiers: Syncope type: unspecified Qualified Code(s): R55 - Syncope and collapse Instructions Patient Instructions: DI for Syncope in Adults (Fainting), DI for Syncope in Children (Fainting) Print Language Print Language: [place] Discharge ED Provider: Rachael Hernandez General Adult HPI <BARON Jimenez - Last Filed: 09/09/24 20:06> General Chief complaint: Syncope Stated complaint: Syncopy Time Seen by Provider: 09/09/24 16:05 History of Present Illness HPI narrative: Patient presents for evaluation of syncope. Patient states that she was eating dinner and began coughing/choking and had a syncopal episode. She did not actually aspirate. She had a previous episode approximately 2 weeks ago in which she was coughing and had a syncopal episode. She does not have a cardiac history. Patient regained consciousness almost instantaneously and suffered no ill effects and currently denies chest pain headache fever chills hemoptysis hematochezia melena nausea vomiting diarrhea. She does endorse a cough that she is a smoker and reports that her cough has been worse lately. Patient also reports that she has had near syncopal events while laughing hard lately. Related Data Home Medications ?Medication ?Instructions ?Recorded ?Confirmed potassium chloride 10 mEq 10 meq PO DAILY Supplement 12/20/23 07/29/24 capsule,extended release levocetirizine 5 mg tablet 5 mg PO DAILY 02/22/24 07/29/24 Previous Rx's ?Medication ?Instructions ?Recorded bisoprolol fumarate 5 mg tablet 5 mg PO QDAY #30 tabs 12/25/23 lisinopril 10 See Rx Instructions .Route 03/13/24 mg-hydrochlorothiazide 12.5 mg .COMPLEX #90 tabs tablet levothyroxine 25 mcg tablet See Rx Instructions .Route 04/11/24 .COMPLEX #90 tabs celecoxib 200 mg capsule (Celebrex) 200 mg PO DAILY #30 caps 05/22/24 docusate sodium 100 mg capsule 100 mg PO DAILY #30 caps 06/06/24 (Colace) albuterol sulfate 90 mcg/actuation 2 inh inhalation Q6H PRN shortness 06/11/24 aerosol inhaler of breath or wheezing 90 days #8.5 grams fluticasone propionate 50 2 spray intranasal DAILY 90 days 06/11/24 mcg/actuation nasal #16 grams spray,suspension (Flonase Allergy Relief) torsemide 20 mg tablet See Rx Instructions .Route 06/27/24 .COMPLEX #30 tabs budesonide-formoterol HFA 160 See Rx Instructions .Route 07/08/24 mcg-4.5 mcg/actuation aerosol .COMPLEX #10.2 grams inhaler (Symbicort) aripiprazole 10 mg tablet 10 mg PO DAILY #90 tabs 07/29/24 pregabalin 75 mg capsule (Lyrica) 75 mg PO BID #60 caps 07/29/24 varenicline 1 mg tablet See Rx Instructions .Route 07/29/24 .COMPLEX #56 tabs doxycycline hyclate 100 mg capsule 100 mg PO BID 10 days #20 caps 09/09/24 Allergies Allergy/AdvReac Type Severity Reaction Status Date / Time ibuprofen (IBUPROFEN) Allergy Unknown Hives Verified 09/09/24 16:27 naproxen (NAPROXEN) Allergy Unknown Rash Verified 09/09/24 16:27 [facility] <BARON Jimenez - Last Filed: 09/09/24 20:06> [facility] Disclaimer: The information contained in this section may have been updated after the patient was seen, as this information can be updated by other users. Medical History (Updated 09/09/24 @ 19:02 by BARON Jiemnez) Compression of intervertebral disc Atypical pneumonia Sinusitis Fall Muscle spasm Witnessed apneic spells Bronchitis Elevated d-dimer Tachycardia ASCUS favoring benign Atypical chest pain Other specified diseases of gallbladder Mass of left kidney Conjunctivitis Gastroenteritis Atypical chest pain Acute bronchitis Rash Left foot pain Heel spur Benign skin lesion of cheek Postoperative bleeding from incision URI (upper respiratory infection) Pulmonary nodules Retroperitoneal mass Abdominal pain, lower Snoring Atypical angina Abnormal nuclear stress test Elevated liver enzymes History of hepatitis C Daytime somnolence Asymmetric SNHL (sensorineural hearing loss) Viral syndrome Otitis media Thrush Encounter for laboratory testing for COVID-19 virus Knee contusion Tonsillitis Otitis media Bronchitis Sinusitis Bronchitis Colonoscopy planned Pharyngitis Uvulitis Referred otalgia of both ears Family history of sudden cardiac in daughter Abnormal electrocardiogram [ECG] [EKG] Tachycardia Swollen uvula Throat pain Diastolic dysfunction HTN (hypertension) Hepatitis C Urinary tract infection History of COVID-19 Sleep apnea History of syncope Seizure disorder Migraine Bipolar 1 disorder Schizophrenia Depression Carpal tunnel syndrome History of gastroesophageal reflux (GERD) Hypothyroid Allergies Hypertension Cancer of kidney Enlarged tonsils Dysphagia Asthma Surgical History Status post tonsillectomy History of endometrial ablation History of hernia repair Hx of appendectomy History of History of tubal ligation Family History Grandmother Stomach cancer Mother Brain cancer Sister Throat cancer Father Family history of hyperlipidemia Social History Smoking Status: Current every day smoker tobacco type: cigarettes packs per day: 1 second hand exposure: No alcohol intake: never substance use type: former substance user and heroin current occupational status: disabled adopted: Yes household members: children housing: house number of children: 3 current occupational exposures/hazards: No caffeine: Yes Other Medical History Have you received the Flu Vaccine for this season: No Have you received the Pneumonia Vaccine: No <BARON Jimenez - Last Filed: 09/09/24 20:06> ROS Obtained: Yes Systems reviewed as appropriate & no additional complaints except as documented Physical Exam <BARON Jimenez - Last Filed: 09/09/24 20:06> General General appearance: alert and in no apparent distress Respiratory Respiratory exam: Present wheezes; Absent normal lung sounds bilaterally Cardiovascular Cardiovascular exam: Present regular rate Extremities Exam Extremities exam: Present normal inspection and full ROM Neurological Exam Neurological exam: Present alert and oriented X3 Medical Decision Making <BARON Jimenez - Last Filed: 09/09/24 20:06> Medical Records Medical records reviewed: Yes I reviewed the patient's medical records. Screening: Per USPSTF and CDC recommendations, given the prevalence of disease in our region, it is our hospital?s policy to screen for HIV and viral Hepatitis for all patients aged 18 and over and those with ongoing risk factors. Torres Inquiry Pt receiving controlled substance: No Vital Signs: 09/09/24 16:10 09/09/24 16:31 09/09/24 17:00 Temperature 98.1 F Temperature Source Oral Pulse Rate 91 H 84 Pulse Rate [Left] 96 H Respiratory Rate 18 20 18 Blood Pressure 116/66 132/75 Blood Pressure [Right Arm] 167/103 H Blood Pressure Mean [Right Arm] 124 Blood Pressure Source Blood Pressure Source [Right Arm] Automatic Cuff Blood Pressure Position Blood Pressure Position [Right Arm] Sitting 02 Sat by Pulse Oximetry 100 100 99 Oxygen Delivery Method Room Air Room Air Room Air 09/09/24 18:00 09/09/24 18:30 09/09/24 19:10 Temperature 98.3 F Temperature Source Oral Pulse Rate 80 77 71 Pulse Rate [Left] Respiratory Rate 20 17 18 Blood Pressure 139/78 125/71 140/72 Blood Pressure [Right Arm] Blood Pressure Mean [Right Arm] Blood Pressure Source Automatic Cuff Blood Pressure Source [Right Arm] Blood Pressure Position Sitting Blood Pressure Position [Right Arm] 02 Sat by Pulse Oximetry 98 96 Oxygen Delivery Method Room Air Room Air Room Air Lab Data Lab results reviewed: Yes I reviewed the patient's lab results. Lab Results 09/09/24 16:12: WBC 13.4 H, RBC 4.16 L, Hgb 13.7, Hct 39.7, MCV 95.5, MCH 32.9 H , MCHC 34.5, RDW 14.3, Plt Count 179, MPV 8.9, Neut % (Auto) 59.5, Lymph % (Auto) 31.5, [place] % (Auto) 5.1, Eos % (Auto) 2.3, Baso % (Auto) 1.6, Neut # (Auto) 8.0 H, Lymph # (Auto) 4.2, [place] # (Auto) 0.7, Eos # (Auto) 0.3, Baso # (Auto) 0.2, Sodium 139, Potassium 3.9, Chloride 105, Carbon Dioxide 26, Anion Gap 11.9, BUN 16, Creatinine 1.00, Estimated Creat Clear 61, Estimated GFR 60, Est GFR ( Amer) 72, Glucose 105 H, Calcium 8.8, Total Bilirubin 0.5, AST 23, ALT 24, Alkaline Phosphatase 101, Troponin I < 0.01, Total Protein 6.8, Albumin 4.0, Globulin 2.8, Albumin/Globulin Ratio 1.4, TSH 0.85, Thyroxine (T4) 6.9 09/09/24 16:12 09/09/24 16:12 Orders (Tests/Meds): ED MEDICATIONS Discontinued Medications Generic Name Dose Route Start Last Admin Trade Name Trinity PRN Reason Stop Dose Admin Acetaminophen 1,000 mg 09/09/24 16:19 09/09/24 16:36 Acetaminophen 500mg Tab PO 09/09/24 16:20 1,000 mg ONCE ONE Administration Doxycycline Hyclate 100 mg 09/09/24 19:00 09/09/24 19:11 Doxycycline Hycl 100 Mg Tablet PO 09/09/24 19:01 100 mg ONCE ONE Administration Iopamidol 150 ml 09/09/24 17:38 09/09/24 17:47 Iopamidol-370 (76%);100ml Bottle IV 09/09/24 17:39 150 ml ONCE ONE Administration Sodium Chloride 50 ml 09/09/24 17:38 09/09/24 17:47 0.9 % Sodium Chloride 50 Ml Vial IV 09/09/24 17:39 50 ml ONCE ONE Administration Sodium Chloride 10 ml 09/09/24 17:38 09/09/24 17:47 Sodium Chloride 0.9% 10ml Syr (Rad Only) IV 09/09/24 17:39 10 ml ONCE ONE Administration ORDERS Category Date Time Status CT angio chest PE protocol Stat Cat Scan 09/09/24 16:[address] angio head Stat Cat Scan 09/09/24 16:[address] angio neck Stat Cat Scan 09/09/24 16:[address] head/brain wo con Stat Cat Scan 09/09/24 16:20 Completed CBC w/Auto Diff [Complete Blood Count Auto Diff] Stat Lab 09/09/24 16:12 Completed CMP [Comprehensive Metabolic Panel] Stat Lab 09/09/24 16:12 Completed T4 (Thyroxine) Stat Lab 09/09/24 16:12 Completed TSH [Thyroid Stimulating Hormone] Stat Lab 09/09/24 16:12 Completed Trop I [Troponin I] Stat Lab 09/09/24 16:12 Completed Medical Decision Narrative: In summary patient is a 44-year-old female who presents to the emergency department for evaluation of syncope. Patient is initially hypertensive at 167/103 satting at 100% room air breathing 18 times a minute with a temperature of 98.1 upon arrival,. Physical exam is remarkable for a Glascow coma score 15 patient is awake alert and oriented to person place and circumstance and retains capacity for decision making, patient suffered no apparent injury and has no C- spine tenderness did not strike her head. Breath sounds reveal end expiratory wheezes primarily in the bases with a coarse bronchial cough. Heart sounds are normal with no carotid bruits. Differential diagnosis includes vasovagal syncope versus cardiogenic versus neurologic etc. Initial workup will be conducted with hematologic labs CT of the head without contrast CTA of the head neck and chest twelve-lead EKG. Initial interventions were considered but are deferred until workup is complete. Initial workup reviewed by me shows her hematologic labs are nonactionable and my informal interpretation of her imaging shows only COPD and what appears to be tree-in-bud in the bilateral lower lobes with no stenosis or cardiovascular abnormality no intracranial lesions or bleeds prior to radiology read. Radiology also mentioned a lung nodule.. Upon repeat evaluation patient remains neurologically stable with no focal deficits her troponins undetectable EKG is normal. Given this patient is appropriate for discharge for likely cough/laugh induced syncope and will be referred to cardiology for further testing including tilt table testing, referred to pulmonology for evaluation of her COPD and better management. Patient started on doxycycline prescription sent to her pharmacy with first dose given here <Rachael Hernandez, DO - Last Filed: 09/09/24 16:27> Vital Signs: 09/09/24 16:10 09/09/24 16:31 09/09/24 17:00 Temperature 98.1 F Temperature Source Oral Pulse Rate 91 H 84 Pulse Rate [Left] 96 H Respiratory Rate 18 20 18 Blood Pressure 116/66 132/75 Blood Pressure [Right Arm] 167/103 H Blood Pressure Mean [Right Arm] 124 Blood Pressure Source Blood Pressure Source [Right Arm] Automatic Cuff Blood Pressure Position Blood Pressure Position [Right Arm] Sitting 02 Sat by Pulse Oximetry 100 100 99 Oxygen Delivery Method Room Air Room Air Room Air 09/09/24 18:00 09/09/24 18:30 09/09/24 19:10 Temperature 98.3 F Temperature Source Oral Pulse Rate 80 77 71 Pulse Rate [Left] Respiratory Rate 20 17 18 Blood Pressure 139/78 125/71 140/72 Blood Pressure [Right Arm] Blood Pressure Mean [Right Arm] Blood Pressure Source Automatic Cuff Blood Pressure Source [Right Arm] Blood Pressure Position Sitting Blood Pressure Position [Right Arm] 02 Sat by Pulse Oximetry 98 96 Oxygen Delivery Method Room Air Room Air Room Air Lab Data Lab Results 09/09/24 16:12: WBC 13.4 H, RBC 4.16 L, Hgb 13.7, Hct 39.7, MCV 95.5, MCH 32.9 H , MCHC 34.5, RDW 14.3, Plt Count 179, MPV 8.9, Neut % (Auto) 59.5, Lymph % (Auto) 31.5, [place] % (Auto) 5.1, Eos % (Auto) 2.3, Baso % (Auto) 1.6, Neut # (Auto) 8.0 H, Lymph # (Auto) 4.2, [place] # (Auto) 0.7, Eos # (Auto) 0.3, Baso # (Auto) 0.2, Sodium 139, Potassium 3.9, Chloride 105, Carbon Dioxide 26, Anion Gap 11.9, BUN 16, Creatinine 1.00, Estimated Creat Clear 61, Estimated GFR 60, Est GFR ( Amer) 72, Glucose 105 H, Calcium 8.8, Total Bilirubin 0.5, AST 23, ALT 24, Alkaline Phosphatase 101, Troponin I < 0.01, Total Protein 6.8, Albumin 4.0, Globulin 2.8, Albumin/Globulin Ratio 1.4, TSH 0.85, Thyroxine (T4) 6.9 Orders (Tests/Meds): ED MEDICATIONS Discontinued Medications Generic Name Dose Route Start Last Admin Trade Name Trevinq PRN Reason Stop Dose Admin Acetaminophen 1,000 mg 09/09/24 16:19 09/09/24 16:36 Acetaminophen 500mg Tab PO 09/09/24 16:20 1,000 mg ONCE ONE Administration Doxycycline Hyclate 100 mg 09/09/24 19:00 09/09/24 19:11 Doxycycline Hycl 100 Mg Tablet PO 09/09/24 19:01 100 mg ONCE ONE Administration Iopamidol 150 ml 09/09/24 17:38 09/09/24 17:47 Iopamidol-370 (76%);100ml Bottle IV 09/09/24 17:39 150 ml ONCE ONE Administration Sodium Chloride 50 ml 09/09/24 17:38 09/09/24 17:47 0.9 % Sodium Chloride 50 Ml Vial IV 09/09/24 17:39 50 ml ONCE ONE Administration Sodium Chloride 10 ml 09/09/24 17:38 09/09/24 17:47 Sodium Chloride 0.9% 10ml Syr (Rad Only) IV 09/09/24 17:39 10 ml ONCE ONE Administration ORDERS Category Date Time Status CT angio chest PE protocol Stat Cat Scan 09/09/24 16:[address] angio head Stat Cat Scan 09/09/24 16:[address] angio neck Stat Cat Scan 09/09/24 16:[address] head/brain wo con Stat Cat Scan 09/09/24 16:20 Completed CBC w/Auto Diff [Complete Blood Count Auto Diff] Stat Lab 09/09/24 16:12 Completed CMP [Comprehensive Metabolic Panel] Stat Lab 09/09/24 16:12 Completed T4 (Thyroxine) Stat Lab 09/09/24 16:12 Completed TSH [Thyroid Stimulating Hormone] Stat Lab 09/09/24 16:12 Completed Trop I [Troponin I] Stat Lab 09/09/24 16:12 Completed ECG Data Tracing #1: I reviewed this ECG and interpreted as documented below: Normal sinus rhythm with a ventricular rate of [address] changes concerning for ischemia. Normal axis and intervals. ECG initial impression date: 09/09/24 ECG initial impression time: 16:27 Critical Care <BARON Jimenez - Last Filed: 09/09/24 20:06> Critical Care Time Critical Care Time: No
--- NOTE | 2024-09-09 16:20 | CT_ITS ---
PROCEDURE INFORMATION: Exam: CT Head Without Contrast Exam date and time: 09/09/2024 5:33 PM Age: 44 years old Clinical indication: Syncope and collapse TECHNIQUE: Imaging protocol: Computed tomography of the head without contrast. Radiation optimization: All CT scans at this facility use at least one of these dose optimization techniques: automated exposure control; mA and/or kV adjustment per patient size (includes targeted exams where dose is matched to clinical indication); or iterative reconstruction. COMPARISON: HEADWO CT head/brain wo con 02/11/2018 1:20 PM FINDINGS: Brain: Normal. No hemorrhage. Unremarkable white matter. No mass effect. Cerebral ventricles: No ventriculomegaly. Paranasal sinuses: Visualized sinuses are unremarkable. No fluid levels. Mastoid air cells: Visualized mastoid air cells are well aerated. Bones: Unremarkable. No acute fracture. Soft tissues: Unremarkable. IMPRESSION: No acute intracranial abnormality.
--- NOTE | 2024-09-09 16:24 | CT_ITS ---
PROCEDURE INFORMATION: Exam: CTA Head With Contrast, Arteriography Exam date and time: 09/09/2024 5:35 PM Age: 44 years old Clinical indication: Syncope and collapse TECHNIQUE: Imaging protocol: Computed tomographic angiography of the head with contrast. Exam focused on the arteries. 3D rendering (Not supervised by radiologist): MIP and/or 3D reconstructed images were created by the technologist. Radiation optimization: All CT scans at this facility use at least one of these dose optimization techniques: automated exposure control; mA and/or kV adjustment per patient size (includes targeted exams where dose is matched to clinical indication); or iterative reconstruction. Contrast material: ISOVUE 370; Contrast volume: 80 ml; Contrast route: INTRAVENOUS (IV); COMPARISON: CT ANGIO HEAD 09/09/2024 5:35 PM FINDINGS: ANTERIOR CIRCULATION: Right internal carotid artery: Intracranial segment is patent with no significant stenosis. No aneurysm. Right middle cerebral artery: No occlusion or significant stenosis. No aneurysm. Right anterior cerebral artery: No occlusion or significant stenosis. No aneurysm. Left internal carotid artery: Mild calcific atherosclerotic disease of the left intracranial ICA without stenosis. Left middle cerebral artery: No occlusion or significant stenosis. No aneurysm. Left anterior cerebral artery: No occlusion or significant stenosis. No aneurysm. POSTERIOR CIRCULATION: Right vertebral artery: No occlusion or significant stenosis. No aneurysm. Left vertebral artery: No occlusion or significant stenosis. No aneurysm. Basilar artery: No occlusion or significant stenosis. No aneurysm. Right posterior cerebral artery: No occlusion or significant stenosis. No aneurysm. Left posterior cerebral artery: No occlusion or significant stenosis. No aneurysm. Brain: No definite mass, mass effect, or midline shift. Cerebral ventricles: No ventriculomegaly. Bones/joints: Unremarkable. No acute fracture. Soft tissues: Unremarkable. IMPRESSION: No large vessel stenosis or occlusion.
--- NOTE | 2024-09-09 16:25 | ECG_ITS ---
APPROVED REPORT Exam: Resting ECG HR:85 bpm ECG Measurements Heart Rate 85 AXES TX 200 P 62 QRSd 70 QRS 72 QT 320 T 58 QTc 363 Conclusion SINUS RHYTHM LOW QRS VOLTAGE IN PRECORDIAL LEADS [QRS DEFLECTION < 1.0 mV IN CHEST LEADS] BORDERLINE ECG Electronically signed by : SUSANNE VOGT, 09/09/2024 23:28:34
[2024-09-09 16:31] VITALS: BP 116/66; PULSE 91; RESP 20; O2SAT 100
--- NOTE | 2024-09-09 16:31 | CT_ITS ---
PROCEDURE INFORMATION: Exam: CTA Neck With Contrast Exam date and time: 09/09/2024 5:35 PM Age: 44 years old Clinical indication: Syncope and collapse; Additional info: Recurrent syncope TECHNIQUE: Imaging protocol: Computed tomographic angiography of the neck with contrast. Exam focused on the cervical segments of the vasculature. 3D rendering (Not supervised by radiologist): MIP and/or 3D reconstructed images were created by the technologist. Radiation optimization: All CT scans at this facility use at least one of these dose optimization techniques: automated exposure control; mA and/or kV adjustment per patient size (includes targeted exams where dose is matched to clinical indication); or iterative reconstruction. Contrast material: ISO 370; Contrast volume: 80 ml; Contrast route: INTRAVENOUS (IV); COMPARISON: CT ANGIO HEAD 09/09/2024 5:35 PM FINDINGS: Right common carotid artery: No stenosis. No dissection or occlusion. Right internal carotid artery: No stenosis of the extracranial segment. No dissection or occlusion. Right external carotid artery: No occlusion or stenosis of the origin. Left common carotid artery: No stenosis. No dissection or occlusion. Left internal carotid artery: No stenosis of the extracranial segment. No dissection or occlusion. Left external carotid artery: No occlusion or stenosis of the origin. Right vertebral artery: No stenosis. No dissection or occlusion. Left vertebral artery: No stenosis. No dissection or occlusion. Soft tissues: Normal. No significant soft tissue swelling. Bones/joints: Mild loss of intervertebral disc space with degenerative changes at C4 through C6. IMPRESSION: No stenosis or occlusion. REFERENCES: NASCET CRITERIA. The degree of stenosis in the cervical segment of the internal carotid artery is based on NASCET criteria. Normal is no stenosis. Mild is less than 50% stenosis. Moderate is 50-69% stenosis. Severe is 70% to 99% stenosis. Total occlusion is no detectable patent lumen.
--- NOTE | 2024-09-09 16:32 | CT_ITS ---
PROCEDURE INFORMATION: Exam: CTA Chest With Contrast Exam date and time: 09/09/2024 5:42 PM Age: 44 years old Clinical indication: Other: Recurrent syncope TECHNIQUE: Imaging protocol: Computed tomographic angiography of the chest with contrast. Exam focused on the arteries. 3D rendering (Not supervised by radiologist): MIP and/or 3D reconstructed images were created by the technologist. Radiation optimization: All CT scans at this facility use at least one of these dose optimization techniques: automated exposure control; mA and/or kV adjustment per patient size (includes targeted exams where dose is matched to clinical indication); or iterative reconstruction. Contrast material: ISO 370; Contrast volume: 70 ml; Contrast route: INTRAVENOUS (IV); COMPARISON: CT ANGIO CHEST PE PROTOCOL 13/09/2023 10:51 FINDINGS: Pulmonary arteries: Evaluation of the pulmonary arteries is limited to the segmental arterial level due to poor bolus timing. Aorta: Unremarkable. No aortic aneurysm. No aortic dissection. Lungs: There are tiny widespread nodules in the lungs. It is difficult to determine whether these are tree-in-bud or centrilobular nodules. Small scattered pulmonary cysts. [id number] centrilobular emphysema. Multiple nonspecific pulmonary nodules. For follow-up purposes, examples include: 5 mm right lower lobe nodule image 46 series 3 which is likely new, 3 mm right upper lobe nodule image 20 series 3 which may be unchanged compared to priors, and 3 mm left upper lobe nodule image 17 series 3 which may be unchanged compared to priors. Pleural spaces: Unremarkable. No pneumothorax. No pleural effusion. Heart: Unremarkable. No cardiomegaly. No pericardial effusion. Lymph nodes: Unremarkable. No enlarged lymph nodes. Gallbladder and biliary ducts: Gallbladder is absent. Bones/joints: Old right rib fractures. Soft tissues: Unremarkable. Other findings: Evaluation for small abnormalities is limited due to motion artifact. Stigmata of old granulomatous disease. IMPRESSION: 1. Evaluation for small abnormalities is limited due to motion artifact. 2. Evaluation of the pulmonary arteries is limited to the segmental arterial level due to poor bolus timing. Within the limitations of the study, no pulmonary emboli. 3. There are tiny widespread nodules in the lungs. It is difficult to determine whether these are tree-in-bud or centrilobular nodules. In a smoking patient, consider respiratory bronchiolitis (RB-ILD) versus atypical infection/aspiration. In a nonsmoking patient, consider hypersensitivity pneumonitis versus atypical infection/aspiration. 4. There is a new right lower lobe nodule measuring 5 mm. For patients at low risk (minimal or absent history of smoking and of other known risk factors), no routine follow-up is indicated. For patients at high risk (history of smoking or of other known risk factors), consider optional CT Chest at 12 months. (Reference: Selin) REFERENCES: Selin Garcia, et al. Guidelines for Management of Incidental Pulmonary Nodules Detected on CT Images: From the Fleischner Society 2017. Radiology. 2017;284(1):228-243.
[2024-09-09 16:35] LABS: Basophils # 0.2 K/mm3 (0-0.2); Basophils % 1.6 % (0.1-2.0); Eosinophils # 0.3 K/mm3 (0.0-0.4); Eosinophils % 2.3 % (0.1-12.0); Hematocrit 39.7 % (37.0-47.0); Hemoglobin 13.7 g/dL (12.2-16.2); Lymphocytes # 4.2 K/mm3 (0.7-4.5); Lymphocytes % 31.5 % (10-50); Mean Corpuscular HGB Conc 34.5 g/dL (31.8-35.4); Mean Corpuscular Hemoglobin 32.9 pg (27.0-31.2); Mean Corpuscular Volume 95.5 fl (81-99); Mean Platelet Volume 8.9 fl (7.4-10.4); Monocytes # 0.7 K/mm3 (0.1-1.0); Monocytes % 5.1 % (1.7-9.3); Neutrophils % 59.5 % (37.0-80.0); Platelet Count 179 K/mm3 (142-424); Red Blood Count 4.16 M/mm3 (4.20-5.40); Red Cell Distribution Width 14.3 % (11.5-17.5); White Blood Count 13.4 K/mm3 (4.8-10.8)
[2024-09-09] MEDS: ACETAMINOPHEN 500MG TAB 1000 MG PO (16:36)
[2024-09-09 16:54] LABS: Chloride 105 mmol/L (98-107); Potassium 3.9 mmoL/L (3.5-5.1); Sodium 139 mmol/L (136-145)
[2024-09-09 16:57] LABS: Alanine Aminotransferase 24 U/L (12-78); Albumin/Globulin Ratio 1.4 (1.1-1.8); Alkaline Phosphatase 101 U/L (38-126); Anion Gap 11.9 mEq/L (5-15); Aspartate Amino Transferase 23 U/L (14-36); Bilirubin,Total 0.5 mg/dl (0.2-1.3); Blood Urea Nitrogen 16 mg/dl (7-17); Calcium 8.8 mg/dl (8.4-10.2); Carbon Dioxide 26 mmol/L (22.0-30.0); Creatinine Clearance Estimated 61 mL/min (50-200); Estimated Glomerular Filt Rate 60 ml/min (>60); GFR (African American) 72 ML/MIN (>60); Globulin 2.8 g/dL (1.3-3.2); Glucose 105 mg/dl (74-100); Total Protein,Serum 6.8 g/dl (6.3-8.2)
[2024-09-09 17:00] VITALS: BP 132/75; PULSE 84; RESP 18; O2SAT 99
[2024-09-09 17:14] LABS: T4 (Thyroxine) 6.9 ug/dl (5.53-11.0); Troponin I < 0.01 ng/ml (0.00-0.034)
[2024-09-09 17:28] LABS: Thyroid Stimulating Hormone 0.85 uIU/mL (0.465-4.68)
--- NOTE | 2024-09-09 17:33 | PC.NURSE ---
pt is gone to ct
[2024-09-09] MEDS: 0.9 % SODIUM CHLORIDE 50 ML VIAL IV (17:47)
[2024-09-09] MEDS: SODIUM CHLORIDE 0.9% 10ML SYR (RAD ONLY) 10 ML IV (17:47)
[2024-09-09] MEDS: IOPAMIDOL-370 (76%);100ML BOTTLE 150 ML IV (17:47)
[2024-09-09 18:00] VITALS: BP 139/78; PULSE 80; RESP 20; O2SAT 98
[2024-09-09 18:30] VITALS: BP 125/71; PULSE 77; RESP 17; O2SAT 96
[2024-09-09 19:10] VITALS: BP 140/72; PULSE 71; RESP 18; TEMP 36.8; O2SAT 99
[2024-09-09] MEDS: DOXYCYCLINE HYCL 100 MG TABLET PO (19:11)
== END 2024-09-09 19:12 | disposition home or self-care (01) ==
PROVIDERS: Physician Assistant; Emergency Provider Emergency Medicine; PCP Family Medicine
DX: J21.9 Acute bronchiolitis, unspecified (principal); R91.1 Solitary pulmonary nodule; R55 Syncope and collapse; R05.9 Cough, unspecified; F17.210 Nicotine dependence, cigarettes, uncomplicated
CPT/HCPCS: 70450; 70496; 70498; 71275; 80053; 84436; 84443; 84484; 85025; 93005; 99285; Q9967

== ENCOUNTER 2024-09-19 12:47 | Emergency (ER) | payer MEDICARE, MEDICAID, SELFPAY ==
[2024-09-19 13:00] VITALS: BP 119/48; PULSE 89; RESP 18; TEMP 36.8; O2SAT 98; BMI 47.2
--- NOTE | 2024-09-19 13:02 | XR_ITS ---
FINAL REPORT CLINICAL HISTORY: fall COMPARISON: 09/05/2021 FINDINGS: LEFT ANKLE: Three views of the left ankle were obtained. There is no acute fracture or dislocation. The joint spaces and mortise are intact. There is no soft tissue abnormality. A plantar calcaneal spur is seen. IMPRESSION: No acute bony abnormality. Reviewed, Interpreted and Dictated by Julian Rico III, MD Transcribed by Shabana Fenton Authenticated and [facility]
--- NOTE | 2024-09-19 13:02 | XR_ITS ---
FINAL REPORT CLINICAL HISTORY: fall COMPARISON: 07/30/2022 FINDINGS: LEFT FOOT: Three views of the left foot were obtained. There is no acute fracture or dislocation. The joint spaces are intact. There is no soft tissue abnormality. A plantar calcaneal spur is noted. There is a mild hallux valgus deformity. IMPRESSION: No acute bony abnormality. Reviewed, Interpreted and Dictated by Julian Rico III, MD Transcribed by Shabana Fenton Authenticated and [facility]
--- NOTE | 2024-09-19 13:02 | XR_ITS ---
FINAL REPORT CLINICAL HISTORY: fall COMPARISON: None FINDINGS: SINGLE VIEW PELVIS: A single view of the pelvis was obtained. There is no acute fracture or dislocation. Vizualized joint spaces are normally aligned. Soft tissues are unremarkable. IMPRESSION: No acute bony abnormality. Reviewed, Interpreted and Dictated by Julian Rico III, MD Transcribed by Shabana Fenton Authenticated and [facility]
--- NOTE | 2024-09-19 13:33 | ED_ITS ---
Discharge Plan Disposition Patient Disposition: Home, Self-Care Condition: Good Prescriptions Prescriptions: No Action levocetirizine 5 mg tablet 5 mg PO DAILY fluticasone propionate [Flonase Allergy Relief] 50 mcg/actuation spray,suspension 2 spray intranasal DAILY 90 Days Qty: 16 2RF Rx Instructions: administer into each nostril albuterol sulfate 90 mcg/actuation HFA aerosol inhaler 2 inh inhalation Q6H PRN (Reason: shortness of breath or wheezing) 90 Days Qty: 8.5 3RF celecoxib [Celebrex] 200 mg capsule 200 mg PO DAILY Qty: 30 2RF pregabalin [Lyrica] 75 mg capsule 75 mg PO BID Qty: 60 0RF varenicline 1 mg tablet See Rx Instructions .ROUTE .COMPLEX Qty: 56 0RF Dose Instruction: TAKE ONE TABLET BY MOUTH TWICE DAILY Rx Instructions: TAKE ONE TABLET BY MOUTH TWICE DAILY aripiprazole 10 mg tablet 10 mg PO DAILY Qty: 90 3RF bisoprolol fumarate 5 mg tablet 5 mg PO QDAY Qty: 30 5RF docusate sodium [Colace] 100 mg capsule 100 mg PO DAILY Qty: 30 0RF lisinopril-hydrochlorothiazide 10-12.5 mg tablet See Rx Instructions .ROUTE .COMPLEX Qty: 90 1RF Dose Instruction: TAKE ONE TABLET BY MOUTH EVERY DAY FOR BLOOD PRESSURE Rx Instructions: TAKE ONE TABLET BY MOUTH EVERY DAY FOR BLOOD PRESSURE levothyroxine 25 mcg tablet See Rx Instructions .ROUTE .COMPLEX Qty: 90 0RF Dose Instruction: TAKE ONE TABLET BY MOUTH EVERY DAY Rx Instructions: TAKE ONE TABLET BY MOUTH EVERY DAY torsemide 20 mg tablet See Rx Instructions .ROUTE .COMPLEX Qty: 30 3RF Dose Instruction: TAKE ONE TABLET BY MOUTH EVERY DAY NEEDED FOR EDEMA Rx Instructions: TAKE ONE TABLET BY MOUTH EVERY DAY NEEDED FOR EDEMA budesonide-formoterol [Symbicort] 160-4.5 mcg/actuation HFA aerosol inhaler See Rx Instructions .ROUTE .COMPLEX Qty: 10.2 2RF Dose Instruction: INHALE TWO PUFFS BY MOUTH TWICE DAILY Rx Instructions: INHALE TWO PUFFS BY MOUTH TWICE DAILY potassium chloride 10 mEq capsule, extended release 10 meq PO DAILY Rx Instructions: TAKE ONE CAPSULE BY MOUTH EVERY DAY doxycycline hyclate 100 mg capsule 100 mg PO BID 10 Days Qty: 20 0RF Referrals Follow up/Referrals: Nickie Brown APRN [Primary Care Provider] - See instructions Activity Restrictions/Add. Instructions Additional Instructions/Restrictions: *weight bearing as tolerated *RICE, Rest the extremity, Ice 15-20 minutes 3-4 times daily, Compress- wear the evert wrap as discussed as much as possible to help reduce swelling and pain, Elevate the extremity when at rest *Evert wrap is for support and help control swelling, use it except in the shower. Be sure that is not to tight but not to loose either *Elevate when resting? Tylenol for pain if you can take it Immediately follow up with your family doctor for new or worsening of symptoms, or no noticeable improvement over the next 3-5 days Clinical Impressions Clinical Impression: Fall Instructions Patient Instructions: DI for Contusion, DI for Ankle Sprain, DI for Foot Sprain Print Language Print Language: Occitan Discharge ED Provider: Arleen Ayers [facility] [place] General Stated complaint: ao fall L foot anf hip pain Mode of Arrival: Ambulatory Source of Information: Patient Limitations: No Limitations Time Seen by Provider: 09/19/24 13:33 Description of Symptoms (Recalled from Triage Doc. by RN): PATIENT C/O PAIN TO LEFT FOOT AND ANKLE AND BUTTOCK AREA AFTER FALLING THIS MORNING HEENT Symptoms (Recalled from RN notes): No Resp Symptoms (Recalled from RN notes): No Skin Symptoms (Recalled from RN notes): No MS Symptoms (Recalled from RN notes): Yes Functional Status (Recalled from RN notes): WNL History of Present Illness Provider Complaint: Patient states that she slipped and fell on the stairs at home this morning and landed on her left buttock area and twisted her left foot and ankle States has been having pain in her left foot and ankle and left buttock area since and has a bruise on her left butt cheek States that her ankle has been bothering her and hurting when she walks on it so she came in to get checked Denies any other injury Related Data Home Medications ?Medication ?Instructions ?Recorded ?Confirmed potassium chloride 10 mEq 10 meq PO DAILY Supplement 12/20/23 07/29/24 capsule,extended release levocetirizine 5 mg tablet 5 mg PO DAILY 02/22/24 07/29/24 Previous Rx's ?Medication ?Instructions ?Recorded bisoprolol fumarate 5 mg tablet 5 mg PO QDAY #30 tabs 12/25/23 lisinopril 10 See Rx Instructions .Route 03/13/24 mg-hydrochlorothiazide 12.5 mg .COMPLEX #90 tabs tablet levothyroxine 25 mcg tablet See Rx Instructions .Route 04/11/24 .COMPLEX #90 tabs celecoxib 200 mg capsule (Celebrex) 200 mg PO DAILY #30 caps 05/22/24 docusate sodium 100 mg capsule 100 mg PO DAILY #30 caps 06/06/24 (Colace) albuterol sulfate 90 mcg/actuation 2 inh inhalation Q6H PRN shortness 06/11/24 aerosol inhaler of breath or wheezing 90 days #8.5 grams fluticasone propionate 50 2 spray intranasal DAILY 90 days 06/11/24 mcg/actuation nasal #16 grams spray,suspension (Flonase Allergy Relief) torsemide 20 mg tablet See Rx Instructions .Route 06/27/24 .COMPLEX #30 tabs budesonide-formoterol HFA 160 See Rx Instructions .Route 07/08/24 mcg-4.5 mcg/actuation aerosol .COMPLEX #10.2 grams inhaler (Symbicort) aripiprazole 10 mg tablet 10 mg PO DAILY #90 tabs 07/29/24 pregabalin 75 mg capsule (Lyrica) 75 mg PO BID #60 caps 07/29/24 varenicline 1 mg tablet See Rx Instructions .Route 07/29/24 .COMPLEX #56 tabs doxycycline hyclate 100 mg capsule 100 mg PO BID 10 days #20 caps 09/09/24 Allergies Allergy/AdvReac Type Severity Reaction Status Date / Time ibuprofen (IBUPROFEN) Allergy Unknown Hives Verified 09/09/24 16:27 naproxen (NAPROXEN) Allergy Unknown Rash Verified 09/09/24 16:27 Worker's Comp Is this a Worker's Comp case?: No [facility] Disclaimer: The information contained in this section may have been updated after the patient was seen, as this information can be updated by other users. Medical History (Updated 09/19/24 @ 14:53 by Arleen Ayers APRN) Compression of intervertebral disc Atypical pneumonia Sinusitis Fall Muscle spasm Witnessed apneic spells Bronchitis Elevated d-dimer Tachycardia ASCUS favoring benign Atypical chest pain Other specified diseases of gallbladder Mass of left kidney Conjunctivitis Gastroenteritis Atypical chest pain Acute bronchitis Rash Left foot pain Heel spur Benign skin lesion of cheek Postoperative bleeding from incision URI (upper respiratory infection) Pulmonary nodules Retroperitoneal mass Abdominal pain, lower Snoring Atypical angina Abnormal nuclear stress test Elevated liver enzymes History of hepatitis C Daytime somnolence Asymmetric SNHL (sensorineural hearing loss) Viral syndrome Otitis media Thrush Encounter for laboratory testing for COVID-19 virus Knee contusion Tonsillitis Otitis media Bronchitis Sinusitis Bronchitis Colonoscopy planned Pharyngitis Uvulitis Referred otalgia of both ears Family history of sudden cardiac in daughter Abnormal electrocardiogram [ECG] [EKG] Tachycardia Swollen uvula Throat pain Diastolic dysfunction HTN (hypertension) Hepatitis C Urinary tract infection History of COVID-19 Sleep apnea History of syncope Seizure disorder Migraine Bipolar 1 disorder Schizophrenia Depression Carpal tunnel syndrome History of gastroesophageal reflux (GERD) Hypothyroid Allergies Hypertension Cancer of kidney Enlarged tonsils Dysphagia Asthma Surgical History Status post tonsillectomy History of endometrial ablation History of hernia repair Hx of appendectomy History of History of tubal ligation Family History Grandmother Stomach cancer Mother Brain cancer Sister Throat cancer Father Family history of hyperlipidemia Social History (Updated 09/09/24 @ 20:06 by BARON Jimenez) Smoking Status: Current every day smoker tobacco type: cigarettes packs per day: 1 second hand exposure: No alcohol intake: never substance use type: former substance user and heroin current occupational status: disabled Travel in the last 8 weeks: None adopted: Yes household members: children housing: house number of children: 3 current occupational exposures/hazards: No caffeine: Yes ROS Obtained: Yes All systems reviewed & no additional complaints except as documented and Yes Systems reviewed as appropriate & no additional complaints except as documented Constitutional Constitutional: Reports system reviewed and no additional complaints, except as documented and Reports as per HPI ENT Ears, Nose, Mouth, and Throat: Reports system reviewed and no additional complaints, except as documented and Reports as per HPI Cardiovascular Cardiovascular: Reports system reviewed and no additional complaints, except as documented and Reports as per HPI Respiratory Respiratory: Reports system reviewed and no additional complaints, except as documented and Reports as per HPI Gastrointestinal Gastrointestingal: Reports system reviewed and no additional complaints, except as documented and as per HPI Musculoskeletal Musculoskeletal: Reports system reviewed and no additional complaints, except as documented, Reports as per HPI and Reports other Comments: Pain in left ankle, left foot and left buttock area since falling this am denies any other injuries Physical Exam General General appearance: alert and in no apparent distress ENT ENT exam: Present mucous membranes moist Chest Chest inspection: Present normal inspection and symmetric chest wall rise Respiratory Respiratory exam: Present normal lung sounds bilaterally; Absent respiratory distress or wheezes Cardiovascular Cardiovascular exam: Present regular rate, normal rhythm and normal heart sounds Expanded Lower Extremity Exam Left: Ankle exam: Present tenderness, swelling and ecchymosis; Absent erythema Foot/toe exam: Present tenderness and swelling; Absent erythema Back Exam Back exam: Present tenderness Back 1 view image: 2 1. bruising noted Neurological Exam Neurological exam: Present alert, oriented X3 and normal gait Medical Decision Making Medical Records Screening: Per USPSTF and CDC recommendations, given the prevalence of disease in our region, it is our hospital?s policy to screen for HIV and viral Hepatitis for all patients aged 18 and over and those with ongoing risk factors. Torres Inquiry Pt receiving controlled substance: No Torres was queried for this patient: No Vital Signs: 09/19/24 13:00 Temperature 98.2 F Temperature Source Oral Pulse Rate [Left Brachial] 89 Respiratory Rate 18 Blood Pressure [Left Arm] 119/48 L Blood Pressure Mean [Left Arm] 71 Blood Pressure Source [Left Arm] Automatic Cuff Blood Pressure Position [Left Arm] Sitting 02 Sat by Pulse Oximetry 98 Oxygen Delivery Method Room Air Orders (Tests/Meds): ORDERS Category Date Time Status XR ankle LT min 3V Stat Exams 09/19/24 13:02 Taken XR foot LT min 3V Stat Exams 09/19/24 13:02 Taken XR pelvis 1-2V Stat Exams 09/19/24 13:02 Taken Radiology Data #1: Image(s): Pelvis Image Reviewed: Yes I have reviewed radiologist's interpretation no acute bony abnormality #2: Image(s): Ankle no acute bony abnormality #3: Image(s): Foot/Toes Image Reviewed: Yes I have reviewed radiologist's interpretation no acute bony abnormality
[2024-09-19 14:54] VITALS: BP 119/48; PULSE 89; RESP 18; TEMP 36.8; O2SAT 98
== END 2024-09-19 15:00 | disposition home or self-care (01) ==
PROVIDERS: Emergency Provider Nurse Practitioner; PCP Family Medicine
DX: S93.402A Sprain of unspecified ligament of left ankle, initial encounter (principal); W19.XXXA Unspecified fall, initial encounter
CPT/HCPCS: 72170; 73610; 73630; 99213; G0381

== ENCOUNTER 2024-10-03 10:03 | Emergency (ER) | payer MEDICARE, MEDICAID, SELFPAY ==
[2024-10-03 10:15] VITALS: BP 111/68; PULSE 96; RESP 24; TEMP 36.7; O2SAT 97; BMI 47.9
--- NOTE | 2024-10-03 10:25 | EXP.UTC ---
Discharge Plan Disposition Patient Disposition: Home, Self-Care Condition: Good Prescriptions Prescriptions: New azithromycin [Zithromax] 250 mg tablet 250 mg PO UD DOSE PK Qty: 6 0RF Rx Instructions: Take two (2) tablets today, then one (1) tablet days #2 thru #5 benzonatate 100 mg capsule 100 mg PO TIDP PRN (Reason: Cough) Qty: 30 0RF methylprednisolone 4 mg Tablets,Dose Pack 4 mg PO DIRECTED 6 Days Qty: 21 0RF Rx Instructions: Take 1 pack as directed for 6 days albuterol sulfate [Ventolin HFA] 90 mcg/actuation HFA aerosol inhaler 2 puff inhalation Q6H PRN (Reason: shortness of breath or wheezing) Qty: 6.7 0RF No Action levocetirizine 5 mg tablet 5 mg PO DAILY fluticasone propionate [Flonase Allergy Relief] 50 mcg/actuation spray,suspension 2 spray intranasal DAILY 90 Days Qty: 16 2RF Rx Instructions: administer into each nostril albuterol sulfate 90 mcg/actuation HFA aerosol inhaler 2 inh inhalation Q6H PRN (Reason: shortness of breath or wheezing) 90 Days Qty: 8.5 3RF pregabalin [Lyrica] 75 mg capsule 75 mg PO BID Qty: 60 0RF varenicline 1 mg tablet See Rx Instructions .ROUTE .COMPLEX Qty: 56 0RF Dose Instruction: TAKE ONE TABLET BY MOUTH TWICE DAILY Rx Instructions: TAKE ONE TABLET BY MOUTH TWICE DAILY aripiprazole 10 mg tablet 10 mg PO DAILY Qty: 90 3RF bisoprolol fumarate 5 mg tablet 5 mg PO QDAY Qty: 30 5RF docusate sodium [Colace] 100 mg capsule 100 mg PO DAILY Qty: 30 0RF lisinopril-hydrochlorothiazide 10-12.5 mg tablet See Rx Instructions .ROUTE .COMPLEX Qty: 90 1RF Dose Instruction: TAKE ONE TABLET BY MOUTH EVERY DAY FOR BLOOD PRESSURE Rx Instructions: TAKE ONE TABLET BY MOUTH EVERY DAY FOR BLOOD PRESSURE levothyroxine 25 mcg tablet See Rx Instructions .ROUTE .COMPLEX Qty: 90 0RF Dose Instruction: TAKE ONE TABLET BY MOUTH EVERY DAY Rx Instructions: TAKE ONE TABLET BY MOUTH EVERY DAY torsemide 20 mg tablet See Rx Instructions .ROUTE .COMPLEX Qty: 30 3RF Dose Instruction: TAKE ONE TABLET BY MOUTH EVERY DAY NEEDED FOR EDEMA Rx Instructions: TAKE ONE TABLET BY MOUTH EVERY DAY NEEDED FOR EDEMA budesonide-formoterol [Symbicort] 160-4.5 mcg/actuation HFA aerosol inhaler See Rx Instructions .ROUTE .COMPLEX Qty: 10.2 2RF Dose Instruction: INHALE TWO PUFFS BY MOUTH TWICE DAILY Rx Instructions: INHALE TWO PUFFS BY MOUTH TWICE DAILY celecoxib 200 mg capsule See Rx Instructions .ROUTE .COMPLEX Qty: 30 2RF Dose Instruction: TAKE ONE CAPSULE BY MOUTH EVERY DAY --TAKE WITH FOOD-- Rx Instructions: TAKE ONE CAPSULE BY MOUTH EVERY DAY --TAKE WITH FOOD-- potassium chloride 10 mEq capsule, extended release 10 meq PO DAILY Rx Instructions: TAKE ONE CAPSULE BY MOUTH EVERY DAY doxycycline hyclate 100 mg capsule 100 mg PO BID 10 Days Qty: 20 0RF Referrals Follow up/Referrals: Nickie Brown APRN [Primary Care Provider] - See instructions Activity Restrictions/Add. Instructions Additional Instructions/Restrictions: Drink plenty of fluids. Take tylenol or ibuprofen for pain or fever. Take the medications as directed. Follow up with your regular doctor. GO TO THE ER FOR ANY WORSENING SYMPTOMS Don't start the oral steroids (medrol dose pack) until tomorrow since you had the shot here Clinical Impressions Clinical Impression: Asthma exacerbation Instructions Patient Instructions: DI for Asthma -- Adult, Albuterol Oral Inhalation, Methylprednisolone, Azithromycin, Dexamethasone Injection Print Language Print Language: Polish Discharge ED Provider: Maurice Davis [facility] [place] General Stated complaint: sore throat, chest congestion Mode of Arrival: Ambulatory Source of Information: Patient Time Seen by Provider: 10/03/24 10:25 Description of Symptoms (Recalled from Triage Doc. by RN): CONGESTION, COUGH, SORE THROAT, WHEEZING ( DID NOT TAKE INHALER) HEENT Symptoms (Recalled from RN notes): Yes Resp Symptoms (Recalled from RN notes): Yes Skin Symptoms (Recalled from RN notes): No MS Symptoms (Recalled from RN notes): No Functional Status (Recalled from RN notes): WNL Related Data Home Medications ?Medication ?Instructions ?Recorded ?Confirmed potassium chloride 10 mEq 10 meq PO DAILY Supplement 12/20/23 10/03/24 capsule,extended release levocetirizine 5 mg tablet 5 mg PO DAILY 02/22/24 07/29/24 Previous Rx's ?Medication ?Instructions ?Recorded bisoprolol fumarate 5 mg tablet 5 mg PO QDAY #30 tabs 12/25/23 lisinopril 10 See Rx Instructions .Route 03/13/24 mg-hydrochlorothiazide 12.5 mg .COMPLEX #90 tabs tablet levothyroxine 25 mcg tablet See Rx Instructions .Route 04/11/24 .COMPLEX #90 tabs docusate sodium 100 mg capsule 100 mg PO DAILY #30 caps 06/06/24 (Colace) albuterol sulfate 90 mcg/actuation 2 inh inhalation Q6H PRN shortness 06/11/24 aerosol inhaler of breath or wheezing 90 days #8.5 grams fluticasone propionate 50 2 spray intranasal DAILY 90 days 06/11/24 mcg/actuation nasal #16 grams spray,suspension (Flonase Allergy Relief) torsemide 20 mg tablet See Rx Instructions .Route 06/27/24 .COMPLEX #30 tabs budesonide-formoterol HFA 160 See Rx Instructions .Route 07/08/24 mcg-4.5 mcg/actuation aerosol .COMPLEX #10.2 grams inhaler (Symbicort) aripiprazole 10 mg tablet 10 mg PO DAILY #90 tabs 07/29/24 pregabalin 75 mg capsule (Lyrica) 75 mg PO BID #60 caps 07/29/24 varenicline 1 mg tablet See Rx Instructions .Route 07/29/24 .COMPLEX #56 tabs doxycycline hyclate 100 mg capsule 100 mg PO BID 10 days #20 caps 09/09/24 celecoxib 200 mg capsule See Rx Instructions .Route 10/01/24 .COMPLEX #30 caps albuterol sulfate 90 mcg/actuation 2 puff inhalation Q6H PRN 10/03/24 aerosol inhaler (Ventolin HFA) shortness of breath or wheezing #6.7 grams azithromycin 250 mg tablet 250 mg PO UD DOSE PK #6 tabs 10/03/24 (Zithromax) benzonatate 100 mg capsule 100 mg PO TIDP PRN Cough #30 caps 10/03/24 methylprednisolone 4 mg tablets in 4 mg PO DIRECTED 6 days #21 tabs 10/03/24 a dose pack Allergies Allergy/AdvReac Type Severity Reaction Status Date / Time ibuprofen (IBUPROFEN) Allergy Unknown Hives Verified 09/09/24 16:27 naproxen (NAPROXEN) Allergy Unknown Rash Verified 09/09/24 16:27 Worker's Comp Is this a Worker's Comp case?: No [facility] Disclaimer: The information contained in this section may have been updated after the patient was seen, as this information can be updated by other users. Medical History (Updated 10/03/24 @ 12:09 by Maurice Davis APRN) Compression of intervertebral disc Atypical pneumonia Sinusitis Fall Muscle spasm Witnessed apneic spells Bronchitis Elevated d-dimer Tachycardia ASCUS favoring benign Atypical chest pain Other specified diseases of gallbladder Mass of left kidney Conjunctivitis Gastroenteritis Atypical chest pain Acute bronchitis Rash Left foot pain Heel spur Benign skin lesion of cheek Postoperative bleeding from incision URI (upper respiratory infection) Pulmonary nodules Retroperitoneal mass Abdominal pain, lower Snoring Atypical angina Abnormal nuclear stress test Elevated liver enzymes History of hepatitis C Daytime somnolence Asymmetric SNHL (sensorineural hearing loss) Viral syndrome Otitis media Thrush Encounter for laboratory testing for COVID-19 virus Knee contusion Tonsillitis Otitis media Bronchitis Sinusitis Bronchitis Colonoscopy planned Pharyngitis Uvulitis Referred otalgia of both ears Family history of sudden cardiac in daughter Abnormal electrocardiogram [ECG] [EKG] Tachycardia Swollen uvula Throat pain Diastolic dysfunction HTN (hypertension) Hepatitis C Urinary tract infection History of COVID-19 Sleep apnea History of syncope Seizure disorder Migraine Bipolar 1 disorder Schizophrenia Depression Carpal tunnel syndrome History of gastroesophageal reflux (GERD) Hypothyroid Allergies Hypertension Cancer of kidney Enlarged tonsils Dysphagia Asthma Surgical History Status post tonsillectomy History of endometrial ablation History of hernia repair Hx of appendectomy History of History of tubal ligation Family History Grandmother Stomach cancer Mother Brain cancer Sister Throat cancer Father Family history of hyperlipidemia Social History (Updated 09/09/24 @ 20:06 by BARON Jimenez) Smoking Status: Current every day smoker tobacco type: cigarettes packs per day: 1 second hand exposure: No alcohol intake: never substance use type: former substance user and heroin current occupational status: disabled Travel in the last 8 weeks: None adopted: Yes household members: children housing: house number of children: 3 current occupational exposures/hazards: No caffeine: Yes Have you lived/traveled outside [place] in past 30 days?: No Contact w/someone who lives/traveled outside [place] past 30 days?: No Exposure to someone with infectious disease in past 14 days?: No Do you have a fever (greater than 100.4 F or 38 C)?: No Have you tested positive for COVID-19: No Exposed to someone with COVID-19 in past 14 days?: No Do you have a sore throat?: Yes Do you have a cough?: Yes Do you have any weakness?: No Do you have any diarrhea?: No Are you experiencing any unusual bleeding?: No Do you have any muscle aches/pain?: No Do you have any abdominal pain?: No Are you experiencing loss of taste or smell?: No ROS Obtained: Yes All systems reviewed & no additional complaints except as documented Constitutional Constitutional: Reports poor appetite Eyes Eyes: Reports system reviewed and no additional complaints, except as documented ENT Ears, Nose, Mouth, and Throat: Reports as per HPI Cardiovascular Cardiovascular: Reports system reviewed and no additional complaints, except as documented and Denies chest pain Respiratory Respiratory: Denies shortness of breath, Reports chest congestion, Reports cough, Denies stridor and Denies wheezing Gastrointestinal Gastrointestingal: Reports system reviewed and no additional complaints, except as documented; Denies abdominal pain, diarrhea or vomiting Musculoskeletal Musculoskeletal: Reports system reviewed and no additional complaints, except as documented and Denies arthralgias Integumentary/Breasts Skin/Breast: Reports system reviewed and no additional complaints, except as documented and Denies rash Neurologic Neurologic: Denies paresthesias Allergic/Immunologic Allergic/Immunologic: Denies wheezing Physical Exam General General appearance: alert and in no apparent distress Eye Eye exam: Present normal appearance, PERRL and EOMI ENT ENT exam: Present mucous membranes moist and normal external ear exam Expanded ENT Exam External ear exam: Present normal external inspection TM/Canal exam: Bilateral TM: erythema and bulging Nose exam: Absent sinus tenderness Nasal speculum exam: Bilateral: normal Mouth exam: Present normal external inspection; Absent drooling Teeth exam: Present normal inspection Throat exam: Present tonsillar erythema and tonsillomegaly Neck Neck exam: Present normal inspection, full ROM and trachea midline; Absent tenderness, lymphadenopathy or thyromegaly Chest Chest inspection: Present normal inspection and symmetric chest wall rise; Absent tenderness or rash Respiratory Respiratory exam: Present normal lung sounds bilaterally; Absent respiratory distress, wheezes, stridor or accessory muscle use Cardiovascular Cardiovascular exam: Present regular rate, normal rhythm and normal heart sounds Abdominal Exam Abdominal exam: Present soft; Absent distention, tenderness, guarding, rebound or rigidity Extremities Exam Extremities exam: Present normal inspection, full ROM and normal capillary refill; Absent tenderness or calf tenderness Back Exam Back exam: Present normal inspection and full ROM; Absent tenderness Neurological Exam Neurological exam: Present alert and oriented X3 Psychiatric Psychiatric exam: Present normal affect and normal mood Skin Skin exam: Present warm, dry, intact and normal color Lymphatic Lymphatic Findings: no adenopathy Medical Decision Making Medical Records Medical records reviewed: No I reviewed the patient's medical records. Screening: Per USPSTF and CDC recommendations, given the prevalence of disease in our region, it is our hospital?s policy to screen for HIV and viral Hepatitis for all patients aged 18 and over and those with ongoing risk factors. Torres Inquiry Pt receiving controlled substance: No Vital Signs: 10/03/24 10:15 Temperature 98.0 F Temperature Source Oral Pulse Rate [Left Radial] 96 H Respiratory Rate 24 Blood Pressure [Left Arm] 111/68 Blood Pressure Mean [Left Arm] 82 02 Sat by Pulse Oximetry 97 Lab Data Lab results reviewed: Yes I reviewed the patient's lab results. Radiology Data #1: Image(s): Chest Image Reviewed: Yes I reviewed the patient's radiology image and Yes I have reviewed radiologist's interpretation Preliminary Findings: No Infiltrates Seen Accession No. : [id number] Patient Name / ID : LACHO VIDES / [id number] Exam Date : 10/03/2024 10:40:40 ( Final ) Study Comment : Sex / Age : F / 44Y Creator : Deon Watts MD Dictator : Administration Vice President : Slate Roofer : Deon Watts MD Approver2 : Report Date : 10/03/2024 11:44:56 My Comment : FINAL REPORT TECHNIQUE: Two views CLINICAL HISTORY: cough, congestion COMPARISON: 11/22/2023 FINDINGS: No acute pulmonary density is present. Mediastinal contour is normal. Heart size is stable. IMPRESSION: Stable chest exam without acute disease Reviewed, Interpreted and Dictated by Antwan Watts MD Transcribed by Ariela Peñaloza Authenticated and . [facility]
[2024-10-03 10:26] LABS: UTC Strep Screen (Rapid) Negative (Negative)
--- NOTE | 2024-10-03 10:31 | XR_ITS ---
FINAL REPORT TECHNIQUE: Two views CLINICAL HISTORY: cough, congestion COMPARISON: 11/22/2023 FINDINGS: No acute pulmonary density is present. Mediastinal contour is normal. Heart size is stable. IMPRESSION: Stable chest exam without acute disease Reviewed, Interpreted and Dictated by Antwan Watts MD Transcribed by Ariela Peñaloza Authenticated and [facility]
[2024-10-03] MEDS: IPRATROPIUM/ALBUTEROL 3 ML NEB IH (11:37)
[2024-10-03] MEDS: DEXAMETHASONE 4MG/ML 1ML VIAL 8 MG IM (11:37)
[2024-10-03 12:15] VITALS: BP 111/68; PULSE 96; RESP 18; TEMP 36.7
[2024-10-03 12:19] LABS: Coronavirus 19, PCR Not Detected (NotDetected); Influenza A, PCR Not Detected (NotDetected); Influenza B, PCR Not Detected (NotDetected)
== END 2024-10-03 12:16 | disposition home or self-care (01) ==
PROVIDERS: Emergency Provider Nurse Practitioner Family; PCP Family Medicine
DX: J45.901 Unspecified asthma with (acute) exacerbation (principal)
CPT/HCPCS: 71046; 87636; 87880; 94640; 96372; 99213; G0381; J1100; J7620

== ENCOUNTER 2024-12-26 10:02 | Outpatient (CLI) | payer MEDICARE, MEDICAID, SELFPAY ==
[2024-12-26 19:32] LABS: Albumin Level 4.3 g/dl (3.5-5.0); Chloride 103 mmol/L (98-107); Sodium 138 mmol/L (136-145)
[2024-12-26 19:33] LABS: Potassium 3.8 mmoL/L (3.5-5.1)
[2024-12-26 19:35] LABS: Alanine Aminotransferase 27 U/L (12-78); Alkaline Phosphatase 120 U/L (38-126); Anion Gap 12.8 mEq/L (5-15); Aspartate Amino Transferase 23 U/L (14-36); Bilirubin,Total 0.6 mg/dl (0.2-1.3); Blood Urea Nitrogen 16 mg/dl (7-17); Carbon Dioxide 26 mmol/L (22.0-30.0); Estimated Glomerular Filt Rate 67 ml/min (>60); GFR (African American) 82 ML/MIN (>60); Globulin 2.2 g/dL (1.3-3.2); Total Protein,Serum 6.5 g/dl (6.3-8.2)
[2024-12-26 19:36] LABS: Calcium 9.1 mg/dl (8.4-10.2); Glucose 79 mg/dl (74-100)
[2024-12-26 19:40] LABS: NT Pro Brain Natriuretic Pep. 42.7 pg/mL (0-125)
== END 2024-12-26 23:59 | disposition home or self-care (01) ==
LOC: LAB.DROPOF 12-27 10:08
PROVIDERS: PCP Family Medicine; Visit Provider Family Medicine
DX: Z00.00 Encounter for general adult medical examination without abnormal findings (principal); I20.9 Angina pectoris, unspecified; I11.9 Hypertensive heart disease without heart failure
CPT/HCPCS: 80053; 83880

== ENCOUNTER 2025-01-19 06:47 | Emergency (ER) | payer MEDICARE, MEDICAID, SELFPAY ==
[2025-01-19] VITALS (7 sets, daily range): BP systolic 98–136; BP diastolic 52–75; PULSE 68–88; RESP 20–22; TEMP 36.5–36.7; O2SAT 93–100; BMI 46.3
--- NOTE | 2025-01-19 07:02 | XR_ITS ---
PROCEDURE INFORMATION: Exam: XR Chest Exam date and time: 01/19/2025 7:15 AM Age: 44 years old Clinical indication: Cough and wheezing; Additional info: Cough, diffuse wheezing TECHNIQUE: Imaging protocol: Radiologic exam of the chest. Views: 2 views. COMPARISON: CR XR CHEST 2V 10/03/2024 10:40 AM FINDINGS: Lungs: No significant or acute findings. No consolidation. Pleural spaces: No significant costophrenic angle blunting. No pneumothorax. Heart/Mediastinum: Heart size is normal. Bones/joints: No acute osseous abnormality. Soft tissues: Large body habitus. IMPRESSION: No acute abnormality demonstrated.
--- NOTE | 2025-01-19 07:06 | ED_ITS ---
Discharge Plan Disposition Patient Disposition: Home, Self-Care Prescriptions Prescriptions: New methocarbamol 1,000 mg tablet 1,000 mg PO Q8H PRN (Reason: muscle pain and stiffness) Qty: 15 0RF prednisone 50 mg tablet 50 mg PO DAILY 5 Days Qty: 5 0RF doxycycline hyclate 100 mg capsule 100 mg PO BID 7 Days Qty: 14 0RF No Action fluticasone propionate [Flonase Allergy Relief] 50 mcg/actuation spray,suspension 2 spray intranasal DAILY 90 Days Qty: 16 2RF Rx Instructions: administer into each nostril aripiprazole 10 mg tablet 10 mg PO DAILY Qty: 90 3RF nystatin 100,000 unit/mL suspension 100,000 unit PO DAILY pregabalin [Lyrica] 150 mg capsule 150 mg PO DAILY Qty: 30 0RF levothyroxine 25 mcg tablet See Rx Instructions .ROUTE .COMPLEX Qty: 90 0RF Dose Instruction: TAKE ONE TABLET BY MOUTH EVERY DAY Rx Instructions: TAKE ONE TABLET BY MOUTH EVERY DAY celecoxib 200 mg capsule See Rx Instructions .ROUTE .COMPLEX Qty: 30 2RF Dose Instruction: TAKE ONE CAPSULE BY MOUTH EVERY DAY --TAKE WITH FOOD-- Rx Instructions: TAKE ONE CAPSULE BY MOUTH EVERY DAY --TAKE WITH FOOD-- potassium chloride 10 mEq capsule, extended release See Rx Instructions .ROUTE .COMPLEX Qty: 30 5RF Dose Instruction: TAKE ONE CAPSULE BY MOUTH EVERY DAY Rx Instructions: TAKE ONE CAPSULE BY MOUTH EVERY DAY lisinopril-hydrochlorothiazide 10-12.5 mg tablet See Rx Instructions .ROUTE .COMPLEX Qty: 90 1RF Dose Instruction: TAKE ONE TABLET BY MOUTH EVERY DAY FOR BLOOD PRESSURE Rx Instructions: TAKE ONE TABLET BY MOUTH EVERY DAY FOR BLOOD PRESSURE levocetirizine 5 mg tablet See Rx Instructions .ROUTE .COMPLEX Qty: 120 4RF Dose Instruction: TAKE ONE TABLET BY MOUTH EVERY DAY Rx Instructions: TAKE ONE TABLET BY MOUTH EVERY DAY budesonide-formoterol [Symbicort] 160-4.5 mcg/actuation HFA aerosol inhaler See Rx Instructions .ROUTE .COMPLEX Qty: 10.2 2RF Dose Instruction: INHALE TWO PUFFS BY MOUTH TWICE DAILY Rx Instructions: INHALE TWO PUFFS BY MOUTH TWICE DAILY bisoprolol fumarate 5 mg tablet See Rx Instructions .ROUTE .COMPLEX Qty: 90 1RF Dose Instruction: TAKE ONE TABLET BY MOUTH EVERY DAY Rx Instructions: TAKE ONE TABLET BY MOUTH EVERY DAY torsemide 20 mg tablet See Rx Instructions .ROUTE .COMPLEX Qty: 90 3RF Dose Instruction: TAKE ONE TABLET BY MOUTH EVERY DAY NEEDED FOR EDEMA Rx Instructions: TAKE ONE TABLET BY MOUTH EVERY DAY NEEDED FOR EDEMA albuterol sulfate [Ventolin HFA] 90 mcg/actuation HFA aerosol inhaler 2 puff inhalation Q6H PRN (Reason: shortness of breath or wheezing) Qty: 6.7 0RF Referrals Follow up/Referrals: Provider,Referral, MD [Referring] - See instructions Activity Restrictions/Add. Instructions Additional Instructions/Restrictions: At this time it was felt you are safe to be discharged home. If new or worsening symptoms please do not hesitate to return the emergency department. Please take antibiotic and steroids as prescribed and follow-up with your family doctor later this week to ensure things are headed in the right direction. Clinical Impressions Clinical Impression: Atypical pneumonia, Asthma exacerbation, Neck pain Print Language Print Language: Chinese Discharge ED Provider: Jacob Cheng General Adult HPI General Chief complaint: PAIN Stated complaint: left shoulder pain, neck pain Time Seen by Provider: 01/19/25 06:55 Mode of Arrival: Ambulatory Source of Information: Patient Description of Symptoms (Recalled from ER Triage Doc. by RN): pt reports a cough that began left 4-5 days ago and is now expeirencing left shoulder pain and neck pain that is worse with moevement. patient also has BLE edema History of Present Illness HPI narrative: Patient is a 44-year-old female with past medical history of asthma, schizoaffective disorder who presents emergency department for evaluation of cough, shortness of breath, neck pain. Cough and shortness of breath has been going on over the last 4 to 5 days. Patient states she does not have true shoulder pain she has pain in the area between her lateral neck and shoulder that is worse when she turns to the left on the left side. Neck pain started when she woke up today. No pain on the right side or when turning her head to the right no midline pain. No chest pain reported. No trauma. No other acute complaints at this time. Please note that above description of symptoms, in this electronic medical record under categorization of recalled from ER triage doctor by RN are reflective of an initial nursing assessment, however, is not reflective of my full history and physical exam that was personally taken and clarified. Consequentially, this preceding description of symptoms, which may include the patient's categorized chief complaint in the EMR, do not reflect my personal clinical impression, and the ultimate description of history of present illness and patient stated complaints should be deferred to this section of the note. Unless stated otherwise or congruent with this section of the note, additional signs, symptoms, or incongruence should be interpreted as inaccurate with my clinical impression. Related Data Home Medications ?Medication ?Instructions ?Recorded ?Confirmed nystatin 100,000 unit/mL oral 100,000 unit PO DAILY 12/05/24 01/19/25 suspension Previous Rx's ?Medication ?Instructions ?Recorded levothyroxine 25 mcg tablet See Rx Instructions .Route 04/11/24 .COMPLEX #90 tabs fluticasone propionate 50 2 spray intranasal DAILY 90 days 06/11/24 mcg/actuation nasal #16 grams spray,suspension (Flonase Allergy Relief) aripiprazole 10 mg tablet 10 mg PO DAILY #90 tabs 07/29/24 celecoxib 200 mg capsule See Rx Instructions .Route 10/01/24 .COMPLEX #30 caps albuterol sulfate 90 mcg/actuation 2 puff inhalation Q6H PRN 10/03/24 aerosol inhaler (Ventolin HFA) shortness of breath or wheezing #6.7 grams budesonide-formoterol HFA 160 See Rx Instructions .Route 12/05/24 mcg-4.5 mcg/actuation aerosol .COMPLEX #10.2 grams inhaler (Symbicort) levocetirizine 5 mg tablet See Rx Instructions .Route 12/05/24 .COMPLEX #120 tabs lisinopril 10 See Rx Instructions .Route 12/05/24 mg-hydrochlorothiazide 12.5 mg .COMPLEX #90 tabs tablet potassium chloride 10 mEq See Rx Instructions .Route 12/05/24 capsule,extended release .COMPLEX #30 caps bisoprolol fumarate 5 mg tablet See Rx Instructions .Route 12/09/24 .COMPLEX #90 tabs pregabalin 150 mg capsule (Lyrica) 150 mg PO DAILY #30 caps 12/26/24 torsemide 20 mg tablet See Rx Instructions .Route 12/30/24 .COMPLEX #90 tabs doxycycline hyclate 100 mg capsule 100 mg PO BID 7 days #14 caps 01/19/25 methocarbamol 1,000 mg tablet 1,000 mg PO Q8H PRN muscle pain 01/19/25 and stiffness #15 tabs prednisone 50 mg tablet 50 mg PO DAILY pneumonia 5 days #5 01/19/25 tabs Allergies Allergy/AdvReac Type Severity Reaction Status Date / Time ibuprofen (IBUPROFEN) Allergy Unknown Hives Verified 01/15/25 11:03 naproxen (NAPROXEN) Allergy Unknown Rash Verified 01/15/25 11:03 [facility] Disclaimer: The information contained in this section may have been updated after the patient was seen, as this information can be updated by other users. Medical History Norovirus E coli enteritis Compression of intervertebral disc Atypical pneumonia Sinusitis Fall Muscle spasm Witnessed apneic spells Bronchitis Elevated d-dimer Tachycardia ASCUS favoring benign Atypical chest pain Other specified diseases of gallbladder Mass of left kidney Conjunctivitis Gastroenteritis Atypical chest pain Acute bronchitis Rash Left foot pain Heel spur Benign skin lesion of cheek Postoperative bleeding from incision URI (upper respiratory infection) Pulmonary nodules Retroperitoneal mass Abdominal pain, lower Snoring Atypical angina Abnormal nuclear stress test Elevated liver enzymes History of hepatitis C Daytime somnolence Asymmetric SNHL (sensorineural hearing loss) Moderate High Frequency SNHL Left ear, Asymmetrical per Audiometric Viral syndrome Otitis media Thrush Encounter for laboratory testing for COVID-19 virus Knee contusion Tonsillitis Otitis media Bronchitis Sinusitis Bronchitis Colonoscopy planned Pharyngitis Uvulitis Referred otalgia of both ears Family history of sudden cardiac in daughter Abnormal electrocardiogram [ECG] [EKG] Tachycardia Swollen uvula Throat pain Diastolic dysfunction HTN (hypertension) Hepatitis C Urinary tract infection History of COVID-19 Sleep apnea History of syncope Seizure disorder Migraine Bipolar 1 disorder Schizophrenia Depression Carpal tunnel syndrome History of gastroesophageal reflux (GERD) Hypothyroid Allergies Hypertension Cancer of kidney Enlarged tonsils Dysphagia Asthma Surgical History Status post tonsillectomy History of endometrial ablation History of hernia repair Hx of appendectomy History of History of tubal ligation Family History Grandmother Stomach cancer Mother Brain cancer Sister Throat cancer Father Family history of hyperlipidemia Social History Smoking Status: Current every day smoker tobacco type: cigarettes packs per day: 1 second hand exposure: No alcohol intake: never substance use type: former substance user and heroin current occupational status: disabled Travel in the last 8 weeks: None adopted: Yes household members: children housing: house number of children: 3 current occupational exposures/hazards: No caffeine: Yes Have you lived/traveled outside [place] in past 30 days?: No Contact w/someone who lives/traveled outside [place] past 30 days?: No Exposure to someone with infectious disease in past 14 days?: No Do you have a fever (greater than 100.4 F or 38 C)?: No Have you tested positive for COVID-19: No Exposed to someone with COVID-19 in past 14 days?: No Do you have a sore throat?: No Do you have a cough?: No Do you have any weakness?: No Do you have any diarrhea?: No Are you experiencing any unusual bleeding?: No Do you have any muscle aches/pain?: Yes Do you have any abdominal pain?: No Are you experiencing loss of taste or smell?: No Other Medical History Have you received the Flu Vaccine for this season: No Have you received the Pneumonia Vaccine: No ROS Obtained: Yes Systems reviewed as appropriate & no additional complaints except as documented Physical Exam General General appearance: alert and in no apparent distress Head Head exam: atraumatic and normocephalic Eye Eye exam: Present PERRL and EOMI ENT ENT exam: Present mucous membranes moist Neck Neck exam: Present normal inspection and full ROM (Pain when turning head towards the left shoulder along the trapezius and sternocleidomastoid.); Absent tenderness or lymphadenopathy Chest Chest inspection: Present normal inspection and symmetric chest wall rise Respiratory Respiratory exam: Present wheezes (Diffuse, biphasic); Absent respiratory distress Cardiovascular Cardiovascular exam: Present regular rate and normal rhythm Abdominal Exam Abdominal exam: Present soft; Absent tenderness Extremities Exam Extremities exam: Present normal inspection and other (Palpable bilateral radial pulses. Full active range of motion of the left shoulder without pain.); Absent edema Neurological Exam Neurological exam: Present alert Psychiatric Psychiatric exam: Present normal affect Skin Skin exam: Present warm and dry Medical Decision Making Medical Records Screening: Per USPSTF and CDC recommendations, given the prevalence of disease in our region, it is our hospital?s policy to screen for HIV and viral Hepatitis for all patients aged 18 and over and those with ongoing risk factors. Torres Inquiry Pt receiving controlled substance: No Vital Signs: 01/19/25 06:53 01/19/25 07:00 01/19/25 07:30 Temperature 98.0 F Temperature Source Temporal Artery Scan Pulse Rate 79 82 Pulse Rate [Right] 84 Respiratory Rate 22 Blood Pressure 107/63 L 114/69 Blood Pressure [Right Arm] 136/71 Blood Pressure Mean [Right Arm] 92 02 Sat by Pulse Oximetry 99 100 99 Oxygen Delivery Method Room Air Room Air Room Air 01/19/25 08:00 01/19/25 08:45 01/19/25 09:00 Temperature Temperature Source Pulse Rate 68 86 88 Pulse Rate [Right] Respiratory Rate Blood Pressure 98/52 L 112/56 L 99/61 L Blood Pressure [Right Arm] Blood Pressure Mean [Right Arm] 02 Sat by Pulse Oximetry 100 95 93 L Oxygen Delivery Method Room Air Room Air Room Air Lab Data Lab Results 01/19/25 07:20: WBC 11.0 H, RBC 4.27, Hgb 13.3, Hct 39.7, MCV 93.0, MCH 31.1, MCHC 33.5, RDW 13.3, Plt Count 178, MPV 11.5 H, Neut % (Auto) 57.8, Lymph % (Auto) 29.6, Grayson % (Auto) 8.1, Eos % (Auto) 3.0, Baso % (Auto) 1.1, Neut # (Auto) 6.3, Lymph # (Auto) 3.2, Grayson # (Auto) 0.9, Eos # (Auto) 0.3, Baso # (Auto) 0.1, D-Dimer 0.45, Sodium 142, Potassium 3.6, Chloride 103, Carbon Dioxide 32 H, Anion Gap 10.6, BUN 14, Creatinine 1.10 H, Estimated Creat Clear 55, Estimated GFR 53 L, Est GFR ( Amer) 65, Glucose 119 H, Calcium 9.4, Total Bilirubin 0.8, AST 24, ALT 24, Alkaline Phosphatase 128 H, Troponin I < 0.01, NT-Pro-B Natriuret Pep 64.3, Total Protein 7.3, Albumin 4.1, Globulin 3.2, Albumin/Globulin Ratio 1.3, SARS-CoV-2 (PCR) Not detected, Influenza A Untype (PCR) Not detected, Influenza Type B (PCR) Not detected 01/19/25 07:20 01/19/25 07:20 Orders (Tests/Meds): ED MEDICATIONS Generic Name Dose Route Start Last Admin Trade Name Freq PRN Reason Stop Dose Admin Albuterol Sulfate 3 puff 01/19/25 09:14 Albuterol-Hfa 90mcg/Puff Inhaler 8gm IH 02/18/25 09:13 Q4HP PRN Shortness Of Breath Doxycycline Hyclate 100 mg 01/19/25 09:00 01/19/25 08:27 Doxycycline Hycl 100 Mg Tablet PO 01/29/25 08:59 100 mg BID SHAYNE Administration Miscellaneous 1 unit 01/19/25 09:14 Aerochamber/Optihaler MC 01/19/25 09:15 ONCE ONE Discontinued Medications Generic Name Dose Route Start Last Admin Trade Name Freq PRN Reason Stop Dose Admin Acetaminophen 1,000 mg 01/19/25 07:03 01/19/25 07:29 Acetaminophen 500mg Tab PO 01/19/25 07:04 1,000 mg ONCE ONE Administration Albuterol/Ipratropium 9 ml 01/19/25 07:03 01/19/25 07:29 Ipratropium/Albuterol 3 Ml Neb IH 01/19/25 07:04 9 ml ONCE ONE Administration Magnesium Sulfate 2 gm in 50 mls @ 50 mls/hr 01/19/25 07:17 01/19/25 07:29 Magnesium Sulfate 2gm/50ml Premix IV 01/19/25 08:16 50 mls/hr ONCE ONE Administration Lidocaine 1 each 01/19/25 07:03 01/19/25 07:29 Lidocaine 5% Transdermal Patch TD 01/19/25 07:04 1 each ONCE ONE Administration Methocarbamol 1,000 mg 01/19/25 07:05 01/19/25 07:29 Methocarbamol 500mg Tablet PO 01/19/25 07:06 1,000 mg ONCE ONE Administration Methylprednisolone Sodium Succinate 125 mg 01/19/25 07:03 01/19/25 07:29 Methylprednisolone Sod Succ 125mg Vial IV 01/19/25 07:04 125 mg ONCE ONE Administration ORDERS Category Date Time Status CXR 2 view (NOT portable) [XR chest 2V] Stat Exams 01/19/25 07:02 Completed BNP [NT Pro Brain Natriuretic Pep.] Stat Lab 01/19/25 07:20 Completed CBC w/Auto Diff [Complete Blood Count Auto Diff] Stat Lab 01/19/25 07:20 Completed CMP [Comprehensive Metabolic Panel] Stat Lab 01/19/25 07:20 Completed D-Dimer Stat Lab 01/19/25 07:20 Completed Rapid PCR Covid and Flu A/B Stat Lab 01/19/25 07:20 Completed Trop I [Troponin I] Stat Lab 01/19/25 07:20 Completed EKG Request [ECG Request] Stat Y 01/19/25 07:02 Ordered ECG Data Tracing #1: Independently interpreted by me rate is 78, rhythm is regular, axis is normal, no ST elevation in anatomical contiguous leads, QTc 375 Medical Decision Narrative: In summary patient is a 44-year-old female with past medical history described above who presents emergency department for evaluation of cough, shortness of breath, left-sided neck pain. Patient is hemodynamically stable and nontoxic- appearing upon arrival, afebrile. With respect to patient's shortness of breath I suspect she is having a moderate asthma exacerbation. Differential includes viral versus bacterial causes. Workup will be conducted with hematologic labs chest x-ray EKG, single troponin, viral swab. Initial interventions include DuoNebs x 3, methylprednisolone, IV magnesium sulfate. With respect to her neck pain it is only painful when she turns her head to the left along her trapezius and sternocleidomastoid I suspect patient has torticollis versus some other etiology of musculoskeletal pain. She has a nonfocal neurologic exam and no history of trauma therefore workup with diagnostic imaging of this was considered but will be deferred. She has no painful range of motion of her left shoulder. Initial interventions for this include methocarbamol, Tylenol, lidocaine patch. Initial workup reviewed by me, hematologic labs are nonactionable no significant leukocytosis no HILL or critical electrolyte abnormality, D-dimer 0.45 initial troponin undetectably low. X-ray informally interpreted by me there appears to be interstitial opacities formal read is negative for acute pathology however given prevalence of interstitial pneumonia and viral swab negative will treat for presumed interstitial pneumonia with doxycycline first dose administered here. Upon repeat evaluation patient was resting comfortably in bed, near-total resolution of all wheezing with some scant residual in the lower lung carl with normal air movement. Given this patient is appropriate for outpatient management at this time will be discharged with a course of steroids, methocarbamol, doxycycline. Albuterol and spacer was provided prior to discharge and patient will follow-up with her family doctor within this week. Patient was given return precautions. Critical Care Critical Care Time Critical Care Time: Yes Attestation: On 01/19/25, the high probability of a clinically significant, sudden or life threatening deterioration of the following system(s) required my full and direct attention, intervention and personal management. The time I documented below is in addition to time spent performing reported procedures but includes the following listed in this critical care notation. Total Time Total Critical Care Time: 35
--- NOTE | 2025-01-19 07:19 | ECG_ITS ---
APPROVED REPORT Exam: Resting ECG HR:78 bpm ECG Measurements Heart Rate 78 AXES IN 232 P 67 QRSd 88 QRS 74 QT 342 T 57 QTc 375 Conclusion SINUS RHYTHM WITH FIRST DEGREE AV BLOCK LOW QRS VOLTAGE IN PRECORDIAL LEADS [QRS DEFLECTION < 1.0 mV IN CHEST LEADS] No STEMI Electronically signed by : JONNY VALENZUELA, 01/20/2025 03:56:56
[2025-01-19 07:26] LABS: Coronavirus 19, PCR Not Detected (NotDetected); Influenza A, PCR Not Detected (NotDetected); Influenza B, PCR Not Detected (NotDetected)
[2025-01-19] MEDS: METHYLPREDNISOLONE SOD SUCC 125MG VIAL 125 MG IV (07:29)
[2025-01-19] MEDS: MAGNESIUM SULFATE IN WATER 2 GM/50 ML PIGGYBACK IV (07:29)
[2025-01-19] MEDS: LIDOCAINE 5% TRANSDERMAL PATCH 1 EACH TD (07:29)
[2025-01-19] MEDS: METHOCARBAMOL 500MG TABLET 1000 MG PO (07:29)
[2025-01-19] MEDS: ACETAMINOPHEN 500MG TAB 1000 MG PO (07:29)
[2025-01-19] MEDS: IPRATROPIUM/ALBUTEROL 3 ML NEB 9 ML IH (07:29)
[2025-01-19 07:31] LABS: Basophils # 0.1 K/mm3 (0-0.2); Basophils % 1.1 % (0.1-2.0); Eosinophils # 0.3 K/mm3 (0.0-0.4); Hematocrit 39.7 % (37.0-47.0); Hemoglobin 13.3 g/dL (12.2-16.2); Lymphocytes # 3.2 K/mm3 (0.7-4.5); Lymphocytes % 29.6 % (10-50); Mean Corpuscular HGB Conc 33.5 g/dL (31.8-35.4); Mean Corpuscular Hemoglobin 31.1 pg (27.0-31.2); Mean Platelet Volume 11.5 fl (7.4-10.4); Monocytes # 0.9 K/mm3 (0.1-1.0); Monocytes % 8.1 % (1.7-9.3); Neutrophils # 6.3 K/mm3 (1.8-7.8); Neutrophils % 57.8 % (37.0-80.0); Platelet Count 178 K/mm3 (142-424); Red Blood Count 4.27 M/mm3 (4.20-5.40); Red Cell Distribution Width 13.3 % (11.5-17.5)
[2025-01-19 07:42] LABS: Alanine Aminotransferase 24 U/L (12-78); Albumin Level 4.1 g/dl (3.5-5.0); Albumin/Globulin Ratio 1.3 (1.1-1.8); Alkaline Phosphatase 128 U/L (38-126); Anion Gap 10.6 mEq/L (5-15); Aspartate Amino Transferase 24 U/L (14-36); Bilirubin,Total 0.8 mg/dl (0.2-1.3); Blood Urea Nitrogen 14 mg/dl (7-17); Calcium 9.4 mg/dl (8.4-10.2); Carbon Dioxide 32 mmol/L (22.0-30.0); Chloride 103 mmol/L (98-107); Creatinine Clearance Estimated 55 mL/min (50-200); Estimated Glomerular Filt Rate 53 ml/min (>60); GFR (African American) 65 ML/MIN (>60); Globulin 3.2 g/dL (1.3-3.2); Glucose 119 mg/dl (74-100); Potassium 3.6 mmoL/L (3.5-5.1); Sodium 142 mmol/L (136-145); Total Protein,Serum 7.3 g/dl (6.3-8.2)
[2025-01-19 07:46] LABS: D-Dimer 0.45 ug/mL (0.0-0.5)
[2025-01-19 07:53] LABS: NT Pro Brain Natriuretic Pep. 64.3 pg/mL (0-125); Troponin I < 0.01 ng/ml (0.00-0.034)
--- NOTE | 2025-01-19 08:12 | PC.NURSE ---
Neb tx completed.
[2025-01-19] MEDS: DOXYCYCLINE HYCL 100 MG TABLET PO (08:27)
[2025-01-19] MEDS: AEROCHAMBER/OPTIHALER 1 UNIT MC (09:21)
[2025-01-19] MEDS: ALBUTEROL-HFA 90MCG/PUFF INHALER 8GM 3 PUFF IH (09:22)
== END 2025-01-19 09:32 | disposition home or self-care (01) ==
PROVIDERS: Emergency Provider Emergency Medicine; PCP Family Medicine
DX: J45.901 Unspecified asthma with (acute) exacerbation (principal); J18.9 Pneumonia, unspecified organism; R06.02 Shortness of breath; R05.9 Cough, unspecified; M25.512 Pain in left shoulder; M54.2 Cervicalgia; F17.210 Nicotine dependence, cigarettes, uncomplicated; Z82.41 Family history of sudden cardiac death; Z86.0101 Personal history of adenomatous and serrated colon polyps
CPT/HCPCS: 71046; 80053; 83880; 84484; 85025; 85378; 87636; 93005; 96365; 96374; 99291; J2919; J3475; J7620

== ENCOUNTER 2025-01-20 10:11 | Emergency (ER) | payer MEDICARE, MEDICAID, SELFPAY ==
[2025-01-20 11:03] VITALS: BP 118/55; PULSE 81; RESP 19; TEMP 36.7; O2SAT 98; BMI 46.3
--- NOTE | 2025-01-20 11:20 | XR_ITS ---
FINAL REPORT TECHNIQUE: Chest PA & Lateral CLINICAL HISTORY: worsening cough/SOA COMPARISON: 10/03/2024 FINDINGS: 2 views of the chest were performed. The heart size is normal. The mediastinum is within normal limits. The lungs are underinflated. There is no acute cardiopulmonary process. There are no pleural effusions. There is no pneumothorax. The bony thorax appears intact. IMPRESSION: No acute cardiopulmonary process. Reviewed, Interpreted and Dictated by Gael Ascencio MD Transcribed by Joanne Jin Authenticated and [facility]
[2025-01-20] MEDS: IPRATROPIUM/ALBUTEROL 3 ML NEB IH (12:01)
[2025-01-20 12:30] VITALS: BP 115/69; PULSE 84; RESP 18; TEMP 36.9; O2SAT 97
--- NOTE | 2025-01-20 13:29 | [facility].EDGENADL ---
Discharge Plan Disposition Patient Disposition: Home, Self-Care Condition: Good Prescriptions Prescriptions: No Action fluticasone propionate [Flonase Allergy Relief] 50 mcg/actuation spray,suspension 2 spray intranasal DAILY 90 Days Qty: 16 2RF Rx Instructions: administer into each nostril aripiprazole 10 mg tablet 10 mg PO DAILY Qty: 90 3RF nystatin 100,000 unit/mL suspension 100,000 unit PO DAILY pregabalin [Lyrica] 150 mg capsule 150 mg PO DAILY Qty: 30 0RF levothyroxine 25 mcg tablet See Rx Instructions .ROUTE .COMPLEX Qty: 90 0RF Dose Instruction: TAKE ONE TABLET BY MOUTH EVERY DAY Rx Instructions: TAKE ONE TABLET BY MOUTH EVERY DAY celecoxib 200 mg capsule See Rx Instructions .ROUTE .COMPLEX Qty: 30 2RF Dose Instruction: TAKE ONE CAPSULE BY MOUTH EVERY DAY --TAKE WITH FOOD-- Rx Instructions: TAKE ONE CAPSULE BY MOUTH EVERY DAY --TAKE WITH FOOD-- potassium chloride 10 mEq capsule, extended release See Rx Instructions .ROUTE .COMPLEX Qty: 30 5RF Dose Instruction: TAKE ONE CAPSULE BY MOUTH EVERY DAY Rx Instructions: TAKE ONE CAPSULE BY MOUTH EVERY DAY lisinopril-hydrochlorothiazide 10-12.5 mg tablet See Rx Instructions .ROUTE .COMPLEX Qty: 90 1RF Dose Instruction: TAKE ONE TABLET BY MOUTH EVERY DAY FOR BLOOD PRESSURE Rx Instructions: TAKE ONE TABLET BY MOUTH EVERY DAY FOR BLOOD PRESSURE levocetirizine 5 mg tablet See Rx Instructions .ROUTE .COMPLEX Qty: 120 4RF Dose Instruction: TAKE ONE TABLET BY MOUTH EVERY DAY Rx Instructions: TAKE ONE TABLET BY MOUTH EVERY DAY budesonide-formoterol [Symbicort] 160-4.5 mcg/actuation HFA aerosol inhaler See Rx Instructions .ROUTE .COMPLEX Qty: 10.2 2RF Dose Instruction: INHALE TWO PUFFS BY MOUTH TWICE DAILY Rx Instructions: INHALE TWO PUFFS BY MOUTH TWICE DAILY bisoprolol fumarate 5 mg tablet See Rx Instructions .ROUTE .COMPLEX Qty: 90 1RF Dose Instruction: TAKE ONE TABLET BY MOUTH EVERY DAY Rx Instructions: TAKE ONE TABLET BY MOUTH EVERY DAY torsemide 20 mg tablet See Rx Instructions .ROUTE .COMPLEX Qty: 90 3RF Dose Instruction: TAKE ONE TABLET BY MOUTH EVERY DAY NEEDED FOR EDEMA Rx Instructions: TAKE ONE TABLET BY MOUTH EVERY DAY NEEDED FOR EDEMA methocarbamol 1,000 mg tablet 1,000 mg PO Q8H PRN (Reason: muscle pain and stiffness) Qty: 15 0RF prednisone 50 mg tablet 50 mg PO DAILY 5 Days Qty: 5 0RF doxycycline hyclate 100 mg capsule 100 mg PO BID 7 Days Qty: 14 0RF albuterol sulfate [Ventolin HFA] 90 mcg/actuation HFA aerosol inhaler 2 puff inhalation Q6H PRN (Reason: shortness of breath or wheezing) Qty: 6.7 0RF Referrals Follow up/Referrals: Nickie Brown APRN [Primary Care Provider] - See instructions Activity Restrictions/Add. Instructions Additional Instructions/Restrictions: You were evaluated in the emergency department today. Please continue using the medications provided to you at your previous visit. Follow-up closely with your primary care provider. Return to the emergency department for new or worsening symptoms Clinical Impressions Clinical Impression: Pneumonia, Asthma exacerbation Stand Alone Forms Stand Alone Forms: Work/School Release Instructions Patient Instructions: DI for Asthma -- Adult, DI for Pneumonia -- Adult Print Language Print Language: Tamazight Discharge ED Provider: Rachael Hernandez General Adult HPI General Chief complaint: Fever Stated complaint: Pneumonia Time Seen by Provider: 01/20/25 10:55 Mode of Arrival: Ambulatory Source of Information: Patient Description of Symptoms (Recalled from ER Triage Doc. by RN): pt presents to ED with c/o feeling hot/cold. pt was seen in ED yesterday and diagnosed with pna. pt reports that she woke up this morning feeling hot/cold. pt reports that she does not have a thermometer at home and was unable to check her temperature. History of Present Illness HPI narrative: This patient is a 44-year-old female with a history of asthma, tobacco dependence, hypertension, diastolic dysfunction, hyperlipidemia, migraine, bipolar disorder presenting to the emergency department for evaluation with concern for continued cough, chills in the setting of pneumonia. Patient was evaluated here yesterday and diagnosed with pneumonia and asthma exacerbation. She was discharged home with steroids, Robaxin, doxycycline. She states that she picked these up and despite taking them is not feeling better yet. She had extensive workup yesterday on medical record review including D-dimer and troponin, which were negative. Related Data Home Medications ?Medication ?Instructions ?Recorded ?Confirmed nystatin 100,000 unit/mL oral 100,000 unit PO DAILY 12/05/24 01/19/25 suspension Previous Rx's ?Medication ?Instructions ?Recorded levothyroxine 25 mcg tablet See Rx Instructions .Route 04/11/24 .COMPLEX #90 tabs fluticasone propionate 50 2 spray intranasal DAILY 90 days 06/11/24 mcg/actuation nasal #16 grams spray,suspension (Flonase Allergy Relief) aripiprazole 10 mg tablet 10 mg PO DAILY #90 tabs 07/29/24 celecoxib 200 mg capsule See Rx Instructions .Route 10/01/24 .COMPLEX #30 caps albuterol sulfate 90 mcg/actuation 2 puff inhalation Q6H PRN 10/03/24 aerosol inhaler (Ventolin HFA) shortness of breath or wheezing #6.7 grams budesonide-formoterol HFA 160 See Rx Instructions .Route 12/05/24 mcg-4.5 mcg/actuation aerosol .COMPLEX #10.2 grams inhaler (Symbicort) levocetirizine 5 mg tablet See Rx Instructions .Route 12/05/24 .COMPLEX #120 tabs lisinopril 10 See Rx Instructions .Route 12/05/24 mg-hydrochlorothiazide 12.5 mg .COMPLEX #90 tabs tablet potassium chloride 10 mEq See Rx Instructions .Route 12/05/24 capsule,extended release .COMPLEX #30 caps bisoprolol fumarate 5 mg tablet See Rx Instructions .Route 12/09/24 .COMPLEX #90 tabs pregabalin 150 mg capsule (Lyrica) 150 mg PO DAILY #30 caps 12/26/24 torsemide 20 mg tablet See Rx Instructions .Route 12/30/24 .COMPLEX #90 tabs doxycycline hyclate 100 mg capsule 100 mg PO BID 7 days #14 caps 01/19/25 methocarbamol 1,000 mg tablet 1,000 mg PO Q8H PRN muscle pain 01/19/25 and stiffness #15 tabs prednisone 50 mg tablet 50 mg PO DAILY pneumonia 5 days #5 01/19/25 tabs Allergies Allergy/AdvReac Type Severity Reaction Status Date / Time ibuprofen (IBUPROFEN) Allergy Unknown Hives Verified 01/15/25 11:03 naproxen (NAPROXEN) Allergy Unknown Rash Verified 01/15/25 11:03 [facility] Disclaimer: The information contained in this section may have been updated after the patient was seen, as this information can be updated by other users. Medical History Norovirus E coli enteritis Compression of intervertebral disc Atypical pneumonia Sinusitis Fall Muscle spasm Witnessed apneic spells Bronchitis Elevated d-dimer Tachycardia ASCUS favoring benign Atypical chest pain Other specified diseases of gallbladder Mass of left kidney Conjunctivitis Gastroenteritis Atypical chest pain Acute bronchitis Rash Left foot pain Heel spur Benign skin lesion of cheek Postoperative bleeding from incision URI (upper respiratory infection) Pulmonary nodules Retroperitoneal mass Abdominal pain, lower Snoring Atypical angina Abnormal nuclear stress test Elevated liver enzymes History of hepatitis C Daytime somnolence Asymmetric SNHL (sensorineural hearing loss) Viral syndrome Otitis media Thrush Encounter for laboratory testing for COVID-19 virus Knee contusion Tonsillitis Otitis media Bronchitis Sinusitis Bronchitis Colonoscopy planned Pharyngitis Uvulitis Referred otalgia of both ears Family history of sudden cardiac in daughter Abnormal electrocardiogram [ECG] [EKG] Tachycardia Swollen uvula Throat pain Diastolic dysfunction HTN (hypertension) Hepatitis C Urinary tract infection History of COVID-19 Sleep apnea History of syncope Seizure disorder Migraine Bipolar 1 disorder Schizophrenia Depression Carpal tunnel syndrome History of gastroesophageal reflux (GERD) Hypothyroid Allergies Hypertension Cancer of kidney Enlarged tonsils Dysphagia Asthma Surgical History Status post tonsillectomy History of endometrial ablation History of hernia repair Hx of appendectomy History of History of tubal ligation Family History Grandmother Stomach cancer Mother Brain cancer Sister Throat cancer Father Family history of hyperlipidemia Social History Smoking Status: Current every day smoker tobacco type: cigarettes packs per day: 1 second hand exposure: No alcohol intake: never substance use type: former substance user and heroin current occupational status: disabled Travel in the last 8 weeks: None adopted: Yes household members: children housing: house number of children: 3 current occupational exposures/hazards: No caffeine: Yes Have you lived/traveled outside [place] in past 30 days?: No Contact w/someone who lives/traveled outside [place] past 30 days?: No Exposure to someone with infectious disease in past 14 days?: No Do you have a fever (greater than 100.4 F or 38 C)?: No Have you tested positive for COVID-19: No Exposed to someone with COVID-19 in past 14 days?: No Do you have a sore throat?: No Do you have a cough?: Yes Do you have any weakness?: Yes Do you have any diarrhea?: No Are you experiencing any unusual bleeding?: No Do you have any muscle aches/pain?: No Do you have any abdominal pain?: No Are you experiencing loss of taste or smell?: No Other Medical History Have you received the Flu Vaccine for this season: No Have you received the Pneumonia Vaccine: No ROS Obtained: Yes All systems reviewed & no additional complaints except as documented Physical Exam General General appearance: alert and in no apparent distress Head Head exam: atraumatic and normocephalic Eye Eye exam: Present normal appearance, PERRL and EOMI ENT ENT exam: Present normal exam, normal oropharynx, mucous membranes moist and normal external ear exam Neck Neck exam: Present normal inspection, full ROM and trachea midline; Absent tenderness Chest Chest inspection: Present normal inspection and symmetric chest wall rise; Absent tenderness Respiratory Respiratory exam: Present normal lung sounds bilaterally; Absent respiratory distress, wheezes, stridor or accessory muscle use Cardiovascular Cardiovascular exam: Present regular rate and normal rhythm Abdominal Exam Abdominal exam: Present soft; Absent distention, tenderness or guarding Extremities Exam Extremities exam: Present normal inspection, full ROM and normal capillary refill; Absent tenderness or edema Back Exam Back exam: Present normal inspection and full ROM; Absent tenderness Neurological Exam Neurological exam: Present alert, oriented X3, CN II-XII intact and normal gait; Absent motor sensory deficit Psychiatric Psychiatric exam: Present normal affect and normal mood Skin Skin exam: Present warm and dry Medical Decision Making Medical Records Medical records reviewed: Yes I reviewed the patient's medical records. Screening: Per USPSTF and CDC recommendations, given the prevalence of disease in our region, it is our hospital?s policy to screen for HIV and viral Hepatitis for all patients aged 18 and over and those with ongoing risk factors. Torres Inquiry Pt receiving controlled substance: No Vital Signs: 01/20/25 11:03 01/20/25 12:30 Temperature 98.1 F 98.5 F Temperature Source Oral Oral Pulse Rate 84 Pulse Rate [Left Radial] 81 Respiratory Rate 19 18 Blood Pressure 115/69 Blood Pressure [Right Arm] 118/55 L Blood Pressure Mean [Right Arm] 76 Blood Pressure Source Automatic Cuff Blood Pressure Position Sitting 02 Sat by Pulse Oximetry 98 Oxygen Delivery Method Room Air Room Air Lab Data Lab results reviewed: Yes I reviewed the patient's lab results. Orders (Tests/Meds): ED MEDICATIONS Discontinued Medications Generic Name Dose Route Start Last Admin Trade Name Trinity PRN Reason Stop Dose Admin Albuterol/Ipratropium 3 ml 01/20/25 11:18 01/20/25 12:01 Ipratropium/Albuterol 3 Ml Neb IH 01/20/25 11:19 3 ml ONCE ONE Administration ORDERS Category Date Time Status CXR 2 view (NOT portable) [XR chest 2V] Stat Exams 01/20/25 11:20 Completed Medical Decision Narrative: In summary, this patient is a 44-year-old female presenting to the Emergency Department for evaluation of continued cough, chills, feeling unwell in the setting of URI. Differential diagnoses considered include but are not limited to worsening pneumonia, respiratory failure, COPD exacerbation, asthma exacerbation. Ruling out the most morbid conditions drove assessment. It should be noted patient's history includes tobacco dependence, hypertension, hyperlipidemia, obesity, asthma which are not at goal therapy. This complicates all aspects of care by increasing patient's risk for morbidity. I reviewed patient's past medical records and noted evaluation yesterday and diagnosis of asthma exacerbation, URI with discharged with doxycycline and prednisone as detailed in HPI. D-dimer, troponin negative. On exam, the patient is sitting upright in no acute distress with no increased work of breathing. Vitals are normal on cardiac telemetry with no hypoxia or tachycardia. Cardiopulmonary exam demonstrates some wheezing but otherwise is reassuring. Patient was given a neb with good improvement. Workup included chest x-ray. I independently interpreted x-ray prior to the radiologist read and noted no significant worsening intervally from yesterday. Please see their read for final interpretation. At this time, vitals normal, exam reassuring with no increased work of breathing, x-ray unchanged I feel the patient is appropriate for discharge with continued supportive management of URI. She already has prescriptions at home for doxycycline and prednisone. She already has inhalers as well. Instructions for supportive management as well as strict return precautions were given. She was discharged with plan for close follow-up with PCP. Critical Care Critical Care Time Critical Care Time: No
== END 2025-01-20 12:34 | disposition home or self-care (01) ==
PROVIDERS: Emergency Provider Emergency Medicine; PCP Family Medicine
DX: J45.901 Unspecified asthma with (acute) exacerbation (principal); J18.9 Pneumonia, unspecified organism; R05.9 Cough, unspecified; R68.83 Chills (without fever); F19.91 Other psychoactive substance use, unspecified, in remission; F17.210 Nicotine dependence, cigarettes, uncomplicated; I10 Essential (primary) hypertension; E78.5 Hyperlipidemia, unspecified; G43.909 Migraine, unspecified, not intractable, without status migrainosus; F20.89 Other schizophrenia
CPT/HCPCS: 71046; 99283; J7620

== ENCOUNTER 2025-01-25 19:34 | Emergency (ER) | payer MEDICARE, MEDICAID, SELFPAY ==
--- NOTE | 2025-01-25 19:49 | CT_ITS ---
PROCEDURE INFORMATION: Exam: CT Abdomen And Pelvis With Contrast Exam date and time: 01/25/2025 8:25 PM Age: 44 years old Clinical indication: Abdominal pain; Additional info: Abd pain TECHNIQUE: Imaging protocol: Computed tomography of the abdomen and pelvis with contrast. Radiation optimization: All CT scans at this facility use at least one of these dose optimization techniques: automated exposure control; mA and/or kV adjustment per patient size (includes targeted exams where dose is matched to clinical indication); or iterative reconstruction. Contrast material: ISOVUE; Contrast volume: 75 ml; Contrast route: IV; COMPARISON: CT ABDOMEN PELVIS WO/W CON 07/16/2024 11:14 AM FINDINGS: Liver: Mild fatty infiltration. No mass. Gallbladder and biliary ducts: Surgically absent gallbladder. No ductal dilation. Pancreas: Normal. No ductal dilation. Spleen: Normal. No splenomegaly. Adrenal glands: Normal. No mass. Kidneys and ureters: Normal. No hydronephrosis. Stomach and bowel: Nodular colonic wall thickening with mucosal enhancement from cecum to mid transverse colon. No obstruction. Appendix: Not visualized. Intraperitoneal space: Unremarkable. No free air. No significant fluid collection. Vasculature: Unremarkable. No abdominal aortic aneurysm. Lymph nodes: Unremarkable. No enlarged lymph nodes. Urinary bladder: Unremarkable as visualized. Reproductive: Unremarkable as visualized. Bones/joints: Unremarkable. No acute fracture. Soft tissues: Chronic periumbilical fat containing hernia. IMPRESSION: 1. Mild nondiverticular colitis from cecum to mid transvere colon. Correlate with c difficile colitis symptoms. 2. Chonic periumbical fat containing hernia. 3. Mild fatty liver infiltration.
[2025-01-25 19:52] VITALS: BP 137/72; PULSE 79; RESP 14; TEMP 36.4; O2SAT 99; BMI 46.3
--- NOTE | 2025-01-25 20:03 | HMH.EDGENADL ---
Discharge Plan Disposition Patient Disposition: Home, Self-Care Condition: Good Prescriptions Prescriptions: No Action fluticasone propionate [Flonase Allergy Relief] 50 mcg/actuation spray,suspension 2 spray intranasal DAILY 90 Days Qty: 16 2RF Rx Instructions: administer into each nostril aripiprazole 10 mg tablet 10 mg PO DAILY Qty: 90 3RF nystatin 100,000 unit/mL suspension 100,000 unit PO DAILY pregabalin [Lyrica] 150 mg capsule 150 mg PO DAILY Qty: 30 0RF levothyroxine 25 mcg tablet See Rx Instructions .ROUTE .COMPLEX Qty: 90 0RF Dose Instruction: TAKE ONE TABLET BY MOUTH EVERY DAY Rx Instructions: TAKE ONE TABLET BY MOUTH EVERY DAY celecoxib 200 mg capsule See Rx Instructions .ROUTE .COMPLEX Qty: 30 2RF Dose Instruction: TAKE ONE CAPSULE BY MOUTH EVERY DAY --TAKE WITH FOOD-- Rx Instructions: TAKE ONE CAPSULE BY MOUTH EVERY DAY --TAKE WITH FOOD-- potassium chloride 10 mEq capsule, extended release See Rx Instructions .ROUTE .COMPLEX Qty: 30 5RF Dose Instruction: TAKE ONE CAPSULE BY MOUTH EVERY DAY Rx Instructions: TAKE ONE CAPSULE BY MOUTH EVERY DAY lisinopril-hydrochlorothiazide 10-12.5 mg tablet See Rx Instructions .ROUTE .COMPLEX Qty: 90 1RF Dose Instruction: TAKE ONE TABLET BY MOUTH EVERY DAY FOR BLOOD PRESSURE Rx Instructions: TAKE ONE TABLET BY MOUTH EVERY DAY FOR BLOOD PRESSURE levocetirizine 5 mg tablet See Rx Instructions .ROUTE .COMPLEX Qty: 120 4RF Dose Instruction: TAKE ONE TABLET BY MOUTH EVERY DAY Rx Instructions: TAKE ONE TABLET BY MOUTH EVERY DAY budesonide-formoterol [Symbicort] 160-4.5 mcg/actuation HFA aerosol inhaler See Rx Instructions .ROUTE .COMPLEX Qty: 10.2 2RF Dose Instruction: INHALE TWO PUFFS BY MOUTH TWICE DAILY Rx Instructions: INHALE TWO PUFFS BY MOUTH TWICE DAILY bisoprolol fumarate 5 mg tablet See Rx Instructions .ROUTE .COMPLEX Qty: 90 1RF Dose Instruction: TAKE ONE TABLET BY MOUTH EVERY DAY Rx Instructions: TAKE ONE TABLET BY MOUTH EVERY DAY torsemide 20 mg tablet See Rx Instructions .ROUTE .COMPLEX Qty: 90 3RF Dose Instruction: TAKE ONE TABLET BY MOUTH EVERY DAY NEEDED FOR EDEMA Rx Instructions: TAKE ONE TABLET BY MOUTH EVERY DAY NEEDED FOR EDEMA methocarbamol 1,000 mg tablet 1,000 mg PO Q8H PRN (Reason: muscle pain and stiffness) Qty: 15 0RF prednisone 50 mg tablet 50 mg PO DAILY 5 Days Qty: 5 0RF doxycycline hyclate 100 mg capsule 100 mg PO BID 7 Days Qty: 14 0RF albuterol sulfate [Ventolin HFA] 90 mcg/actuation HFA aerosol inhaler 2 puff inhalation Q6H PRN (Reason: shortness of breath or wheezing) Qty: 6.7 0RF Referrals Follow up/Referrals: Nickie Brown APRN [Primary Care Provider] - See instructions Activity Restrictions/Add. Instructions Additional Instructions/Restrictions: Continue doxycycline Follow-up with primary care A brat diet Monitor temperature. Seek treatment if fever develops. Follow-up immediately if new or worse symptoms worsen or no noticeable improvement over 48 hours. Increase fluids such as water, Gatorade, Powerade, juice or Pedialyte with limited formula/dietary in children No food is okay as long as you are drinking. Once ready to eat start bland such as bananas, rice, applesauce, toast. Contagious until no diarrhea, vomiting, fever times 48 hours without medication Avoid antidiarrheals unless told otherwise. Best to let the virus run its course. Follow-up immediately for new or worsening symptoms or no noticeable improvement over the next 48 hours. Clinical Impressions Clinical Impression: Colitis Instructions Patient Instructions: DI for Acute Abdominal Pain, DI for Colitis Print Language Print Language: Palauan Discharge ED Provider: Tani Wood Adult HPI <Sarah Huffman ([facility])ESTRELLA - Last Filed: 01/25/25 22:04> General Chief complaint: Abdominal Pain Stated complaint: Stomach pain,diarrhea,nausea Time Seen by Provider: 01/25/25 19:44 Mode of Arrival: Ambulatory Source of Information: Patient Description of Symptoms (Recalled from ER Triage Doc. by RN): pt presents with c/p abd pain. N/V x3 days. Reports recent antibiotic use for pneumonia diagnosis. History of Present Illness HPI narrative: 44-year-old female presents for complaints of abdominal pain, constipation, nausea, vomiting, x 3 days. Patient states she has been taking antibiotics and steroids for pneumonia. Also on muscle relaxers due to a neck strain Related Data Home Medications ?Medication ?Instructions ?Recorded ?Confirmed nystatin 100,000 unit/mL oral 100,000 unit PO DAILY 12/05/24 01/19/25 suspension Previous Rx's ?Medication ?Instructions ?Recorded levothyroxine 25 mcg tablet See Rx Instructions .Route 04/11/24 .COMPLEX #90 tabs fluticasone propionate 50 2 spray intranasal DAILY 90 days 06/11/24 mcg/actuation nasal #16 grams spray,suspension (Flonase Allergy Relief) aripiprazole 10 mg tablet 10 mg PO DAILY #90 tabs 07/29/24 celecoxib 200 mg capsule See Rx Instructions .Route 10/01/24 .COMPLEX #30 caps albuterol sulfate 90 mcg/actuation 2 puff inhalation Q6H PRN 10/03/24 aerosol inhaler (Ventolin HFA) shortness of breath or wheezing #6.7 grams budesonide-formoterol HFA 160 See Rx Instructions .Route 12/05/24 mcg-4.5 mcg/actuation aerosol .COMPLEX #10.2 grams inhaler (Symbicort) levocetirizine 5 mg tablet See Rx Instructions .Route 12/05/24 .COMPLEX #120 tabs lisinopril 10 See Rx Instructions .Route 12/05/24 mg-hydrochlorothiazide 12.5 mg .COMPLEX #90 tabs tablet potassium chloride 10 mEq See Rx Instructions .Route 12/05/24 capsule,extended release .COMPLEX #30 caps bisoprolol fumarate 5 mg tablet See Rx Instructions .Route 12/09/24 .COMPLEX #90 tabs pregabalin 150 mg capsule (Lyrica) 150 mg PO DAILY #30 caps 12/26/24 torsemide 20 mg tablet See Rx Instructions .Route 12/30/24 .COMPLEX #90 tabs doxycycline hyclate 100 mg capsule 100 mg PO BID 7 days #14 caps 01/19/25 methocarbamol 1,000 mg tablet 1,000 mg PO Q8H PRN muscle pain 01/19/25 and stiffness #15 tabs prednisone 50 mg tablet 50 mg PO DAILY pneumonia 5 days #5 01/19/25 tabs Allergies Allergy/AdvReac Type Severity Reaction Status Date / Time ibuprofen (IBUPROFEN) Allergy Unknown Hives Verified 01/15/25 11:03 naproxen (NAPROXEN) Allergy Unknown Rash Verified 01/15/25 11:03 PFSH <Sarah Huffman ([facility]), CUSTOMER OPERATIONS MANAGER - Last Filed: 01/25/25 22:04> PFSH Disclaimer: The information contained in this section may have been updated after the patient was seen, as this information can be updated by other users. Medical History , CUSTOMER OPERATIONS MANAGER) Norovirus E coli enteritis Compression of intervertebral disc Atypical pneumonia Sinusitis Fall Muscle spasm Witnessed apneic spells Bronchitis Elevated d-dimer Tachycardia ASCUS favoring benign Atypical chest pain Other specified diseases of gallbladder Mass of left kidney Conjunctivitis Gastroenteritis Atypical chest pain Acute bronchitis Rash Left foot pain Heel spur Benign skin lesion of cheek Postoperative bleeding from incision URI (upper respiratory infection) Pulmonary nodules Retroperitoneal mass Abdominal pain, lower Snoring Atypical angina Abnormal nuclear stress test Elevated liver enzymes History of hepatitis C Daytime somnolence Asymmetric SNHL (sensorineural hearing loss) Viral syndrome Otitis media Thrush Encounter for laboratory testing for COVID-19 virus Knee contusion Tonsillitis Otitis media Bronchitis Sinusitis Bronchitis Colonoscopy planned Pharyngitis Uvulitis Referred otalgia of both ears Family history of sudden cardiac in daughter Abnormal electrocardiogram [ECG] [EKG] Tachycardia Swollen uvula Throat pain Diastolic dysfunction HTN (hypertension) Hepatitis C Urinary tract infection History of COVID-19 Sleep apnea History of syncope Seizure disorder Migraine Bipolar 1 disorder Schizophrenia Depression Carpal tunnel syndrome History of gastroesophageal reflux (GERD) Hypothyroid Allergies Hypertension Cancer of kidney Enlarged tonsils Dysphagia Asthma Surgical History , CUSTOMER OPERATIONS MANAGER) Status post tonsillectomy History of endometrial ablation History of hernia repair Hx of appendectomy History of History of tubal ligation Family History , CUSTOMER OPERATIONS MANAGER) Throat cancer Sister Stomach cancer Grandmother Brain cancer Mother Family history of hyperlipidemia Father Social History , CUSTOMER OPERATIONS MANAGER) Smoking Status: Current every day smoker tobacco type: cigarettes packs per day: 1 second hand exposure: No alcohol intake: never substance use type: former substance user and heroin current occupational status: disabled Travel in the last 8 weeks: None adopted: Yes household members: children housing: house number of children: 3 current occupational exposures/hazards: No caffeine: Yes Have you lived/traveled outside US in past 30 days?: No Contact w/someone who lives/traveled outside US past 30 days?: No Exposure to someone with infectious disease in past 14 days?: No Do you have a fever (greater than 100.4 F or 38 C)?: No Have you tested positive for COVID-19: No Exposed to someone with COVID-19 in past 14 days?: No Do you have a sore throat?: No Do you have a cough?: No Do you have any weakness?: Yes Do you have any diarrhea?: Yes Are you experiencing any unusual bleeding?: No Do you have any muscle aches/pain?: Yes Do you have any abdominal pain?: Yes Are you experiencing loss of taste or smell?: No Other Medical History Have you received the Flu Vaccine for this season: No Have you received the Pneumonia Vaccine: No <Sarah Huffman ([facility]), CUSTOMER OPERATIONS MANAGER - Last Filed: 01/25/25 22:04> ROS Obtained: Yes Systems reviewed as appropriate & no additional complaints except as documented Respiratory Respiratory: Reports system reviewed and no additional complaints, except as documented and Reports as per HPI Gastrointestinal Gastrointestingal: Reports system reviewed and no additional complaints, except as documented, as per HPI, abdominal pain, cramping, diarrhea, nausea and vomiting Physical Exam <Sarah Huffman ([facility]), CUSTOMER OPERATIONS MANAGER - Last Filed: 01/25/25 22:04> General General appearance: alert and in no apparent distress ENT ENT exam: Present normal exam Respiratory Respiratory exam: Present normal lung sounds bilaterally Cardiovascular Cardiovascular exam: Present regular rate and normal rhythm Abdominal Exam Abdominal exam: Present soft, tenderness and normal bowel sounds; Absent distention Abdominal tenderness: Present diffuse Neurological Exam Neurological exam: Present alert and oriented X3 Skin Skin exam: Present warm and intact Lymphatic Lymphatic Findings: no adenopathy Medical Decision Making <Sarah Huffman ([facility]), CUSTOMER OPERATIONS MANAGER - Last Filed: 01/25/25 22:04> Medical Records Medical records reviewed: Yes I reviewed the patient's medical records. Screening: Per USPSTF and CDC recommendations, given the prevalence of disease in our region, it is our hospital?s policy to screen for HIV and viral Hepatitis for all patients aged 18 and over and those with ongoing risk factors. Torres Inquiry Pt receiving controlled substance: No Torres was queried for this patient: No Vital Signs: 01/25/25 19:52 01/25/25 21:15 01/25/25 21:30 Temperature 97.6 F Temperature Source Oral Pulse Rate 74 65 Pulse Rate [Radial] 79 Respiratory Rate 14 Blood Pressure 98/50 L Blood Pressure [Right Arm] 137/72 Blood Pressure Mean [Right Arm] 93 Blood Pressure Position [Right Arm] Sitting 02 Sat by Pulse Oximetry 99 95 95 Oxygen Delivery Method Room Air 01/25/25 21:45 01/25/25 22:10 Temperature 98 F Temperature Source Pulse Rate 68 65 Pulse Rate [Radial] Respiratory Rate 18 Blood Pressure 98/50 L Blood Pressure [Right Arm] Blood Pressure Mean [Right Arm] Blood Pressure Position [Right Arm] 02 Sat by Pulse Oximetry 96 Oxygen Delivery Method Lab Data Lab results reviewed: Yes I reviewed the patient's lab results. Lab Results 01/25/25 19:48: WBC 21.9 H*, RBC 4.25, Hgb 13.4, Hct 38.7, MCV 91.1, MCH 31.5 H, MCHC 34.6, RDW 13.4, Plt Count 225, MPV 11.5 H, Neut % (Auto) 54.8, Lymph % (Auto) 35.9, [place] % (Auto) 6.3, Eos % (Auto) 1.4, Baso % (Auto) 0.6, Neut # (Auto) 12.0 H, Lymph # (Auto) 7.9 H, [place] # (Auto) 1.4 H, Eos # (Auto) 0.3, Baso # (Auto) 0.1, Total Counted 100, Neutrophils % (Manual) 50, Lymphocytes % (Manual) 42, Atypical Lymphs % 3, Monocytes % (Manual) 4, Eosinophils % (Manual) 1, Differential Comment Comment, Platelet Estimate Normal, RBC Morphology Normal, Sodium 139, Potassium 3.6, Chloride 103, Carbon Dioxide 26, Anion Gap 13.6, BUN 26 H, Creatinine 1.30 H, Estimated Creat Clear 47, Estimated GFR 44 L, Est GFR ( Amer) 53 L, Glucose 99, Calcium 9.1, Total Bilirubin 0.7, AST 25, ALT 23, Alkaline Phosphatase 118, Total Protein 7.2, Albumin 4.2, Globulin 3.0, Albumin/Globulin Ratio 1.4, Lipase 150, Urine HCG, Qual Negative 01/25/25 19:48 01/25/25 19:48 Orders (Tests/Meds): ED MEDICATIONS Discontinued Medications Generic Name Dose Route Start Last Admin Trade Name Trinity PRN Reason Stop Dose Admin Iopamidol 75 ml 01/25/25 20:34 01/25/25 20:35 Iopamidol-370 (76%);100ml Bottle IV 01/25/25 20:35 75 ml ONCE ONE Administration Sodium Chloride 10 ml 01/25/25 20:34 Sodium Chloride 0.9% 10ml Syr (Rad Only) IV 02/24/25 20:33 NEEDED PRN Maintain IV Site ORDERS Category Date Time Status CT abdomen pelvis w con Stat Cat Scan 01/25/25 19:49 Completed CBC [Complete Blood Count Auto Diff] Stat Lab 01/25/25 19:48 Completed CMP [Comprehensive Metabolic Panel] Stat Lab 01/25/25 19:48 Completed Lipase Stat Lab 01/25/25 19:48 Completed Urine , HCG Qual. Stat Lab 01/25/25 19:48 Completed Medical Decision Narrative: In summary patient is a 44-year-old female who presents to the emergency department for evaluation of abdominal pain, nausea, vomiting, and diarrhea but feels constipated for 3 to 4 days. Patient states she has been treated for pneumonia with an antibiotic and steroids. Patient is hemodynamically stable upon arrival, afebrile. Mild tenderness throughout abdomen. Differential diagnosis includes gastritis, constipation. Initial workup will be conducted with labs, CT positive for colitis. Initial inventions include p.o. challenge. Initial workup reviewed by pa labs, elevated white count likely related to high doses of prednisone and for pneumonia diagnosis .CT positive for colitis. Upon repeat evaluation patient resting comfortably in bed was able to tolerate p.o. Given this patient appropriate for discharge at this time will discharge home <Tani Wood MD - Last Filed: 01/26/25 19:23> Vital Signs: 01/25/25 19:52 01/25/25 21:15 01/25/25 21:30 Temperature 97.6 F Temperature Source Oral Pulse Rate 74 65 Pulse Rate [Radial] 79 Respiratory Rate 14 Blood Pressure 98/50 L Blood Pressure [Right Arm] 137/72 Blood Pressure Mean [Right Arm] 93 Blood Pressure Position [Right Arm] Sitting 02 Sat by Pulse Oximetry 99 95 95 Oxygen Delivery Method Room Air 01/25/25 21:45 01/25/25 22:10 Temperature 98 F Temperature Source Pulse Rate 68 65 Pulse Rate [Radial] Respiratory Rate 18 Blood Pressure 98/50 L Blood Pressure [Right Arm] Blood Pressure Mean [Right Arm] Blood Pressure Position [Right Arm] 02 Sat by Pulse Oximetry 96 Oxygen Delivery Method Lab Data Lab Results 01/25/25 19:48: WBC 21.9 H*, RBC 4.25, Hgb 13.4, Hct 38.7, MCV 91.1, MCH 31.5 H, MCHC 34.6, RDW 13.4, Plt Count 225, MPV 11.5 H, Neut % (Auto) 54.8, Lymph % (Auto) 35.9, [place] % (Auto) 6.3, Eos % (Auto) 1.4, Baso % (Auto) 0.6, Neut # (Auto) 12.0 H, Lymph # (Auto) 7.9 H, [place] # (Auto) 1.4 H, Eos # (Auto) 0.3, Baso # (Auto) 0.1, Total Counted 100, Neutrophils % (Manual) 50, Lymphocytes % (Manual) 42, Atypical Lymphs % 3, Monocytes % (Manual) 4, Eosinophils % (Manual) 1, Differential Comment Comment, Platelet Estimate Normal, RBC Morphology Normal, Sodium 139, Potassium 3.6, Chloride 103, Carbon Dioxide 26, Anion Gap 13.6, BUN 26 H, Creatinine 1.30 H, Estimated Creat Clear 47, Estimated GFR 44 L, Est GFR ( Amer) 53 L, Glucose 99, Calcium 9.1, Total Bilirubin 0.7, AST 25, ALT 23, Alkaline Phosphatase 118, Total Protein 7.2, Albumin 4.2, Globulin 3.0, Albumin/Globulin Ratio 1.4, Lipase 150, Urine HCG, Qual Negative Orders (Tests/Meds): ED MEDICATIONS Discontinued Medications Generic Name Dose Route Start Last Admin Trade Name Freq PRN Reason Stop Dose Admin Iopamidol 75 ml 01/25/25 20:34 01/25/25 20:35 Iopamidol-370 (76%);100ml Bottle IV 01/25/25 20:35 75 ml ONCE ONE Administration Sodium Chloride 10 ml 01/25/25 20:34 Sodium Chloride 0.9% 10ml Syr (Rad Only) IV 02/24/25 20:33 NEEDED PRN Maintain IV Site ORDERS Category Date Time Status CT abdomen pelvis w con Stat Cat Scan 01/25/25 19:49 Completed CBC [Complete Blood Count Auto Diff] Stat Lab 01/25/25 19:48 Completed CMP [Comprehensive Metabolic Panel] Stat Lab 01/25/25 19:48 Completed Lipase Stat Lab 01/25/25 19:48 Completed Urine , HCG Qual. Stat Lab 01/25/25 19:48 Completed Medical Decision Narrative: In summary patient is a 44-year-old female who presents to the emergency department for evaluation of abdominal pain, nausea, vomiting, and diarrhea but feels constipated for 3 to 4 days. Patient states she has been treated for pneumonia with an antibiotic and steroids. Patient is hemodynamically stable upon arrival, afebrile. Mild tenderness throughout abdomen. Differential diagnosis includes gastritis, constipation. Initial workup will be conducted with labs, CT positive for colitis. Initial inventions include p.o. challenge. Initial workup reviewed by pa labs, elevated white count likely related to high doses of prednisone and for pneumonia diagnosis .CT positive for colitis. Upon repeat evaluation patient resting comfortably in bed was able to tolerate p.o. Given this patient appropriate for discharge at this time will discharge home I was consulted by the JOSUÉ, and we discussed the complexity of the problems being addressed.I approved the treatment and management plan for this patient?s care in the Emergency Department, thus performing a substantive portion of the medical decision making.Signed, Tani Wood MD MBA Critical Care <Sarah Huffman ([facility]), CUSTOMER OPERATIONS MANAGER - Last Filed: 01/25/25 22:04> Critical Care Time Critical Care Time: No
[2025-01-25 20:06] LABS: Urine Pregnancy, HCG Qual. Negative (Negative)
[2025-01-25 20:13] LABS: Basophils # 0.1 K/mm3 (0-0.2); Basophils % 0.6 % (0.1-2.0); Eosinophils # 0.3 K/mm3 (0.0-0.4); Eosinophils % 1.4 % (0.1-12.0); Hematocrit 38.7 % (37.0-47.0); Hemoglobin 13.4 g/dL (12.2-16.2); Lymphocytes # 7.9 K/mm3 (0.7-4.5); Lymphocytes % 35.9 % (10-50); Mean Corpuscular HGB Conc 34.6 g/dL (31.8-35.4); Mean Corpuscular Hemoglobin 31.5 pg (27.0-31.2); Mean Corpuscular Volume 91.1 fl (81-99); Mean Platelet Volume 11.5 fl (7.4-10.4); Monocytes # 1.4 K/mm3 (0.1-1.0); Monocytes % 6.3 % (1.7-9.3); Neutrophils % 54.8 % (37.0-80.0); Nucleated Red Blood Cells # 0 10^3/uL; Nucleated Red Blood Cells % 0 %; Platelet Count 225 K/mm3 (142-424); Red Blood Count 4.25 M/mm3 (4.20-5.40); Red Cell Distribution Width 13.4 % (11.5-17.5); White Blood Count 21.9 K/mm3 (4.8-10.8)
[2025-01-25 20:16] LABS: Albumin Level 4.2 g/dl (3.5-5.0); Chloride 103 mmol/L (98-107); Potassium 3.6 mmoL/L (3.5-5.1); Sodium 139 mmol/L (136-145)
[2025-01-25 20:18] LABS: Alanine Aminotransferase 23 U/L (12-78); Anion Gap 13.6 mEq/L (5-15); Aspartate Amino Transferase 25 U/L (14-36); Blood Urea Nitrogen 26 mg/dl (7-17); Carbon Dioxide 26 mmol/L (22.0-30.0); Creatinine Clearance Estimated 47 mL/min (50-200); Estimated Glomerular Filt Rate 44 ml/min (>60); GFR (African American) 53 ML/MIN (>60)
[2025-01-25 20:19] LABS: Albumin/Globulin Ratio 1.4 (1.1-1.8); Alkaline Phosphatase 118 U/L (38-126); Bilirubin,Total 0.7 mg/dl (0.2-1.3); Calcium 9.1 mg/dl (8.4-10.2); Glucose 99 mg/dl (74-100); Lipase 150 U/L (23-300); Total Protein,Serum 7.2 g/dl (6.3-8.2)
[2025-01-25] MEDS: IOPAMIDOL-370 (76%);100ML BOTTLE 75 ML IV (20:35)
[2025-01-25 20:43] LABS: Atypical Lymphocytes % 3; Eosinophils % 1 % (0-3); Lymphocytes % 42 % (10-50); Monocytes % 4 % (2-9); Neutrophils % 50 % (42-76); Total Cells Counted 100
[2025-01-25 20:44] LABS: MANUAL DIFFERENTIAL MANUAL DIFFERENTIAL (MANUAL DIFF); Platelet Estimate Normal; RBC Morphology Normal
[2025-01-25 21:15] VITALS: PULSE 74; O2SAT 95
[2025-01-25 21:30] VITALS: BP 98/50; PULSE 65; O2SAT 95
[2025-01-25 21:45] VITALS: PULSE 68; O2SAT 96
[2025-01-25 22:10] VITALS: BP 98/50; PULSE 65; RESP 18; TEMP 36.6; O2SAT 95
== END 2025-01-25 22:15 | disposition home or self-care (01) ==
PROVIDERS: Nurse Practitioner Family; Emergency Provider Emergency Medicine; PCP Family Medicine
DX: R10.84 Generalized abdominal pain (principal); K52.9 Noninfective gastroenteritis and colitis, unspecified; R11.2 Nausea with vomiting, unspecified
CPT/HCPCS: 99284; 74177; 80053; 81025; 83690; 85007; 85025; 85027; Q9967

== ENCOUNTER 2025-02-18 11:07 | Outpatient (CLI) | payer MEDICARE, MEDICAID, SELFPAY ==
[2025-02-18 11:43] LABS: Basophils # 0.1 K/mm3 (0-0.2); Basophils % 0.9 % (0.1-2.0); Eosinophils # 0.3 Kmm3 (0.0-0.4); Eosinophils % 2.9 % (0.1-12.0); Hematocrit 37.1 % (37.0-47.0); Hemoglobin 12.8 g/dL (12.2-16.2); Immature Granulocytes # 0.06 10^3uL; Immature Granulocytes % 0.6 %; Lymphocytes # 3.2 K/mm3 (0.7-4.5); Lymphocytes % 30.4 % (10-50); Mean Corpuscular HGB Conc 34.5 g/dL (31.8-35.4); Mean Corpuscular Hemoglobin 31.5 pg (27.0-31.2); Mean Corpuscular Volume 91.4 fl (81-99); Mean Platelet Volume 10.9 fl (7.4-10.4); Monocytes # 0.7 K/mm3 (0.1-1.0); Monocytes % 6.9 % (1.7-9.3); Neutrophils # 6.2 K/mm3 (1.8-7.8); Neutrophils % 58.3 % (37.0-80.0); Nucleated Red Blood Cells # 0 10^3/uL; Nucleated Red Blood Cells % 0 %; Platelet Count 206 K/mm3 (142-424); Red Blood Count 4.06 M/mm3 (4.20-5.40); Red Cell Distribution Width 13.2 % (11.5-17.5); Red Cell Distribution Width-SD 44.7 fL; White Blood Count 10.6 K/mm3 (4.8-10.8)
[2025-02-18 12:09] LABS: Albumin Level 3.7 g/dl (3.5-5.0); Chloride 110 mmol/L (98-107)
[2025-02-18 12:10] LABS: Potassium 3.8 mmoL/L (3.5-5.1); Sodium 139 mmol/L (136-145)
[2025-02-18 12:12] LABS: Alanine Aminotransferase 21 U/L (12-78); Albumin/Globulin Ratio 1.6 (1.1-1.8); Alkaline Phosphatase 110 U/L (38-126); Anion Gap 7.8 mEq/L (5-15); Aspartate Amino Transferase 19 U/L (14-36); Bilirubin,Indirect 0.3 mg/dL (0.0-0.9); Bilirubin,Total 0.3 mg/dl (0.2-1.3); Bilirubin,Unconjugated 0.3 mg/dL (0.0-1.1); Blood Urea Nitrogen 17 mg/dl (7-17); Carbon Dioxide 25 mmol/L (22.0-30.0); Estimated Glomerular Filt Rate 67 ml/min (>60); GFR (African American) 82 ML/MIN (>60); Globulin 2.3 g/dL (1.3-3.2)
[2025-02-18 12:13] LABS: Calcium 9.4 mg/dl (8.4-10.2); Chol/HDL Ratio 5.2 (1-3.5); Cholesterol 131 mg/dl (140-200); Glucose 100 mg/dl (74-100); HDL Cholesterol 25 mg/dl (40-60); Triglycerides 260 mg/dl (30-150); VLDL Cholesterol 52 mg/dL (0-40)
[2025-02-18 12:29] LABS: Erythrocyte Sedimentation Rate 23 mm/hr (0-20)
[2025-02-18 12:30] LABS: Free T4 (Free Thyroxine) 1.07 ng/dl (0.78-2.19)
[2025-02-18 12:39] LABS: 25-OH Vitamin D, Total 36.6 ng/mL (30-100)
[2025-02-18 12:45] LABS: Thyroid Stimulating Hormone 0.85 uIU/mL (0.465-4.68)
[2025-02-18 12:49] LABS: Ferritin 41.9 ng/ml (6.24-137)
[2025-02-18 13:29] LABS: Folate 5.52 ng/mL
[2025-02-18 13:31] LABS: Vitamin B12 773 pg/mL (239-931)
[2025-02-18 14:46] LABS: Hemoglobin A1C 5.4 % (4.0-6.0)
== END 2025-02-18 23:59 | disposition home or self-care (01) ==
LOC: LAB 11:08
PROVIDERS: PCP Family Medicine; Visit Provider Family Medicine
DX: E78.5 Hyperlipidemia, unspecified (principal); K52.9 Noninfective gastroenteritis and colitis, unspecified; R55 Syncope and collapse; R14.0 Abdominal distension (gaseous); E03.9 Hypothyroidism, unspecified
CPT/HCPCS: 36415; 80053; 80061; 82248; 82306; 82607; 82728; 82746; 83036; 84439; 84443; 85025; 85651

== ENCOUNTER 2025-04-14 18:54 | Outpatient (CLI) | payer MEDICARE, MEDICAID, SELFPAY ==
--- OUTSIDE RECORDS SUMMARY | 2025-04-14 18:57 | XMS_ITS | Clinical Summary ---
Author Organization [facility] Address [address] [place] [id number] Care Team Providers Care Watch Repairer Name Role Phone None, None Primary Care Provider Unavailabl e None, None Unavailable Unavailable Mariano Zambrano MD Unavailable Allergies Active Allergy Reactions Criticality Noted Date Comments Ibuprofen 03/03/2009 Face swelling Medications aripiprazole (ABILIFY) 20 mg PO Tab Take 20 mg by mouth every morning. Active clonazepam (KLONOPIN) 0.5 mg PO tablet Take 0.5 mg by mouth daily as needed. Active acetaminophen (TYLENOL) 325 mg PO tablet Take 650 mg by mouth every 4 hours as needed for Pain. Active albuterol (PROAIR HFA) 90 mcg/Actuation IN HFAA Take 2 Puffs by inhalation 4 times daily. Active NORGESTIMATE-ET HINYL ESTRADIOL (SPRINTEC, 28, PO) Take by mouth every morning. Active aspirin 325 mg PO tablet Take 325 mg by mouth as needed for Pain. Active PV W-O SHRAVAN/FERROUS FUMARATE/FA (M-VIT PO) Take by mouth daily. Active Family History Medical History Relation Name Comments Heart Problems Father Anesthesia Complications Neg Hx Relation Name Status Comments Father Social History Tobacco Use Types Packs/Day Years Used Date Smoking Tobacco: Every Day Cigarettes 1.5 12 Alcohol Use Standard Drinks/Week Comments No 0 (1 standard drink = 0.6 oz pur e alcohol) Comments No Sex and Gender Information Value Date Recorded Sex Assigned at Not on file Legal Sex Female 6:15 PM EST Gender Identity Not on file Sexual Orientation Not on file Last Filed Vital Signs Vital Sign Reading Time Taken Comments Blood Pressure 119/82 03/06/2009 10:31 AM EDT Pulse 77 03/06/2009 10:31 AM EDT Temperature 36.7 C (98 F) 03/06/2009 9:45 AM EDT Respiratory Rate 16 03/06/2009 10:31 AM EDT Oxygen Saturation 100% 03/06/2009 10:31 AM EDT Inhaled Oxygen Concentration - - Weight - - Height - - Body Mass Index - - Plan of Treatment Not on file Medical Devices Implanted Type Area Chemical Packager Device Identifier Shelf Expiration Date Model / Serial / Lot Sys Cntrl Perm Essure - S1 Implanted:Qty : 1 on 03/06/2009 at [facility] 8 OR Bilateral: Fallopian Tube * [employer] [id number] / / [id number] Insurance MEDICARE MEDICAID [place] Care Teams Watch Repairer Relationship Specialty Start Date End Date None, None [address] [place] [address] PCP - General 02/26/09 None, None [address] [place] [address] PCP - OBGYN 09/03/09 Mariano Zambrano MD [address] [address] Obstetrics & Gynecology 10/23/22
--- OUTSIDE RECORDS SUMMARY | 2025-04-14 18:57 | XMS_ITS | Clinical Summary ---
Author Organization [facility] Address [address] [place] [address] Phone Care Team Providers Care Stitch Burnisher Name Role Phone Outside, Provider Unavailable [phone] Conditions or Problems No information available. Medications No information available. Medications Administered No information available. Allergies, Adverse Reactions, Alerts No information available. Results No information available. Plan of Care No information available. Procedures No information available. Vital Signs No information available. Immunizations No information available. Advance Directives No information available.
--- OUTSIDE RECORDS SUMMARY | 2025-04-14 18:57 | XMS_ITS | Patient Health Record ---
Author Organization [address] [place] [address] SURGICAL Address [address] [facility] [address] [place], [place] [id number] Care Team Providers Care Artificial Breeding Ranch Supervisor Name Role Phone ANJALI Musa Unavailable [phone] Reason For Referral No Information Plan Of Treatment No Information
== END 2025-04-14 23:59 | disposition home or self-care (01) ==
LOC: LAB.DROPOF 18:55
PROVIDERS: PCP Family Medicine; Visit Provider Family Medicine
DX: R39.9 Unspecified symptoms and signs involving the genitourinary system (principal)
CPT/HCPCS: 87086

== ENCOUNTER 2025-05-27 09:03 | Outpatient (CLI) | payer MEDICARE, MEDICAID, SELFPAY ==
--- NOTE | 2025-05-27 09:06 | XR_ITS ---
FINAL REPORT CLINICAL HISTORY: pain FINDINGS: AP, oblique and lateral views of the right foot were obtained. There is no prior exam for comparison. There is no acute fracture or dislocation. Mild degenerative disease of the 1st MTP joint. Soft tissues are unremarkable. IMPRESSION: Mild degenerative change without acute osseous abnormality of the right foot. Reviewed, Interpreted and Dictated by Tamiko Mesa MD Transcribed by Kinza Mckoy Authenticated and [facility]
--- NOTE | 2025-05-27 09:06 | XR_ITS ---
FINAL REPORT CLINICAL HISTORY: rib pain COMPARISON: None FINDINGS: Four views of the right ribs were obtained. There is no displaced, acute fracture identified. The visualized lungs are clear. No pneumothorax is identified. IMPRESSION: No displaced rib fracture or pneumothorax identified. Reviewed, Interpreted and Dictated by Tamiko Mesa MD Transcribed by Kinza Mckoy Authenticated and [facility]
--- NOTE | 2025-05-27 09:06 | XR_ITS ---
FINAL REPORT CLINICAL HISTORY: pain FINDINGS: AP, oblique, and lateral views of the left ankle were obtained. There is no prior exam for comparison. There is no fracture or dislocation. The ankle mortise is intact. Diffuse soft tissue edema is noted. IMPRESSION: Soft tissue edema without acute osseous abnormality of the left ankle. Reviewed, Interpreted and Dictated by Tamiko Mesa MD Transcribed by Kinza Mckoy Authenticated and [facility]
--- NOTE | 2025-05-27 09:06 | XR_ITS ---
FINAL REPORT CLINICAL HISTORY: foot pain FINDINGS: AP, oblique and lateral views of the left foot were obtained. There is no prior exam for comparison. There is no acute fracture or dislocation. The joint spaces are preserved. Soft tissues are unremarkable. IMPRESSION: No acute osseous abnormality of the left foot. Reviewed, Interpreted and Dictated by Tamiko Mesa MD Transcribed by Kinza Mckoy Authenticated and [facility]
--- NOTE | 2025-05-27 09:06 | XR_ITS ---
FINAL REPORT CLINICAL HISTORY: pain FINDINGS: AP, oblique, and lateral views of the right ankle were obtained. There is no prior exam for comparison. There is no fracture or dislocation. The ankle mortise is intact. Soft tissues are unremarkable. IMPRESSION: No acute osseous abnormality of the right ankle. Reviewed, Interpreted and Dictated by Tamiko Mesa MD Transcribed by Kinza Mckoy Authenticated and [facility]
--- OUTSIDE RECORDS SUMMARY | 2025-05-27 09:06 | XMS_ITS | Patient Health Record ---
Author Organization [address] [place] [address] SURGICAL Address [address] [facility] [address] [place], [place] [id number] Care Team Providers Care Hot Patcher Name Role Phone ANJALI Musa Unavailable [phone] Reason For Referral No Information Plan Of Treatment No Information
--- OUTSIDE RECORDS SUMMARY | 2025-05-27 09:06 | XMS_ITS | Clinical Summary ---
Author Organization [facility] Address [facility] [place] [address] Phone Care Team Providers Care Logistics Solution Manager Name Role Phone Amelia Canchola CNP Unavailable [phone] Conditions or Problems No information available. Medications No information available. Medications Administered No information available. Allergies, Adverse Reactions, Alerts No information available. Results No information available. Plan of Care Type Date Detail Appointment 02:30 PM Amelia vazquez CNP, Procedures No information available. Vital Signs No information available. Immunizations No information available. Advance Directives No information available.
--- OUTSIDE RECORDS SUMMARY | 2025-05-27 09:06 | XMS_ITS | Encounter Summary ---
Author Organization Healthcare Address [address] [place] [address] Care Team Providers Care Florist Name Role Phone Pablo Delgado MD Primary Care Provider + [phone] Encounter Details Date Type Department Care Team (Late st Contact Info) Description 06/18/2021 Lab Requisition DSB Oral Pathology [address] [place] [address] Jerry Arana, DMD [address] [place] [id number] Benign neoplasm of lip Social History Tobacco Use Types Packs/Day Years Used Date Smoking Tobacco: Every Day Alcohol Use Standard Drinks/Week Comments No 0 (1 standard drink = 0.6 oz pur e alcohol) Comments Unknown Sex and Gender Information Value Date Recorded Sex Assigned at Not on file Legal Sex Female 6:33 PM EDT Gender Identity Not on file Sexual Orientation Not on file documented as of this encounter Plan of Treatment Not on file documented as of this encounter Procedures Procedure Name Priority Date/Time Associated Diagnosis Comments ORAL PATHOLOGY EXAM Routine 06/10/2021 documented in this encounter Results * Oral Pathology Tissue Exam (06/10/2021) Gross Description A. Upper Lip, The gross examination on June 18 reveals one fragment of wayne papillary soft tissue measuring 0.4x0.4x0.2 cm. The entire specimen was submitted for microscopic examination. A request for this procedure from the treating clinician accompanied the specimen. The clinical diagnosis is Fibroma. 06/22/2021 10:33 AM T [facility] OR[facility] Microscopic Description Microscopic examination reveals a proliferation of keratinized stratified squamous epithelium with underlying fibrous connective tissue. The epithelium is surfaced by a thickened layer of orthokeratin and is arranged in papillary projections with fibrovascular cores. A prominent granular cell layer is observed and the rete pegs converge toward the center of the lesion. The connective tissue exhibits scattered chronic inflammatory cells. 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 06/22/2021 10:33 AM EDT [facility] ORAL PATHOLOGY at 1033 EDT Case Report Oral Pathology Case: [id number] Authorizing Provider: Jerry Arana DMD Collected: 06/10/2021 Ordering Location: [facility] ORAL PATHOLOGY Received: 06/18/2021912 Pathologist: Francine Mckoy DDS Specimen: Upper Lip 06/22/2021 10:33 AM EDT [facility] ORAL PATHOLOGY Tissue Upper lip structure / Unknown 06/10/2021 06/18/2021 9:13 AM EDT Jerry Arana DMD LAB PATHOLOGY ORDERABLES Final Result Performing Organization Address City/State/[facility] Co de Phone Number [facility] DENT[facility] ORAL PATHOLOGY [address] [facility] [place] [address] documented in this encounter Visit Diagnoses Diagnosis Benign neoplasm of lip documented in this encounter Care Teams Florist Relationship Specialty Start Date End Date Pablo Delgado MD [address] [place] [address] PCP - General 02/26/21 documented as of this encounter
--- OUTSIDE RECORDS SUMMARY | 2025-05-27 09:06 | XMS_ITS | Clinical Summary ---
Author Organization [facility] Address [address] [place] [address] Care Team Providers Care Fireman Helper Name Role Phone None, None Primary Care Provider Unavailabl e None, None Unavailable Unavailable Mariano Zambrano MD Unavailable [phone] Allergies Active Allergy Reactions Criticality Noted Date [...] on file Medical Devices Implanted Type Area Hooker Machine Tender Device Identifier Shelf Expiration Date Model / Serial / Lot Sys Cntrl Perm Essure - S1 Implanted:Qty : 1 on 03/06/2009 at [facility] 8 OR Bilateral: Fallopian Tube * [employer] [id number] / / [id number] Insurance MEDICARE MEDICAID [place] Care Teams Fireman Helper Relationship Specialty Start Date End Date None, None [address] [place] [address] PCP - General 02/26/09 None, None [address] [place] [address] PCP - OBGYN 09/03/09 Mariano Zambrano MD [address] [address] Obstetrics & Gynecology 10/23/22
--- OUTSIDE RECORDS SUMMARY | 2025-05-27 09:06 | XMS_ITS | Clinical Summary ---
Author Organization Healthcare Address [address] [place] [address] Care Team Providers Care Electrical Engineering Technician Name Role Phone Pablo Delgado MD Primary Care Provider + [phone] Family History Medical History Relation Name Comments Lung cancer Father Brain cancer Mother Lung cancer Mother Relation Name Status Comments Father Mother Social History Tobacco Use Types Packs/Day Years [...] Sign Reading Time Taken Comments Blood Pressure 144/87 12/16/2019 1:01 PM EST Pulse 125 12/16/2019 1:01 PM EST Temperature 36.5 C (97.7 F) 12/16/2019 1:01 PM EST Respiratory Rate - - Oxygen Saturation - - Inhaled Oxygen Concentration - - Weight 111 kg (245 lb 4.9 oz) 12/16/2019 1:01 PM EST Height 162.6 cm (5' 4 ) 12/16/2019 1:01 PM EST Body Mass Index 42.11 12/16/2019 1:01 PM EST Plan of Treatment Health Maintenance Due Date Last Done Comments [facility]-Depression Screening 1978 [facility]-Infant/Child/Adol SDOH Screenings 1978 [facility]- SDOH Screenings 1996 [facility]-Adult SDOH Screenings 1996 [facility]-DTaP,Tdap,and Td Vaccine s (1 - Tdap) 1997 [facility]-Hepatitis B Vaccines (1 of 3 - 19+ 3-dose series) 1997 [facility]-Pap Smear 1999 [facility]-Cervical Cancer Screening 2008 [facility]Y-HPV/Cotest 2008 CT Colonography 2023 Colonoscopy 2023 FIT-DNA 2023 FIT 2023 FOBT 2023 Sigmoidoscopy 2023 [facility]-Colorectal Cancer Screening 2023 [id number] Vaccine ( season) 2024 08/06/2021, 07/09/2021 [facility]-Influenza Vaccine (#1) 2025 09/03/2018 [facility]-Zoster Vaccines (1 of 2) 2028 HPV Vaccines Aged Out No longer eligi ble based on patient's age to complete this topic [facility]-HIB Vaccines Aged Out No longer e ligible based on patient's age to complete this topic [facility]-Hepatitis A Vaccines Aged Out No longer eligible based on patient's age to complete this topic [facility]Y-IPV Vaccines Aged Out No longer e ligible based on patient's age to complete this topic [facility]Y-Pneumococcal Vaccine: Pediatrics (0 to 5 Years) and At-Risk Patients (6 to 49 Years) Aged Out No longer eligible b ased on patient's age to complete this topic [facility]-Rotavirus Vaccines Aged Out No lo nger eligible based on patient's age to complete this topic Insurance [place] UHC MEDICARE Care Teams Electrical Engineering Technician Relationship Specialty Start Date End Date Pablo Delagdo MD [address] [place] [address] PCP - General 02/26/21
== END 2025-05-27 23:59 | disposition home or self-care (01) ==
LOC: RAD 09:04
PROVIDERS: PCP Family Medicine; Visit Provider Family Medicine
DX: M19.071 Primary osteoarthritis, right ankle and foot (principal); M79.89 Other specified soft tissue disorders; S90.229A Contusion of unspecified lesser toe(s) with damage to nail, initial encounter; M79.672 Pain in left foot; R07.81 Pleurodynia; R26.81 Unsteadiness on feet; R26.89 Other abnormalities of gait and mobility
CPT/HCPCS: 71101; 73610; 73630

== ENCOUNTER 2025-06-05 10:40 | Outpatient (CLI) | payer MEDICARE, MEDICAID, SELFPAY ==
[2025-06-05 19:08] LABS: Hematocrit 39.3 % (37.0-47.0); Hemoglobin 12.7 g/dL (12.2-16.2); Immature Granulocytes % 0.4 %; Mean Corpuscular HGB Conc 32.3 g/dL (31.8-35.4); Mean Corpuscular Hemoglobin 30.2 pg (27.0-31.2); Mean Corpuscular Volume 93.3 fl (81-99); Nucleated Red Blood Cells % 0 %; Platelet Count 134 K/mm3 (142-424); Red Blood Count 4.21 M/mm3 (4.20-5.40); Red Cell Distribution Width-SD 47.1 fL; White Blood Count 12.6 K/mm3 (4.8-10.8)
[2025-06-05 19:52] LABS: Albumin Level 4.1 g/dl (3.5-5.0); Chloride 107 mmol/L (98-107); Potassium 4.7 mmoL/L (3.5-5.1); Sodium 141 mmol/L (136-145)
[2025-06-05 19:55] LABS: Alanine Aminotransferase 17 U/L (12-78); Albumin/Globulin Ratio 1.7 (1.1-1.8); Alkaline Phosphatase 119 U/L (38-126); Anion Gap 10.7 mEq/L (5-15); Aspartate Amino Transferase 20 U/L (14-36); Bilirubin,Total 0.4 mg/dl (0.2-1.3); Blood Urea Nitrogen 19 mg/dl (7-17); Calcium 9.3 mg/dl (8.4-10.2); Carbon Dioxide 28 mmol/L (22.0-30.0); Creatinine,Serum 0.90 mg/dl (0.52-1.04); Estimated Glomerular Filt Rate 67 ml/min (>60); GFR (African American) 81 ML/MIN (>60); Globulin 2.4 g/dL (1.3-3.2); Glucose 96 mg/dl (74-100); Total Protein,Serum 6.5 g/dl (6.3-8.2)
[2025-06-05 20:04] LABS: NT Pro Brain Natriuretic Pep. 215 pg/mL (0-125)
--- OUTSIDE RECORDS SUMMARY | 2025-06-09 11:26 | XMS_ITS | Clinical Summary ---
Author Organization [employer] [facility] are Address [address] [place] [phone] Phone Care Team Providers Care Deflash And Wash Operator Name Role Phone Unavailable Unavailable Conditions or Problems No information available. Medications No information available. Medications Administered No information available. Allergies, Adverse Reactions, Alerts No information available. Results No information available. Plan of Care No information available. Procedures No information available. Vital Signs No information available. Immunizations No information available. Advance Directives No information available.
--- OUTSIDE RECORDS SUMMARY | 2025-06-09 11:27 | XMS_ITS | Clinical Summary ---
Author Organization [facility] [place] [facility] Address [address] [place] [address] Phone Care Team Providers Care Drone Operator Name Role Phone Unavailable Primary Care Provider Unavailabl e Allergies Active Allergy Reactions Criticality Noted Date Comments Ibuprofen Swelling facial Naproxen Medications * This document contains information received from the source organization and may not represent a complete record from that organization. LOVAZA 1 gram capsule Take 2 Caps by mouth 2 times daily 120 Cap 2 2 Active loperamide (IMODIUM) 2 mg capsule Take by mouth 4 times daily as needed. Active fUROsemide (LASIX) 20 mg tabletIndicatio ns:Edema Take 1 Tab by mouth daily. 30 Tab 3 2 Active montelukast (SINGULAIR) 10 mg tabletIndicatio ns:Asthma Take 1 Tab by mouth daily. 30 Tab 3 2 Active albuterol (PROVENTIL;VENT DARIUS) 90 mcg/actuation inhalerIndicati ons:Bronchitis Inhale 2 Puffs into the lungs every 4 hours as needed for Wheezing. 1 Inhaler 2 3 Active ABILIFY 20 mg tablet Take 1 Tab by mouth daily. 30 Tab 2 3 Active HYDROcodone-rashad taminophen (VICODIN) 5-500 mg per tablet Take 1 Tab by mouth every 4 hours as needed for Pain. 10 Tab 0 3 Active meclizine (ANTIVERT) 12.5 mgIndications:V ertigo Take 1 Tab by mouth 3 times daily as needed for Nausea. 30 Tab 1 4 Active levothyroxine (SYNTHROID) 50 mcg tablet Take 1 Tab by mouth daily. 30 Tab 2 4 Active omeprazole (PRILOSEC) 40 mg capsuleIndicati ons:GERD (gastroesophage al reflux disease) Take 1 Cap by mouth every morning (before breakfast). 30 Cap 3 4 Active venlafaxine (EFFEXOR-XR) 150 mg XR capsule Take 1 Cap by mouth daily. 30 Cap 3 4 Active budesonide-form oterol (SYMBICORT) 160-4.5 mcg/actuation inhalerIndicati ons:Asthma Inhale 2 Puffs into the lungs 2 times daily. 1 Inhaler 3 4 Active albuterol (PROAIR HFA) 90 mcg/actuation inhalerIndicati ons:Bronchitis Inhale 2 Puffs into the lungs every 6 hours as needed for Wheezing. 1 Inhaler 2 4 Active ARIPiprazole (ABILIFY) 20 mg tablet Take 1 Tab by mouth daily. 30 Tab 1 4 Active butalbital-acet aminophen-caffe ine (FIORICET, ESGIC) Oral Tablet Take 1 tablet by mouth every 6 hours as needed for Headaches for up to 10 doses. 10 tablet 0 4 Active ondansetron (ZOFRAN ODT) 4 mg Oral Tablet, Rapid Dissolve Take 1 tablet by mouth every 6 hours as needed for Nausea for up to 10 doses. 10 tablet 0 4 Active Active Problems Patient Care Coordination No te Formatting of this note migh t be different from the original. No controlleds from [place] SEP Problem Noted Date Diagnosed Date Hepatitis C antibody test positive 07/16/2013 Abnormal urine 10/08/2011 Overview (10/08/2011): NO FURTHER CONTROLLEDS, FAILED TOX! IBS (irritable bowel syndrome) 06/30/2011 Hypothyroid 09/01/2010 Depression 09/01/2010 Hypertriglyceridemia 09/01/2010 Morphea 07/12/2010 Asthma Bipolar affective Schizophrenia AR (allergic rhinitis) Insomnia GERD (gastroesophageal reflux disease) Back pain Overview (10/08/2011): FAILED TOX! NO FURTHER CONTROLLEDS! Surgical History Surgery Date Site/Laterality Comments TUBAL LIGATION SECTION 1996,2002,2008 APPENDECTOMY childhood Medical History Medical History Date Comments Asthma Anxiety Depression Schizophrenia (HCC) GERD (gastroesophageal reflux disease) Back pain AR (allergic rhinitis) Hypothyroid 09/01/2010 Family History Medical History Relation Name Comments High Blood Pressure Father High Cholesterol Father Cancer Maternal Grandmother stomach Cancer Mother brain Relation Name Status Comments Father Maternal Grandmother Mother Social History Tobacco Use Types Packs/Day Years Used Date Smoking Tobacco: Every Day Cigarettes 1 20 Smokeless Tobacco: Never Tobacco Cessation:Ready to Q uit: No; Counseling Given: Yes Alcohol Use Standard Drinks/Week Comments No 0 (1 standard drink = 0.6 oz pur e alcohol) Sexually Active Control Partners Comments Yes Male Comments No Sex and Gender Information Value Date Recorded Sex Assigned at Not on file Legal Sex Female 3:19 AM EDT Gender Identity Not on file Sexual Orientation Not on file Obstetrics History Last Filed Vital Signs Vital Sign Reading Time Taken Comments Blood Pressure 128/77 05/29/2014 10:44 PM EDT Pulse 72 05/29/2014 10:30 PM EDT Temperature 36.8 C (98.2 F) 05/29/2014 8:00 PM EDT Respiratory Rate 16 05/29/2014 9:45 PM EDT Oxygen Saturation 93% 05/29/2014 10:44 PM EDT Inhaled Oxygen Concentration - - Weight 92.1 kg (203 lb) 05/29/2014 8:00 PM EDT Height 162.6 cm (5' 4 ) 05/29/2014 8:00 PM EDT Body Mass Index 34.84 05/29/2014 8:00 PM EDT Plan of Treatment Health Maintenance Due Date Last Done Comments Wellness Exam Medicare 1981 DTaP/TDaP/Td (1 - Tdap) 1997 Hepatitis B Vaccine (1 of 3 - 19+ 3-dose series) 1997 Pneumococcal Vaccine 0-49 (1 of 2 - PCV) 1997 HPV/Pap Cotest 2008 Cervical Cancer Screening 07/16/2016 Pap Smear 07/16/2016 07/16/2013 (Postponed), 01/26/2010 Breast Cancer Screening 2018 02/13/2013 Cologuard 2023 Colon Cancer Screening 2023 Colonoscopy 2023 FIT 2023 Sigmoidoscopy 2023 Virtual Colonography 2023 COVID-19 Vaccine (2023-2 5 season) 2024 Influenza Vaccine (#1) 2025 Meningococcal B Vaccine Aged Out No l onger eligible based on patient's age to complete this topic Procedures Procedure Name Priority Date/Time Associated Diagnosis Comments MM MAMMO DIGITAL DIAGNOSTIC W CAD BILAT Routine 02/13/2013 9:02 AM EDT Breast pain MANAGER [facility] CYTOLOGY REPORT Routine 01/26/2010 4 :49 AM EDT from Last 3 Months or Most Recently Relevant to Health Maintenance Results * MM MAMMO DIGITAL DIAGNOSTIC W CAD BILAT (02/13/2013 9:02 AM EDT) Anatomical Region Laterality Modality Breast Bilateral Mammography 02/13/2013 10:3 6 AM EDT Impressions 02/13/2013 4:21 PM EDT : Incomplete-need additional imaging evaluation ([id number]-2) ~ RECOMMENDATION: Ultrasound of the left breast,this ultrasound examination was performed on 02-13-13 and will be reported separately. ~ * The patient with a palpable abnormality, unexplained by breast imaging, should be managed on clinical basis by the attending physician. * Breast imaging has a false negative rate of 15%. * The patient was notified by mail of the results of this examination. *The patient's information was entered into a reminder system with a target due date for the next mammogram. The mammogram was reviewed by a Radiologist and CAD. Narrative 02/13/2013 4:21 PM EDT Procedure:MM MAMMO DIGITAL DIAGNOSTIC W CAD BILAT ~ Reason for exam: clinical finding. Indicated problem(s): lump or thickening in the left breast. ~ MM MAMMO DIGITAL DIAG CAD BILAT Bilateral CC and MLO view(s) were taken. There are scattered fibroglandular densities. ~ Procedure Note Lyla Oconnor MD - 02/13/2013 Procedure:MM MAMMO DIGITAL DIAGNOSTIC W CAD BILAT ~ Reason for exam: clinical finding. Indicated problem(s): lump or thickening in the left breast. ~ MM MAMMO DIGITAL DIAG CAD BILAT Bilateral CC and MLO view(s) were taken. There are scattered fibroglandular densities. ~ IMPRESSION: Incomplete-need additional imaging evaluation ([id number]-[id number]-9) ~ RECOMMENDATION: Ultrasound of the left breast,this ultrasound examination was performedon 02-13-13 and will be reported separately. ~ * The patient with a palpable abnormality, unexplained by breast imaging, should be managed on clinical basis by the attending physician. * Breast imaging has a false negative rate of 15%. * The patient was notified by mail of the results of this examination. *The patient's information was entered into a reminder system with atarget due date for the next mammogram. The mammogram was reviewed by a Radiologist and CAD. us Adrianna Tavares MD IM MAMMOGRAPHY ORDERABLES Fin al Result * [facility]TOLOGY REPORT (01/26/2010 4:49 AM EDT) Weighing Station Operator Cytology Report PATIENT NAME:MYLES MONK Weighing Station Operator Cytology Report Accession Number Collected Date/Time Received Date/Time [id number] 01/26/10 04:49 EDT 01/27/10 04:49 EDT GY Specimen Source Specimen Vag/Cerv/Endocx?: Cervical/Endocerv ical Statement of Adequacy Satisfactory for Evaluation. Transformation Zone Present. Diagnosis EPITHELIAL CELL ABNORMALITIES Atypical Squamous Cells of Undetermined Significance. Comment HPV DNA Reflex testing for high-risk subtypes will be performed in our laboratory. Results will be reported separately. Heavy bacterial background. The Pap Smear is a screening test that aids in the detection of cervical cancer and cancer precursors. Both false positive and false negative results can occur. The test should be used at regular intervals, and positive results should be confirmed before definitive therapy. Processed using the ThinPrep Corporate Sales Manager automated cytology screening device ([employer]). Mobile Disc Jockey : RANDI SUBRAMANIAN 02/08/2010 Completed by: Yanet Winters MD, PhD (Electronically signed by) 02/08/2010 [facility] Laboratory [facility] 01/26/2010 4:49 AM EDT us Rogers Trevizo MD PATHOLOGY ORDERABLES Final Res ult [facility] [address] [place] [address] from Last 3 Months or Most Recently Relevant to Health Maintenance Insurance [place] [address] MEDICAID [place] Member Subscriber Plan / Payer (Ef fective 2014-Present) Name:Myles Monk Relation to Subscriber:Self Name:Myles Monk Payer ID:Not on file Group ID:Not on file Type:Not on file Address: [address] [place] [id number] [address] [place] [address] MEDICARE [place] PART A AND B
--- OUTSIDE RECORDS SUMMARY | 2025-06-09 11:27 | XMS_ITS | Encounter Summary ---
Author Organization Healthcare Address [address] [place] [address] Care Team Providers Care Construction Engineer Name Role Phone Pablo Delgado MD Primary Care Provider + [phone] Encounter Details Date Type Department Care Team (Late st Contact Info) Description 06/18/2021 Lab Requisition DSB Oral Pathology [address] [place] [address] Jerry Arana, DMD [address] [place] [phone] Benign neoplasm of lip Social History Tobacco [...] chronic inflammatory cells. 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 06/22/2021 10:33 AM EDT [facility] ORAL PATHOLOGY at 1033 EDT Case Report Oral Pathology Case: [id number] Authorizing Provider: Jerry Arana DMD Collected: 06/10/2021 Ordering Location: [facility] ORAL PATHOLOGY Received: 06/18/2021912 Pathologist: Francine Mckoy DDS Specimen: Upper Lip 06/22/2021 10:33 AM EDT [facility] ORAL PATHOLOGY Tissue Upper lip structure / Unknown 06/10/2021 06/18/2021 9:13 AM EDT Jerry Arana DMD LAB PATHOLOGY ORDERABLES Final Result Performing Organization Address City/State/[facility] Co de Phone Number [facility] DENTIST[facility] ORAL PATHOLOGY [address] [facility] [place] [address] documented in this encounter Visit Diagnoses Diagnosis Benign neoplasm of lip documented in this encounter Care Teams Construction Engineer Relationship Specialty Start Date End Date Pablo Delgado MD [address] [place] [address] PCP - General 02/26/21 documented as of this encounter
--- OUTSIDE RECORDS SUMMARY | 2025-06-09 11:27 | XMS_ITS | Clinical Summary ---
Author Organization Healthcare Address [address] [place] [address] Care Team Providers Care Roof Service Technician Name Role Phone Pablo Delgado MD Primary Care Provider + [phone] Family History Medical History Relation Name Comments [...] 2023 Sigmoidoscopy 2023 [facility]-Colorectal Cancer Screening 2023 [id number] Vaccine ( season) 2024 08/06/2021, 07/09/2021 [facility]-Influenza [...] topic Insurance [place] UHC MEDICARE Care Teams Roof Service Technician Relationship Specialty Start Date End Date Pablo Delgado MD [address] [place] [address] PCP - General 02/26/21
--- OUTSIDE RECORDS SUMMARY | 2025-06-09 11:27 | XMS_ITS | Clinical Summary ---
Author Organization [facility] Address [facility] [place] [address] Phone Care Team Providers Care Port Drier Name Role Phone Amelia Canchola CNP Unavailable [phone] Conditions or Problems No information available. [...]
--- OUTSIDE RECORDS SUMMARY | 2025-06-09 11:27 | XMS_ITS | Patient Health Record ---
Author Organization [address] [place] [address] SURGICAL Address [address] [facility] [address] [place], [place] [id number] Care Team Providers Care Hardware Engineer Name Role Phone ANJALI Musa Unavailable [phone] Reason For Referral No Information Plan Of Treatment No Information
== END 2025-06-05 23:59 | disposition home or self-care (01) ==
LOC: LAB.DROPOF 06-09 10:41
PROVIDERS: PCP Family Medicine; Visit Provider Family Medicine
DX: J39.2 Other diseases of pharynx (principal); R06.00 Dyspnea, unspecified
CPT/HCPCS: 80053; 83880; 85025; 87070

== ENCOUNTER 2025-06-19 14:09 | Outpatient (CLI) | payer MEDICARE, MEDICAID, SELFPAY ==
--- OUTSIDE RECORDS SUMMARY | 2025-06-19 14:11 | XMS_ITS | Clinical Summary ---
Author Organization [facility] are Address [address] [place] [address] Phone Care Team Providers Care Lens And Frames Prescription Clerk Name Role Phone Unavailable Unavailable Conditions or Problems No information available. Medications No information available. Medications Administered No information available. Allergies, Adverse Reactions, Alerts No information available. Results No information available. Plan of Care No information available. Procedures No information available. Vital Signs No information available. Immunizations No information available. Advance Directives No information available.
--- OUTSIDE RECORDS SUMMARY | 2025-06-19 14:13 | XMS_ITS | Clinical Summary ---
Author Organization Healthcare Address [address] [place] [address] Care Team Providers Care Line Locator Name Role Phone Pablo Delgado MD Primary Care Provider + [phone] Family History Medical History Relation Name Comments [...] 2023 Sigmoidoscopy 2023 [facility]-Colorectal Cancer Screening 2023 [id number] Vaccine ( season) 2024 08/06/2021, 07/09/2021 [facility]-Influenza [...] complete this topic [place] [address] Care Teams Line Locator Relationship Specialty Start Date End Date Pablo Delgado MD [address] [place] [address] PCP - General 02/26/21
--- OUTSIDE RECORDS SUMMARY | 2025-06-19 14:13 | XMS_ITS | Encounter Summary ---
Author Organization Healthcare Address [address] [place] [address] Care Team Providers Care Support Assistant Name Role Phone Pablo Delgado MD Primary Care Provider + [phone] Encounter Details Date Type Department Care Team (Late st Contact Info) Description 06/18/2021 Lab Requisition [facility] Oral Pathology [address] [place] [address] Jerry Arana, DMD [address] [place] [phone] Benign neoplasm of lip Social History Tobacco [...] chronic inflammatory cells. 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 06/22/2021 10:33 AM EDT [facility] ORAL PATHOLOGY at 1033 EDT Case Report Oral Pathology Case: [id number] Authorizing Provider: Jerry Arana DMD Collected: 06/10/2021 Ordering Location: [facility] ORAL PATHOLOGY Received: 06/18/2021912 Pathologist: Francine Mckoy DDS Specimen: Upper Lip 06/22/2021 10:33 AM EDT [facility] ORAL PATHOLOGY Tissue Upper lip structure / Unknown 06/10/2021 06/18/2021 9:13 AM EDT eJrry Arana DMD LAB PATHOLOGY ORDERABLES Final Result Performing Organization Address City/State/[facility] Co de Phone Number [facility] D[facility] ORAL PATHOLOGY [address] [facility] [place] [address] documented in this encounter Visit Diagnoses Diagnosis Benign neoplasm of lip documented in this encounter Care Teams Support Assistant Relationship Specialty Start Date End Date Pablo Delgado MD [address] [place] [address] PCP - General 02/26/21 documented as of this encounter
--- OUTSIDE RECORDS SUMMARY | 2025-06-19 14:13 | XMS_ITS | Clinical Summary ---
Author Organization [facility] Address [facility] [place] [address] Phone Care Team Providers Care Restaurant Lead Name Role Phone Amelia Canchola CNP Unavailable Conditions or Problems No information available. [...]
--- NOTE | 2025-06-19 14:30 | CA_ITS ---
APPROVED REPORT EXAM: Comprehensive 2D, Doppler, and color-flow Echocardiogram Vamp Stitcher: Jo Patten, RCS, RVS Ht: 5 ft 4 in Wt: 290lbs BSA: 2.29 BP: 106/68 mmHg Indications: HFpEF, SOA, Smoker, SOA Echo Enhancing Agent Indication: NO IV access Comments: Tehcnially limited due to imaging depth/Lung impedance 2D Dimensions IVSd 1.05 cm F: 0.6-1.0 LVEF (Visual) 55.80 % PWd 1.01 cm F: 0.6 - 1.0 LA Volume 58.20 mL LVDd 3.50 cm F: 3.9 - 5.3 LA Volume Index 25.41 mL/m2 (M/F) 16-34 LVDs 2.51 cm F: 2.2 - 3.5 EF AP4 57.80 % Aortic Root 2.75 cm F: 2.7 - 3.3 GL Strain -15.7 % Left Atrium 3.40 cm F: 2.7 - 3.8 RVID Base (AP4) 2.30 cm (M/F) 2.5-4.1 LVOT 2.05 cm (M/F) 1.5-2.5 M-Mode Dimensions LVDd 3.50 cm (3.5-5.7) Ao Diam 2.83 cm (2.0-3.7) LVDs 2.51 cm (3.5-5.7) IVSd 1.05 cm (0.6-1.1) PWd 1.01 cm (0.6-1.1) EPSs 0.73 cm FS 28.30% TAPSE 2.11 (<1.7) LV Diastology E Decel Time 267 (160-240 msec) E/A Ratio 1.2 MED E' 11.0 (>= 7 cm/sec) MED A' 13.20 cm/s E'/MED E' Ratio 10.08 (<= 14) LAT E' 10.9 (>= 10 cm/sec) LAT A' 9.60 cm/s E/LAT E' Ratio 10.17 (<= 14) Aortic Valve LVOT Max 112.0 (70-110 cm/s) FREDI Index 1.57 cm2/m2 LVOT VTI 23.65 cm AoV Peak Cricket. 111.0 (50-130 cm/s) AO Mean GR. 2.50 (<5 mmHg) AO VTI 21.7 (18-25 cm) FREDI (VTI) 3.59 (2.5-4.5 cm2) Mitral Valve MV E Max Cricket. 111.0 (40-130 cm/s) MV A Velocity 96.0 (40-130 cm/s) E/A Ratio 1.15 MV Decel. Time 267 (160-240 ms) Tricuspid Valve TR P. Velocity 256.00 cm/s RAP Estimate 10.00 mmHg RVSP 36.30 mmHg Left Ventricle The left ventricle is normal size. Left ventricular systolic function is normal. The left ventricular ejection fraction is within the normal range. There is increased left ventricular wall thickness. There is normal LV segmental wall motion. The left ventricular diastolic function is normal. LVEF is 55%. Right Ventricle The right ventricle is normal size. The right ventricular systolic function is normal. Atria The left atrium size is normal. The right atrium size is normal. There is no color Doppler evidence of interatrial shunt. Aortic Valve The aortic valve opens well. There is no hemodynamically significant aortic valvular stenosis. No aortic regurgitation is present. Mitral Valve The mitral valve is normal in structure. No evidence of mitral valve stenosis. Mild mitral regurgitation is present. Tricuspid Valve The tricuspid valve leaflets are thin and pliable. Mild tricuspid regurgitation. RVSP is 25-30 mmHg. Pulmonic Valve The pulmonary valve is grossly normal in structure. Trace pulmonic valve regurgitation is present. Great Vessels The aortic root is normal in size. IVC is normal in size and collapses >50% with inspiration. Pericardium There is no pericardial effusion. Other Information Study Quality: Technically Difficult Conclusion Technically difficult study. Normal biventricular systolic function. Mild MR, mild TR. Electronically signed by : La Benjamin MD 06/21/2025 01:07:09
== END 2025-06-19 23:59 | disposition home or self-care (01) ==
LOC: RT 14:09
PROVIDERS: PCP Family Medicine; Visit Provider Nurse Practitioner Family
DX: I08.1 Rheumatic disorders of both mitral and tricuspid valves (principal); I11.0 Hypertensive heart disease with heart failure; I50.30 Unspecified diastolic (congestive) heart failure; I20.89 Other forms of angina pectoris; R00.2 Palpitations; F17.200 Nicotine dependence, unspecified, uncomplicated
CPT/HCPCS: 93306

== ENCOUNTER 2025-07-07 06:35 | Emergency (ER) | payer MEDICARE, MEDICAID, SELFPAY ==
[2025-07-07] VITALS (8 sets, daily range): BP systolic 101–146; BP diastolic 56–120; PULSE 86–105; RESP 14–15; TEMP 36.8; O2SAT 96–99; BMI 51.5
--- NOTE | 2025-07-07 06:48 | XR_ITS ---
FINAL REPORT CLINICAL HISTORY: cough wheezing asthma COMPARISON: Prior CT chest 05/28/2024 FINDINGS: PA and lateral views of the chest are obtained. The cardiac and mediastinal silhouettes are within normal limits. There are increased interstitial markings present, which likely correlate to tiny nodules seen on previous chest CTs. There is no pleural effusion, pneumothorax, or acute osseous abnormality. IMPRESSION: Increased interstitial markings, likely chronic, which correlate to tiny nodule seen on prior chest CTs. No confluent infiltrates or effusions are identified. Reviewed, Interpreted and Dictated by Tamiko Mesa MD Transcribed by Ro Zavala Authenticated and [facility]
--- NOTE | 2025-07-07 06:52 | ED_ITS ---
Discharge Plan Disposition Patient Disposition: Home, Self-Care Condition: Good Prescriptions Prescriptions: New azithromycin [Zithromax Z-Keyur] 250 mg tablet See Rx Instructions .ROUTE .COMPLEX Qty: 6 0RF Rx Instructions: For 250 mg dose pack: take 500 mg today (day 1), then 250 mg for 4 days (days 2-5) amoxicillin-pot clavulanate [Augmentin XR] 1,000-62.5 mg tablet extended release 12 hr 1 tab PO BID 7 Days Qty: 14 0RF prednisone 10 mg tablets,dose pack 10 mg PO DIRECTED Qty: 21 0RF Rx Instructions: see taper instructions No Action aripiprazole 10 mg tablet 10 mg PO DAILY Qty: 90 3RF spironolactone [Aldactone] 25 mg tablet 25 mg PO DAILY Qty: 30 2RF torsemide 100 mg tablet 50 mg PO DAILY Qty: 30 5RF fluticasone propionate [Flonase Allergy Relief] 50 mcg/actuation spray,suspension 2 spray intranasal DAILY 90 Days Qty: 16 2RF Rx Instructions: administer into each nostril levocetirizine 5 mg tablet See Rx Instructions .ROUTE .COMPLEX Qty: 120 4RF Dose Instruction: TAKE ONE TABLET BY MOUTH EVERY DAY Rx Instructions: TAKE ONE TABLET BY MOUTH EVERY DAY bisoprolol fumarate 5 mg tablet See Rx Instructions .ROUTE .COMPLEX Qty: 90 1RF Dose Instruction: TAKE ONE TABLET BY MOUTH EVERY DAY Rx Instructions: TAKE ONE TABLET BY MOUTH EVERY DAY levothyroxine 25 mcg tablet See Rx Instructions .ROUTE .COMPLEX Qty: 90 1RF Dose Instruction: TAKE ONE TABLET BY MOUTH EVERY DAY Rx Instructions: TAKE ONE TABLET BY MOUTH EVERY DAY budesonide-formoterol 160-4.5 mcg/actuation HFA aerosol inhaler See Rx Instructions .ROUTE .COMPLEX Qty: 10.2 2RF Dose Instruction: INHALE TWO PUFFS BY MOUTH TWICE DAILY Rx Instructions: INHALE TWO PUFFS BY MOUTH TWICE DAILY potassium chloride 10 mEq capsule, extended release See Rx Instructions .ROUTE .COMPLEX Qty: 30 5RF Dose Instruction: TAKE ONE CAPSULE BY MOUTH EVERY DAY Rx Instructions: TAKE ONE CAPSULE BY MOUTH EVERY DAY pregabalin [Lyrica] 150 mg capsule 150 mg PO DAILY Qty: 30 0RF albuterol sulfate [Ventolin HFA] 90 mcg/actuation HFA aerosol inhaler 2 puff inhalation Q6H PRN (Reason: shortness of breath or wheezing) Qty: 6.7 0RF Referrals Follow up/Referrals: Nickie Brown APRN [Primary Care Provider, Family Practice] - See instructions Activity Restrictions/Add. Instructions Additional Instructions/Restrictions: You were seen in the emergency department for pneumonia. Please take the medications below as prescribed. If symptoms worsen, or new symptoms develop, please return to the emergency department. Clinical Impressions Clinical Impression: Pneumonia Instructions Patient Instructions: Atypical Pneumonia Print Language Print Language: Cymro Discharge ED Provider: Jaun Juarez General Adult HPI <Jaun Juarez MD - Last Filed: 07/07/25 07:04> General Chief complaint: Upper Respiratory Infection Stated complaint: swollen throat, cough, STEELE Time Seen by Provider: 07/07/25 06:44 Mode of Arrival: Ambulatory Source of Information: Patient Description of Symptoms (Recalled from ER Triage Doc. by RN): Pt presents with a cough and sore throat for several days. Cough has increased throughout the night and she feels SOB. Pt is currently 98% on room air. History of Present Illness HPI narrative: 45-year-old female with history of obesity, lung nodule, CARLENE, GERD, and reportedly asthma not COPD presents to the ER with sore throat, cough, congestion for 2 days. Patient reports last night she took her Symbicort without improvement of symptoms. She states she gets into coughing fits that she cannot stop. She states she gets bronchitis at least once a year and is concerned she may be developing pneumonia. She has no fevers or chills, she states her throat is sore and her body hurts from coughing but she does not have chest pain or difficulty breathing, no dizziness but states she has had mild headache, no numbness, tingling, or weakness. No nausea, vomiting, or diarrhea. Patient reports the last time she took Tylenol was yesterday. Related Data Previous Rx's ?Medication ?Instructions ?Recorded aripiprazole 10 mg tablet 10 mg PO DAILY #90 tabs 07/16 02/06 albuterol sulfate 90 mcg/actuation 2 puff inhalation Q 6H PRN 10/03/24 aerosol inhaler (Ventolin HFA) shortness of breath or wheezing #6.7 grams levocetirizine 5 mg tablet See Rx Instructions .Route 12/05/24 .COMPLEX #120 tabs bisoprolol fumarate 5 mg tablet See Rx Instructions .R oute 04/02/25 .COMPLEX #90 tabs levothyroxine 25 mcg tablet See Rx Instructions .Route 05/06/25 .COMPLEX #90 tabs budesonide-formoterol HFA 160 See Rx Instructions .Rou te 05/27/25 mcg-4.5 mcg/actuation aerosol .COMPLEX #10.2 grams inhaler potassium chloride 10 mEq See Rx Instructions .Route 0 06/02/25 capsule,extended release .COMPLEX #30 caps fluticasone propionate 50 2 spray intranasal DAILY 90 days 06/05/25 mcg/actuation nasal #16 grams spray,suspension (Flonase Allergy Relief) spironolactone 25 mg tablet 25 mg PO DAILY #30 tabs (Aldactone) torsemide 100 mg tablet 50 mg (1/2 x 100 mg) PO GALINDO Y #30 06/09/25 tabs pregabalin 150 mg capsule (Lyrica) 150 mg PO DAILY #30 caps 06/13/25 amoxicillin-potassium clavulanate 1 tab PO BID 7 days #14 tabs 07/07/25 1,000 mg-62.5 mg tablet,ext.rel 12hr (Augmentin XR) azithromycin 250 mg tablet See Rx Instructions PO .COM PLEX #6 07/07/25 (Zithromax Z-Keyur) tabs prednisone 10 mg tablets in a dose 10 mg PO DIRECTE D #21 tabs 07/07/25 pack Allergies Allergy/AdvReac Type Severity Reaction Status Date / Time ibuprofen (IBUPROFEN) Allergy Unknown Hives Verified 07/07/25 09:41 naproxen (NAPROXEN) Allergy Unknown Rash Verified 07/07/25 09:41 ON LICENSE OF [facility] <Janu Juarze MD - Last Filed: 07/07/25 07:04> ON LICENSE OF [facility] Disclaimer: The information contained in this section may have been updated after the patient was seen, as this information can be updated by other users. Medical History (Updated 07/07/25 @ 10:44 by Mignon Ramirez DPM) Onychomycosis Acute pancreatitis (HFpEF) heart failure with preserved ejection fraction Pneumonia Asthma exacerbation Asthma exacerbation Atypical pneumonia Fall Norovirus E coli enteritis Compression of intervertebral disc Atypical pneumonia Sinusitis Fall Muscle spasm Witnessed apneic spells Bronchitis Elevated d-dimer Tachycardia ASCUS favoring benign Atypical chest pain Other specified diseases of gallbladder Mass of left kidney Conjunctivitis Gastroenteritis Atypical chest pain Acute bronchitis Rash Left foot pain Heel spur Benign skin lesion of cheek Postoperative bleeding from incision URI (upper respiratory infection) Pulmonary nodules Retroperitoneal mass Abdominal pain, lower Snoring Atypical angina Abnormal nuclear stress test Elevated liver enzymes History of hepatitis C Daytime somnolence Asymmetric SNHL (sensorineural hearing loss) Viral syndrome Otitis media Thrush Encounter for laboratory testing for COVID-19 virus Knee contusion Tonsillitis Otitis media Bronchitis Sinusitis Bronchitis Colonoscopy planned Pharyngitis Uvulitis Referred otalgia of both ears Family history of sudden cardiac in daughter Abnormal electrocardiogram [ECG] [EKG] Tachycardia Swollen uvula Throat pain Diastolic dysfunction HTN (hypertension) Hepatitis C Urinary tract infection History of COVID-19 Sleep apnea History of syncope Seizure disorder Migraine Bipolar 1 disorder Schizophrenia Depression Carpal tunnel syndrome History of gastroesophageal reflux (GERD) Hypothyroid Allergies Hypertension Cancer of kidney Enlarged tonsils Dysphagia Asthma Surgical History Status post tonsillectomy History of endometrial ablation History of hernia repair Hx of appendectomy History of History of tubal ligation Family History Grandmother Stomach cancer Mother Brain cancer Sister Throat cancer Father Family history of hyperlipidemia Social History Smoking Status: Current every day smoker tobacco type: cigarettes packs per day: 1 second hand exposure: No alcohol intake: never substance use type: former substance user and heroin current occupational status: disabled Travel in the last 8 weeks?: None adopted: Yes household members: children housing: house number of children: 3 current occupational exposures/hazards: No caffeine: Yes Other Medical History Have you received the Flu Vaccine for this season: No Have you received the Pneumonia Vaccine: No <Jaun Juarez MD - Last Filed: 07/07/25 07:04> ROS Obtained: Yes Systems reviewed as appropriate & no additional complaints ex cept as documented per HPI Physical Exam <Jaun Juarez MD - Last Filed: 07/07/25 07:04> General General appearance: alert, in no apparent distress and obese Head Head exam: atraumatic and normocephalic Eye Eye exam: Present PERRL and EOMI ENT ENT exam: Present mucous membranes moist Neck Neck exam: Present normal inspection and full ROM Chest Chest inspection: Present symmetric chest wall rise Respiratory Respiratory exam: Present wheezes (Bilateral end expiratory) and other (Saturating 98% on room air); Absent respiratory distress or stridor Cardiovascular Cardiovascular exam: Present regular rate and normal rhythm Abdominal Exam Abdominal exam: Present soft; Absent distention or tenderness Extremities Exam Extremities exam: Present full ROM; Absent edema Neurological Exam Neurological exam: Present alert and oriented X3; Absent motor sensory deficit Psychiatric Psychiatric exam: Present normal affect and normal mood Skin Skin exam: Present warm and dry Medical Decision Making <Jaun Juarez MD - Last Filed: 07/07/25 07:04> Medical Records Medical records reviewed: Yes I reviewed the patient's medical records. Screening: Per USPSTF and CDC recommendations, given the prevalence of disease in our region, it is our hospital?s policy to screen for HIV and viral Hepatitis for all patients aged 18 and over and those with ongoing risk factors. Torres Inquiry Pt receiving controlled substance: No Vital Signs: 07/07/25 06:42 07/07/25 06:47 07/07/25 07:01 Temperature 98.2 F 98.2 F Temperature Source Oral Oral Pulse Rate 89 86 Pulse Rate [Left] 89 Respiratory Rate 15 15 Blood Pressure 146/120 H 112/88 Blood Pressure [Right Arm] 146/120 H Blood Pressure Mean [Right Arm] 128 Blood Pressure Source Automatic Cuff Blood Pressure Source [Right Arm] Automatic Cuff Blood Pressure Position Sitting Blood Pressure Position [Right Arm] Sitting 02 Sat by Pulse Oximetry 98 99 98 Oxygen Delivery Method Room Air Room Air 07/07/25 07:15 07/07/25 07:25 07/07/25 07:45 Temperature Temperature Source Pulse Rate 87 105 H Pulse Rate [Left] Respiratory Rate Blood Pressure 108/68 L 117/69 Blood Pressure [Right Arm] Blood Pressure Mean [Right Arm] Blood Pressure Source Blood Pressure Source [Right Arm] Blood Pressure Position Blood Pressure Position [Right Arm] 02 Sat by Pulse Oximetry 97 99 96 Oxygen Delivery Method Room Air 07/07/25 08:15 07/07/25 08:40 Temperature 98.2 F Temperature Source Pulse Rate 102 H 91 H Pulse Rate [Left] Respiratory Rate 14 Blood Pressure 101/59 L 104/56 L Blood Pressure [Right Arm] Blood Pressure Mean [Right Arm] Blood Pressure Source Blood Pressure Source [Right Arm] Blood Pressure Position Blood Pressure Position [Right Arm] 02 Sat by Pulse Oximetry 99 Oxygen Delivery Method Lab Data Lab Results 07/07/25 06:48: SARS-CoV-2 (PCR) Not detected, Influenza A Untype (PCR) Not detected, Influenza Type B (PCR) Not detected Orders (Tests/Meds): ED MEDICATIONS Discontinued Medications Generic Name Dose Route Start Last Admin Trade Name Trinity PRN Reason Stop Dose Admin Acetaminophen 1,000 mg 07/07/25 06:54 07/07/25 07:01 Acetaminophen 500mg Tab PO 07/07/25 06:55 1,000 mg ONCE ONE Administration Albuterol/Ipratropium 9 ml 07/07/25 06:48 07/07/25 07:02 Ipratropium/Albuterol 3 Ml Neb IH 07/07/25 06:49 9 ml ONCE ONE Administration ORDERS Category Date Time Status CXR 2 view (NOT portable) [XR chest 2V] Stat Exams 07/07/25 06:48 Completed Rapid PCR Covid and Flu A/B Stat Lab 07/07/25 06:48 Completed Medical Decision Narrative: In summary, this 45-year-old female presents to the emergency department today with cough, congestion, sore throat, headache. On initial evaluation patient is hemodynamically stable, afebrile, saturating well on room air, she has end- expiratory wheezes but no respiratory distress, no other adventitious sounds, oropharynx normal with no tonsillomegaly, no exudates, no lymphadenopathy appreciated, remainder of exam unremarkable. Differential diagnosis includes but is not limited to viral syndrome, bronchitis, pneumonia, considered asthma exacerbation but patient only has mild end expiratory wheeze saturating well on room air with no increased respiratory rate or work of breathing. Based on these concerns, I ordered chest x-ray, viral swab. Patient is receiving DuoNebs for wheezing and Tylenol for generalized bodyaches and headache. Patient handed off to Dr. Joy in stable condition pending viral swab and chest x-ray. <Quentin Joy MD - Last Filed: 07/07/25 16:17> Vital Signs: 07/07/25 06:42 07/07/25 06:47 07/07/25 07:01 Temperature 98.2 F 98.2 F Temperature Source Oral Oral Pulse Rate 89 86 Pulse Rate [Left] 89 Respiratory Rate 15 15 Blood Pressure 146/120 H 112/88 Blood Pressure [Right Arm] 146/120 H Blood Pressure Mean [Right Arm] 128 Blood Pressure Source Automatic Cuff Blood Pressure Source [Right Arm] Automatic Cuff Blood Pressure Position Sitting Blood Pressure Position [Right Arm] Sitting 02 Sat by Pulse Oximetry 98 99 98 Oxygen Delivery Method Room Air Room Air 07/07/25 07:15 07/07/25 07:25 07/07/25 07:45 Temperature Temperature Source Pulse Rate 87 105 H Pulse Rate [Left] Respiratory Rate Blood Pressure 108/68 L 117/69 Blood Pressure [Right Arm] Blood Pressure Mean [Right Arm] Blood Pressure Source Blood Pressure Source [Right Arm] Blood Pressure Position Blood Pressure Position [Right Arm] 02 Sat by Pulse Oximetry 97 99 96 Oxygen Delivery Method Room Air 07/07/25 08:15 07/07/25 08:40 Temperature 98.2 F Temperature Source Pulse Rate 102 H 91 H Pulse Rate [Left] Respiratory Rate 14 Blood Pressure 101/59 L 104/56 L Blood Pressure [Right Arm] Blood Pressure Mean [Right Arm] Blood Pressure Source Blood Pressure Source [Right Arm] Blood Pressure Position Blood Pressure Position [Right Arm] 02 Sat by Pulse Oximetry 99 Oxygen Delivery Method Lab Data Lab Results 07/07/25 06:48: SARS-CoV-2 (PCR) Not detected, Influenza A Untype (PCR) Not detected, Influenza Type B (PCR) Not detected Orders (Tests/Meds): ED MEDICATIONS Discontinued Medications Generic Name Dose Route Start Last Admin Trade Name Freq PRN Reason Stop Dose Admin Acetaminophen 1,000 mg 07/07/25 06:54 07/07/25 07:01 Acetaminophen 500mg Tab PO 07/07/25 06:55 1,000 mg ONCE ONE Administration Albuterol/Ipratropium 9 ml 07/07/25 06:48 07/07/25 07:02 Ipratropium/Albuterol 3 Ml Neb IH 07/07/25 06:49 9 ml ONCE ONE Administration ORDERS Category Date Time Status CXR 2 view (NOT portable) [XR chest 2V] Stat Exams 07/07/25 06:48 Completed Rapid PCR Covid and Flu A/B Stat Lab 07/07/25 06:48 Completed Medical Decision Narrative: In summary, this 45-year-old female presents to the emergency department today with cough, congestion, sore throat, headache. On initial evaluation patient is hemodynamically stable, afebrile, saturating well on room air, she has end-ex piratory wheezes but no respiratory distress, no other adventitious sounds, oropharynx normal with no tonsillomegaly, no exudates, no lymphadenopathy appreciated, remainder of exam unremarkable. Differential diagnosis includes but is not limited to viral syndrome, bronchitis, pneumonia, considered asthma exacerbation but patient only has mild end expiratory wheeze saturating well on room air with no increased respiratory rate or work of breathing. Based on these concerns, I ordered chest x-ray, viral swab. Patient is receiving DuoNebs for wheezing and Tylenol for generalized bodyaches and headache. Patient handed off to Dr. Joy in stable condition pending viral swab and chest x-ray. I, Quentin Joy took over care of this patient at 7 AM on 07/07/2025. On my initial assessment the patient was still moderately short of breath with wheezing bilaterally though she reported some symptomatic improvement from albuterol nebulization. Chest x-ray personally interpreted by me showed bilateral opacities concerning for atypical pneumonia. Given the patient's long smoking history I feel it is very likely she carries an unknown diagnosis of COPD. Given the increased risk of progression to more serious illness I chose to treat the patient for both COPD exacerbation and community-acquired pneumonia. I prescribed the patient steroids, antibiotics, and instructed her to increase the use of her albuterol inhaler until symptoms had improved. She was comfortable with this plan and hemodynamically stable on room air and so both parties were agreeable to discharge. Critical Care <Jaun Juarez MD - Last Filed: 07/07/25 07:04> Critical Care Time Critical Care Time: No
[2025-07-07 06:53] LABS: Coronavirus 19, PCR Not Detected (NotDetected); Influenza A, PCR Not Detected (NotDetected); Influenza B, PCR Not Detected (NotDetected)
[2025-07-07] MEDS: ACETAMINOPHEN 500MG TAB 1000 MG PO (07:01)
[2025-07-07] MEDS: IPRATROPIUM/ALBUTEROL 3 ML NEB 9 ML IH (07:02)
--- OUTSIDE RECORDS SUMMARY | 2025-07-07 07:02 | XMS_ITS | Clinical Summary ---
Author Organization [facility] Address [facility] [place] [address] Phone Care Team Providers Care Engineering Documentation Specialist Name Role Phone Amelia Canchola CNP Unavailable [phone] Conditions or Problems No information available. Medications No information available. Medications Administered No information available. Allergies, Adverse Reactions, Alerts No information available. Results No information available. Plan of Care No information available. Procedures No information available. Vital Signs No information available. Immunizations No information available. Advance Directives No information available.
--- OUTSIDE RECORDS SUMMARY | 2025-07-07 07:02 | XMS_ITS | Clinical Summary ---
Author Organization [facility] Address [address] [place] [address] Phone Care Team Providers Care International Logistics Manager Name Role Phone Unavailable Primary Care Provider [...] different from the original. No controlleds from [place] SEP Problem Noted Date Diagnosed Date Hepatitis [...] Colonography 2023 COVID-19 Vaccine (2023-2 5 season) 2025 Influenza Vaccine (#1) 2025 Meningococcal B Vaccine Aged Out No l onger eligible based on patient's age to complete this topic Procedures Procedure Name Priority Date/Time Associated Diagnosis Comments MM MAMMO DIGITAL DIAGNOSTIC W CAD BILAT Routine 02/13/2013 9:02 AM EDT Breast pain CHECK WRITING MACHINE OPERATOR CYTOLOGY REPORT Routine 01/26/2010 4 :49 AM EDT from Last 3 Months or Most Recently Relevant to Health Maintenance Results * MM MAMMO DIGITAL DIAGNOSTIC W CAD BILAT (02/13/2013 9:02 AM EDT) Anatomical Region Laterality Modality Breast Bilateral Mammography 02/13/2013 10:3 6 AM EDT Impressions 02/13/2013 4:21 PM EDT : Incomplete-need additional imaging evaluation ([id number]-Yejylhci-1) ~ RECOMMENDATION: Ultrasound of the left breast,this [...] densities. ~ IMPRESSION: Incomplete-need additional imaging evaluation (JPK-Jobiysrh-0) ~ RECOMMENDATION: Ultrasound of the left breast,this [...] IM MAMMOGRAPHY ORDERABLES Fin al Result * CHECK WRITING MACHINE OPERATOR CYTOLOGY REPORT (01/26/2010 4:49 AM EDT) Metallic Yarn Slitting Machine Operator Cytology Report PATIENT NAME:MYLES MONK Metallic Yarn Slitting Machine Operator Cytology Report Accession Number Collected Date/Time Received Date/Time [id number] 01/26/10 04:49 EDT 01/27/10 04:49 EDT GY [...] before definitive therapy. Processed using the ThinPrep Engineer Systems automated cytology screening device (Snaapiq). Geneticist : RANDI SUBRAMANIAN 02/08/2010 Completed by: Yanet Winters MD, PhD (Electronically signed by) 02/08/2010 [facility] Laboratory [facility] 01/26/2010 4:49 AM EDT us Rogers Trevizo MD PATHOLOGY ORDERABLES Final Res ult [facility] 1 [place] [address] from Last 3 Months or Most Recently Relevant to Health Maintenance Insurance [place] [address] MEDICAID [place] Member Subscriber Plan / Payer (Ef fective 2014-Present) Name:Myles Monk Relation to Subscriber:Self Name:Myles Monk Payer ID:Not on file Group ID:Not on file Type:Not on file Address: [address] [place] [id number] [place] [address] MEDICARE [place] PART A AND B
--- OUTSIDE RECORDS SUMMARY | 2025-07-07 07:02 | XMS_ITS | Clinical Summary ---
Author Organization [facility] are Address [address] [place] [address] Phone Care Team Providers Care Talent Acquisition Partner Name Role Phone Unavailable Unavailable Conditions or Problems No information available. Medications No information available. Medications Administered No information available. Allergies, Adverse Reactions, Alerts No information available. Results No information available. Plan of Care No information available. Procedures No information available. Vital Signs No information available. Immunizations No information available. Advance Directives No information available.
--- OUTSIDE RECORDS SUMMARY | 2025-07-07 07:02 | XMS_ITS | Patient Health Record ---
Author Organization [address] [place] [address] SURGICAL Address [address] [facility] [address] [place], [place] [address] Care Team Providers Care Power House Engineer Name Role Phone ANJALI Musa Unavailable [phone] Reason For Referral No Information Plan Of Treatment No Information
--- OUTSIDE RECORDS SUMMARY | 2025-07-07 07:03 | XMS_ITS | Encounter Summary ---
Author Organization Healthcare Address [address] [place] [address] Care Team Providers Care Sap Hana Architect Name Role Phone Pablo Delgado MD Primary Care Provider + [phone] Encounter Details Date Type Department Care Team (Late st Contact Info) Description 06/18/2021 Lab Requisition DSB Oral Pathology [address] [place] [address] Jerry Arana, DMD [address] [place] [phone] Benign neoplasm of lip Social History Tobacco [...] chronic inflammatory cells. 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 06/22/2021 10:33 AM EDT [facility] ORAL PATHOLOGY at 1033 EDT Case Report Oral Pathology Case: [id number] Authorizing Provider: Jerry Arana DMD Collected: 06/10/2021 Ordering Location: [facility] ORAL PATHOLOGY Received: 06/18/2021912 Pathologist: Francine Mckoy DDS Specimen: Upper Lip 06/22/2021 10:33 AM EDT [facility] ORAL PATHOLOGY Tissue Upper lip structure / Unknown 06/10/2021 06/18/2021 9:13 AM EDT Jerry Arana DMD LAB PATHOLOGY ORDERABLES Final Result Performing Organization Address City/State/[facility] Co de Phone Number [facility] DENTIST[facility] ORAL PATHOLOGY [address] [facility] [place] [address] documented in this encounter Visit Diagnoses Diagnosis Benign neoplasm of lip documented in this encounter Care Teams Sap Hana Architect Relationship Specialty Start Date End Date Pablo Delgado MD [address] [place] [address] PCP - General 02/26/21 documented as of this encounter
--- OUTSIDE RECORDS SUMMARY | 2025-07-07 07:03 | XMS_ITS | Clinical Summary ---
Author Organization Healthcare Address [address] [place] [address] Care Team Providers Care Coagulating Drying Supervisor Name Role Phone Pablo Delgado MD Primary Care Provider + [phone] Family History Medical History Relation Name Comments [...] Date Last Done Comments [facility]-Depression Screening 1978 [facility]-/Child/Adol SDOH Screenings 1978 [facility]- SDOH Screenings 1996 [facility]-Adult SDOH Screenings 1996 [facility]-DTaP,Tdap,and Td Vaccine s (1 - Tdap) 1997 [facility]-Hepatitis B Vaccines (1 of 3 - 19+ 3-dose series) 1997 [facility]-Pap Smear 1999 [facility]-Cervical Cancer Screening 2008 [facility]-HPV/Cotest 2008 CT Colonography 2023 Colonoscopy 2023 FIT-DNA 2023 FIT 2023 FOBT 2023 Sigmoidoscopy 2023 [facility]-Colorectal Cancer Screening 2023 [id number]-04 Vaccine ( season) 2025 08/06/2021, 07/09/2021 [facility]-Influenza Vaccine (#1) 2025 09/03/2018 [...] complete this topic Insurance [place] [address] Care Teams Coagulating Drying Supervisor Relationship Specialty Start Date End Date Pablo Delgado MD [address] [place] [address] PCP - General 02/26/21
== END 2025-07-07 08:42 | disposition home or self-care (01) ==
PROVIDERS: Emergency Provider Emergency Medicine; PCP Family Medicine
DX: J18.9 Pneumonia, unspecified organism (principal); R06.2 Wheezing; R06.02 Shortness of breath; R07.0 Pain in throat; F17.210 Nicotine dependence, cigarettes, uncomplicated
CPT/HCPCS: 71046; 87636; 99283; 99284

== ENCOUNTER 2025-07-07 09:48 | Outpatient (CLI) | payer MEDICARE, MEDICAID, SELFPAY ==
--- NOTE | 2025-07-07 14:19 | XR_ITS ---
FINAL REPORT CLINICAL HISTORY: neck pain FINDINGS: AP, lateral and odontoid views of the cervical spine were obtained. There is no prior exam for comparison. There is no acute fracture or malalignment. Vertebral body height is preserved. There is mild degenerative disc disease, most pronounced at C4-5. The precervical soft tissues are normal. IMPRESSION: No acute osseous abnormality of the cervical spine. Reviewed, Interpreted and Dictated by Tamiko Mesa MD Transcribed by Holly Valencia Authenticated and [facility]
--- NOTE | 2025-07-07 14:19 | XR_ITS ---
FINAL REPORT CLINICAL HISTORY: mid back pain FINDINGS: AP and lateral views of the thoracic spine were obtained. There is no prior exam for comparison. There is no acute fracture or acute malalignment. Vertebral body height is preserved. There is mild degenerative disc disease. No acute paraspinal abnormality. IMPRESSION: No acute osseous abnormality of the thoracic spine. Reviewed, Interpreted and Dictated by Tamiko Mesa MD Transcribed by Holly Valencia Authenticated and [facility]
--- NOTE | 2025-07-07 14:19 | XR_ITS ---
FINAL REPORT CLINICAL HISTORY: low back pain FINDINGS: LUMBAR SPINE AP and lateral views were obtained. There is no acute fracture or malalignment. There is mild degenerative disc disease, most pronounced at L4-5. Vertebrae are normal height. Prevertebral soft tissues are unremarkable. IMPRESSION: No acute bony abnormality. Reviewed, Interpreted and Dictated by Tamiko Mesa MD Transcribed by Holly Valencia Authenticated and . [facility]
--- NOTE | 2025-07-07 15:30 | MM_ITS ---
PROCEDURE INFORMATION: Exam: MG Bilateral Screening 3D Mammography Exam date and time: 07/07/2025 3:09 PM Age: 45 years old Clinical indication: Screening exam. TECHNIQUE: Imaging protocol: Bilateral Screening tomosynthesis and 2D mammography including computer-aided detection (CAD) when performed. COMPARISON: 1. MG MM DIG SCREENING MAMM BI W/CAD 11/16/2023 2:49 PM 2. MG MM DIG SCREENING MAMM BI W/CAD 08/03/2021 3:57 PM FINDINGS: MAMMOGRAPHY: Breast composition: The breasts are almost entirely fatty. Mass: No suspicious masses. Architectural distortion: None. Calcifications: No suspicious calcifications. Asymmetric density: None. Skin thickening: None. Axillary adenopathy: None. IMPRESSION: No mammographic evidence of malignancy. Annual screening is recommended unless otherwise clinically indicated. ASSESSMENT: BI-RADS Category 1: Negative.
== END 2025-07-07 23:59 | disposition home or self-care (01) ==
PROVIDERS: PCP Nurse Practitioner Family; Visit Provider Family Medicine
DX: Z12.31 Encounter for screening mammogram for malignant neoplasm of breast (principal); M54.50 Low back pain, unspecified; M54.6 Pain in thoracic spine; M54.2 Cervicalgia; B35.1 Tinea unguium; R92.313 Mammographic fatty tissue density, bilateral breasts
CPT/HCPCS: 72040; 72070; 72100; 77063; 77067; 87101; 87220

== ENCOUNTER 2025-07-07 10:50 | Outpatient (CLI) | payer MEDICARE, MEDICAID, SELFPAY ==
--- OUTSIDE RECORDS SUMMARY | 2025-07-08 14:38 | XMS_ITS | Clinical Summary ---
Author Organization [facility] Address [facility] [place] [address] Phone Care Team Providers Care Lard Maker Name Role Phone Amelia Canchola CNP Unavailable [phone] Conditions or Problems No information available. Medications No information available. Medications Administered No information available. Allergies, Adverse Reactions, Alerts No information available. Results No information available. Plan of Care No information available. Procedures No information available. Vital Signs No information available. Immunizations No information available. Advance Directives No information available.
--- OUTSIDE RECORDS SUMMARY | 2025-07-08 14:38 | XMS_ITS | Patient Health Record ---
Author Organization [address] [place] [address] SURGICAL Address [address] [facility] [address] [place], [place] [id number] Care Team Providers Care Tallow Refiner Name Role Phone ANJALI Musa Unavailable [phone] Reason For Referral No Information Plan Of Treatment No Information
--- OUTSIDE RECORDS SUMMARY | 2025-07-08 14:38 | XMS_ITS | Clinical Summary ---
Author Organization [facility] are Address [address] [place] [address] Phone Care Team Providers Care Truck Crane Operator Helper Name Role Phone Unavailable Unavailable Conditions or Problems No information available. Medications No information available. Medications Administered No information available. Allergies, Adverse Reactions, Alerts No information available. Results No information available. Plan of Care No information available. Procedures No information available. Vital Signs No information available. Immunizations No information available. Advance Directives No information available.
--- OUTSIDE RECORDS SUMMARY | 2025-07-08 14:39 | XMS_ITS | Clinical Summary ---
Author Organization Healthcare Address [address] [place] [address] Care Team Providers Care Manager Of Organizational Development Name Role Phone Pablo Delgado MD Primary Care Provider + [phone] Family History Medical History Relation Name Comments [...] 2023 Sigmoidoscopy 2023 [facility]-Colorectal Cancer Screening 2023 [id number] Vaccine ( season) 2025 08/06/2021, 07/09/2021 [facility]-Influenza [...] topic Insurance [place] Care Teams Manager Of Organizational Development Relationship Specialty Start Date End Date Pablo Delgado MD [address] [place] [address] PCP - General 02/26/21
--- OUTSIDE RECORDS SUMMARY | 2025-07-08 14:39 | XMS_ITS | Clinical Summary ---
Author Organization [facility] Address [address] [place] [address] Phone Care Team Providers Care Forge Operator Helper Name Role Phone Unavailable Primary Care Provider [...] different from the original. No controlleds from [place] SEP Problem Noted Date Diagnosed Date Hepatitis [...] Routine 02/13/2013 9:02 AM EDT Breast pain COOKER LOADER CYTOLOGY REPORT Routine 01/26/2010 4 :49 AM EDT from Last 3 Months or Most Recently Relevant to Health Maintenance Results * MM MAMMO DIGITAL DIAGNOSTIC W CAD BILAT (02/13/2013 9:02 AM EDT) Anatomical Region Laterality Modality Breast Bilateral Mammography 02/13/2013 10:3 6 AM EDT Impressions 02/13/2013 4:21 PM EDT : Incomplete-need additional imaging evaluation ([id number]-[id number]) ~ RECOMMENDATION: Ultrasound of the left breast,this [...] densities. ~ IMPRESSION: Incomplete-need additional imaging evaluation (MOX-[id number]-0) ~ RECOMMENDATION: Ultrasound of the left breast,this [...] IM MAMMOGRAPHY ORDERABLES Fin al Result * COOKER LOADER CYTOLOGY REPORT (01/26/2010 4:49 AM EDT) Breed To Wean Production Technician Cytology Report PATIENT NAME:MYLES MONK Breed To Wean Production Technician Cytology Report Accession Number Collected Date/Time Received Date/Time [id number] 01/26/10 04:49 EDT 01/27/10 04:49 EDT GY [...] before definitive therapy. Processed using the ThinPrep Deburrer automated cytology screening device (Jobbr). Mineral Industry Teacher : RANDI SUBRAMANIAN 02/08/2010 Completed by: Yanet Winters MD, PhD (Electronically signed by) 02/08/2010 [facility] Laboratory [facility] 01/26/2010 4:49 AM EDT us Rogers Trevizo MD PATHOLOGY ORDERABLES Final Res ult [facility] [address] [place] [address] from Last 3 Months or Most Recently Relevant to Health Maintenance Insurance [place] [address] MEDICAID [place] Member Subscriber Plan / Payer (Ef fective 2014-Present) Name:Myles Monk Relation to Subscriber:Self Name:Myles Monk Payer ID:Not on file Group ID:Not on file Type:Not on file Address: [address] [place] [id number] [place] [address] MEDICARE [place] PART A AND B
--- OUTSIDE RECORDS SUMMARY | 2025-07-08 14:39 | XMS_ITS | Encounter Summary ---
Author Organization Healthcare Address [address] [place] [address] Care Team Providers Care Percussion Instructor Name Role Phone Pablo Delgado MD Primary Care Provider + [phone] Encounter Details Date Type Department Care Team (Late st Contact Info) Description 06/18/2021 Lab Requisition DSB Oral Pathology [address] [place] [address] Jerry Arana, DMD [address] [place] [phone] Benign neoplasm of lip Social History Tobacco [...] chronic inflammatory cells. 06/22/2021 10:[address] 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 ORAL PATHOLOGY Received: 06/18/2021912 Pathologist: Francine Mckoy DDS Specimen: Upper Lip 06/22/2021 10:33 AM EDT [facility] ORAL PATHOLOGY Tissue Upper lip structure / Unknown 06/10/2021 06/18/2021 9:13 AM EDT Jerry Arana DMD LAB PATHOLOGY ORDERABLES Final Result Performing Organization Address City/State/[facility] Co de Phone Number [facility] DENTISTRY ORAL PATHOLOGY [address] [facility] [place] [address] documented in this encounter Visit Diagnoses Diagnosis Benign neoplasm of lip documented in this encounter Care Teams Percussion Instructor Relationship Specialty Start Date End Date Pablo Delgado MD [address] [place] [address] PCP - General 02/26/21 documented as of this encounter
== END 2025-07-07 23:59 | disposition home or self-care (01) ==
LOC: LAB.DROPOF 07-08 14:35
PROVIDERS: PCP Podiatrist; Visit Provider Podiatrist
DX: B35.1 Tinea unguium (principal)

== ENCOUNTER 2025-07-09 10:39 | Outpatient (CLI) | payer MEDICARE, MEDICAID, SELFPAY ==
--- OUTSIDE RECORDS SUMMARY | 2025-07-09 10:42 | XMS_ITS | Clinical Summary ---
Author Organization [facility] Address [facility] [place] [address] Phone Care Team Providers Care End User Consultant Name Role Phone Amelia Canchola CNP Unavailable [phone] Conditions or Problems No information available. Medications No information available. Medications Administered No information available. Allergies, Adverse Reactions, Alerts No information available. Results No information available. Plan of Care No information available. Procedures No information available. Vital Signs No information available. Immunizations No information available. Advance Directives No information available.
--- OUTSIDE RECORDS SUMMARY | 2025-07-09 10:42 | XMS_ITS | Clinical Summary ---
Author Organization [facility] are Address [address] [place] [address] Phone Care Team Providers Care Cellophane Worker Name Role Phone Unavailable Unavailable Conditions or Problems No information available. Medications No information available. Medications Administered No information available. Allergies, Adverse Reactions, Alerts No information available. Results No information available. Plan of Care No information available. Procedures No information available. Vital Signs No information available. Immunizations No information available. Advance Directives No information available.
--- OUTSIDE RECORDS SUMMARY | 2025-07-09 10:43 | XMS_ITS | Clinical Summary ---
Author Organization Healthcare Address [address] [place] [address] Care Team Providers Care Supervisor Water Treatment Plant Name Role Phone Pablo Delgado MD Primary Care Provider + [phone] Family History Medical History Relation Name Comments [...] 2023 Sigmoidoscopy 2023 [facility]-Colorectal Cancer Screening 2023 [id number] Vaccine ( season) 2025 08/06/2021, 07/09/2021 [facility]-Influenza [...] topic Insurance [place] MEDICARE Care Teams Supervisor Water Treatment Plant Relationship Specialty Start Date End Date Pablo Delgado MD [address] [place] [address] PCP - General 02/26/21
--- OUTSIDE RECORDS SUMMARY | 2025-07-09 10:43 | XMS_ITS | Encounter Summary ---
Author Organization Healthcare Address [address] [place] [address] Care Team Providers Care Executive Assistant Name Role Phone Pablo Delgado MD Primary Care Provider + [phone] Encounter Details Date Type Department Care Team (Late st Contact Info) Description 06/18/2021 Lab Requisition DSB Oral Pathology [address] [place] [address] Jerry Arana, DMD [address] [place] [phone] Benign neoplasm of lip Social History Tobacco [...] chronic inflammatory cells. 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 06/22/2021 10:33 AM EDT [facility] ORAL PATHOLOGY at 1033 EDT Case Report Oral Pathology Case: [id number] Authorizing Provider: Jerry Arana DMD Collected: 06/10/2021 Ordering Location: [facility] ORAL PATHOLOGY Received: 06/18/2021912 Pathologist: Francine Mckoy DDS Specimen: Upper Lip 06/22/2021 10:33 AM EDT [facility] ORAL PATHOLOGY Tissue Upper lip structure / Unknown 06/10/2021 06/18/2021 9:13 AM EDT Jerry Arana DMD LAB PATHOLOGY ORDERABLES Final Result Performing Organization Address City/State/[facility] Co de Phone Number [facility] DENTISTRY ORAL PATHOLOGY [address] [facility] [place] [address] documented in this encounter Visit Diagnoses Diagnosis Benign neoplasm of lip documented in this encounter Care Teams Executive Assistant Relationship Specialty Start Date End Date Pablo Delgado MD [address] [place] [address] PCP - General 02/26/21 documented as of this encounter
--- OUTSIDE RECORDS SUMMARY | 2025-07-09 10:43 | XMS_ITS | Clinical Summary ---
Author Organization [facility] [facility] Address [address] [place] [address] Phone Care Team Providers Care Work Force Advisor Name Role Phone Unavailable Primary Care Provider [...] different from the original. No controlleds from [place] SEP Problem Noted Date Diagnosed Date Hepatitis [...] Routine 02/13/2013 9:02 AM EDT Breast pain LINING LAYER CYTOLOGY REPORT Routine 01/26/2010 4 :49 AM EDT from Last 3 Months or Most Recently Relevant to Health Maintenance Results * MM MAMMO DIGITAL DIAGNOSTIC W CAD BILAT (02/13/2013 9:02 AM EDT) Anatomical Region Laterality Modality Breast Bilateral Mammography 02/13/2013 10:3 6 AM EDT Impressions 02/13/2013 4:21 PM EDT : Incomplete-need additional imaging evaluation (PUG-Juvayort-7) ~ RECOMMENDATION: Ultrasound of the left breast,this [...] densities. ~ IMPRESSION: Incomplete-need additional imaging evaluation (VXA-[id number]-9) ~ RECOMMENDATION: Ultrasound of the left breast,this [...] IM MAMMOGRAPHY ORDERABLES Fin al Result * LINING LAYER CYTOLOGY REPORT (01/26/2010 4:49 AM EDT) Mental Health Aide Cytology Report PATIENT NAME:MYLES MONK Mental Health Aide Cytology Report Accession Number Collected Date/Time Received Date/Time [id number] 01/26/10 04:49 EDT 01/27/10 04:49 EDT GY [...] before definitive therapy. Processed using the ThinPrep Stator Plate Washer automated cytology screening device (Landscape Mobile). Lockstitch Zipper Setter : RANDI SUBRAMANIAN 02/08/2010 Completed by: Yanet Winters MD, PhD (Electronically signed by) 02/08/[address] [facility] [address] [facility] 01/26/2010 4:49 AM EDT us Rogers Trevizo MD PATHOLOGY ORDERABLES Final Res ult [facility] [address] [place] [address] from Last 3 Months or Most Recently Relevant to Health Maintenance Insurance [place] [address] MEDICAID [place] Member Subscriber Plan / Payer (Ef fective 2014-Present) Name:Myles Monk Relation to Subscriber:Self Name:Myles Monk Payer ID:Not on file Group ID:Not on file Type:Not on file Address: [address] [place] [id number] [place] [address] MEDICARE [place] PART A AND B
[2025-07-09 12:04] LABS: Hematocrit 37.4 % (37.0-47.0); Hemoglobin 12.5 g/dL (12.2-16.2); Immature Granulocytes % 0.8 %; Mean Corpuscular HGB Conc 33.4 g/dL (31.8-35.4); Mean Corpuscular Hemoglobin 31.0 pg (27.0-31.2); Mean Corpuscular Volume 92.8 fl (81-99); Nucleated Red Blood Cells % 0 %; Platelet Count 165 K/mm3 (142-424); Red Blood Count 4.03 M/mm3 (4.20-5.40); Red Cell Distribution Width-SD 46.7 fL; White Blood Count 16.8 K/mm3 (4.8-10.8)
[2025-07-09 12:33] LABS: Albumin Level 4.1 g/dl (3.5-5.0); Chloride 101 mmol/L (98-107); Potassium 4.0 mmoL/L (3.5-5.1); Sodium 139 mmol/L (136-145)
[2025-07-09 12:35] LABS: Blood Urea Nitrogen 20 mg/dl (7-17); Creatinine,Serum 1.00 mg/dl (0.52-1.04); Estimated Glomerular Filt Rate 59 ml/min (>60); GFR (African American) 72 ML/MIN (>60)
[2025-07-09 12:36] LABS: Alanine Aminotransferase 25 U/L (12-78); Alkaline Phosphatase 110 U/L (38-126); Anion Gap 15.0 mEq/L (5-15); Aspartate Amino Transferase 25 U/L (14-36); Bilirubin,Direct 0.1 mg/dl (0.0-0.4); Bilirubin,Indirect 0.4 mg/dL (0.0-0.9); Bilirubin,Total 0.5 mg/dl (0.2-1.3); Bilirubin,Unconjugated 0.4 mg/dL (0.0-1.1); Calcium 9.4 mg/dl (8.4-10.2); Carbon Dioxide 27 mmol/L (22.0-30.0); Cholesterol 135 mg/dl (140-200); Glucose 91 mg/dl (74-100); Magnesium 1.8 mg/dl (1.6-2.3); Total Protein,Serum 6.7 g/dl (6.3-8.2); Triglycerides 182 mg/dl (30-150)
[2025-07-09 12:37] LABS: HDL Cholesterol 29 mg/dl (40-60)
[2025-07-09 12:46] LABS: NT Pro Brain Natriuretic Pep. 201 pg/mL (0-125)
[2025-07-09 12:54] LABS: Free T4 (Free Thyroxine) 1.11 ng/dl (0.78-2.19)
[2025-07-09 13:08] LABS: Thyroid Stimulating Hormone 3.57 uIU/mL (0.465-4.68)
== END 2025-07-09 23:59 | disposition home or self-care (01) ==
LOC: LAB 10:40
PROVIDERS: PCP Family Medicine; Visit Provider Nurse Practitioner Family
DX: I20.89 Other forms of angina pectoris (principal); R00.2 Palpitations; R60.9 Edema, unspecified; I11.0 Hypertensive heart disease with heart failure; I50.30 Unspecified diastolic (congestive) heart failure
CPT/HCPCS: 36415; 80048; 80061; 80076; 83735; 83880; 84439; 84443; 85025

== ENCOUNTER 2025-07-11 08:15 | Outpatient (CLI) | payer MEDICARE, MEDICAID, SELFPAY ==
--- NOTE | 2025-07-11 08:00 | US_ITS ---
FINAL REPORT CLINICAL HISTORY: Evaluation for Symptoms involving Circulatory symptoms, Smoker, Claudication FINDINGS: ANKLE-BRACHIAL PRESSURE INDICES Pressure indices are as follows: RIGHT LOWER EXTREMITY: Ankle-brachial pressure index: 1.12 Comments: Normal LEFT LOWER EXTREMITY: Ankle-brachial pressure index: 1.03 Comments: Normal IMPRESSION: No evidence of significant obstructive peripheral vascular disease of the lower extremities Reviewed, Interpreted and Dictated by Tamiko Mesa MD Transcribed by Kinza Mckoy Authenticated and [facility]
--- OUTSIDE RECORDS SUMMARY | 2025-07-11 08:54 | XMS_ITS | Clinical Summary ---
Author Organization [facility] are Address [address] [place] [address] Phone Care Team Providers Care Operations Scheduler Name Role Phone Unavailable Unavailable Conditions or Problems No information available. Medications No information available. Medications Administered No information available. Allergies, Adverse Reactions, Alerts No information available. Results No information available. Plan of Care No information available. Procedures No information available. Vital Signs No information available. Immunizations No information available. Advance Directives No information available.
--- OUTSIDE RECORDS SUMMARY | 2025-07-11 08:55 | XMS_ITS | Patient Health Record ---
Author Organization [address] [place] [address] SURGICAL Address [address] [facility] [address] [place], [place] [address] Care Team Providers Care Entry Level Machine Operator Name Role Phone ANJALI Musa Unavailable [phone] Reason For Referral No Information Plan Of Treatment No Information
--- OUTSIDE RECORDS SUMMARY | 2025-07-11 08:55 | XMS_ITS | Encounter Summary ---
Author Organization Healthcare Address [address] [place] [address] Care Team Providers Care Supervisor Operations Name Role Phone Pablo Delgado MD Primary Care Provider + [phone] Encounter Details Date Type Department Care Team (Late st Contact Info) Description 06/18/2021 Lab Requisition [facility] Oral Pathology [address] [place] [address] Jerry Arana, DMD [address] [place] [phone] Benign neoplasm of lip Social History Tobacco [...] inflammatory cells. 06/22/2021 10:[address] 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 06/22/2021 10:33 AM EDT [facility] ORAL PATHOLOGY at 1033 EDT Case Report Oral Pathology Case: [id number] Authorizing Provider: Jerry Arana DMD Collected: 06/10/2021 Ordering Location: [facility] ORAL PATHOLOGY Received: 06/18/2021912 Pathologist: Francine Mckoy DDS Specimen: Upper Lip 06/22/2021 10:33 AM EDT [facility] ORAL PATHOLOGY Tissue Upper lip structure / Unknown 06/10/2021 06/18/2021 9:13 AM EDT Jerry Arana DMD LAB PATHOLOGY ORDERABLES Final Result Performing Organization Address City/State/[facility] Co de Phone Number [facility] DENTISTRY ORAL PATHOLOGY [address] [facility] [place] [place] [address] documented in this encounter Visit Diagnoses Diagnosis Benign neoplasm of lip documented in this encounter Care Teams Supervisor Operations Relationship Specialty Start Date End Date Pablo Delgado MD [address] [place] [address] PCP - General 02/26/21 documented as of this encounter
--- OUTSIDE RECORDS SUMMARY | 2025-07-11 08:55 | XMS_ITS | Clinical Summary ---
Author Organization Healthcare Address [address] [place] [address] Care Team Providers Care Development Mechanic Name Role Phone Pablo Delgado MD Primary Care Provider + [phone] Family History Medical History Relation Name Comments [...] 2023 Sigmoidoscopy 2023 [facility]-Colorectal Cancer Screening 2023 [id number] Vaccine ( season) 2025 08/06/2021, 07/09/2021 [facility]-Influenza [...] complete this topic Insurance [place] [address] Care Teams Development Mechanic Relationship Specialty Start Date End Date Pablo Delgado MD [address] [place] [address] PCP - General 02/26/21
--- OUTSIDE RECORDS SUMMARY | 2025-07-11 08:55 | XMS_ITS | Clinical Summary ---
Author Organization [facility] Address [address] [place] [address] Phone Care Team Providers Care Computer Network Specialist Name Role Phone Unavailable Primary Care Provider [...] different from the original. No controlleds from [place] SEP Problem Noted Date Diagnosed Date Hepatitis [...] Routine 02/13/2013 9:02 AM EDT Breast pain WELDING FOREMAN CYTOLOGY REPORT Routine 01/26/2010 4 :49 AM EDT from Last 3 Months or Most Recently Relevant to Health Maintenance Results * MM MAMMO DIGITAL DIAGNOSTIC W CAD BILAT (02/13/2013 9:02 AM EDT) Anatomical Region Laterality Modality Breast Bilateral Mammography 02/13/2013 10:3 6 AM EDT Impressions 02/13/2013 4:21 PM EDT : Incomplete-need additional imaging evaluation ([id number]-0) ~ RECOMMENDATION: Ultrasound of the left breast,this [...] densities. ~ IMPRESSION: Incomplete-need additional imaging evaluation (DDQ-[id number]-5) ~ RECOMMENDATION: Ultrasound of the left breast,this [...] IM MAMMOGRAPHY ORDERABLES Fin al Result * WELDING FOREMAN CYTOLOGY REPORT (01/26/2010 4:49 AM EDT) Chemical Dependency Therapist Cytology Report PATIENT NAME:MYLES MONK Chemical Dependency Therapist Cytology Report Accession Number Collected Date/Time Received Date/Time [id number] 01/26/10 04:49 EDT 01/27/10 04:49 EDT GY [...] before definitive therapy. Processed using the ThinPrep [employer] Specialist automated cytology screening device ([employer]). Manager Rn : RANDI SUBRAMANIAN 02/08/2010 Completed by: Yanet Winters MD, PhD (Electronically signed by) 02/08/2010 [facility] Laboratory [facility] 01/26/2010 4:49 AM EDT us Rogers Trevizo MD PATHOLOGY ORDERABLES Final Res ult [facility] [address] [place] [address] from Last 3 Months or Most Recently Relevant to Health Maintenance Insurance [place] [address] MEDICAID [place] Member Subscriber Plan / Payer (Ef fective 2014-Present) Name:Myles Monk Relation to Subscriber:Self Name:Myles Monk Payer ID:Not on file Group ID:Not on file Type:Not on file Address: [address] [place] [id number] [address] [place] [address] MEDICARE [place] PART A AND B
== END 2025-07-11 23:59 | disposition home or self-care (01) ==
LOC: RT 08:15
PROVIDERS: PCP Family Medicine; Visit Provider Podiatrist
DX: I73.9 Peripheral vascular disease, unspecified (principal); F17.200 Nicotine dependence, unspecified, uncomplicated; R09.89 Other specified symptoms and signs involving the circulatory and respiratory systems
CPT/HCPCS: 93923

== ENCOUNTER 2025-07-11 15:31 | Emergency (ER) | payer MEDICARE, MEDICAID, SELFPAY ==
--- OUTSIDE RECORDS SUMMARY | 2025-07-11 15:41 | XMS_ITS | Clinical Summary ---
Author Organization [facility] are Address [address] [place] [id number] Phone Care Team Providers Care Slab Lifting Engineer Name Role Phone Unavailable Unavailable Conditions or Problems No information available. Medications No information available. Medications Administered No information available. Allergies, Adverse Reactions, Alerts No information available. Results No information available. Plan of Care No information available. Procedures No information available. Vital Signs No information available. Immunizations No information available. Advance Directives No information available.
[2025-07-11 15:42] VITALS: BP 139/71; PULSE 93; RESP 20; TEMP 36.8; O2SAT 96; BMI 53.1
--- OUTSIDE RECORDS SUMMARY | 2025-07-11 15:42 | XMS_ITS | Encounter Summary ---
Author Organization Healthcare Address [address] [place] [address] Care Team Providers Care Ball Shagger Name Role Phone Pablo Delgado MD Primary Care Provider + [phone] Encounter Details Date Type Department Care Team (Late st Contact Info) Description 06/18/2021 Lab Requisition [facility] Oral Pathology [address] [place] [address] Jerry Arana, DMD [address] [place] [phone] Benign neoplasm of lip Social History Tobacco [...] chronic inflammatory cells. 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 ORAL PATHOLOGY Received: 06/18/2021912 Pathologist: Francine Mckoy DDS Specimen: Upper Lip 06/22/2021 10:33 AM EDT [facility] ORAL PATHOLOGY Tissue Upper lip structure / Unknown 06/10/2021 06/18/2021 9:13 AM EDT Jerry Arana DMD LAB PATHOLOGY ORDERABLES Final Result Performing Organization Address City/State/[facility] Co de Phone Number [facility] DENTISTRY ORAL PATHOLOGY [address] [place] [address] documented in this encounter Visit Diagnoses Diagnosis Benign neoplasm of lip documented in this encounter Care Teams Ball Shagger Relationship Specialty Start Date End Date Pablo Delgado MD [address] [place] [address] PCP - General 02/26/21 documented as of this encounter
--- OUTSIDE RECORDS SUMMARY | 2025-07-11 15:42 | XMS_ITS | Clinical Summary ---
Author Organization Healthcare Address [address] [place] [address] Care Team Providers Care Automobile Wrecker Name Role Phone Pablo Delgado MD Primary Care Provider + [phone] Family History Medical History Relation Name Comments [...] 2023 Sigmoidoscopy 2023 [facility]-Colorectal Cancer Screening 2023 [id number] Vaccine ( season) 2025 08/06/2021, 07/09/2021 [facility]-Influenza [...] topic Insurance [place] MEDIC[place] Care Teams Automobile Wrecker Relationship Specialty Start Date End Date Pablo Delgado MD [address] [place] [address] PCP - General 02/26/21
--- OUTSIDE RECORDS SUMMARY | 2025-07-11 15:42 | XMS_ITS | Clinical Summary ---
Author Organization [facility] Address [address] [place] [address] Phone Care Team Providers Care Machine Folder Name Role Phone Unavailable Primary Care Provider [...] different from the original. No controlleds from [place] SEP Problem Noted Date Diagnosed Date Hepatitis [...] Routine 02/13/2013 9:02 AM EDT Breast pain DENTAL CREAM MAKER CYTOLOGY REPORT Routine 01/26/2010 4 :49 AM EDT from Last 3 Months or Most Recently Relevant to Health Maintenance Results * MM MAMMO DIGITAL DIAGNOSTIC W CAD BILAT (02/13/2013 9:02 AM EDT) Anatomical Region Laterality Modality Breast Bilateral Mammography 02/13/2013 10:3 6 AM EDT Impressions 02/13/2013 4:21 PM EDT : Incomplete-need additional imaging evaluation (RPA-Xpjmfioo-4) ~ RECOMMENDATION: Ultrasound of the left breast,this [...] densities. ~ IMPRESSION: Incomplete-need additional imaging evaluation (COC-Yxwfesrv-3) ~ RECOMMENDATION: Ultrasound of the left breast,this [...] IM MAMMOGRAPHY ORDERABLES Fin al Result * DENTAL CREAM MAKER CYTOLOGY REPORT (01/26/2010 4:49 AM EDT) Guest Relation Officer Cytology Report PATIENT NAME:MYLES MONK Guest Relation Officer Cytology Report Accession Number Collected Date/Time Received Date/Time [id number] 01/26/10 04:49 EDT 01/27/10 04:49 EDT GY [...] before definitive therapy. Processed using the ThinPrep [employer] Mechanic automated cytology screening device ([employer]). Tip Finisher : RANDI SUBRAMANIAN 02/08/2010 Completed by: Yanet Winters MD, PhD (Electronically signed by) 02/08/2010 [facility] Laboratory [facility] 01/26/2010 4:49 AM EDT us Rogers Trevizo MD PATHOLOGY ORDERABLES Final Res ult [facility] [address] [place] [address] from Last 3 Months or Most Recently Relevant to Health Maintenance Insurance [place] [address] MEDICAID [place] Member Subscriber Plan / Payer (Ef fective 2014-Present) Name:Myles Monk Relation to Subscriber:Self Name:Myles Monk Payer ID:Not on file Group ID:Not on file Type:Not on file Address: [address] [place] [id number] [address] [place] [address] MEDICARE [place] PART A AND B
--- NOTE | 2025-07-11 15:53 | HMH.EDGENADL ---
Discharge Plan Disposition Patient Disposition: Home, Self-Care Condition: Good Prescriptions Prescriptions: No Action aripiprazole 10 mg tablet 10 mg PO DAILY Qty: 90 3RF spironolactone [Aldactone] 25 mg tablet 25 mg PO DAILY Qty: 30 2RF torsemide 100 mg tablet 50 mg PO DAILY Qty: 30 5RF fluticasone propionate [Flonase Allergy Relief] 50 mcg/actuation spray,suspension 2 spray intranasal DAILY 90 Days Qty: 16 2RF Rx Instructions: administer into each nostril levocetirizine 5 mg tablet See Rx Instructions .ROUTE .COMPLEX Qty: 120 4RF Dose Instruction: TAKE ONE TABLET BY MOUTH EVERY DAY Rx Instructions: TAKE ONE TABLET BY MOUTH EVERY DAY bisoprolol fumarate 5 mg tablet See Rx Instructions .ROUTE .COMPLEX Qty: 90 1RF Dose Instruction: TAKE ONE TABLET BY MOUTH EVERY DAY Rx Instructions: TAKE ONE TABLET BY MOUTH EVERY DAY levothyroxine 25 mcg tablet See Rx Instructions .ROUTE .COMPLEX Qty: 90 1RF Dose Instruction: TAKE ONE TABLET BY MOUTH EVERY DAY Rx Instructions: TAKE ONE TABLET BY MOUTH EVERY DAY budesonide-formoterol 160-4.5 mcg/actuation HFA aerosol inhaler See Rx Instructions .ROUTE .COMPLEX Qty: 10.2 2RF Dose Instruction: INHALE TWO PUFFS BY MOUTH TWICE DAILY Rx Instructions: INHALE TWO PUFFS BY MOUTH TWICE DAILY potassium chloride 10 mEq capsule, extended release See Rx Instructions .ROUTE .COMPLEX Qty: 30 5RF Dose Instruction: TAKE ONE CAPSULE BY MOUTH EVERY DAY Rx Instructions: TAKE ONE CAPSULE BY MOUTH EVERY DAY pregabalin [Lyrica] 150 mg capsule 150 mg PO DAILY Qty: 30 0RF albuterol sulfate [Ventolin HFA] 90 mcg/actuation HFA aerosol inhaler 2 puff inhalation Q6H PRN (Reason: shortness of breath or wheezing) Qty: 6.7 0RF azithromycin [Zithromax Z-Keyur] 250 mg tablet See Rx Instructions .ROUTE .COMPLEX Qty: 6 0RF Rx Instructions: For 250 mg dose pack: take 500 mg today (day 1), then 250 mg for 4 days (days 2-5) amoxicillin-pot clavulanate [Augmentin XR] 1,000-62.5 mg tablet extended release 12 hr 1 tab PO BID 7 Days Qty: 14 0RF prednisone 10 mg tablets,dose pack 10 mg PO DIRECTED Qty: 21 0RF Rx Instructions: see taper instructions Referrals Follow up/Referrals: Nickie Brown APRN [Primary Care Provider, Family Practice] - See instructions Activity Restrictions/Add. Instructions Additional Instructions/Restrictions: To the emergency department if you have another episode similar to today. Otherwise continue your medications as prescribed for your pneumonia. Clinical Impressions Clinical Impression: Syncope Instructions Patient Instructions: DI for Syncope in Adults (Fainting), DI for Syncope in Children (Fainting) Print Language Print Language: Venezuelan Discharge ED Provider: Kelsi Priest General Adult HPI General Chief complaint: Syncope Stated complaint: possible seizure Time Seen by Provider: 07/11/25 15:53 Mode of Arrival: Ambulatory Source of Information: Patient Description of Symptoms (Recalled from ER Triage Doc. by RN): pt reports having a coughing episode earlier and became dizzy and passed out her elderly neighbor described her having seizure like activity but she denies LOC. states she became shakey and weak. pt is completely back to baseline now. currently being treated for PNA History of Present Illness HPI narrative: Room 1: Patient is an otherwise healthy 45-year-old female who presented to the emergency department with a syncopal versus seizure episode. Patient states that if she was sitting on a walker when she had a coughing fit and then passed out. Patient states that she had some shaking before the episode occurred and her neighbor stated that she may have had some seizure like activity. Patient states that she did not have any chest pain, did not have any shortness of breath. Patient states that she is currently being treated for pneumonia and has been coughing a lot. Patient denies any headaches or vision changes. Patient denies any history of seizures. Patient denies any neck pain neck stiffness. Patient denies any abdominal pain nausea vomiting or diarrhea. Patient states that she otherwise feels at her baseline. Has not had any fevers. Related Data Previous Rx's ?Medication ?Instructions ?Recorded aripiprazole 10 mg tablet 10 mg PO DAILY #90 tabs 07/29/24 albuterol sulfate 90 mcg/actuation 2 puff inhalation Q6H PRN 10/03/24 aerosol inhaler (Ventolin HFA) shortness of breath or wheezing #6.7 grams levocetirizine 5 mg tablet See Rx Instructions .Route 12/05/24 .COMPLEX #120 tabs bisoprolol fumarate 5 mg tablet See Rx Instructions .Route 04/02/25 .COMPLEX #90 tabs levothyroxine 25 mcg tablet See Rx Instructions .Route 05/06/25 .COMPLEX #90 tabs budesonide-formoterol HFA 160 See Rx Instructions .Route 05/27/25 mcg-4.5 mcg/actuation aerosol .COMPLEX #10.2 grams inhaler potassium chloride 10 mEq See Rx Instructions .Route 06/02/25 capsule,extended release .COMPLEX #30 caps fluticasone propionate 50 2 spray intranasal DAILY 90 days 06/05/25 mcg/actuation nasal #16 grams spray,suspension (Flonase Allergy Relief) spironolactone 25 mg tablet 25 mg PO DAILY #30 tabs 06/09/25 (Aldactone) torsemide 100 mg tablet 50 mg (1/2 x 100 mg) PO DAILY #30 06/09/25 tabs pregabalin 150 mg capsule (Lyrica) 150 mg PO DAILY #30 caps 06/13/25 amoxicillin-potassium clavulanate 1 tab PO BID 7 days #14 tabs 07/07/25 1,000 mg-62.5 mg tablet,ext.rel 12hr (Augmentin XR) azithromycin 250 mg tablet See Rx Instructions PO .COMPLEX #6 07/07/25 (Zithromax Z-Keyur) tabs prednisone 10 mg tablets in a dose 10 mg PO DIRECTED #21 tabs 07/07/25 pack Allergies Allergy/AdvReac Type Severity Reaction Status Date / Time ibuprofen (IBUPROFEN) Allergy Unknown Hives Verified 07/09/25 10:20 naproxen (NAPROXEN) Allergy Unknown Rash Verified 07/09/25 10:20 [facility] Disclaimer: The information contained in this section may have been updated after the patient was seen, as this information can be updated by other users. Medical History Onychomycosis Acute pancreatitis (HFpEF) heart failure with preserved ejection fraction Pneumonia Asthma exacerbation Asthma exacerbation Atypical pneumonia Fall Norovirus E coli enteritis Compression of intervertebral disc Atypical pneumonia Sinusitis Fall Muscle spasm Witnessed apneic spells Bronchitis Elevated d-dimer Tachycardia ASCUS favoring benign Atypical chest pain Other specified diseases of gallbladder Mass of left kidney Conjunctivitis Gastroenteritis Atypical chest pain Acute bronchitis Rash Left foot pain Heel spur Benign skin lesion of cheek Postoperative bleeding from incision URI (upper respiratory infection) Pulmonary nodules Retroperitoneal mass Abdominal pain, lower Snoring Atypical angina Abnormal nuclear stress test Elevated liver enzymes History of hepatitis C Daytime somnolence Asymmetric SNHL (sensorineural hearing loss) Moderate High Frequency SNHL Left ear, Asymmetrical per Audiometric Viral syndrome Otitis media Thrush Encounter for laboratory testing for COVID-19 virus Knee contusion Tonsillitis Otitis media Bronchitis Sinusitis Bronchitis Colonoscopy planned Pharyngitis Uvulitis Referred otalgia of both ears Family history of sudden cardiac in daughter Abnormal electrocardiogram [ECG] [EKG] Tachycardia Swollen uvula Throat pain Diastolic dysfunction HTN (hypertension) Hepatitis C Urinary tract infection History of COVID-19 Sleep apnea History of syncope Seizure disorder Migraine Bipolar 1 disorder Schizophrenia Depression Carpal tunnel syndrome History of gastroesophageal reflux (GERD) Hypothyroid Allergies Hypertension Cancer of kidney Enlarged tonsils Dysphagia Asthma Surgical History Status post tonsillectomy History of endometrial ablation History of hernia repair Hx of appendectomy History of History of tubal ligation Family History Grandmother Stomach cancer Mother Brain cancer Sister Throat cancer Father Family history of hyperlipidemia Social History Smoking Status: Current every day smoker tobacco type: cigarettes packs per day: 1 second hand exposure: No alcohol intake: never substance use type: former substance user and heroin current occupational status: disabled Travel in the last 8 weeks?: None adopted: Yes household members: children housing: house number of children: 3 current occupational exposures/hazards: No caffeine: Yes Have you lived/traveled outside US in past 30 days?: No Contact w/someone who lives/traveled outside US past 30 days?: No Exposure to someone with infectious disease in past 14 days?: No Do you have a fever (greater than 100.4 F or 38 C)?: No Have you tested positive for COVID-19?: No Exposed to someone with COVID-19 in past 14 days?: No Do you have a sore throat?: No Do you have a cough?: No Do you have any weakness?: No Do you have any diarrhea?: No Are you experiencing any unusual bleeding?: No Do you have any muscle aches/pain?: No Do you have any abdominal pain?: No Are you experiencing loss of taste or smell?: No Other Medical History Have you received the Flu Vaccine for this season: No Have you received the Pneumonia Vaccine: Yes ROS Obtained: Yes All systems reviewed & no additional complaints except as documented and Yes Systems reviewed as appropriate & no additional complaints except as documented Physical Exam General General appearance: alert and in no apparent distress Head Head exam: atraumatic, normocephalic and normal inspection Eye Eye exam: Present normal appearance, PERRL and EOMI; Absent scleral icterus ENT ENT exam: Present normal exam and normal external ear exam Neck Neck exam: Present normal inspection and full ROM Chest Chest inspection: Present normal inspection and symmetric chest wall rise Respiratory Respiratory exam: Present normal lung sounds bilaterally; Absent respiratory distress or wheezes Cardiovascular Cardiovascular exam: Present regular rate, normal rhythm and normal heart sounds Abdominal Exam Abdominal exam: Present soft and distention; Absent tenderness, guarding or rebound Extremities Exam Extremities exam: Present normal inspection and full ROM Back Exam Back exam: Present normal inspection and full ROM Neurological Exam Neurological exam: Present alert, oriented X3, CN II-XII intact, normal gait and reflexes normal; Absent motor sensory deficit Psychiatric Psychiatric exam: Present normal affect and normal mood Skin Skin exam: Present warm and dry Medical Decision Making Medical Records Medical records reviewed: Yes I reviewed the patient's medical records. Screening: Per USPSTF and CDC recommendations, given the prevalence of disease in our region, it is our hospital?s policy to screen for HIV and viral Hepatitis for all patients aged 18 and over and those with ongoing risk factors. Torres Inquiry Pt receiving controlled substance: No Vital Signs: 07/11/25 15:42 07/11/25 17:00 07/11/25 17:20 Temperature 98.3 F Temperature Source Oral Pulse Rate 89 106 H Pulse Rate [Right] 93 H Respiratory Rate 20 Blood Pressure 138/117 H 112/66 Blood Pressure [Right Arm] 139/71 Blood Pressure Mean Blood Pressure Mean [Right Arm] 93 Blood Pressure Position 02 Sat by Pulse Oximetry 96 100 98 Oxygen Delivery Method Room Air 07/11/25 18:00 07/11/25 18:30 07/11/25 20:20 Temperature 98.3 F Temperature Source Oral Pulse Rate 90 91 H 94 H Pulse Rate [Right] Respiratory Rate 16 Blood Pressure 114/65 117/68 137/71 Blood Pressure [Right Arm] Blood Pressure Mean 81 77 Blood Pressure Mean [Right Arm] Blood Pressure Position Sitting 02 Sat by Pulse Oximetry 100 100 Oxygen Delivery Method Room Air Lab Data Lab results reviewed: Yes I reviewed the patient's lab results. Lab Results 07/11/25 15:41: WBC 18.6 H, RBC 4.09 L, Hgb 12.9, Hct 37.4, MCV 91.4, MCH 31.5 H, MCHC 34.5, RDW 13.6, Plt Count 187, MPV 11.5 H, Neut % (Auto) 59.2, Lymph % (Auto) 31.1, [place] % (Auto) 6.2, Eos % (Auto) 1.2, Baso % (Auto) 0.9, Neut # (Auto) 11.0 H, Lymph # (Auto) 5.8 H, [place] # (Auto) 1.2 H, Eos # (Auto) 0.2, Baso # (Auto) 0.2, Total Counted 100, Neutrophils % (Manual) 51, Lymphocytes % (Manual) 37, Monocytes % (Manual) 9, Eosinophils % (Manual) 1, Basophils % (Manual) 2.0 H, Platelet Estimate Normal, RBC Morphology Normal, Sodium 135 L, Potassium 3.6, Chloride 99, Carbon Dioxide 28, Anion Gap 11.6, BUN 18 H, Creatinine 1.00, Estimated Creat Clear 58, Estimated GFR 59, Est GFR ( Amer) 72, Glucose 102 H, Calcium 9.1, Total Bilirubin 0.5, AST 31, ALT 25, Alkaline Phosphatase 105, Troponin I < 0.01, Total Protein 6.8, Albumin 4.1, Globulin 2.7, Albumin/Globulin Ratio 1.5, TSH 2.05 D, Free T4 1.24, Serum HCG, Qual Negative 07/11/25 16:38: Urine Color Yellow, Urine Appearance Clear, Urine pH 6.0, Ur Specific [place] 1.010, Urine Protein Negative, Urine Glucose (UA) Negative, Urine Ketones Negative, Urine Blood Negative, Urine Nitrate Negative, Urine Bilirubin Negative, Urine Urobilinogen 0.2, Ur Leukocyte Esterase Negative, Urine RBC Occasional, Urine WBC Occasional, Ur Squamous Epith Cells 20-50, Urine Bacteria 1+, Urine Opiates Screen Negative, Urine Methadone Screen Negative, Ur Barbituates Screen Negative, Ur Phencyclidine Scrn Negative, Ur Amphetamines Screen Negative, U Benzodiazepines Scrn Negative, Urine Cocaine Screen Negative, U Marijuana (THC) Screen Negative 07/11/25 18:15: Troponin I < 0.01 07/11/25 15:41 07/11/25 15:41 Orders (Tests/Meds): ED MEDICATIONS Discontinued Medications Generic Name Dose Route Start Last Admin Trade Name Freq PRN Reason Stop Dose Admin Albuterol/Ipratropium 9 ml 07/11/25 16:21 07/11/25 16:46 Ipratropium/Albuterol 3 Ml Neb IH 07/11/25 16:22 9 ml ONCE ONE Administration ORDERS Category Date Time Status CT head/brain wo con Stat Cat Scan 07/11/25 16:21 Completed CXR 2 view (NOT portable) [XR chest 2V] Stat Exams 07/11/25 16:21 Completed CMP [Comprehensive Metabolic Panel] Stat Lab 07/11/25 15:41 Completed Complete Blood Count Auto Diff Stat Lab 07/11/25 15:41 Completed Free T4 (Free Thyroxine) Stat Lab 07/11/25 15:41 Completed HCG Qualitative, Serum Stat Lab 07/11/25 15:41 Completed TSH [Thyroid Stimulating Hormone] Stat Lab 07/11/25 15:41 Completed Trop T [Troponin I] Stat Lab 07/11/25 15:41 Completed Troponin I Q3H Lab 07/11/25 18:15 Completed UA [Urinalysis and Microscopic] Stat Lab 07/11/25 16:38 Completed UDS [Drug Screen,Urine] Stat Lab 07/11/25 16:38 Completed Medical Decision Narrative: Patient is an otherwise healthy 45-year-old female who presented to the emergency department with syncope versus seizure episode. On arrival, patient was hemodynamically stable with unremarkable vital signs. Differential includes but not limited to: Pneumonia, convulsive syncope, seizure, syncope, intracranial hemorrhage, electrolyte abnormalities, ACS/NH, amongst others. Labs were reviewed and interpreted by myself: Patient had a leukocytosis of 18, hemoglobin stable. CMP unremarkable. Initial troponin less than 0.01, second troponin less than 0.01. Thyroid studies unremarkable. test negative. UA showed no evidence of infection. Urine drug screen negative. CT head was reviewed and interpreted by myself and showed no acute intracranial pathology. Chest x-ray was reviewed and interpreted by myself and showed no acute for consolidation, pneumothorax, pleural effusion or other acute cardiopulmonary process. EKG was reviewed and interpreted by myself and showed normal sinus rhythm without acute ST or T wave changes concerning for ischemia At this time, I suspect that patient likely had more of a convulsive syncope versus syncope episode with a trigger of her coughing beforehand. Given patient's unremarkable workup at this time I felt the patient was appropriate for discharge home. I did discuss that if patient were to have another similar episode with seizure-like activity she would need to return to the emergency department. Otherwise at this time patient was stable and appropriate for discharge. Return precautions were discussed Critical Care Critical Care Time Critical Care Time: No
--- NOTE | 2025-07-11 16:21 | XR_ITS ---
PROCEDURE INFORMATION: Exam: XR Chest Exam date and time: 07/11/2025 4:28 PM Age: 45 years old Clinical indication: Cough and shortness of breath; Additional info: Pna TECHNIQUE: Imaging protocol: Radiologic exam of the chest. Views: 2 views. COMPARISON: CR XR CHEST 2V 07/07/2025 7:16 AM FINDINGS: Lungs: Subtle diffuse prominence of the interstitial markings suspicious for a viral pneumonitis. Pleural spaces: Unremarkable. No pleural effusion. No pneumothorax. Heart/Mediastinum: Unremarkable. No cardiomegaly. Bones/joints: Unremarkable. IMPRESSION: Subtle diffuse prominence of the interstitial markings suspicious for a viral pneumonitis.
--- NOTE | 2025-07-11 16:21 | CT_ITS ---
PROCEDURE INFORMATION: Exam: CT Head Without Contrast Exam date and time: 07/11/2025 4:38 PM Age: 45 years old Clinical indication: Altered mental status/memory loss; Additional info: Seizure vs syncope TECHNIQUE: Imaging protocol: Computed tomography of the head without contrast. Radiation optimization: All CT scans at this facility use at least one of these dose optimization techniques: automated exposure control; mA and/or kV adjustment per patient size (includes targeted exams where dose is matched to clinical indication); or iterative reconstruction. COMPARISON: CT ANGIO HEAD 09/09/2024 5:35 PM FINDINGS: Brain: Normal. No hemorrhage. Unremarkable white matter. No mass effect. Cerebral ventricles: No ventriculomegaly. Paranasal sinuses: Visualized sinuses are unremarkable. No fluid levels. Mastoid air cells: Visualized mastoid air cells are well aerated. Bones: Unremarkable. No acute fracture. Soft tissues: Unremarkable. IMPRESSION: No acute intracranial abnormality.
[2025-07-11 16:24] LABS: Hematocrit 37.4 % (37.0-47.0); Hemoglobin 12.9 g/dL (12.2-16.2); Immature Granulocytes % 1.4 %; Mean Corpuscular HGB Conc 34.5 g/dL (31.8-35.4); Mean Corpuscular Hemoglobin 31.5 pg (27.0-31.2); Mean Corpuscular Volume 91.4 fl (81-99); Nucleated Red Blood Cells % 0 %; Platelet Count 187 K/mm3 (142-424); Red Blood Count 4.09 M/mm3 (4.20-5.40); Red Cell Distribution Width-SD 45.3 fL; White Blood Count 18.6 K/mm3 (4.8-10.8)
[2025-07-11 16:37] LABS: HCG Qualitative, Serum Negative (Negative)
[2025-07-11 16:39] LABS: Alanine Aminotransferase 25 U/L (12-78); Albumin Level 4.1 g/dl (3.5-5.0); Albumin/Globulin Ratio 1.5 (1.1-1.8); Alkaline Phosphatase 105 U/L (38-126); Anion Gap 11.6 mEq/L (5-15); Aspartate Amino Transferase 31 U/L (14-36); Bilirubin,Total 0.5 mg/dl (0.2-1.3); Blood Urea Nitrogen 18 mg/dl (7-17); Calcium 9.1 mg/dl (8.4-10.2); Carbon Dioxide 28 mmol/L (22.0-30.0); Chloride 99 mmol/L (98-107); Creatinine Clearance Estimated 58 mL/min (50-200); Creatinine,Serum 1.00 mg/dl (0.52-1.04); Estimated Glomerular Filt Rate 59 ml/min (>60); GFR (African American) 72 ML/MIN (>60); Globulin 2.7 g/dL (1.3-3.2); Glucose 102 mg/dl (74-100); Potassium 3.6 mmoL/L (3.5-5.1); Sodium 135 mmol/L (136-145); Total Protein,Serum 6.8 g/dl (6.3-8.2)
[2025-07-11] MEDS: IPRATROPIUM/ALBUTEROL 3 ML NEB 9 ML IH (16:46)
[2025-07-11 16:47] LABS: Microscopic, Urine URINE MICROSCOPIC (MICROSCOPIC)
[2025-07-11 16:56] LABS: Free T4 (Free Thyroxine) 1.24 ng/dl (0.78-2.19)
[2025-07-11 17:00] VITALS: BP 138/117; PULSE 89; O2SAT 100
[2025-07-11 17:00] LABS: Bilirubin,Urine Negative (Negative); Color,Urine YELLOW (Yellow); Glucose,Urine (UA) Negative (Negative); Ketones,Urine Negative (Negative); Leukocyte Esterase,Urine Negative (Negative); PH,Urine 6.0 (5.0-8.5); Protein,Urine Negative (Negative); Specific Gravity, Urine 1.010 (1.005-1.030); Urobilinogen,Urine 0.2 EU/dl (0.2)
[2025-07-11 17:04] LABS: Troponin I < 0.01 ng/ml (0.00-0.034)
[2025-07-11 17:09] LABS: Thyroid Stimulating Hormone 2.05 uIU/mL (0.465-4.68)
[2025-07-11 17:09] LABS: Benzodiazepines Screen,Urine Negative ng/ml (<200)
[2025-07-11 17:10] LABS: Amphetamine/Metha Screen,Urine Negative ng/ml (<1000); Barbiturates Screen,Urine Negative ng/ml (<200)
[2025-07-11 17:12] LABS: Methadone Screen,Urine Negative ng/ml (<300)
[2025-07-11 17:13] LABS: Opiate Screen,Urine Negative ng/ml (<300)
[2025-07-11 17:14] LABS: Phencyclidine Screen,Urine Negative ng/ml (<25)
[2025-07-11 17:20] VITALS: BP 112/66; PULSE 106; O2SAT 98
--- NOTE | 2025-07-11 17:23 | ECG_ITS ---
APPROVED REPORT Exam: Resting ECG HR:99 bpm ECG Measurements Heart Rate 99 AXES IL 205 P 58 QRSd 86 QRS 90 QT 354 T 21 QTc 411 Conclusion SINUS RHYTHM LOW QRS VOLTAGE IN PRECORDIAL LEADS [QRS DEFLECTION < 1.0 mV IN CHEST LEADS] NONSPECIFIC T-WAVE ABNORMALITY BORDERLINE ECG UNCONFIRMED REPORT Electronically signed by : SAMEER GIVENS, 07/11/2025 23:32:23
[2025-07-11 17:31] LABS: Bacteria,Urine 1+ /lpf; RBC,Urine Occasional #/hpf (0-3); Squamous Epithelial Cell,Urine 20-50 #/hpf (0-5); WBC,Urine Occasional #/hpf (0-3)
[2025-07-11 17:47] LABS: Total Cells Counted 100
[2025-07-11 17:48] LABS: RBC Morphology Normal
[2025-07-11 18:00] VITALS: BP 114/65; PULSE 90; O2SAT 100
--- NOTE | 2025-07-11 18:18 | PC.NURSE ---
2nd trop sent to lab
[2025-07-11 18:30] VITALS: BP 117/68; PULSE 91; O2SAT 100
[2025-07-11 19:05] LABS: Troponin I < 0.01 ng/ml (0.00-0.034)
[2025-07-11 20:20] VITALS: BP 137/71; PULSE 94; RESP 16; TEMP 36.8; O2SAT 96
== END 2025-07-11 20:22 | disposition home or self-care (01) ==
PROVIDERS: Emergency Provider Student in an Organized Health Care Education/Training Program; PCP Family Medicine
DX: R55 Syncope and collapse (principal); R05.9 Cough, unspecified; D72.829 Elevated white blood cell count, unspecified; F17.210 Nicotine dependence, cigarettes, uncomplicated; J44.9 Chronic obstructive pulmonary disease, unspecified; I11.0 Hypertensive heart disease with heart failure; I50.30 Unspecified diastolic (congestive) heart failure; R26.89 Other abnormalities of gait and mobility; E66.01 Morbid (severe) obesity due to excess calories
CPT/HCPCS: 70450; 71046; 80053; 80307; 81001; 84439; 84443; 84484; 84703; 85007; 85025; 93005; 99283; 99285

== ENCOUNTER 2025-07-25 10:09 | Outpatient (CLI) | payer MEDICARE, MEDICAID, SELFPAY ==
[2025-07-25 21:01] LABS: Hematocrit 39.3 % (37.0-47.0); Hemoglobin 13.2 g/dL (12.2-16.2); Immature Granulocytes % 0.5 %; Mean Corpuscular HGB Conc 33.6 g/dL (31.8-35.4); Mean Corpuscular Hemoglobin 31.5 pg (27.0-31.2); Mean Corpuscular Volume 93.8 fl (81-99); Nucleated Red Blood Cells % 0 %; Platelet Count 162 K/mm3 (142-424); Red Blood Count 4.19 M/mm3 (4.20-5.40); Red Cell Distribution Width-SD 47.5 fL; White Blood Count 12.8 K/mm3 (4.8-10.8)
[2025-07-25 21:43] LABS: Alanine Aminotransferase 25 U/L (12-78); Albumin Level 3.8 g/dl (3.5-5.0); Albumin/Globulin Ratio 1.5 (1.1-1.8); Alkaline Phosphatase 133 U/L (38-126); Anion Gap 13.4 mEq/L (5-15); Aspartate Amino Transferase 17 U/L (14-36); Bilirubin,Total 0.6 mg/dl (0.2-1.3); Blood Urea Nitrogen 19 mg/dl (7-17); Calcium 9.4 mg/dl (8.4-10.2); Carbon Dioxide 28 mmol/L (22.0-30.0); Chloride 100 mmol/L (98-107); Creatinine,Serum 1.00 mg/dl (0.52-1.04); Estimated Glomerular Filt Rate 59 ml/min (>60); GFR (African American) 72 ML/MIN (>60); Globulin 2.5 g/dL (1.3-3.2); Glucose 114 mg/dl (74-100); Potassium 4.4 mmoL/L (3.5-5.1); Sodium 137 mmol/L (136-145); Total Protein,Serum 6.3 g/dl (6.3-8.2)
--- OUTSIDE RECORDS SUMMARY | 2025-07-28 10:19 | XMS_ITS | Clinical Summary ---
Author Organization [email or web address] [facility] are Address [address] [place] [phone] Phone Care Team Providers Care Administrative Law Judge Name Role Phone Unavailable Unavailable Conditions or Problems No information available. Medications No information available. Medications Administered No information available. Allergies, Adverse Reactions, Alerts No information available. Results No information available. Plan of Care No information available. Procedures No information available. Vital Signs No information available. Immunizations No information available. Advance Directives No information available.
--- OUTSIDE RECORDS SUMMARY | 2025-07-28 10:20 | XMS_ITS | Clinical Summary ---
Author Organization [facility] Address [facility] [place] [address] Phone Care Team Providers Care Intake Coordinator Name Role Phone Amelia Canchola CNP Unavailable [phone] Conditions or Problems No information available. Medications No information available. Medications Administered No information available. Allergies, Adverse Reactions, Alerts No information available. Results No information available. Plan of Care No information available. Procedures No information available. Vital Signs No information available. Immunizations No information available. Advance Directives No information available.
--- OUTSIDE RECORDS SUMMARY | 2025-07-28 10:21 | XMS_ITS | Clinical Summary ---
Author Organization [facility] Address [address] [place] [address] Phone Care Team Providers Care Electronic Service Technician Name Role Phone Unavailable Primary Care Provider [...] different from the original. No controlleds from [place] SEP Problem Noted Date Diagnosed Date Hepatitis [...] Routine 02/13/2013 9:02 AM EDT Breast pain [facility] CYTOLOGY REPORT Routine 01/26/2010 4 :49 AM EDT from Last 3 Months or Most Recently Relevant to Health Maintenance Results * MM MAMMO DIGITAL DIAGNOSTIC W CAD BILAT (02/13/2013 9:02 AM EDT) Anatomical Region Laterality Modality Breast Bilateral Mammography 02/13/2013 10:3 6 AM EDT Impressions 02/13/2013 4:21 PM EDT : Incomplete-need additional imaging evaluation ([id number]) ~ RECOMMENDATION: Ultrasound of the left breast,this [...] densities. ~ IMPRESSION: Incomplete-need additional imaging evaluation ([id number]) ~ RECOMMENDATION: Ultrasound of the left breast,this [...] Radiologist and CAD. us Adrianna Tavares MD IMG MAMMOGRAPHY ORDERABLES Fin al Result * [facility] CYTOLOGY REPORT (01/26/2010 4:49 AM EDT) Office Clerk Assistant Cytology Report PATIENT NAME:MYLES MONK Office Clerk Assistant Cytology Report Accession Number Collected Date/Time Received Date/Time [id number] 01/26/10 04:49 EDT 01/27/10 04:49 EDT GY [...] before definitive therapy. Processed using the ThinPrep Patent Drafter automated cytology screening device ([employer]). Claim Representative : RANDI SUBRAMANIAN 02/08/2010 Completed by: Yanet Winters MD, PhD (Electronically signed by) 02/08/2010 [facility] 01/26/2010 4:49 AM EDT us Rogers Trevizo MD PATHOLOGY ORDERABLES Final Res ult [facility] [address] [place] [address] from Last 3 Months or Most Recently Relevant to Health Maintenance Insurance [place] [address] MEDICAID [place] Member Subscriber Plan / Payer (Ef fective 2014-Present) Name:Myles Monk Relation to Subscriber:Self Name:Myles Monk Payer ID:Not on file Group ID:Not on file Type:Not on file Address: [address] [place] [id number] [address] [place] [address] MEDICARE [place] PART A AND B
--- OUTSIDE RECORDS SUMMARY | 2025-07-28 10:21 | XMS_ITS | Clinical Summary ---
Author Organization Healthcare Address [address] [place] [address] Care Team Providers Care Regulatory Affairs Strategy Specialist Name Role Phone Pablo Delgado MD Primary Care Provider [phone] Family History Medical History Relation Name Comments [...] 2023 Sigmoidoscopy 2023 [facility]-Colorectal Cancer Screening 2023 [id number] Vaccine ( season) 2025 08/06/2021, 07/09/2021 [facility]-Influenza [...] topic Insurance [place] UHC MEDICARE Care Teams Regulatory Affairs Strategy Specialist Relationship Specialty Start Date End Date Pablo Delgado MD [address] [place] [address] PCP - General 02/26/21
--- OUTSIDE RECORDS SUMMARY | 2025-07-28 10:21 | XMS_ITS | Encounter Summary ---
Author Organization Healthcare Address [address] [place] [address] Care Team Providers Care Condenser Tester Name Role Phone Pablo Delgado MD Primary Care Provider + [phone] Encounter Details Date Type Department Care Team (Late st Contact Info) Description 06/18/2021 Lab Requisition [facility] Oral Pathology [address] [place] [address] Jerry Arana, DMD [address] [place] [phone] Benign neoplasm of lip Social History Tobacco [...] chronic inflammatory cells. 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 06/22/2021 10:33 AM EDT [facility] ORAL PATHOLOGY at 1033 EDT Case Report Oral Pathology Case: [id number] Authorizing Provider: Jerry Arana DMD Collected: 06/10/2021 Ordering Location: [facility] ORAL PATHOLOGY Received: 06/18/2021912 Pathologist: Francine Mckoy DDS Specimen: Upper Lip 06/22/2021 10:33 AM EDT [facility] ORAL PATHOLOGY Tissue Upper lip structure / Unknown 06/10/2021 06/18/2021 9:13 AM EDT Jerry Arana DMD LAB PATHOLOGY ORDERABLES Final Result Performing Organization Address City/State/[facility] Co de Phone Number [facility] DENTISTRY ORAL PATHOLOGY [address] [facility] [place] [address] documented in this encounter Visit Diagnoses Diagnosis Benign neoplasm of lip documented in this encounter Care Teams Condenser Tester Relationship Specialty Start Date End Date Pablo Delgado MD [address] [place] [address] PCP - General 02/26/21 documented as of this encounter
== END 2025-07-25 23:59 ==
LOC: LAB.DROPOF 07-28 10:10
PROVIDERS: PCP Family Medicine; Visit Provider Family Medicine
DX: J18.9 Pneumonia, unspecified organism (principal); R55 Syncope and collapse
CPT/HCPCS: 80053; 85025

== ENCOUNTER 2025-10-14 15:35 | Outpatient (CLI) | payer MEDICARE, MEDICAID, SELFPAY ==
--- NOTE | 2025-10-14 15:37 | XR_ITS ---
FINAL REPORT CLINICAL HISTORY: cough, shortness of breath, r/o PNA COMPARISON: 07/11/2025 FINDINGS: PA and lateral views of the chest were obtained. The cardiac and mediastinal silhouettes are within normal limits. There has been slight improvement in the bilateral interstitial opacities. No new infiltrates.. There is no pleural effusion or pneumothorax. No acute osseous abnormality is identified. IMPRESSION: Slight improvement in bilateral interstitial opacities. Reviewed, Interpreted and Dictated by Tamiko Mesa MD Transcribed by Kinza Mckoy Authenticated and [facility]
--- OUTSIDE RECORDS SUMMARY | 2025-10-14 15:37 | XMS_ITS | Clinical Summary ---
Author Organization [facility] Address [address] [place] [address] Care Team Providers Care Application Systems Engineer Name Role Phone None, None Primary Care Provider Unavailabl e None, None Unavailable Unavailable Mariano Zambrano MD Unavailable [phone] Allergies Active Allergy Reactions Criticality Noted Date [...] on file Medical Devices Implanted Type Area Rope Making Machine Operator Device Identifier Shelf Expiration Date Model / Serial / Lot Sys Cntrl Perm Essure - S1 Implanted:Qty : 1 on 03/06/2009 at [facility] 8 OR Bilateral: Fallopian Tube * [employer] [id number] / [id number] Insurance MEDICARE MEDICAID [place] Care Teams Application Systems Engineer Relationship Specialty Start Date End Date None, None [address] [place] [address] PCP - General 02/26/09 None, None [address] [place] [address] PCP - OBGYN 09/03/09 Mariano Zambrano MD [address] [address] Obstetrics & Gynecology 10/23/22
--- OUTSIDE RECORDS SUMMARY | 2025-10-14 15:37 | XMS_ITS | Clinical Summary ---
Author Organization [facility] are Address [address] [place] [address] Phone Care Team Providers Care Petroleum Inspector Supervisor Name Role Phone Unavailable Unavailable Conditions or Problems No information available. Medications No information available. Medications Administered No information available. Allergies, Adverse Reactions, Alerts No information available. Results No information available. Plan of Care No information available. Procedures No information available. Vital Signs No information available. Immunizations No information available. Advance Directives No information available.
--- OUTSIDE RECORDS SUMMARY | 2025-10-14 15:38 | XMS_ITS | Clinical Summary ---
Author Organization Healthcare Address [address] [place] [address] Care Team Providers Care Slubber Operator Name Role Phone Pablo Delgado MD Primary Care Provider + [phone] Family History Medical History Relation Name Comments [...] 2023 Sigmoidoscopy 2023 [facility]-Colorectal Cancer Screening 2023 [id number] Vaccine ( season) 2025 08/06/2021, 07/09/2021 [facility]-Influenza Vaccine (#1) 2025 09/03/2018 [facility]-Zoster Vaccines (1 of 2) 2028 HPV Vaccines (No Doses Required) Completed [facility]-HIB Vaccines Aged Out No longer e [...] patient's age to complete this topic Insurance WNEE [id number] [id number] MEDICAID-[place] [facility] MEDICARE Care Teams Slubber Operator Relationship Specialty Start Date End Date Pablo Delgado MD [address] [place] [address] PCP - General 02/26/21
--- OUTSIDE RECORDS SUMMARY | 2025-10-14 15:38 | XMS_ITS | Encounter Summary ---
Author Organization Healthcare Address [address] [place] [address] Care Team Providers Care Requisition Approver Name Role Phone Pablo Delgado MD Primary Care Provider + [phone] Encounter Details Date Type Department Care Team (Late st Contact Info) Description 06/18/2021 Lab Requisition [facility] Oral Pathology [address] [place] [address] Jerry Arana, DMD [address] [place] [phone] Benign neoplasm of lip Social History Tobacco [...] chronic inflammatory cells. 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 06/22/2021 10:33 AM EDT [facility] ORAL PATHOLOGY at 1033 EDT Case Report Oral Pathology Case: [id number] Authorizing Provider: Jerry Arana DMD Collected: 06/10/2021 Ordering Location: [facility] ORAL PATHOLOGY Received: 06/18/2021912 Pathologist: Francine Mckoy DDS Specimen: Upper Lip 06/22/2021 10:33 AM EDT [facility] ORAL PATHOLOGY Tissue Upper lip structure / Unknown 06/10/2021 06/18/2021 9:13 AM EDT Jerry Arana DMD LAB PATHOLOGY ORDERABLES Final Result Performing Organization Address City/State/[facility] Co de Phone Number [facility] DENTISTRY ORAL PATHOLOGY [address] [facility] [place] [address] documented in this encounter Visit Diagnoses Diagnosis Benign neoplasm of lip documented in this encounter Care Teams Requisition Approver Relationship Specialty Start Date End Date Pablo Delgado MD [address] [place] [address] PCP - General 02/26/21 documented as of this encounter
--- OUTSIDE RECORDS SUMMARY | 2025-10-14 15:38 | XMS_ITS | Clinical Summary ---
Author Organization [facility] [place] [facility] Address [address] [place] [address] Phone Care Team Providers Care Driver'S License Reviewing Officer Name Role Phone Unavailable Primary Care Provider [...] different from the original. No controlleds from [facility] SEP Problem Noted Date Diagnosed Date Hepatitis [...] Sigmoidoscopy 2023 Virtual Colonography 2023 COVID-19 Vaccine (2024-2 6 season) 2025 Influenza Vaccine (#1) 2025 Meningococcal B Vaccine Aged Out No l onger eligible based on patient's age to complete this topic Procedures Procedure Name Priority Date/Time Associated Diagnosis Comments MM MAMMO DIGITAL DIAGNOSTIC W CAD BILAT Routine 02/13/2013 9:02 AM EDT Breast pain AUTOMOBILE MECHANIC CYTOLOGY REPORT Routine 01/26/2010 4 :49 AM EDT from Last 3 Months or Most Recently Relevant to Health Maintenance Results * MM MAMMO DIGITAL DIAGNOSTIC W CAD BILAT (02/13/2013 9:02 AM EDT) Anatomical Region Laterality Modality Breast Bilateral Mammography 02/13/2013 10:3 6 AM EDT Impressions 02/13/2013 4:21 PM EDT : Incomplete-need additional imaging evaluation ([id number]) ~ RECOMMENDATION: Ultrasound of the left breast,this [...] densities. ~ IMPRESSION: Incomplete-need additional imaging evaluation ([id number]) ~ RECOMMENDATION: Ultrasound of the left breast,this [...] IMG MAMMOGRAPHY ORDERABLES Fin al Result * AUTOMOBILE MECHANIC CYTOLOGY REPORT (01/26/2010 4:49 AM EDT) Power Tong Operator Cytology Report PATIENT NAME:MYLES MONK Power Tong Operator Cytology Report Accession Number Collected Date/Time Received Date/Time [id number] 01/26/10 04:49 EDT 01/27/10 04:49 EDT GY [...] definitive therapy. Processed using the ThinPrep Corporate Receptionist automated cytology screening device (Spry). Medication Nurse : RANDI SUBRAMANIAN 02/08/2010 Completed by: Yanet Winters MD, PhD (Electronically signed by) 02/08/2010 [facility] Laboratory [facility] 01/26/2010 4:49 AM EDT us Rogers Trevizo MD PATHOLOGY ORDERABLES Final Res ult [facility] [address] [place] [address] from Last 3 Months or Most Recently Relevant to Health Maintenance Insurance [place] [address] MEDICAID [place] Member Subscriber Plan / Payer (Ef fective 2014-Present) Name:Myles Monk Relation to Subscriber:Self Name:Myles Mokn Payer ID:Not on file Group ID:Not on file Type:Not on file Address: [address] [place] [id number] [address] [place] [address] MEDICARE [place] PART A AND B
[2025-10-14 20:14] LABS: Coronavirus 19, PCR Not Detected (NotDetected); Influenza A, PCR Not Detected (NotDetected); Influenza B, PCR Not Detected (NotDetected)
== END 2025-10-14 23:59 | disposition home or self-care (01) ==
LOC: RAD 15:36
PROVIDERS: PCP Student in an Organized Health Care Education/Training Program; Visit Provider Student in an Organized Health Care Education/Training Program
DX: J18.9 Pneumonia, unspecified organism (principal); J45.40 Moderate persistent asthma, uncomplicated; J06.9 Acute upper respiratory infection, unspecified
CPT/HCPCS: 71046; 87636